=== PATIENT | female | born 1985 | race Caucasian/White ===

== ENCOUNTER 2023-04-14 20:09 | Emergency (ER) | payer SELFPAY ==
--- OUTSIDE RECORDS SUMMARY | 2023-04-14 20:16 | XMS REPORT | Continuity of Care Document ---
:1985 Author Organization [facility] t Address [address] [facility] [address] [place] [address] Care Team Providers Name Role Phone Tristan Joel MD Primary Care Physician TRISTAN JOEL Attending Clinician Unavailable TRISTAN JOEL Attending Clinician Unavailable DORCAS TREADWELL Attending Clinician Unavailable Victoriano Barrientos MD Attending Clinician [phone] Master Franko AARON Attending Clinician FRANKO SOLIS Attending Clinician Unavailable VICTORIANO BARRIENTOS Attending Clinician Unavailable RAMÓN Attending Clinician Unavailable Ashley Rogers MD Attending Clinician MAE ZAVALETA Attending Clinician Unavailable MANAN GIMENEZ Attending Clinician Unavailable Desmond Jacob Attending Clinician Unavailable TOMÁS JARRETT Attending Clinician Unavailable Provider, An Attending Clinician Unavailable CASEY FALLON Attending Clinician Unavailable LANCE GALLEGO Attending Clinician Unavailable RADHA CHANDLER Attending Clinician Unavailable Matt ETIENNE, Jordan Mcdaniel Attending Clinician SUNDAY, HODAN Attending Clinician Unavailable HOWARD ORTIZ Attending Clinician Unavailable YAHIR DURHAM Attending Clinician Unavailable Mariah Suárez Attending Clinician Unavailable ADRIANO CHA Attending Clinician Unavailable Nilam ETIENNE, Jeanette Richard Attending Clinician Gin ETIENNE, Kelly Guzman Attending Clinician TRISTAN JOEL M.D. Attending Clinician Unavailable TONIA ELMORE Attending Clinician Unavailable SUSAN COTE M.D. Attending Clinician Unavailable FIDENCIO HERNANDEZ Attending Clinician Unavailable Tristan Joel M.D. Attending Clinician Unavailable FIDENCIO DIAZ Attending Clinician Unavailable JACOB CARDOSO M.D. Attending Clinician Unavailable SHERICE ARREDONDO M.D. Attending Clinician Unavailable ROMANA_KRYSTAL Admitting Clinician Unavailable Desmond Jacob Admitting Clinician Unavailable MD JORDAN BANSAL Admitting Clinician Unavailable MARIELY CHEW Admitting Clinician Unavailable Payers Payer Name Policy Type Policy Number Effective Date Expiration Date [facility] [id number] 2020 2021 HEALTH PLANS OON 00:00:00 00:00:00 [facility] [id number] 2015 00:00:00 Problems Condition Condition Condition Status Onset Resolution Last Treating Co mments Source Name Details Category Date Date Treatment Clinician Date SENT BY SENT BY Diagnosis Active 2022-08-20 Fracisco RICHEY Active 08-20 15:53:00 l 08/20/2022 00:00: Fito doan [address] HOLDER HOLDER Active Diagnosis Active 2022-08-25 Fracisco 08/20/202208-20 15:57:00 l [facility] 00:00: [address] NSVT NSVT Disease Active [place] (nonsustai (nonsustai 4-01 He alth alejandra alejandra 00:00: ventricula ventricula 00 r r tachycardi tachycardi a) a) Brugada Brugada Disease Active [place] syndrome syndrome 4-01 Health 00:00: 00 Abnormal Abnormal Disease Active [place] electrocar electrocar 2-15 He alth diogram diogram 00:00: 00 Palpitatio Palpitatio Disease Active U T ns ns 2-13 Health 00:00: 00 Sinus Sinus Disease Active [place] tachycardi tachycardi 2-13 He alth a a 00:00: 00 CONGENITAL CONGENITA Diagnosis Active 2021-052022-08-10 Memoria HEART L HEART 06-29 16:32:00 l DISEASE DISEASE 00:00: [place] Active 00 04/28/2022 [facility] 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 04 Health disease disease 00:00: 00 Family Family Disease Active [place] history of history of 4-04 He alth Brugada Brugada 00:00: syndrome syndrome 00 SOB, SOB, Diagnosis Active 2021-01-23 Mem oria VOMITING VOMITING 01-23 20:45:00 l BLOOD BLOOD 00:00: [place] Active 00 01/23/2021 [facility] Attention Attention Problem Active Evan gregg deficit Deficit 8-14 Family hyperactiv Hyperactiv 00:00: Pr actic ity ity 00 e disorder, Disorder, 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 CONNOR RYAN Active 08/27/2018 [facility] Brugada Brugada Disease Active 2016-05 Methodi syndrome syndrome 1-15 st 00:00: Hospita 00 l CHILDBIRTH CHILDBIRT Diagnosis Active 2014-052015-05-10 Memoria H Active 05-22 15:58:00 l 03/22/2015 00:00: Fito n [address] CONTRACTIO Diagnosis Active 2015-04-09 Memoria NS CONTRACTIO 05-21 21:55:00 l NS Active 00:00: Junior 05/21/2014 00 [facility] APNEA APNEA Diagnosis Active 2021-09-26 Mem oria Active 05-21 11:40:00 l 05/21/2000 00:00: Fito doan [address] Aneurysm Aneurysm Problem Active 2022-08-28 Memoria of of 07:00:00 l ascending ascending Herm claire aorta aorta (disorder) (disorder) Active Problem 08/28/2022 [facility] Bicuspid Bicuspid Problem Active 2022-08-28 Memoria aortic aortic 07:00:00 l valve valve Junior (disorder) (disorder) Active Problem 08/28/2022 [facility], H SHEYLA Peres, SHEYLA Pacheco,[facility] CAT scan CAT scan Problem Active 2022-08-28 Memoria brain - brain - 07:00:00 l abnormal abnormal Fito daon (finding) (finding) Active Problem 08/28/2022 [facility] Obstructiv Obstructi Problem Active 2022-08-28 Memoria e sleep ve sleep 07:00:00 l apnea apnea [place] syndrome syndrome (disorder) (disorder) Active Problem 08/28/2022 [facility] Q23.1 - Q23.1 - Diagnosis Active 2021-09-08 Memoria CONGENITAL CONGENITAL 11:10:00 l INSUFFICIE INSUFFICIE He rmann NCY OF AO NCY OF AO Active [facility] R10.11 - R10.11 - Diagnosis Active 2021-07-26 Memoria RIGHT RIGHT 10:20:00 l UPPER UPPER Junior QUADRANT QUADRANT PAIN PAIN Active SHEYLA Pacheco N64.4 - N64.4 - Diagnosis Active 2021-09-09 Memoria MASTODYNIA MASTODYNIA 12:50:00 l [facility] [place] Q23.1 - Q23.1 - Diagnosis Active 2022-06-28 Memoria CONGENITAL CONGENITAL 10:36:00 l INSUFFICIE INSUFFICIE He rmann NCY OF AO NCY OF AO Q Q Active [facility] FULL-TERM FULL-TERM Diagnosis Active 2015-04-09 Memoria ERMELINDA ROM, ERMELINDA ROM, 21:55:00 l ONSET ONSET 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 [facility] HEADACHE, Diagnosis Active 2022-08-25 Memoria UNSPECIFIE HEADACHE, 15:57:00 l D UNSPECIFIE Fito n D Active [facility] History of History of Problem Active U T family family Physici problem problem ans Vaginal Vaginal Problem Active UT discharge discharge Phys ici ans Yeast Yeast Problem Active UT infection infection Phys ici ans Aortic Aortic Problem Active UT valve valve Physici regurgitat regurgitat an s ion ion Problem Active UT control control Physici counseling counseling an s High-risk High-risk Problem Active UT Phys ici ans Encounter Encounter Problem Active UT for for Physici an s visit visit Anemia Anemia Problem Active UT Physici ans Problem Active UT screening screening Phys ici for for ans malformati malformati on using on using ultrasonic ultrasonic s s Bicuspid Bicuspid Problem Active UT aortic aortic Physici valve valve ans Aortic Aortic Problem Active UT root root Physici dilation dilation ans Patient Patient Problem Resolve 2014-052022-08-28 2022-08-28 Memoria currently currently d 1-15 07:00:00 07:00:00 l 00:00: Fito doan (finding) (finding) 00 Resolved 04/04/2015 Problem 08/28/2022 [facility],M SHEYLA Peres, SHE[facility]LA Pacheco[facility] History of Past Illness Condition Condition Condition Status Onset Resolution Last Treating Co mments Source Name Details Category Date Date Treatment Clinician Date Alcohol Alcohol Problem 2021-01-25 2021-01-25 Memoria abuse, abuse, 01-23 22:05:58 22:05:58 l uncomplica uncomplica 17:00: He ronaldo amy amy 00 01/23/2021 01/25/2021 [facility] Esophagiti Esophagit Problem 2021-01-25 2021-01-25 Memoria s, is, 01-23 22:05:58 22:05:58 l unspecifie unspecifie 17:00: He ronaldo morgan without d without 00 bleeding bleeding 01/23/2021 01/25/2021 [facility] Allergies, Adverse Reactions, Alerts Allergy Allergy Status Severity Reaction(s) Onset Inactive Treating Comm ents Source Name Type Date Date Clinician No Known DA Active U 2022-05 [facility] All[facility]ie 0-01 Nieves s 00:00: [facility] 00 are [place] NO KNOWN Allergy Active [facility] No Known No Known Active Memori a Medicati Medicati l on on Junior Allergie Allergie s s Family History Family Member Diagnosis Comments Start Date Stop Date Source Natural [facility] Social [facility] Social Habit Start Date Stop Date Quantity Comments Source Sexual orientation [facility] Exposure to 2022-09-22 2022-10-02 Not sure [facility] SARS-CoV-2 (event) 00:00:00 01:59:00 History of Social 2022-09-18 2022-09-[address] function 00:00:00 00:00:00 [facility] Social History 2022-08-21 2022-08-21 [facility] 06:09:35 06:09:35 Tobacco use and 2022-06-29 2022-06-29 Smokeless [place] Health exposure 00:00:00 00:00:00 tobacco non-user Alcohol intake 2020-12-01 2020-12-01 Current Hinduism 00:00:00 00:00:00 non-drinker of Hospital alcohol (finding) Sex Ass[birth year] At [birth year] [facility] 00:00:00 00:00:00 [facility] Smoking Status Start Date Stop Date Source Tobacco smoking consumption unknown [facility] Never smoked tobacco [place] [facility] Medications Ordered Filled Start Stop Current Ordering Indication Dosage Frequency Signature Comments Components Source Medication Medication Date Date Medication? Clinician (SIG) Name Name clonazePAM 2022-05- No 1{tbl} Q.5D Take 1 UT (KlonoPIN) 05-28 1108 tablet by Deana hernandez 0.5 MG 10:44: 00:00 mouth in tablet 34 :00 the morning and 1 tablet before bedtime. polyethylen 2022-05 Yes [id number] Take 2L PO UT e glycol 08 from 6 pm Health (GaviLyte-G 00:00: to 8 pm ) 236 g 00 the night solution before procedure, then take 2L PO over two hours starting 6 hours prior to procedure time to be completed by 4 hours prior to procedure time ondansetron 2022-05- Yes [id number] 4mg Take 1 UT (Zofran) 4 05-28 12- tablet (4 Hea lth MG tablet 00:00: 05:59 mg total) 00 :00 by mouth 1 (one) time each day if needed for nausea or vomiting. propranolol 2022- No QD Take by UT [place] (Inderal 02-14 mouth 1 Heal th LA) 80 MG 00:00: 00:00 (one) time 24 hr 00 :00 each day. capsule Lo Loestrin Yes 1{tbl} QD Take 1 UT Fe 1 MG-10 02-13 tablet by [facility] th MCG / 10 00:00: mouth 1 MCG tablet 00 (one) time each day. amphetamine 2022- No TAKE 1.5 U T -dextroamph 02-06 TABLETS [facility] etamine 00:00: 00:00 TWICE A (Adderall) 00 :00 DAY BY 20 MG ORAL ROUTE tablet NEEDED. butalbital- 2022- No 1{tbl} Q6H Take 1 U T acetaminoph 12-21- tablet by He alth en-caffeine 15:05: 00:00 mouth 50-325-40 17 :00 every 6 MG tablet (six) hours if needed. Rimegepant 2022-0 Yes [id number] 75mg Q2D Take 75 mg UT Sulfate 75 8- 9105 by mouth Healt h MG tablet 00:00: every dispersible 00 other day. Rimegepant 2022-0 Yes [id number] 75mg Q2D Take 75 mg UT Sulfate 75 8-03 9105 by mouth Healt h MG tablet 00:00: every dispersible 00 other day. Rimegepant 2022-0 Yes [id number] 75mg Q2D Take 75 mg UT Sulfate 75 8-03 9105 by mouth Healt h MG tablet 00:00: every dispersible 00 other day. metoprolol 2023- No [id number] 25mg QD Take 1 U T succinate 12-18 tablet (25 Hea lth XL 00:00: 05:59 mg total) (Toprol-XL) 00 :00 by mouth 1 25 MG 24 hr (one) time tablet each day. TAKE 1 TABLET BY MOUTH 1 TIME EACH DAY DO NOT CRUSH OR CHEW metoprolol 2023- No [id number] 25mg QD Take 1 U T succinate 12-18 tablet (25 Hea lth XL 00:00: 05:59 mg total) (Toprol-XL) 00 :00 by mouth 1 25 MG 24 hr (one) time tablet each day. TAKE 1 TABLET BY MOUTH 1 TIME EACH DAY DO NOT CRUSH OR CHEW metoprolol 2023- No [id number] 25mg QD Take 1 U T succinate 12-18 tablet (25 Hea lth XL 00:00: 05:59 mg total) (Toprol-XL) 00 :00 by mouth 1 25 MG 24 hr (one) time tablet each day. TAKE 1 TABLET BY MOUTH 1 TIME EACH DAY DO NOT CRUSH OR CHEW butalbital- 0 Yes 1{tbl} Q6H Take 1 UT acetaminoph 7-03 tablet by [facility] en-caffeine 09:01: mouth 50-325-40 01 every 6 MG tablet (six) hours if needed. butalbital- 0 Yes 1{tbl} Q6H Take 1 UT acetaminoph 7-03 tablet by [facility] en-caffeine 09:01: mouth 50-325-40 01 every 6 MG tablet (six) hours if needed. amphetamine 2022-0 2022- No 1{tbl} Q.5D Take 1 U T -dextroamph 10-29 tablet by alth etamine 00:00: 00:00 mouth in (Adderall) 00 :00 the 30 MG morning tablet and 1 tablet before bedtime. amphetamine 2022-2022- No 1{tbl} Q.5D Take 1 U T -dextroamph 10-29- tablet by alth etamine 00:00: 00:00 mouth in (Adderall) 00 :00 the 30 MG morning tablet and 1 tablet before bedtime. atorvastati 2022-0 2022- No 40mg QD Take 40 mg UT n (Lipitor) 10-22 by mouth 1 H ealth 40 MG 00:00: 00:00 (one) time tablet 00 :00 each day. atorvastati 3- No 40mg QD Take 40 mg UT n (Lipitor) 6 07-03 by mouth 1 H ealth 40 MG 00:00: 00:00 (one) time tablet 00 :00 each day. rosuvastati 2022-2023- No [id number] 40mg QD Take 1 UT n (Crestor) 5-15 05-15 tablet (40 H ealth 40 MG 00:00: 04:59 mg total) tablet 00 :00 by mouth 1 (one) time each day. rosuvastati 2022-2023- No [id number] 40mg QD Take 1 UT n (Crestor) 5-15 05-15 tablet (40 H ealth 40 MG 00:00: 04:59 mg total) tablet 00 :00 by mouth 1 (one) time each day. rosuvastati 2022-2023- No [id number] 40mg QD Take 1 UT n (Crestor) 5-15 05-15 tablet (40 H ealth 40 MG 00:00: 04:59 mg total) tablet 00 :00 by mouth 1 (one) time each day. rosuvastati 2023- No [id number] 40mg QD Take 1 UT n (Crestor) 5-15 05-15 tablet (40 H ealth 40 MG 00:00: 04:59 mg total) tablet 00 :00 by mouth 1 (one) time each day. rosuvastati 2023- No [id number] 40mg QD Take 1 UT n (Crestor) 5-15 05-15 tablet (40 H ealth 40 MG 00:00: 04:59 mg total) tablet 00 :00 by mouth 1 (one) time each day. rosuvastati 2023- No [id number] 40mg QD Take 1 UT n (Crestor) 5-15 05-15 tablet (40 H ealth 40 MG 00:00: 04:59 mg total) tablet 00 :00 by mouth 1 (one) time each day. Yes 1{tbl} QD Take 1 Metho di vit,calc76- 5-[address] iron-folic 05:39: mouth Hospit a 29 mg iron- 59 daily. l 1 mg tablet per tablet Yes 1{tbl} QD Take 1 Metho di vit,calc76- 5-[address] iron-folic 05:39: mouth Hospit a 29 mg iron- 59 daily. l 1 mg tablet per tablet metoprolol 2022- No [id number] 25mg QD Take 1 U T succinate 09-25- tablet (25 Hea lth XL 00:00: 04:59 mg total) (Toprol-XL) 00 :00 by mouth 1 25 MG 24 hr (one) time tablet each day. Do not crush or chew. metoprolol 2022- No [id number] 25mg QD Take 1 U T succinate 09-25 tablet (25 Hea lth XL 00:00: 04:59 mg total) (Toprol-XL) 00 :00 by mouth 1 25 MG 24 hr (one) time tablet each day. Do not crush or chew. metoprolol 2022- No [id number] 25mg QD Take 1 U T succinate 09-25 tablet (25 Hea lth XL 00:00: 00:00 mg total) (Toprol-XL) 00 :00 by mouth 1 25 MG 24 hr (one) time tablet each day. Do not crush or chew. atorvastati Yes 40 mg = 1 M emoria n 40 mg 4-07 tab, PO, l oral tablet 18:24: Bedtime, # Junior 00 60 tab, 1 Refill(s), [id number], 172.72, cm, 08/21/22 1:59:00 CDT, Height, 78.3, kg, 08/21/22 1:59:00 CDT, Weight riboflavin Yes 400 mg = 4 M emoria 100 mg oral 4-07 tab, PO, l tablet 18:24: Daily, # [place] 00 100 tab, 1 Refill(s), Pharmacy: [facility] #[id number], 172.72, cm, 08/21/22 1:59:00 CDT, Height, 78.3, kg, 08/21/22 1:59:00 CDT, Weight ubiquinone 2023-0 Yes 100 mg = 1 M emoria 100 mg oral 4-07 cap, PO, l capsule 18:24: TID, # 30 Suyapa nn 00 cap, 1 Refill(s), Pharmacy: [facility] #[id number], 172.72, cm, 08/21/22 1:59:00 CDT, Height, 78.3, kg, 08/21/22 1:59:00 CDT, Weight atorvastati No 40 mg = 1 M emoria n 40 mg 4-07 tab, PO, l oral tablet 18:08: Bedtime, # Junior 00 60 tab, 1 Refill(s) riboflavin 0 No 400 mg = 4 M emoria 100 mg oral 4-07 tab, PO, l tablet 18:08: Daily, # [place] 00 240 tab, 0 Refill(s) ubiquinone 0 No 100 mg = 1 M emoria 100 mg oral 4-07 cap, PO, l capsule 18:08: TID, # 180 Herm claire 00 cap, 0 Refill(s) [place] 5/325 0 No Notes: Hussain char oral tablet - (Same as: l 14:12: [place] 00 325/5) Do not exceed 4gm/day of acetaminop hen. [place] 5/325 0 No Notes: Hussain char oral tablet - (Same as: l 10:00: [place] Junior 00 325/5) Do not exceed 4gm/day of acetaminop hen. [place] 5/325 0 No Notes: Hussain char oral tablet - (Same as: l 04:49: [place] Junior 00 325/5) Do not exceed 4gm/day of acetaminop hen. tramadol 50 No Notes: Not Memoria mg oral -07 to exceed l tablet 02:08: 400mg/day. Suyapa nn 00 (Same As: Ultram) atorvastati 0 Yes 40mg Take 40 mg UT n (Lipitor) -07 by mouth Heal th 40 MG 00:00: every tablet 00 night. atorvastati 2022-0 Yes 40mg Take 40 mg UT n (Lipitor) 4-07 by mouth Heal th 40 MG 00:00: every tablet 00 night. atorvastati No 40mg Take 40 mg UT n (Lipitor) 08-25 05-15 by mouth Hea lth 40 MG 00:00: 00:00 every tablet 00 :00 night. dexamethaso No Notes: Memoria ne 4-05 MEDICATION l 19:30: WASTE [place] 00 Product Size: 10 mg Product Wasted: ___ mg valproic No Notes: Memoria acid + -05 Dilute in l Sodium 19:30: at least Junior Chloride 00 50ml D5W 0.9% IV 50 or NS. mL Infusion rate = 20 mg/min (Same As: Depacon) Hazardous Drug Group 3:Reproduc tive risk Hazardous Drug -- Refer to safe handling procedure PPE Matrix dexamethaso No Notes: Hussain char ne - Concentrat l 18:53: ion: [place] 00 4mg/ml Depakote No 500 mg, Memori a -05 Route: PO, l 18:53: ONCE, [place] Dosing Weight 78.3, kg, Start date: 08/23/22 13:53:00 CDT, Stop date: 08/23/22 13:53:00 CDT Lactated 2022-0 No 500 mL, Memori a Ringers 4-05 500 ml/hr, l (Bolus) IV 18:53: Infuse Suyapa nn 00 Over: 1 hr, Route: IV, 500, Drug form: INJ, ONCE, Priority: STAT, Dosing Weight 78.3 kg, Start date: 08/23/22 13:53:00 CDT, Stop date: 08/23/22 13:53:00 CDT, 0 magnesium No Notes: Memori a sulfate -05 WASTE: F/P l 18:53: - Sink; E - Municipal Trash Bin potassium No /= 14 Memoria chloride 4-05 Albanian, l 09:45: may dissolve each 20 mEq tablet in 4 oz of water. Allow about 2 minutes for the tablets to disintegra te. Stir before giving to prepare slurry and administer . Please exclude patient's with feeding tube less than 14 Albanian (Alon Jarvis-tube, etc) and pediatric and patients. potassium No Notes: Memori a phosphate-s 4-05 (Same as: l odium 09:45: Phos-NaK) [place] phosphate 00 Each 1.5 250 mg-280 gm pkt has mg-160 mg 250mg oral powder phosphorou for s. Mix reconstitut w/2.5oz ion water and stir. potassium No Notes: Memori a phosphate 4-05 (Same as: l 09:45: K [place] 00 Phosphate) Infuse over 4 hour. Do not infuse phosphorou s concurrent ly in the same line as TPN or IVF that contains calcium. For double lumen central lines, phosphorou s may be infused in a separate lumen from TPN. sodium No Notes: Memoria phosphate 4-05 Infuse l 09:45: over 4 [place] 00 hour. Do not infuse phosphorou s concurrent ly in the same line as TPN or IVF that contains calcium. For double lumen central lines, phosphorou s may be infused in a separate lumen from TPN. magnesium No Notes: Memori a sulfate 4-05 WASTE: F/P l 09:45: - Sink; E Junior 00 - Municipal Trash Bin magnesium No Notes: Memori a oxide 4-05 (Same as: l 09:45: Mag-Ox Junior 00 400) Magnesium oxide 504mv=676a g elemental magnesium Dose=____m g magnesium oxide (___mg elemental magnesium) calcium No Notes: Memoria gluconate + 4-05 WASTE: F/P l Sodium 09:45: - Sink; E Fito n Chloride 00 - 0.9% IV 80 Municipal mL Trash Bin calcium No Notes: Memoria gluconate + 4-05 WASTE: F/P l Sodium 09:45: - Sink; E Fito n Chloride 00 - 0.9% IV 100 Municipal mL Trash Bin valproic No Notes: Memoria acid + 4-04 Dilute in l Sodium 19:00: at least [place] Chloride 00 50ml D5W 0.9% IV 50 or NS. mL Infusion rate = 20 mg/min (Same As: Depacon) Hazardous Drug Group 3:Reproduc tive risk Hazardous Drug -- Refer to safe handling procedure PPE Matrix dexamethaso No Notes: Hussain char ne 08-22 dexamethas l 18:00: one 10 Junior 00 mg/1 ml VL INJ PF MEDICATION WASTE Product Size: 10 mg Product Wasted: ___ mg Depakote No 500 mg, Memori a 08-22 Route: IV, l 17:54: ONCE, Dosing Weight 78.3, kg, Start date: 08/22/22 12:54:00 CDT, Stop date: 08/22/22 12:54:00 CDT LORazepam No Notes: Memori a 08-22 (Same as: l 16:53: Ativan) dexamethaso No Notes: Hussain char ne 08-22 Give with l 16:48: food. [place] 00 (Same As: Decadron) Depakote No Notes: Memoria 08-22 Hazardous l 16:48: Drug Group 2:Non-anti neoplastic Hazardous Drug -- Refer to safe handling procedure PPE Matrix (Same as: Depakote Delayed Release) Do not confuse with the extended-r elease tablet. Delayed absorption , enteric coated tablet. Do not crush Lactated No 500 mL, Memori a Ringers 08-22 500 ml/hr, l (Bolus) IV 16:48: Infuse Suyapa nn 00 Over: 1 hr, Route: IV, 500, Drug form: INJ, ONCE, Priority: STAT, Dosing Weight 78.3 kg, Start date: 08/22/22 11:48:00 CDT, Stop date: 08/22/22 11:48:00 CDT, 0 riboflavin No Notes: Memor ia 08-22 (Same as: l 14:00: Vitamin B2) atorvastati No Notes: Hussain char n 08-22 (Same as: l 02:00: Lipitor) acetaminoph No Notes: Do M emoria en 08-21 not exceed l 18:02: 4 gm/day. (Same as: Tylenol) Coenzyme No Notes: Memoria Q10 4-03 Same as l 18:00: Co-Enzyme Junior 00 Q10 enoxaparin No Notes: Memor ia -03 (Same as: l 17:00: Lovenox) [place] 00 Tylenol No Notes: Do Memor ia -03 not exceed l 14:21: 4 gm/day. [place] (Same as: Tylenol) Lo Loestrin No 1 tab, Hussain char Fe 08-21 Route: PO, l 14:00: Drug Form: [place] 00 TAB, Dosing Weight 77.273, kg, Daily, Start date: 08/21/22 9:00:00 CDT, Duration: 30 day, Stop date: 09/19/22 9:00:00 CDT Maalox No Notes: Memoria Advanced 08-21 (aluminum l Regular 07:09: hydroxide- Herm claire Strength 00 magnesium SUSP hyd-simeth icone 200-200-20 mg/5ml 30 ml ud KEN) Tylenol No Notes: Max Hussain char -03 acetaminop l 07:08: hen 4000 [place] 00 mg/day (4 gm/day). (Same as: Tylenol Extra Strength) senna 8.6 No Notes: Memori a mg oral 08-21 (Same as: l tablet 04:15: Senokot) ibuprofen No Notes: Memori a - (Same as: l 03:33: Motrin) "Do Not Crush" Take with food. Dextrose No 12.5 gm, Memor ia 50% Syringe 03 25 mL, l (D50W) 03:30: Route: [place] IVP, Drug Form: INJ, Dosing Weight 77.273, kg, PRN, PRN Blood Glucose Results, Start date: 08/20/22 22:30:00 CDT, Duration: 30 day, Stop date: 09/19/22 22:29:00 CDT, 0 glucagon No 1 mg, Memoria 08-21 Route: IM, l 03:30: Drug form: Junior PDR/INJ, PRN, Dosing Weight 77.273, kg, PRN Blood Glucose Results, Start date: 08/20/22 22:30:00 CDT, Duration: 30 day, Stop date: 09/19/22 22:29:00 CDT, 0 melatonin No Notes: Memori a -03 (Same as: l 03:30: Melatonin) acetaminoph No 100.4 F, M jluis en 4-03 Start l 03:30: date: 08/20/22 22:30:00 CDT, Duration: 30 day, Stop date: 09/19/22 22:29:00 CDT Lo Loestrin Yes TAKE 1 Hussain char Fe oral 08-21 TABLET BY l tablet 03:25: MOUTH EVERY DAY amphetamine Yes 0 Memori a -dextroamph 08-21 Refill(s) l etamine 20 02:31: [place] mg oral 00 tablet acetaminoph No 1 tab, PO, Memoria en/butalbit 03 Q4H, PRN l al/caffeine 02:28: Headache, H ermann 325 mg-50 00 Not to mg-40 mg exceed oral tablet more than 6 tablets in 24 hours, 0 Refill(s) Lo Loestrin No 0 Memori a Fe oral 08-21 Refill(s) l tablet 02:28: Omnipaque No 60 mL, Memori a 350 mg/mL 08-20 Route: l 20:01: IVP, Drug Form: SOLN, Dosing Weight 77.273, kg, ONCALL, STAT, Start date: 08/20/22 15:01:00 CDT, Duration: 1 doses or times, Dose = 2.2ml/kg, Max dose = 100ml -- "To be infused by Radiology Staff ONLY" Lactated No 1,000 mL, Hussain char Ringers 08-20 1000 l (Bolus) IV 18:56: ml/hr, Suyapa Infuse Over: 1 hr, Route: IV, 1,000, Drug form: INJ, ONCE, Priority: STAT, Dosing Weight 77.273 kg, Start date: 08/20/22 13:56:00 CDT, Stop date: 04/02/23 13:56:00 CDT, 0 Lo Loestrin 3-0 Yes [facility] Fe 1 MG-10 3-23 Health MCG / 10 00:00: MCG tablet 00 Lo Loestrin 3-0 Yes [facility] Fe 1 MG-10 3-23 Health MCG / 10 00:00: MCG tablet 00 Lo Loestrin 3-0 Yes [facility] Fe 1 MG-10 3-23 Health MCG / 10 00:00: MCG tablet 00 Lo Loestrin 3-0 Yes [facility] Fe 1 MG-10 3-23 Health MCG / 10 00:00: MCG tablet 00 Lo Loestrin 3-0 3- No [facility] Fe 1 MG-10 3-23 07-03 Health MCG / 10 00:00: 00:00 MCG tablet 00 :00 Lo Loestrin 3-0 3- No [facility] Fe 1 MG-10 3-23 07-03 Health MCG / 10 00:00: 00:00 MCG tablet 00 :00 amphetamine 2022-0 3- No dextroamph UT -dextroamph 18 18 etamine-am H ealt etamine 08:35: 00:00 phetamine (Adderall) 30 :00 30 mg 30 MG tablet tablet TAKE 1 TABLET TWICE A DAY BY ORAL ROUTE FOR 30 DAYS. Lo Loestrin 2021-0 Yes 1{tbl} QD Take 1 UT Fe 1 MG-10 3-29 tablet by [facility] MCG / 10 00:00: mouth 1 MCG tablet 00 (one) time each day. Lo Loestrin 2021-0 Yes 1{tbl} QD Take 1 UT Fe 1 MG-10 3-29 tablet by [facility] MCG / 10 00:00: mouth 1 MCG tablet 00 (one) time each day. Lo Loestrin 2021-0 Yes 1{tbl} QD Take 1 UT Fe 1 MG-10 3-29 tablet by [facility] MCG / 10 00:00: mouth 1 MCG tablet 00 (one) time each day. butalbital- 2021-0 Yes 1{tbl} Q6H Take 1 UT acetaminoph 3-29 tablet by [facility] en-caffeine 00:00: mouth 50-325-40 00 every 6 MG tablet (six) hours if needed. butalbital- 2021-0 Yes 1{tbl} Q6H Take 1 UT acetaminoph 3-29 tablet by [facility] en-caffeine 00:00: mouth 50-325-40 00 every 6 MG tablet (six) hours if needed. Lo Loestrin 2022- No 1{tbl} QD Take 1 U T Fe 1 MG-10 08-1618 tablet by [facility] MCG / 10 00:00: 00:00 mouth 1 MCG tablet 00 :00 (one) time each day. butalbital- 2021- No 1{tbl} Q6H Take 1 U T acetaminoph 08-16 tablet by [facility] en-caffeine 00:00: 00:00 mouth 50-325-40 00 :00 every 6 MG tablet (six) hours if needed. No known No No known [facility] medications - medication He alth 08:47: s 05 No known No No known [facility] medications 07-19 medication He alth 08:47: s 05 GI cocktail No Notes: Hussain char (aluminum -06 G.I. l hydroxide/m 02:14: Cocktail - Junior agnesium 00 Mix 22.5ml hydroxide/l of Maalox idocaine/si (with methicone) Simethicon e) and 7.5ml of 2% Viscous Lidocaine. Pepcid 40 Yes 40 mg = 1 Mem oria mg oral -06 tab, PO, l tablet 02:13: Daily, # [place] 00 30 tab, 0 Refill(s) Prilosec 40 Yes 40 mg = 1 M emoria mg oral 9-06 cap, PO, l delayed 02:13: Daily, # Fito n release 00 30 cap, 0 capsule Refill(s) Famotidine Yes 40 mg = 1 Me moria 40 MG Oral 9-06 tab, PO, l Tablet 02:13: Daily, # [place] [Pepcid] 00 30 tab, 0 Refill(s) Omeprazole Yes 40 mg = 1 Me moria 40 MG 9-06 cap, PO, l Enteric 02:13: Daily, # Fito n Coated 00 30 cap, 0 Capsule Refill(s) [Prilosec] Saline No Notes: Memoria Flush 0.9% 9-06 (Same as: l 00:44: BD [place] 00 Posiflush) Albuterol No Notes: Memori a 0.833 MG/ML 01-24 (Same as: l / 00:44: Duoneb) [place] Ipratropium 00 [place] 0.167 MG/ML Inhalant Solution Yes 1{tbl} QD Take 1 Metho di vit,calc76- 7-[address] iron-folic 19:45: mouth Hospit a 29 mg iron- 44 daily. l 1 mg tablet per tablet acetaminoph 2020- [place] [address] 1{tbl} Q6H Take 1-2 [facility] en-codeine 7-14 07-20 tablets by (TYLENOL 00:00: 04:59 mouth [facility] WITH 00 :00 every 6 l CODEINE #3) (six) 300-30 mg hours as per tablet needed for moderate pain for up to 5 days .acute pain. Montelukast Montelukast Yes 1 QD TAKE 1 UT Sodium 10 Sodium 10 9-30 TABLET Phy sici MG Oral MG Oral 00:00: DAILY ans Tablet Tablet 00 Colace 100 2014-05 Yes 100 mg = 1 M emoria mg oral 1-17 cap, PO, l capsule 15:59: BID, PRN Fito n 00 Constipati on, # 60 cap, 0 Refill(s) ibuprofen 2014-05 Yes 600 mg = 1 Me moria 600 mg oral 1-17 tab, PO, l tablet 15:59: Q6H, PRN Junior 00 Pain Score 1-5, # 40 tab, 0 Refill(s) Docusate 2014-05 Yes 100 mg = 1 Mem oria Sodium 100 1-17 cap, PO, l MG Oral 15:59: BID, PRN Fito n Capsule 00 Constipati [Colace] on, # 60 cap, 0 Refill(s) 2014-05 No 1 tab, Memoria Multivitami 16 Route: PO, l ns oral 15:00: Drug Form: Herm claire tablet 00 TAB, Dosing Weight 81.364, kg, Daily, Start date: 04/05/15 9:00:00, Duration: 30 day, Stop date: 05/04/15 9:00:00 Ibuprofen 2014-05 No Notes: Memori a -16 (Same as: l 08:17: Motrin) [place] "Do Not Crush" Take with food. M-M-R II 2014-05 No Notes: Memoria -16 (Same as: l 07:00: M-M-R II) Junior (measles-m umps-rubel la virus vaccine 0.5 ml INJ VL) GIVE PRIOR TO DISCHARGE Bisacodyl 2014-05 No Notes: Memori a - (Same As: l 06:57: Dulcolax, Junior 00 Correctol) (Do Not Crush) "Do Not Crush" Docusate 2014-05 No Notes: Memoria -16 (Same as: l 06:57: Colace) [place] (Do Not Crush) lanolin 2014-05 No Notes: Memoria topical 06-05 (Same l 06:57: as:Lanolin [place] ) Lactated 2014-05 No 1,000 mL, Hussain char Ringers IV 06-05 Rate: 100 l 1,000 mL 06:57: ml/hr, [place] 00 Infuse over: 10 hr, Route: IV, Dosing Weight 81.364 kg, Total Volume: 1,000, Start date: 04/05/15 0:57:00, Duration: 30 day, Stop date: 05/05/15 0:56:00 Methylergon 2014-05 No Notes: Hussain char ovine 06-05 (Same l 06:57: as:Metherg [place] ine) Benzocaine 2014-05 No Notes: Memor ia 200 MG/ML 06-05 (Same As: l Topical 06:57: Dermoplast Herm claire [place] ) FOR [Dermoplast EXTERNAL ] USE ONLY zolpidem 2014-05 No Notes: Memoria -16 (Same As: l 06:57: Ambien) Junior 00 Oxytocin 2014-05 No Notes: Memoria 0.06 UNT/ML 06-05 (Same as: l Injectable 06:57: OXYTOCIN-D H ermann Solution 00 5LR) Ondansetron 2014-05 No Notes: Hussain char -16 (Same as: l 06:57: Zofran) Junior MEDICATION WASTE Product Size: 4 mg Product Wasted: ___ mg Famotidine 2014-05 No Notes: Memor ia 1-16 (Same as: l 00:00: Pepcid) Junior Can be dilute in 5-10cc NS IVP: Slow IV push over at least 2 minutes. Misoprostol 2014-05 No Notes: Hussain char 1-16 (Same l 00:00: as:Cytotec [place] 00 ) Take with food Citric Acid 2014-05 No Notes: Hussain char / sodium 1-16 (Same As: l citrate 00:00: Bicitra, Fito n 00 Cytra-2) Sodium citrate-ci tric acid (500-334 mg/5 mL): 1 mL contains sodium 1 mEq/mL and bicarbonat e 1 mEq/mL Methylergon 2014-05 No Notes: Hussain chra ovine 1-16 (Same l 00:00: as:Metherg [place] 00 ine) Carboprost 2014-05 No Notes: Memor ia 1-16 (Same As: l 00:00: Hemabate) [place] Oxytocin 2014-05 No Notes: Memoria 0.06 UNT/ML -15 (Same as: l Injectable 23:05: OXYTOCIN-D H ermann Solution 00 5LR) Butorphanol 2014-05 No Notes: Hussain char 1-15 (Same As: l 23:05: Stadol) [place] 00 MEDICATION WASTE Product Size: 2 mg Product Wasted: ___ mg lidocaine 2014-05 No Notes: Memori a 1% 1-15 (Same as: l 23:05: Xylocaine) Junior 00 Ondansetron 2014-05 No Notes: Hussain char 1-15 (Same as: l 23:05: Zofran) [place] MEDICATION WASTE Product Size: 4 mg Product Wasted: ___ mg Terbutaline 2014-05 No Notes: Hussain char 1-15 DO NOT l 23:05: USE IN Junior [employer] ARE[employer] (Same As: [place]) lidocaine 2014-05 No Notes: Memori a 1% 1-15 Preservati l injectable 23:05: ve free. Her reynoso solution 00 (Same as: Xylocaine MPF) Calcium 2014-05 No 1,000 mL, Memor ia Chloride 1-15 1,000 l 0.0014 23:05: ml/hr, [place] MEQ/ML / 00 Infuse Potassium Over: 1 Chloride hr, Route: 0.004 IV, 1,000, MEQ/ML / Drug form: Sodium INJ, ONCE, Chloride Dosing 0.103 Weight MEQ/ML / 81.364 kg, Sodium Start Lactate date: 0.028 04/04/15 MEQ/ML 17:05:00, Injectable Stop date: Solution 04/04/15 17:05:00, Bolus for regional anesthesia per unit protocol Lactated 2014-05 No 1,000 mL, Hussain char Ringers IV 06-04 Rate: 125 l 1,000 mL 23:05: ml/hr, [place] 00 Infuse over: 8 hr, Route: IV, Dosing Weight 81.364 kg, Total Volume: 1,000, Start date: 04/04/15 17:05:00, Duration: 30 day, Stop date: 05/04/15 17:04:00 1 2014-05 No 1 tab, PO, M emoria Plus 1 oral 1-15 Daily, # l tablet 20:11: 30 tab, 0 Fito n 00 Refill(s) Loestrin 24 Loestrin 24 Yes 1 QD TAKE 1 UT Fe 1-20 Fe 1-20 TABLET Physici MG-MCG TABS MG-MCG TABS DAILY. ans cyclobenzap cyclobenzap No 1 Q1D cyclobenza [place] rine 10 mg rine 10 mg opal 10 Family tablet Take tablet Take mg tablet Practic 1 tablet 1 tablet Take 1 e every day every day tablet by oral by oral every day route at route at by oral bedtime for bedtime for route at 10 days. 10 days. bedtime for 10 days. [facility]-amph etamine-am Family etamine 20 etamine 20 phetamine Practic mg tablet mg tablet 20 mg e TAKE ONE TAKE ONE tablet (1) (1) TAKE ONE TABLET(S) TABLET(S) (1) BY MOUTH BY MOUTH TABLET(S) TWICE A TWICE A BY MOUTH DAY. DAY. TWICE A DAY. Lo Loestrin Lo Loestrin No Lo V illage Fe 1 mg-10 Fe 1 mg-10 Loestrin Family mcg (24)/10 mcg (24)/10 Fe 1 mg-10 Practic mcg (2) mcg (2) mcg e tablet TAKE tablet TAKE (24)/10 1 TABLET BY 1 TABLET BY mcg (2) MOUTH EVERY MOUTH EVERY tablet DAY DAY TAKE 1 TABLET BY MOUTH EVERY DAY naproxen naproxen No 1 BID naproxen Evan gregg 500 mg 500 mg 500 mg Family tablet Take tablet Take tablet Practic 1 tablet 1 tablet Take 1 e twice a day twice a day tablet by oral by oral twice a route for route for day by 10 days. 10 days. oral route for 10 days. dextroamphe dextroamphe No 1 BID dextroamph [place] tamine-amph tamine-amph etamine-am Family etamine 30 etamine 30 phetamine Practic mg tablet mg tablet 30 mg e Take 1 Take 1 tablet tablet tablet Take 1 twice a day twice a day tablet by oral by oral twice a route for route for day by 30 days. 30 days. oral route for 30 days. ibuprofen ibuprofen No ibuprofen [facility] 800 mg 800 mg 800 mg Family tablet TAKE tablet TAKE tablet Practic 1 TABLET 1 TABLET TAKE 1 e (800 MG) BY (800 MG) BY TABLET MOUTH EVERY MOUTH EVERY (800 MG) 8 HOURS 8 HOURS BY MOUTH WITH FOOD WITH FOOD EVERY 8 OR MILK OR MILK HOURS WITH NEEDED NEEDED FOOD OR MILK NEEDED Lo Loestrin Lo Loestrin No Lo V illage Fe 1 mg-10 Fe 1 mg-10 Loestrin Family mcg (24)/10 mcg (24)/10 Fe 1 mg-10 Practic mcg (2) mcg (2) mcg e tablet TAKE tablet TAKE (24)/10 1 TABLET BY 1 TABLET BY mcg (2) MOUTH EVERY MOUTH EVERY tablet DAY DAY TAKE 1 TABLET BY MOUTH EVERY DAY mupirocin 2 mupirocin 2 No mupirocin [place] % topical % topical 2 % Famil y ointment ointment topical Prac tic APPLY TO APPLY TO ointment e AFFECTED AFFECTED APPLY TO AREA TWICE AREA TWICE AFFECTED A DAY A DAY AREA TWICE A DAY Immunizations Ordered Filled Date Status Comments Source Immunization Name Immunization Name Pneumococcal 2017-04-06 Completed [facility] 00:00:00 [facility]pi j[facility]en FLUCELVAX QUAD PF 2017-04-[address] [facility] Pneumococcal 2017-04-06 Completed [facility] Conjugate PCV 13 00:00:00 Influenza, 2017-04-06 Completed [facility] injectable, MDCK, 00:00:00 preservative free, quadrivalent (flucelvax) Pneumococcal 2017-04-06 Completed [facility] Conjugate PCV 13 00:00:00 Influenza, 2017-04-06 Completed [facility] injectable, MDCK, 00:00:00 preservative free, quadrivalent (flucelvax) Pneumococcal 2017-04-06 Completed [facility] Conjugate PCV 13 00:00:00 Influenza, 2017-04-06 Completed [facility] injectable, MDCK, 00:00:00 preservative free, quadrivalent (flucelvax) Pneumococcal 2017-04-06 Completed [facility] Conjugate PCV 13 00:00:00 Influenza, 2017-04-06 Completed [facility] injectable, MDCK, 00:00:00 preservative free, quadrivalent (flucelvax) Pneumococcal 2017-04-06 Completed [facility] Conjugate PCV 13 00:00:00 Influenza, 2017-04-06 Completed [facility] injectable, MDCK, 00:00:00 preservative free, quadrivalent (flucelvax) Pneumococcal 2017-04-06 Completed [facility] Conjugate PCV 13 00:00:00 Influenza, 2017-04-06 Completed [facility] injectable, MDCK, 00:00:00 preservative free, quadrivalent (flucelvax) Pneumococcal 2017-04-06 Completed [facility] Conjugate PCV 13 00:00:00 Influenza, 2017-04-06 Completed [facility] injectable, MDCK, 00:00:00 preservative free, quadrivalent (flucelvax) Pneumococcal 2017-04-06 Completed [facility] Conjugate PCV 13 00:00:00 Influenza, 2017-04-06 Completed [facility] injectable, MDCK, 00:00:00 preservative free, quadrivalent (flucelvax) Pneumococcal 2017-04-06 Completed [facility] Conjugate PCV 13 00:00:00 Influenza, 2017-04-06 Completed [facility] injectable, MDCK, 00:00:00 preservative free, quadrivalent (flucelvax) Pneumococcal 2017-04-06 Completed [facility] Conjugate PCV 13 00:00:00 Influenza, 2017-04-06 Completed [facility] injectable, MDCK, 00:00:00 preservative free, quadrivalent (flucelvax) diphtheria/pertussi 2015-04-06 Completed [facility]fe[facility] jade Pacheco s, acel/tetanus 21:35:00 adult Tdap 2015-04-06 Completed [facility] 00:00:00 Tdap 2015-04-06 Completed [facility] 00:00:00 Tdap 2015-04-06 Completed [facility] 00:00:00 Tdap 2015-04-06 Completed [facility] 00:00:00 Tdap 2015-04-06 Completed [facility] 00:00:00 Tdap 2015-04-06 Completed [facility] 00:00:00 Tdap 2015-04-06 Completed [facility] 00:00:00 Tdap 2015-04-06 Completed [facility] 00:00:00 Tdap 2015-04-06 Completed [facility] 00:00:00 Tdap 2015-04-06 Completed [facility] 00:00:00 Tdap (Adacel) 2015-02-01 [facility]pleted [facility] Fluzone 2015-02-01 [facility] Quadrivalent 0.5 ML 00:00:00 Intramuscular Suspension Tdap 2015-02-01 Completed [facility] 00:00:00 Influenza, 2015-02-01 Completed [facility] seasonal, 00:00:00 injectable Tdap 2015-02-01 Completed [facility] 00:00:00 Influenza, 2015-02-01 Completed [facility] seasonal, 00:00:00 injectable Tdap 2015-02-01 Completed [facility] 00:00:00 Influenza, 2015-02-01 Completed [facility] seasonal, 00:00:00 injectable Tdap 2015-02-01 Completed [facility] 00:00:00 Influenza, 2015-02-01 Completed [facility] seasonal, 00:00:00 injectable Tdap 2015-02-01 Completed [facility] 00:00:00 Influenza, 2015-02-01 Completed [facility] seasonal, 00:00:00 injectable Tdap 2015-02-01 Completed [facility] 00:00:00 Influenza, 2015-02-01 Completed [facility] seasonal, 00:00:00 injectable Tdap 2015-02-01 Completed [facility] 00:00:00 Influenza, 2015-02-01 Completed [facility] seasonal, 00:00:00 injectable Tdap 2015-02-01 Completed [facility] 00:00:00 Influenza, 2015-02-01 Completed [facility] seasonal, 00:00:00 injectable Tdap 2015-02-01 Completed [facility] 00:00:00 Influenza, 2015-02-01 Completed [facility] seasonal, 00:00:00 injectable Tdap 2015-02-01 Completed [facility] 00:00:00 Influenza, 2015-02-01 Completed [facility] seasonal, 00:00:00 injectable Pneumococcal Unknown Completed [facility] Conjug[facility] Hos[facility] j[facility]en FLUCELVAX QUAD PF Unknown Completed [facility] Pneumococcal Unknown Completed [facility] Conjugate 13-[facility] Hospi jasen FLUCELVAX QUAD PF Unknown Completed [facility] Tdap Unknown Completed [facility] Pneumococcal Unknown Completed [facility] Conjugate PCV 13 Influenza, Unknown Completed [facility] injectable, MDCK, preservative free, quadrivalent (flucelvax) Tdap Unknown Completed [facility] Influenza, Unknown Completed [facility] seasonal, injectable Vital Signs Vital Name Observation Time Observation Value Comments Source Systolic blood 2021-08-22 111 mm[Hg] [facility] pressure 13:37:00 Diastolic blood 2021-08-22 77 mm[Hg] [facility] pressure 13:37:00 Heart rate 2021-08-22 102 /min [facility] 13:37:00 Respiratory rate 2021-08-22 16 /min [facility] 13:37:00 Body height 2021-08-22 172.7 cm [facility] 13:37:00 Body weight 2021-08-22 82.645 kg [facility] 13:37:00 BMI 2021-08-22 27.70 kg/m2 [facility] 13:37:00 Oxygen saturation 2021-08-22 99 /min [facility] in Arterial blood 13:37:00 by Pulse oximetry HEIGHT 2023-04-12 172.7 cm 04:22:00 WEIGHT 2023-04-12 95.255 kg 04:22:00 HEIGHT 2023-04-12 172.7 cm 04:22:00 WEIGHT 2023-04-12 95.255 kg 04:22:00 HEIGHT 2023-04-12 172.7 cm 04:22:00 WEIGHT 2023-04-12 95.255 kg 04:22:00 Systolic blood 2023-03-28 118 mm[Hg] [facility] pressure 16:14:00 Diastolic blood 2023-03-28 80 mm[Hg] [facility] pressure 16:14:00 Heart rate 2023-03-28 75 /min [facility] 16:14:00 Body temperature 2023-03-28 36.78 Salima [facility] 16:14:00 Respiratory rate 2023-03-28 24 /min [facility] 16:14:00 Body height 2023-03-28 172.7 cm [facility] 16:14:00 Body weight 2023-03-28 84.823 kg [facility] 16:14:00 BMI 2023-03-28 28.43 kg/m2 [facility] 16:14:00 Systolic blood 2023-01-08 101 mm[Hg] [facility] pressure 13:35:00 Diastolic blood 2023-01-08 71 mm[Hg] [facility] pressure 13:35:00 Heart rate 2023-01-08 76 /min [facility] 13:35:00 Respiratory rate 2023-01-08 17 /min [facility] 13:35:00 Body height 2023-01-08 172.7 cm [facility] 13:35:00 Body weight 2023-01-08 85.73 kg [facility] 13:35:00 BMI 2023-01-08 28.74 kg/m2 [facility] 13:35:00 Oxygen saturation 2023-01-08 97 /min [facility] in Arterial blood 13:35:00 by Pulse oximetry Systolic blood 2022-12-21 106 mm[Hg] [facility] pressure 20:04:00 Diastolic blood 2022-12-21 75 mm[Hg] [facility] pressure 20:04:00 Heart rate 2022-12-21 93 /min [facility] 20:04:00 Body temperature 2022-12-21 36.5 Salima [facility] 20:04:00 Respiratory rate 2022-12-21 18 /min [facility] 20:04:00 Body height 2022-12-21 172.7 cm [facility] 20:04:00 Body weight 2022-12-21 84.641 kg [facility] 20:04:00 BMI 2022-12-21 28.37 kg/m2 [facility] 20:04:00 Oxygen saturation 2022-12-21 100 /min [facility] in Arterial blood 20:04:00 by Pulse oximetry Systolic blood 2022-11-20 104 mm[Hg] [facility] pressure 14:01:00 Diastolic blood 2022-11-20 73 mm[Hg] [facility] pressure 14:01:00 Heart rate 2022-11-20 69 /min [facility] 14:01:00 Body height 2022-11-20 172.7 cm [facility] 14:01:00 Body weight 2022-11-20 82.555 kg [facility] 14:01:00 BMI 2022-11-20 27.67 kg/m2 [facility] 14:01:00 Systolic blood 2022-10-02 118 mm[Hg] [facility] pressure 14:45:00 Diastolic blood 2022-10-02 83 mm[Hg] [facility] pressure 14:45:00 Heart rate 2022-10-02 80 /min [facility] 14:45:00 Respiratory rate 2022-10-02 18 /min [facility] 14:45:00 Body height 2022-10-02 172.7 cm [facility] 14:45:00 Body weight 2022-10-02 83.553 kg [facility] 14:45:00 BMI 2022-10-02 28.01 kg/m2 [facility] 14:45:00 Oxygen saturation 2022-10-02 99 /min [facility] in Arterial blood 14:45:00 by Pulse oximetry Systolic blood 2022-09-14 105 mm[Hg] [facility] pressure 18:31:00 Diastolic blood 2022-09-14 84 mm[Hg] [facility] pressure 18:31:00 Heart rate 2022-09-14 85 /min [facility] 18:31:00 Body height 2022-09-14 172.7 cm [facility] 18:31:00 Body weight 2022-09-14 82.555 kg [facility] 18:31:00 BMI 2022-09-14 27.67 kg/m2 [facility] 18:31:00 Systolic blood 2022-09-04 110 mm[Hg] [facility] pressure 16:22:00 Diastolic blood 2022-09-04 72 mm[Hg] [facility] pressure 16:22:00 Heart rate 2022-09-04 96 /min [facility] 16:22:00 Body temperature 2022-09-04 36.61 Salima [facility] 16:22:00 Respiratory rate 2022-09-04 18 /min [facility] 16:22:00 Body height 2022-09-04 172.7 cm [facility] 16:22:00 Body weight 2022-09-04 80.74 kg [facility] 16:22:00 BMI 2022-09-04 27.06 kg/m2 [facility] 16:22:00 Oxygen saturation 2022-09-04 99 /min [facility] in Arterial blood 16:22:00 by Pulse oximetry Systolic blood 2022-08-15 117 mm[Hg] [facility] pressure 15:28:00 Diastolic blood 2022-08-15 79 mm[Hg] [facility] pressure 15:28:00 Heart rate 2022-08-15 106 /min [facility] 15:28:00 Body height 2022-08-15 172.7 cm [facility] 15:28:00 Body weight 2022-08-15 80.015 kg [facility] 15:28:00 BMI 2022-08-15 26.82 kg/m2 [facility] 15:28:00 Systolic blood 2022-07-17 112 mm[Hg] [facility] pressure 15:23:00 Diastolic blood 2022-07-17 73 mm[Hg] [facility] pressure 15:23:00 Heart rate 2022-07-17 73 /min [facility] 15:23:00 Respiratory rate 2022-07-17 16 /min [facility] 15:23:00 Body height 2022-07-17 172.7 cm [facility] 15:23:00 Body weight 2022-07-17 78.472 kg [facility] 15:23:00 BMI 2022-07-17 26.30 kg/m2 [facility] 15:23:00 Oxygen saturation 2022-07-17 97 /min [facility] in Arterial blood 15:23:00 by Pulse oximetry Systolic blood 2022-07-03 110 mm[Hg] [facility] pressure 14:10:00 Diastolic blood 2022-07-03 73 mm[Hg] [facility] pressure 14:10:00 Heart rate 2022-07-03 76 /min [facility] 14:10:00 Body height 2022-07-03 172.7 cm [facility] 14:10:00 Body weight 2022-07-03 78.019 kg [facility] 14:10:00 BMI 2022-07-03 26.15 kg/m2 [facility] 14:10:00 Systolic blood 2022-06-26 117 mm[Hg] [facility] pressure 15:45:00 Diastolic blood 2022-06-26 76 mm[Hg] [facility] pressure 15:45:00 Heart rate 2022-06-26 108 /min [facility] 15:45:00 Respiratory rate 2022-06-26 18 /min [facility] 15:45:00 Body height 2022-06-26 172.7 cm [facility] 15:45:00 Body weight 2022-06-26 77.928 kg [facility] 15:45:00 BMI 2022-06-26 26.12 kg/m2 [facility] 15:45:00 Oxygen saturation 2022-06-26 98 /min [facility] in Arterial blood 15:45:00 by Pulse oximetry Height 2022-03-06 68 [in_i] [facility] 00:00:00 Practice BMI (Body Mass 2022-03-06 26.2 kg/m2 [facility] Index) 00:00:00 Practice Body Weight 2022-03-06 172 [lb_av] [facility] 00:00:00 Practice Systolic blood 2021-10-24 124 mm[Hg] [facility] pressure 13:18:00 Diastolic blood 2021-10-24 76 mm[Hg] [facility] pressure 13:18:00 Heart rate 2021-10-24 128 /min [facility] 13:18:00 Respiratory rate 2021-10-24 16 /min [facility] 13:18:00 Body height 2021-10-24 172.7 cm [facility] 13:18:00 Body weight 2021-10-24 84.006 kg [facility] 13:18:00 BMI 2021-10-24 28.16 kg/m2 [facility] 13:18:00 Oxygen saturation 2021-10-24 96 /min [facility] in Arterial blood 13:18:00 by Pulse oximetry BP Diastolic 2021-09-16 80 mm[Hg] [facility] 00:00:00 Practice Height 2021-09-16 68 [in_i] [facility] 00:00:00 Practice BMI (Body Mass 2021-09-16 28.3 kg/m2 [facility] Index) 00:00:00 Practice BP Systolic 2021-09-16 138 mm[Hg] [facility] 00:00:00 Practice Body Weight 2021-09-16 185.8 [lb_av] [facility] 00:00:00 Practice Systolic blood 2021-08-22 111 mm[Hg] [facility] pressure 13:37:00 Diastolic blood 2021-08-22 77 mm[Hg] [facility] pressure 13:37:00 Heart rate 2021-08-22 102 /min [facility] 13:37:00 Respiratory rate 2021-08-22 16 /min [facility] 13:37:00 Body height 2021-08-22 172.7 cm [facility] 13:37:00 Body weight 2021-08-22 82.645 kg [facility] 13:37:00 BMI 2021-08-22 27.70 kg/m2 [facility] 13:37:00 Oxygen saturation 2021-08-22 99 /min [facility] in Arterial blood 13:37:00 by Pulse oximetry Systolic blood 2021-07-19 129 mm[Hg] [facility] pressure 14:47:00 Diastolic blood 2021-07-19 88 mm[Hg] [facility] pressure 14:47:00 Heart rate 2021-07-19 106 /min [facility] 14:47:00 Respiratory rate 2021-07-19 16 /min [facility] 14:47:00 Body height 2021-07-19 172.7 cm [facility] 14:47:00 Body weight 2021-07-19 85.276 kg [facility] 14:47:00 BMI 2021-07-19 28.59 kg/m2 [facility] 14:47:00 Oxygen saturation 2021-07-19 96 /min [facility] in Arterial blood 14:47:00 by Pulse oximetry Oxygen saturation 2023-04-12 98 /min [facility] Arterial blood 11:53:00 [facility] nter by Pulse oximetry Systolic blood 2023-04-12 103 mm[Hg] [facility] pressure 11:32:00 [facility] Diastolic blood 2023-04-12 69 mm[Hg] [facility] pressure 11:32:00 [facility] Heart rate 2023-04-12 102 /min [facility] 11:32:00 [facility] Respiratory rate 2023-04-12 17 /min [facility] 07:[facility]:00 [facility] Body temperature 2023-04-[address] [facility] 04:22:00 [facility] Body height 2023-04-[address] [facility] 04:22:00 [facility] Body weight 2023-04-[address] [facility] 04:22:00 [facility] BMI 2023-04-12 31.93 kg/m2 [facility] 04:22:00 [facility] Systolic blood 2022-09-19 95 mm[Hg] [facility] 09:30:00 [facility] Diastolic blood 2022-09-19 61 mm[Hg] [facility] pressure 09:30:00 [facility] Heart rate 2022-09-19 76 /min [facility] 09:30:00 [facility] Respiratory rate 2022-09-19 11 /min [facility] 09:30:00 [facility] Oxygen saturation 2022-09-19 97 /min [facility] in Arterial blood 09:30:00 [facility] by Pulse oximetry Body temperature 2022-09-19 36.44 Salima [facility] 01:12:00 [facility] Body height 2022-09-19 172.7 cm [facility] 01:12:00 [facility] Body weight 2022-09-19 73 kg [facility] 01:12:00 [facility] BMI 2022-09-19 24.47 kg/m2 [facility] 01:12:00 Hospital Systolic (mm Hg) 2022-08-25 [facility] 17:00:00 Diastolic (mm Hg) 2022-08-25 [facility] ermann 17:00:00 Respitory Rate 2022-08-25 [facility] 17:[facility]:00 Systolic (mm Hg) 2022-08-25 [facility] rmann 16:00:00 Diastolic (mm Hg) 2022-08-25 [facility] ermann 16:00:00 Respitory Rate 2022-08-25 [facility] 16:00:00 Systolic (mm Hg) 2022-08-25 [facility] rmann 15:00:00 Diastolic (mm Hg) 2022-08-25 [facility] ermann 15:00:00 Respitory Rate 2022-08-25 [facility] 15:00:00 Temperature Oral 2022-08-25 98.7 F [facility] rmann (F) 12:00:00 Temperature Oral 2022-08-25 98.3 F [facility] rmann (F) 09:40:30 Temperature Oral 2022-08-25 98 F [facility] rmann (F) 04:36:10 Height 2022-08-21 172.72 cm [facility] 06:59:00 Weight 2022-08-21 [facility] 06:59:00 BMI Calculated 2022-08-21 [facility] 06:59:00 Weight 2022-08-20 [facility] 18:00:00 Heart Rate 2022-08-20 [facility] 18:[facility]:00 Height 2022-08-20 172.72 cm [facility] 18:00:00 BMI Calculated 2022-08-20 [facility] 18:00:00 Respitory Rate 2021-01-24 [facility] 02:31:00 Systolic (mm Hg) 2021-01-24 [facility] 02:31:00 Diastolic (mm Hg) 2021-01-24 [facility] ermann 02:31:00 Temperature Oral 2021-01-24 98.0 F [facility] rmann (F) 02:31:00 Heart Rate 2021-01-24 [facility] 01:01:00 Respitory Rate 2021-01-24 [facility] 01:01:00 Systolic (mm Hg) 2021-01-24 [facility] rmann 01:01:00 Diastolic (mm Hg) 2021-01-24 [facility] ermann 01:01:00 Height 2021-01-24 172.72 cm [facility] 00:28:00 BMI Calculated 2021-01-24 [facility] 00:28:00 Weight 2021-01-24 [facility] n 00:28:00 Systolic (mm Hg) 2021-01-24 [facility] rmann 00:28:00 Diastolic (mm Hg) 2021-01-24 [facility] ermann 00:28:00 Heart Rate 2021-01-24 [facility] n 00:28:00 Respitory Rate 2021-01-24 [facility] claire 00:28:00 Temperature Oral 2021-01-24 98.4 F [facility] rmann (F) 00:28:00 Systolic blood 2020-12-15 120 mm[Hg] [facility] 15:46:00 Hospital Diastolic blood 2020-12-15 74 mm[Hg] [facility] 15:46:00 Hospital Heart rate 2020-12-15 94 /min [facility] 15:46:00 Hospital Respiratory rate 2020-12-15 18 /min [facility] 15:46:00 Hospital Oxygen saturation 2020-12-15 98 /min [facility] in Arterial blood 15:46:00 Hospital by Pulse oximetry Body temperature 2020-12-15 36.83 Salima [facility] 10:49:17 Hospital Body height 2020-12-15 172.7 cm [facility] 10:48:00 Hospital Body weight 2020-12-15 72.576 kg [facility] 10:48:00 Hospital BMI 2020-12-15 24.33 kg/m2 [facility] 10:48:00 [facility] Systolic blood 2020-02-18 125 mm[Hg] Location: RUE; [facility] pressure 12:30:00 Position: Sitting Diastolic blood 2020-02-18 82 mm[Hg] [facility] 12:30:00 Position: Sitting Body height 2020-02-18 68 [in_us] [facility] 12:30:00 Weight 2020-02-18 179 [lb_av] [facility] 12:30:00 Body mass index 2020-02-18 27.22 kg/m2 [facility] (BMI) [Ratio] 12:30:00 Body temperature 2020-02-18 98 [degF] Method: [facility] 12:30:00 Tympanic Heart Rate 2020-02-18 94 /min Location: R [facility] 12:30:00 Radial; Quality: Regular O2 SAT 2020-02-18 98 % Source: RA [facility] 12:30:00 Respiratory rate 2020-02-18 16 /min Quality: Normal [facility] 12:30:00 BP Systolic 2018-08-20 119 mm[Hg] Location: LUE; [facility] 11:45:00 Position: Sitting BP Diastolic 2018-08-20 83 mm[Hg] Location: LUE; [facility] 11:45:00 Position: Sitting Height 2018-08-20 68 [in_us] [facility] 11:45:00 Weight 2018-08-20 178.125 [lb_av] [facility] 11:45:00 Body Mass Index 2018-08-20 27.08 kg/m2 [facility] Calculated 11:45:00 Heart Rate 2018-08-20 83 /min Location: L [facility] 11:45:00 Radial; O2 SAT 2018-08-20 98 % Source: RA [facility] 11:45:00 Respitory Rate 2015-04-06 [facility] 14:00:00 Systolic (mm Hg) 2015-04-06 [facility] rmann 14:00:00 Diastolic (mm Hg) 2015-04-06 [facility] ermann 14:00:00 Temperature Oral 2015-04-06 97.9 F [facility] rmann (F) 14:00:00 Heart Rate 2015-04-06 [facility] 14:[facility]:00 Temperature Oral 2015-04-06 98.0 F [facility] (F) 06:00:00 Heart Rate 2015-04-06 [facility] 06:00:00 Respitory Rate 2015-04-06 [facility] 06:00:00 Systolic (mm Hg) 2015-04-06 [facility] 06:00:00 Diastolic (mm Hg) 2015-04-06 [facility] ermann 06:00:00 Respitory Rate 2015-04-05 [facility] 23:17:00 Heart Rate 2015-04-05 [facility] 23:17:00 Systolic (mm Hg) 2015-04-05 [facility] rmann 23:17:00 Diastolic (mm Hg) 2015-04-05 [facility] ermann 23:17:00 Temperature Oral 2015-04-05 98 F [facility] rmann (F) 23:17:00 [facility] 2015-04-04 [facility] 19[facility]:00 BMI Calculated 2015-04-04 [facility] 19:54:00 Height 2015-04-04 172.72 cm [facility] 19:[facility]00 Procedures Procedure Date / Time Performing Clinician Source Performed CBC W/PLT COUNT & AUTO 2023-04-12 10:37:00 Floyd Moravian [facility] DIFFERENTIAL [facility] COMPREHENSIVE METABOLIC 2023-04-12 10:37:00 Floyd Moravian [facility] PANEL [facility] TROPONIN I 2023-04-12 10:37:00 Franko Solis [facility] CBC W/PLT COUNT & AUTO 2023-04-12 10:37:00 Floyd [facility] DIFFERENTIAL [facility] ECG 12-LEAD 2023-04-12 09:42:05 Unknown, H[facility]7 [facility] ECG 12-LEAD 2023-04-12 09:11:24 Unknown, Hl7 [facility] CT BRAIN WITHOUT IV 2023-04-12 06:24:35 Floyd [facility] CONTRAST [facility] CT SPINE CERVICAL WITHOUT 2023-04-12 06:24:35 Victoriano Barrientos I [facility] IV CONTRAST [facility] CT MAXILLOFACIAL WITHOUT 2023-04-12 06:24:35 Floyd [facility] IV CONTRAST [facility] HCG, SERUM, QUALITATIVE 2023-04-12 05:28:00 Floyd [facility] ETHANOL 2023-04-12 05:23:00 Floyd [facility]avian [facility] ECG 12-LEAD 2022-11-20 14:15:23 [facility] 2022-11-20 14:15:23 [facility] ED PRELIMINARY 2022-09-19 08:26:48 [facility] INTERPRETATION GROUP A STREP, RAPID 2022-09-19 07:18:00 [facility], [facility] ANTIGEN COVID-19, INFLUENZA A&B, 2022-09-19 07:18:00 [facility] AND RSV QUALITATIVE RT-PCR STREP SCREEN CULTURE 2022-09-19 07:18:00 Mirab, [facility] ECG 12-LEAD 2022-09-19 07:12:23 [facility], [facility] spital TROPONIN T 2022-09-19 07:05:00 [facility] XR CHEST 1 VW PORTABLE 2022-09-19 01:55:00 [facility] 2022-09-19 01:18:22 [facility] WITH PLATELET AND 2022-09-19 01:18:00 [facility] DIFFERENTIAL Tip COMPREHENSIVE METABOLIC 2022-09-19 01:18:00 [facility] PANEL Tip TROPONIN T 2022-09-19 01:18:00 [facility] NT-PROBNP 2022-09-19 01:18:00 [facility] HCG QUALITATIVE, SERUM 2022-09-19 01:18:00 [facility] SCREEN Tip ESTIMATED GFR 2022-09-19 01:18:00 [facility] 12-LEAD 2022-08-15 15:32:03 [facility] ECG 12-LEAD 2022-07-03 14:17:00 [facility] ECG 12-LEAD 2022-07-03 14:11:00 [facility] ECG 12-LEAD 2022-06-26 15:52:00 [facility] 12-[facility]AD 2021-10-24 19:15:59 [facility] AMYLASE AND LIPASE 2021-07-19 20:05:00 Tristan Joel [facility] COMPREHENSIVE METABOLIC 2021-07-19 20:03:00 [place]istan Joel [facility] [facility]SH W/REFLEX TO FT4 2021-07-19 20:03:00 [facility] 12-[facility]AD 2021-07-19 15:59:42 [facility] FOOT 3+ VW LEFT 2020-12-15 12:58:26 Jeanette Demarco [facility] XR CHEST 1 VW PORTABLE 2020-12-15 12:34:29 Jeanette Demarco [facility] COVID-19 QUALITATIVE 2020-12-15 10:54:00 Malachi Rosales [facility] RT-PCR Hueyreynaer XR FOOT 3+ VW LEFT 2020-12-01 21:05:19 Kelly Greenfield [facility] XR ANKLE 3+ VW LEFT 2020-12-01 19:58:15 Kelly Greenfield [facility] MRA Aorta wo contrast 2018-08-21 00:00:00 [facility] C8910 [N] 2D Echo complete, 2018-08-20 00:00:00 [facility] with Doppler 95145 [N] 2D Echo complete, 2017-03-01 00:00:00 [facility] with Doppler 81191 Plan of Care Planned Activity Planned Date Details Comments Source Future Scheduled 2023-04-09 COVID-19 VACCINE (#1) [facility] Test 23:25:38 [code = COVID-19 VACCINE (#1)] Future Scheduled 2023-04-09 Hepatitis C screening [facility] Test 23:25:38 (procedure) [code = 911169950] Future Scheduled 2023-04-09 Screening for malignant [facility] Test 23:25:38 neoplasm of cervix (procedure) [code = 386107443] Future Scheduled 2023-04-09 INFLUENZA VACCINE (#1) [facility] Test 23:25:38 [code = INFLUENZA VACCINE (#1)] Future Scheduled 2023-02-05 COVID-19 VACCINE (#1) [facility] Test 16:41:46 [code = COVID-19 VACCINE (#1)] Future Scheduled 2023-02-05 [facility] 16:41:46 (procedure) [code = 074706923] Future Scheduled 2023-02-05 Screening for malignant [facility] Test 16:41:46 neoplasm of cervix (procedure) [code = 456433502] Future Scheduled 2023-02-05 INFLUENZA VACCINE (#1) [facility] Test 16:41:46 [code = INFLUENZA VACCINE (#1)] Future Scheduled 2023-01-19 Influenza Vaccine (#1) [facility] Test 00:00:00 [code = Influenza Medical Ce nter Vaccine (#1)] Future Scheduled 2022-05-[address] [facility] Test 00:00:00 (12+) [code = DEPRESSION Med [facility] SCREENING (12+)] Diagnostic Test 2018-11-19 [N] 2D Echo complete, [facility] Pending 00:00:00 with Doppler 45087 [code = [N] 2D Echo complete, with Doppler 28762] Diagnostic Test 2018-08-21 MRA Aorta wo contrast [facility] Pending 00:00:00 C8910 [code = C8910] Diagnostic Test 2018-08-20 [N] 2D Echo complete, [facility] Pending 00:00:00 with Doppler 84319 [code = [N] 2D Echo complete, with Doppler 39279] Future Scheduled 2004 Screening for malignant [facility] Test 00:00:00 neoplasm of cervix Medical C enter (procedure) [code = 641440805] Future Scheduled 2003 Lipid panel (procedure) [facility] Test 00:00:00 [code = 57886150] Medical Ce nter Future Scheduled 2002 DTAP/TDAP/TD VACCINES ([address] [facility] Test 00:00:00 - Tdap) [code = Medical Cent er DTAP/TDAP/TD VACCINES (1 - Tdap)] Future Scheduled 2001 HEPATITIS C SCREENING [facility] Test 00:00:00 [code = HEPATITIS C Medical Center SCREENING] Future Scheduled [address] [facility] Test 00:00:00 virus screening Medical Cent er (procedure) [code = 888766288] Future Scheduled [address] [facility] Test 00:00:00 Counseling and Screening Med ical Center (12+) [code = Tobacco Cessation Counseling and Screening (12+)] Future Scheduled 1984-01-11 COVID-19 VACCINE (#1) [facility] Test 00:00:00 [code = COVID-19 VACCINE [facility] (#1)] Future Scheduled COVID-19 VACCINE (1) [facility] Test [code = COVID-19 VACCINE (1)] Future Scheduled Hepatitis C screening [facility] Test (procedure) [code = 106811238] Future Scheduled Screening for malignant [facility] Test neoplasm of cervix (procedure) [code = 374469748] Future Scheduled INFLUENZA VACCINE [facility] = INFLU[facility] VACCINE] Encounters Start End Encounter Admission Attending Care Care Encounter Source Date/Time Date/Time Type Type Clinicians Facility Department ID 2022-12-07 Outpatient [facility] [id number] [place] 10:33:09 [id number] [facility] 2022-10-24 Outpatient [facility] [id number] [place] 15:51:09 [id number] [facility] 2022-10-02 Outpatient [facility] [id number] [place] 09:40:38 [id number] [facility] 2022-09-12 Outpatient [facility] [id number] [place] 15:58:24 [id number] [facility] 2022-09-06 Outpatient [facility] [id number] [place] 08:24:23 [id number] [facility] 2022-08-30 Outpatient [facility] [id number] [place] 10:12:07 [id number] [facility] 2022-08-29 Outpatient [facility] [id number] [place] 10:07:07 [id number] [facility] 2022-08-23 Outpatient [facility] [id number] [place] 08:01:45 [id number] [facility] 2022-08-19 Outpatient [facility] [id number] [place] 03:40:19 [id number] [facility] 2022-08-15 Outpatient [facility] [id number] [place] 10:23:13 [id number] Health 2022-07-25 Outpatient [facility] [id number] [place] 08:22:32 [id number] Health 2022-07-24 Outpatient [facility] [id number] [place] 12:27:51 [id number] Health 2022-07-03 Outpatient [facility] [id number] [place] 08:06:58 [id number] [facility] 2022-06-29 Outpatient [facility] [id number] [place] 11:36:39 [id number] [facility] 2022-06-19 Outpatient [facility] [id number] [place] 08:45:35 [id number] [facility] 2022-06-14 Outpatient TRISTAN JOEL [facility] CAR [id number] 15:06:51 2022-04-12 Outpatient [facility] [id number] [place] 09:00:04 [id number] [facility] 2021-07-24 Outpatient [facility] [id number] [place] 01:04:07 [facility] 2021-07-19 Outpatient [facility] [id number] [place] 11:41:29 [facility] 2021-07-19 Outpatient [facility] [id number] [place] 09:33:41 [facility] 2021-07-19 Outpatient [facility] [id number] [place] 09:32:45 [facility] 2021-01-25 Outpatient TRISTAN JOEL [facility] [id number] [place] 16:31:11 [facility] 2018-09-02 Outpatient [facility] [id number] [facility] 11:56:47 2023-05-28 2023-05-28 Outpatient [facility] [id number] [place] 10:00:00 10:00:00 [facility] 2023-04-19 2023-04-19 Outpatient EBEN, [facility] [id number] [place] 13:00:00 13:00:00 [facility] 2023-04-12 2023-04-12 Emergency BarrientosVictoriano mckeon [facility] [id number] [facility] 04:26:00 13:17:00 Franko Solis [facility] 2023-04-12 2023-04-12 Emergency ER MASTER, [facility] Emergency [id number] [facility] 04:26:00 13:17:00 FRANKO 2023-04-12 2023-04-12 Emergency EL BARRIENTOS, [facility] [id number] [facility] 05:53:14 05:53:14 VICTORIANO 2023-04-12 2023-04-12 Orders [facility] [id number] 00:00:00 00:00:00 [facility] 2023-04-122023-04-12 Travel [facility] [id number] [facility] 00:00:00 00:00:00 [facility] 2023-04-10 2023-04-10 Outpatient DEBROECK_J_ VFP VFP [id number] [place] [address] 00:00:00 00:00:00 LOGAN [id number] Family Practic e 2023-04-09 2023-04-09 Outpatient [facility] [id number] [place] 10:10:00 10:10:00 Health 2023-04-09 2023-04-09 Outpatient [facility] [id number] [place] 09:00:00 09:00:00 Health 2023-04-05 2023-04-05 Outpatient DEBROECK_J_ VFP VFP 171 [facility] 00:00:00 00:00:00 LOGAN [id number] Family Practic e 2023-03-28 2023-03-28 Office Ken, [facility] 1.2.840.114 [id number] [place] 10:30:00 12:44:11 Visit Ashley DIAZ 350.1.13.58 Health [facility] 9.2.7.2.686 [facility] [id number] 2023-03-24 2023-03-25 Emergency E PARADISE ZAVALETAIL [facility] [id number] [facility] 23:42:00 07:01:00 08 2023-03-14 2023-03-14 Outpatient ERIN [facility] [id number] [place] 08:15:00 08:15:00 [facility] 2023-02-19 2023-02-20 Inpatient EM Cecil Desmond [facility] [id number] [facility] 12:15:00 15:20:[address] [place] [address] 2023-02-06 2023-02-06 Outpatient JARRETT, [facility] [id number] [place] 09:40:00 09:40:00 [facility] 2023-01-24 2023-01-24 Outpatient DEBROECK_J_ VFP VFP [address] [place] [id number] 00:00:00 00:00:00 LOGAN [id number] Family Practic e 2023-01-08 2023-01-08 Ancillary Provider, [facility] 6410 [id number] [id number] [place] 08:30:00 08:48:34 [address] 350.1.13.58 Health 9.2.7.2.686 [id number] 2 2022-12-21 2022-12-21 Office Eben, [facility] 6410 1.2.840.114 [id number] [place] 15:00:00 15:36:48 Visit [address]عراقيN ST 350.1.13.58 Health 9.2.7.2.686 [id number] 2022-12-20 2022-12-20 Outpatient JARRETT, [facility] [id number] [place] 09:30:00 09:30:00 [facility] 2022-11-20 2022-11-20 Office Jarrett, [facility] [id number] [id number] [place] 09:00:00 09:54:51 Visit [facility] 350.1.13.58 [facility] 9.2.7.2.686 4 [id number] 1 2022-11-13 2022-11-13 Outpatient [facility] [id number] [place] 09:50:00 09:50:00 Health 2022-11-09 2022-11-09 Outpatient LUIZA, [facility] [id number] [place] 09:20:00 09:20:00 [facility] 2022-11-03 2022-11-03 Outpatient DENISSEKARAN, [facility] [id number] [place] 09:00:00 09:00:00 [facility] 2022-10-30 2022-10-30 Emergency E JULIÁN, [facility] [id number] [facility] 09:45:00 20:08:00 LANCE 2022-10-13 2022-10-13 Outpatient BHALWAL, [facility] [id number] [place] 15:30:00 15:30:00 [facility] 2022-10-02 2022-10-02 Ancillary Provider, [facility]TP 6410 [id number] [id number] [place] 09:50:00 11:02:55 Procedure Ach[address] 350.1.13.58 Health 9.2.7.2.686 [id number] 2 2022-09-25 2022-09-25 Outpatient ERIN, [facility] [id number] [place] 09:25:00 10:37:58 MANAN [facility] 2022-09-18 2022-09-19 Emergency Mirab, Ali 1.2.840.1 [id number] Methodi 20:31:00 04:42:[address] 3.430.2.7 Hospit a .3.953988 l .8 2022-09-18 2022-09-19 Emergency Mirab, Ali 1.2.840.1 [id number] Methodi 20:31:00 04:42:[address] 3.430.2.7 Hospit a .3.259304 l .8 2022-09-19 2022-09-19 Travel 1.2.840.1 1.2.340.321 [id number] Methodi 00:00:00 00:00:[address] 3.430.2.7 0.2.7.3.698 Ho spita .3.924206 084.8 l .8 2022-09-19 2022-09-19 Travel 1.2.840.1 1.2.716.553 [id number] Methodi 00:00:00 00:00:[address] 3.430.2.7 0.2.7.3.698 Ho spita .3.783817 084.8 l .8 2022-09-18 2022-09-18 Outpatient LEOTI, [facility] [id number] [place] 13:20:00 13:20:00 [facility] 2022-09-18 2022-09-18 Outpatient JOVITA, [facility] [id number] [place] 10:30:00 10:30:00 [facility] 2022-09-14 2022-09-14 Office Luiza [facility] [id number] [id number] [place] 13:40:00 13:58:45 Visit Tomás [facility] 350.1.13.58 [facility] 9.2.7.2.686 MEDICAL [id number] PLAZA 1 7 2022-09-07 2022-09-07 Outpatient JARRETT, [facility] [id number] [place] 09:00:00 09:00:00 TOMÁS [facility] 2022-09-04 2022-09-04 Office CRISTIANO Fallon 6410 1.2.840.114 [id number] [place] 11:00:00 12:13:[address] 350.1.13.58 Health 9.2.7.2.686 [id number] 2022-08-20 2022-08-25 Inpatient [facility] [id number] [facility] 17:57:24 19:23:[address] 2022-08-20 2022-08-25 Inpatient Luan ORTIZ, [facility] CAR [id number] [facility] 20:13:00 14:23:00 HOWARD 2022-08-21 2022-08-21 Outpatient [facility] [id number] [place] 10:00:00 10:00:00 Health 2022-08-15 2022-08-15 Office CRISTIANO Gimenez [id number] [id number] [place] 10:15:00 11:31:35 Visit Manan HOGUE 350.1.13.58 Health 9.2.7.2.686 [id number] 2022-07-25 2022-07-25 Outpatient [facility] [id number] [place] 08:00:00 09:13:43 Health 2022-07-17 2022-07-17 Ancillary Provider, CRISTIANO 6410 1.2.840.114 [id number] [place] 09:30:00 10:04:20 Procedure An [address]عراقيN ST 350.1.13.58 Health 9.2.7.2.686 [id number] 2 2022-07-17 2022-07-17 Outpatient [facility] [id number] [place] 10:00:00 10:00:00 Health 2022-07-03 2022-07-03 Office CRISTIANO Gimenez [facility] 1.2.840.114 [id number] [place] 08:00:00 08:39:44 Visit Manan [facility] 350.1.13.58 Health MED CREOLE 9.2.7.2.686 4 [id number] 1 2022-06-28 2022-06-29 Outpt Diag [facility]IE [facility] [id number] [facility] 16:29:00 05:59:00 Services Outpatient 03 l Imaging Junior Peres 2022-06-26 2022-06-26 Ancillary TRISTAN JOEL 6410 1.2.840.114 [id number] [place] 09:30:00 15:12:[address] 350.1.13.58 [facility] 9.2.7.2.686 [id number] 2 2022-06-26 2022-06-26 Outpatient [facility] [id number] [place] 11:00:00 15:11:55 Health 2022-05-17 2022-05-17 Outpatient TRISTAN JOEL [facility] [id number] [place] 09:00:00 09:00:00 Health 2022-03-06 2022-03-06 [facility] [id number] [facility] 00:00:00 00:00:00 [id number] Family Practic e 2022-03-06 2022-03-06 Alea [facility] [place] - [id number] [facility] 00:00:00 00:00:00 [facility] [place]: [id number] Medical - Prac tic [place] - e [place] [address] [place] [address] , Ph. 2022-03-03 2022-03-03 Outpatient DEBROECK_J VFP [facility] [id number] [facility] 00:00:00 00:00:00 [id number] Family Practic e 2021-12-08 2021-12-08 Outpatient DEBROECK_J VFP [facility] [id number] [facility] 01:56:00 01:56:00 [id number] Family Practic e 2021-10-24 2021-10-24 Ancillary Provider, CRISTIANO 6410 1.2.840.114 [id number] [place] 08:30:00 09:43:53 Procedure [facility] RAMÍREZ 350.1.13.58 Health 9.2.7.2.686 [id number] 2021-09-16 2021-09-17 Outpatient HERMINIO, [facility] PUL [id number] [facility] 18:00:00 06:00:00 YAHIR 2021-09-15 2021-09-16 Outpatient nullFlavo [facility] [id number] Memoria 23:00:00 11:00:00 r [place] 04 l [facility] 2021-09-16 2021-09-16 Amy DEBROECK_J [facility] [place] - [id number] [facility] 00:00:00 00:00:00 [facility] [id number] Famil y PASUP: Medical - Practi c [id number] _[address]a [address], [place] [address] , Ph. 2021-09-15 2021-09-15 Outpatient DEBROECK_J VFP [facility] 1714 [id number] [facility] 02:20:00 02:20:00 [id number] Family Practic e 2021-09-15 2021-09-15 Telephone WarnerGinnaestevan [facility] [id number] [place] 00:00:00 00:00:00 Mariah Hylton [facility] [id number] [facility] [id number] MEDICAL [id number] [place] 1 4 2021-09-14 2021-09-14 Outpatient DEBROECK_J VFP [facility] 1714 [id number] [facility] 05:32:00 05:32:00 [id number] Family Practic e 2021-09-09 2021-09-10 Outpatient nullFlavo [facility] [address] [id number] Memoria 17:44:00 04:59:00 r Outpatient 01 l Imaging [facility] 2021-08-29 2021-08-30 Outpt Diag nullFlavo [facility] 705[address] [id number] Memoria 17:28:00 04:59:00 Services r Outpatient 02 l Imaging [place] Ja 2021-08-22 2021-08-22 Ancillary Provider, UTP 6410 [id number] [place] 08:30:00 09:16:[address] [id number] Health [id number] 2021-07-26 2021-07-27 Outpt Diag nullFlavo [facility] [address] [id number] Memoria 16:11:00 05:59:00 Services r Outpatient 00 l Imaging [facility] 2021-07-19 2021-07-19 Office Tristan Joel CRISTIANO 6410 1.2.840.114 1 [id number] [place] 08:20:00 11:51:[address] 350.1.13.58 Health 9.2.7.2.686 [id number] 2021-06-12 2021-06-12 Emergency STARLA, [facility] [id number] [place] [address] 00:00:00 00:00:00 ADRIANO [facility] 2021-06-08 2021-06-08 Outpatient DEBROECK_J VFP [address] 05:22:00 05:22:00 [id number] Family Practic e 2021-02-08 2021-02-08 Outpatient DEBROECK_J VF[address] 05:12:00 05:12:00 [id number] Family Practic e 2021-01-25 2021-01-25 Telephone Tristan Joel [facility] 1.2.840.114 [id number] [place] 00:00:00 00:00:00 [facility] 350.1.13.58 H ealth [facility] 9.2.7.2.686 SPECIALTY [id number] CLINIC 1 2021-01-24 2021-01-24 Emergency nullFlavo [facility] [address] [facility] 00:22:24 02:37:00 r [place] 03 l [facility] 2021-01-23 2021-01-23 EXT MHH OP EXT MSRDP 1.2.840.114 1 [id number] [place] 00:00:00 00:00:00 LOCATION 350.1.13.58 H ealth 9.2.7.2.686 [id number] 2021-01-23 2021-01-23 EXT MHH OP EXT MSRDP 1.2.840.114 1 [id number] [place] 00:00:00 00:00:00 LOCATION 350.1.13.58 H ealth 9.2.7.2.686 [id number] 2020-12-16 2020-12-16 Outpatient DEBROECK_J VFP VFP [address] [place] [address] 04:54:00 04:54:00 [id number] Family Practic e 2020-12-15 2020-12-15 Outpatient DEBROECK_J VFP VFP [address] [place] [address] 12:35:00 12:35:00 [id number] Family Practic e 2020-12-15 2020-12-15 Emergency Nilam, 1.2.840.1 [id number] [id number] Methodi 06:43:00 10:48:[address] Jose Manuel 3.430.2.7 Hospit a .3.241700 l .8 2020-12-15 2020-12-15 Travel 1.2.840.1 1.2.091.009 [id number] Methodi 00:00:00 00:00:[address] 3.430.2.7 0.2.7.3.698 Ho spita .3.951418 084.8 l .8 2020-12-13 2020-12-13 Outpatient DEBROECK_J VFP P [address] 03:19:00 03:19:00 [id number] Family Practic e 2020-12-01 2020-12-01 Emergency Weibel, 1.2.840.1 [id number] [id number] Methodi 14:41:00 16:44:[address] Megan 3.430.2.7 Hospit a .3.282051 l .8 2020-12-01 2020-12-01 Travel 1.2.840.1 1.2.849.159 3510 [id number] Methodi 00:00:00 00:00:[address] 3.430.2.7 0.2.7.3.698 Ho spita .3.444258 084.8 l .8 2020-02-18 2020-02-18 Appointmen CRISTIANO JOEL [facility] [id number] [place] 11:00:00 11:00:00 t; TRISTAN JOEL M.D. [facility] Regine HUDSON [facility] ans M.Emilia [place] 2018-11-20 2018-11-20 Appointmen CRISTIANO JOEL [facility] [id number] [place] 09:00:00 09:00:00 t; TRISTAN JOEL M.D. P hysici POYEE, ans M.D. 2018-11-20 2018-11-20 AppointCRISTIANO [place] [facility] [id number] [place] 08:00:00 08:00:00 t; FIDENCIO ELMORE1 Phy sici ECHO1 [facility] 2018-11-19 2018-11-19 Appointmen CRISTIANO JOEL [facility] [id number] [place] 11:15:00 11:15:00 t; TRISTAN JOEL M.D. P hysici POYEE, ans M.D. 2018-08-20 2018-08-20 Appointmen CRISTIANO JOEL [place] [id number] [place] 11:15:00 11:15:00 t; TRISTAN JOEL M.D. [facility] Regine HUDSON [facility] francoise MThais 2017-04-11 2017-04-11 CRISTIANO Oropeza [facility] [id number] [place] 12:00:00 12:00:00 t; Dharmesh DAVIS i, M.D. ans DIANNA, M.D. 2017-03-02 2017-03-02 AppointCRISTIANO Go UTP [id number] [place] 14:00:00 14:00:00 t; FIDENCIO HERNANDEZ Phy sici ECHO ans 2017-03-01 2017-03-01 Appointmen CRISTIANO JOEL [facility] [id number] [place] 16:00:00 16:00:00 t; TRISTAN JOEL M.D. P hysici POYEE, ans M.D. 2017-03-01 2017-03-01 Appointmen CRISTIANO JOEL [facility] [id number] [place] 04:00:00 04:00:00 t; TRISTAN JOEL M.D. P hysici POYEE, ans M.D. 2015-06-17 2015-06-17 [facility] WisamCRISTIANO UTP [id number] [place] 15:00:00 15:00:00 t; Tristan Joel M.D. P hysici Poyee, ans M.D. 2015-06-16 2015-06-16 Appointvicki DIAZCRISTIANO UTP [id number] [place] 14:00:00 14:00:00 t; ECHO Physic i francoise DIAZ ECHO 2015-05-24 2015-05-24 Maxx CARDOSOCRISTIANO UTP [id number] [place] 13:00:00 13:00:00 t; Emily JAMES ans JOEY, M.D. 2015-05-17 2015-05-17 Maxx ARREDONDOCRISTIANO UTP [id number] [place] 13:00:00 13:00:00 t; SHERICE ARREDONDO M.D. P hysici CLARA, ans M.D. 2015-04-04 2015-04-07 Inpatient [facility] [id number] Memoria 23:05:00 00:00:[address] Results Test Description Test Time Test Comments Results Result Comments Source Troponin I 2023-04-12 10:58:09 Test Item Value Reference Range Interpretation Comme nts Troponin I (test code = 81975-8) 0.00-0.03 ALEX (test code = ALEX) Troponin I (TnI) levels must be interpreted in the context of the presenting symptoms and the clinical findings. Elevated TnI levels indicate myocardial damage, but are not specific for ischemic heart disease. Elevated TnI levels are seen in patients with other cardiac conditions (including myocarditis and congestive heart failure), and slight TnI elevations occur in patients with other conditions, including sepsis, renal failure, acidosis, acute neurological disease, and persistent tachyarrhythmia.Obedience Trainer ID - CONOR Lab Interpretation (test code = Normal 13509-2) [facility] HOSPITALNIBisi [id number] 10:58:09 Test Item Value Reference Range Interpretation Comments TROPONIN I (BEAKER) (test code = 397) < ng/mL 0.00-0.03 Troponin I (TnI) levels must be interpreted in the context of the presenting symptoms and the clinical findings. Elevated TnI levels indicate myocardial damage, but are not specific for ischemic heart disease. Elevated TnI levels are seen in patients with other cardiac conditions (including myocarditis and congestive heart failure), and slight TnI elevations occur in patients with other conditions, including sepsis, renal failure, acidosis, acute neurological disease, and persistent tachyarrhythmia.Obedience Trainer ID - PURAComprehensive metabolic [id number] 10:54:04 Test Item Value Reference Range Interpretation Comments Protein, Total (test 7.3 See_Comment [Autom ated message] code = 2885-2) The system [employer] generated this result transmit amy reference range : 6.0 - 8.5 gm/dL. Th e reference range was not used to interpret this result as normal/abnormal . Albumin (test code = 4.2 g/dL 3.5-5.0 08018-3) Alkaline Phosphatase 65 U/L 30-115 (test code = 6768-6) Total Bilirubin (test 0.2 mg/dL 0.1-1.2 code = 1974-2) Sodium (test code = 142 meq/L 950-167 2865-2) Potassium (test code 3.9 meq/L 3.6-5.5 = 2823-3) Chloride (test code = 107 meq/L 98-106 H 2075-0) CO2 (test code = 22 meq/L 20-29 2027-9) BUN (test code = 15 mg/dL 10-26 3094-0) Creatinine (test code 0.72 mg/dL 0.50-1.20 = 2160-0) Glucose (test code = 86 mg/dL 70-110 2345-7) Calcium (test code = 8.3 mg/dL 8.5-10.5 L 15662-0) AST (test code = 23 U/L 5-40 1920-8) ALT (test code = 14 U/L 5-50 1742-6) EGFR (test code = 109 mL/min/1[place] [address]-4) m eGFR values Sta ge Description Res ult G1 Normal or hi gh >=90 G2 Mildly decreased 60-89 G3a Mildly to moder ately 45-59 G3b Moder ately to severely 30- 44 G4 Severly decreas ed 15-29 G5 Kidney failure <15Repo rted eGFR is based o n the CKD-EPI 202 equation that d oes not use a race coefficient Estimated GFR i s not as accurate as Creatinine Emperatriz lockwood in predicting glomerular filtration rate . Estimated GFR i s not applicable for dialysis patien ts ALEX (test code = ALEX) Obedience Trainer ID - CONOR Lab Interpretation Abnormal (test code = 96417-7) [facility] [id number] 10:54:04 Test Item Value Reference Range Interpretation Comments TOTAL PROTEIN 7.3 gm/dL 6.0-8.5 (BEAKER) (test code = 770) ALBUMIN (BEAKER) 4.2 g/dL 3.5-5.0 (test code = 1145) ALKALINE 65 U/L 30-115 PHOSPHATASE (BEAKER) (test code = 346) BILIRUBIN TOTAL 0.2 mg/dL 0.1-1.2 (BEAKER) (test code = 377) SODIUM (BEAKER) 142 meq/L 135-148 (test code = 381) POTASSIUM (BEAKER) 3.9 meq/L 3.6-5.5 (test code = 379) CHLORIDE (BEAKER) 107 meq/L 98-106 H (test code = 382) CO2 (BEAKER) (test 22 meq/L 20-29 code = 355) BLOOD UREA 15 mg/dL 10-26 NITROGEN (BEAKER) (test code = 354) CREATININE 0.72 mg/dL 0.50-1.20 (BEAKER) (test code = 358) GLUCOSE RANDOM 86 mg/dL 70-110 (BEAKER) (test code = 652) CALCIUM (BEAKER) 8.3 mg/dL 8.5-10.5 L (test code = 697) AST (SGOT) 23 U/L 5-40 (BEAKER) (test code = 353) ALT (SGPT) 14 U/L 5-50 (BEAKER) (test code = 347) EGFR (BEAKER) 109 Interpretatio n of eGFR (test code = 1092) mL/min/1.[address] age Description sq m Result G1 Ellyn l or high >=90 G2 Mildly decreased 60-89 G3a Mildl y to moderately 45-5 9 G3b Moderately to s everely 30-44 G4 Severl y decreased 15-29 G5 Kidney failure <15Reported eGF R is based on the CKD-EPI 2020 equation that d oes not use a race coefficientEsti mated GFR is not as accur ate as Creatinine Emperatriz fabián in predicting glom erular filtration rate . Estimated GFR is not appl icable for dialysis patien ts Obedience Trainer ID - PURACBC with platelet count + automated [id number] 10:42:10 Test Item Value Reference Range Interpretation Comments WBC (test code = 6690-2) 12.3 See_Comment H [A utomated message] The system [employer] generated this result transmitted ref erence range: 4.0 - 10 .0 K/L. The refe rence range was not u sed to interpret this result as normal/abnor mal. RBC (test code = 789-8) 4.45 See_Comment [Au tomated message] The system [employer] generated this result transmitted ref erence range: 4.00 - 5 .00 M/L. The refe rence range was not u sed to interpret this result as normal/abnor mal. Hemoglobin (test code = 13.4 See_Comment [Au tomated message] 588-7) The system [employer] generated this result transmitted ref erence range: 12.0 - 1 5.5 GM/DL. The refe rence range was not u sed to interpret this result as normal/abnor mal. Hematocrit (test code = 40.6 % 36.0-46.0 4544-3) MCV (test code = 787-2) 91 fL 82-99 MCH (test code = 785-6) 30.1 pg 27.0-33.0 MCHC (test code = 786-4) 33.0 See_Comment [A utomated message] The system [employer] generated this result transmitted ref erence range: 32.0 - 3 6.0 GM/DL. The refe rence range was not u sed to interpret this result as normal/abnor mal. RDW (test code = 788-0) 13.3 % 12.0-15.0 Platelets (test code = 334 See_Comment [Aut omated message] 767-3) The system [employer] generated this result transmitted ref erence range: 150 - 43 0 K/CU MM. The referen ce range was not u sed to interpret this result as normal/abnor mal. MPV (test code = 8.6 fL 6.0-11.5 15055-0) nRBC (test code = 413) 0 See_Comment [Aut omated message] The system [employer] generated this result transmitted ref erence range: 0 - 0 /1 00 WBC. The refere nce range was not u sed to interpret this result as normal/abnor mal. % Neutros (test code = 76 % 429) % Lymphs (test code = 18 % 430) % Monos (test code = 5 % 431) % Eos (test code = 432) 0 % % Baso (test code = 437) 0 % # Neutros (test code = 9.33 See_Comment H [Aut omated message] 670) The system [employer] generated this result transmitted ref erence range: 1.80 - 8 .00 K/L. The refe rence range was not u sed to interpret this result as normal/abnor mal. # Lymphs (test code = 2.22 See_Comment [Auto mated message] 414) The system [employer] generated this result transmitted ref erence range: 1.48 - 4 .50 K/L. The refe rence range was not u sed to interpret this result as normal/abnor mal. # Monos (test code = 0.66 See_Comment [Autom ated message] 415) The system [employer] generated this result transmitted ref erence range: 0.00 - 1 .30 K/L. The refe rence range was not u sed to interpret this result as normal/abnor mal. # Eos (test code = 416) 0.01 See_Comment [Au tomated message] The system [employer] generated this result transmitted ref erence range: 0.00 - 0 .50 K/L. The refe rence range was not u sed to interpret this result as normal/abnor mal. # Baso (test code = 417) 0.04 See_Comment [A utomated message] The system [employer] generated this result transmitted ref erence range: 0.00 - 0 .20 K/L. The refe rence range was not u sed to interpret this result as normal/abnor mal. Immature 0.20 % 0.00-0.00 H Granulocytes-Relative (test code = 2801) Lab Interpretation (test Abnormal code = 10232-3) [facility] W/PLT COUNT & AUTO [id number] 10:42:10 Test Item Value Reference Range Interpretation Comments WHITE BLOOD CELL COUNT (BEAKER) 12.3 K/ L 4.0-10.0 H (test code = 775) RED BLOOD CELL COUNT (BEAKER) 4.45 M/ L 4.00-5.00 (test code = 761) HEMOGLOBIN (BEAKER) (test code = 13.4 GM/DL 12.0-15.5 410) HEMATOCRIT (BEAKER) (test code = 40.6 % 36.0-46.0 411) MEAN CORPUSCULAR VOLUME (BEAKER) 91 fL 82-99 (test code = 753) MEAN CORPUSCULAR HEMOGLOBIN 30.1 pg 27.0-33.0 (BEAKER) (test code = 751) MEAN CORPUSCULAR HEMOGLOBIN CONC 33.0 GM/DL 32.0-36.0 (BEAKER) (test code = 752) RED CELL DISTRIBUTION WIDTH 13.3 % 12.0-15.0 (BEAKER) (test code = 412) PLATELET COUNT (BEAKER) (test 334 K/CU MM 150-430 code = 756) MEAN PLATELET VOLUME (BEAKER) 8.6 fL 6.0-11.5 (test code = 754) NUCLEATED RED BLOOD CELLS 0 /100 WBC 0-0 (BEAKER) (test code = 413) NEUTROPHILS RELATIVE PERCENT 76 % (BEAKER) (test code = 429) LYMPHOCYTES RELATIVE PERCENT 18 % (BEAKER) (test code = 430) MONOCYTES RELATIVE PERCENT 5 % (BEAKER) (test code = 431) EOSINOPHILS RELATIVE PERCENT 0 % (BEAKER) (test code = 432) BASOPHILS RELATIVE PERCENT 0 % (BEAKER) (test code = 437) NEUTROPHILS ABSOLUTE COUNT 9.33 K/ L 1.80-8.00 H (BEAKER) (test code = 670) LYMPHOCYTES ABSOLUTE COUNT 2.22 K/ L 1.48-4.50 (BEAKER) (test code = 414) MONOCYTES ABSOLUTE COUNT (BEAKER) 0.66 K/ L 0.00-1.30 (test code = 415) EOSINOPHILS ABSOLUTE COUNT 0.01 K/ L 0.00-0.50 (BEAKER) (test code = 416) BASOPHILS ABSOLUTE COUNT (BEAKER) 0.04 K/ L 0.00-0.20 (test code = 417) IMMATURE GRANULOCYTES-RELATIVE 0.20 % 0.00-0.00 H PERCENT (BEAKER) (test code = 2801) CT brain without IV [id number] 07:03:51EXAM: CT MAXILLOFACIAL WITHOUT IV CONTRAST, CT BRAIN WITHOUT IVCONTRAST, CT SPINE CERVICAL WITHOUT IV CONTRAST INDICATION: Facial trauma, blunt TECHNIQUE: Helical CT images of the head, face, and cervical spinewithout IV contrast. Axial, sagittal, and coronal reconstructed images.This exam was performed according to our departmental dose- optimizationprogram, which includes automated exposure control,adjustment of the mAand/or kV according to patient size and/or use of iterativereconstruction technique. COMPARISON: None. FINDINGS: CT Head:Parenchyma: No evidence of infarction. No hemorrhage. No mass or masseffect. Extra-axial Collection: None Ventricular System: Normal Osseous Structures: Unremarkable Tympanomastoid Cavities: Normal Other: None CT Face:Facial Soft Tissues: Mild left premalar softtissue swelling. Osseous Structures: No acute fracture or dislocation. No aggressiveosseous lesion. Intraorbital Contents: Normal Paranasal Sinuses: Predominantly clear CT Cervical Spine:Alignment: No traumatic malalignment Vertebral Bodies: No acute fracture. Vertebral body heights arepreserved. Inter vertebral Discs: No significant height loss. Craniocervical Junction: Unremarkable Paraspinal Soft Tissues: Unremarkable. Included Lung Apices: Unremarkable Individual Levels: No spinal canal stenosis or foraminal narrowing. [facility] [id number] 07:03:51EXAM: CT MAXILLOFACIAL WITHOUT IV CONTRAST, CT BRAIN WITHOUT IVCONTRAST, CT SPINE CERVICAL WITHOUT IV CONTRAST INDICATION: Facial trauma, blunt TECHNIQUE: Helical CT images of the head, face, and cervical spinewithout IV contrast. Axial, sagittal, and coronal reconstructed images.This exam was performed according to our departmental dose-optimizationprogram, which includes automated exposure control,adjustment of the mAand/or kV according to patient size and/or use of iterativereconstruction technique. COMPARISON: None. FINDINGS: CT Head:Parenchyma: No evidence of infarction. No hemorrhage. No mass or masseffect. Extra-axial Collection: None Ventricular System: Normal Osseous Structures: Unremarkable Tympanomastoid Cavities: Normal Other: None CT Face:Facial Soft Tissues: Mild left premalar softtissue swelling. Osseous Structures: No acute fracture or dislocation. No aggressiveosseous lesion. I ntraorbital Contents: Normal Paranasal Sinuses: Predominantly clear CT Cervical Spine:Alignment: No traumatic malalignment Vertebral Bodies: No acute fracture. Vertebral body heights arepreserved. Intervertebral Discs: No significant height loss. Craniocervical Junction: Unremarkable Paraspinal Soft Tissues: Unremarkable. Included Lung Apices: Unremarkable Individual Levels: No spinal canal stenosis or foraminal narrowing.[facility] without IV [id number] 07:03:51EXAM: CT MAXILLOFACIAL WITHOUT IV CONTRAST, CT BRAIN WITHOUT IVCONTRAST, CT SPINE CERVICAL WITHOUT IV CONTRAST INDICATION: Facial trauma, blunt TECHNIQUE: Helical CT images of the head, face, and cervical spinewithout IV contrast. Axial, sagittal, and coronal reconstructed images.This exam was performed according to our departmental dose- optimizationprogram, which includes automated exposure control,adjustment of the mAand/or kV according to patient size and/or use of iterativereconstruction technique. COMPARISON: None. FINDINGS: CT Head:Parenchyma: No evidence of infarction. No hemorrhage. No mass or masseffect. Extra-axial Collection: None Ventricular System: Normal Osseous Structures: Unremarkable Tympanomastoid Cavities: Normal Other: None CT Face:Facial Soft Tissues: Mild left premalar softtissue swelling. Osseous Structures: No acute fracture or dislocation. No aggressiveosseous lesion. Intraorbital Contents: Normal Paranasal Sinuses: Predominantly clear CT Cervical Spine:Alignment: No traumatic malalignment Vertebral Bodies: No acute fracture. Vertebral body heights arepreserved. Inter vertebral Discs: No significant height loss. Craniocervical Junction: Unremarkable Paraspinal Soft Tissues: Unremarkable. Included Lung Apices: Unremarkable Individual Levels: No spinal canal stenosis or foraminal narrowing. [facility] WITHOUT IV [id number] 07:03:51[facility] : 1985 Sex: FEXAM: CT MAXILLOFACIAL WITHOUT IV CONTRAST, CT BRAIN WITHOUT IVCONTRAST, CT SPINE CERVICAL WITHOUT IV CONTRASTINDICATION: Facial trauma, bluntTECHNIQUE: Helical CT images of the head, face, and cervical spinewithout IV contrast. Axial, sagittal, and coronal reconstructed images.This exam was performed according to our departmental dose-optimizationprogram, which includes automated exposure control, adjustment of the mAand/or kV according to patient size and/or use of iterativereconstruction technique.COMPARISON: None.FINDINGS: CT Head:Parenchyma: No evidence of infarction. No hemorrhage. No mass or masseffect.Extra-axial Collection: NoneVentricular System: NormalOsseous Structures: UnremarkableTympanomastoid Cavities: NormalOther: NoneCT Face:Facial Soft Tissues: Mild left premalar soft tissue swelling.Osseous Structures: No acute fracture or dislocation. No aggressiveosseous lesion. Intraorbital Contents: NormalParanasal Sinuses: Predominantly clearCT Cervical Spine:Alignment: No traumatic malalignmentVertebral Bodies: No acute fracture. Vertebral body heights arepreserved.Intervertebral Discs: Nosignificant height loss.Craniocervical Junction: UnremarkableParaspinal Soft Tissues: Unremarkable.Included Lung Apices: UnremarkableIndividual Levels: No spinal canal stenosis or foraminal narrowing. IMPRESSION:1. No acute intracranial abnormality.2. Left facial soft tissue swelling without acute facial bone fracture.3. No acute osseous abnormality of the cervical spine.Electronically Signed By: Jeanette Metz04/12/2023 07:05 CDTWorkstation Name: [id number] BRAIN WITHOUT IV [id number] 07:03:51 [facility] : 1985 Sex: FEXAM: CT MAXILLOFACIAL WITHOUT IV CONTRAST, CT BRAIN WITHOUT IVCONTRAST, CT SPINE CERVICAL WITHOUT IV CONTRASTINDICATION: Facial trauma, bluntTECHNIQUE: Helical CT images of the head, face, and cervical spinewithout IV contrast. Axial, sagittal, and coronal reconstructed images.This exam was performed according to our departmental dose-optimizationprogram, which includes automated exposure control, adjustment of the mAand/or kV according to patient size and/or use of iterativereconstruction technique.COMPARISON: None.FINDINGS: CT Head:Parenchyma: No evidence of infarction. No hemorrhage. No mass or masseffect.Extra-axial Collection: NoneVentricular System: NormalOsseous Structures: UnremarkableTympanomastoid Cavities: NormalOther: NoneCT Face:Facial Soft Tissues: Mild left premalar soft tissue swelling.Osseous Structures: No acute fracture or dislocation. No aggressiveosseous lesion. Intraorbital Contents: NormalParanasal Sinuses: Predominantly clearCT Cervical Spine:Alignment: No traumatic malalignmentVertebral Bodies: No acute fracture. Vertebral body heights arepreserved.Intervertebral Discs: Nosignificant height loss.Craniocervical Junction: UnremarkableParaspinal Soft Tissues: Unremarkable.Included Lung Apices: UnremarkableIndividual Levels: No spinal canal stenosis or foraminal narrowing. IMPRESSION:1. No acute intracranial abnormality.2. Left facial soft tissue swelling without acute facial bone fracture.3. No acute osseous abnormality of the cervical spine.Electronically Signed By: Jeanette Metz04/12/2023 07:05 CDTWorkstation Name: [id number] MAXILLOFACIAL WITHOUT IV [id number] 07:03:51 [facility] 1985 Sex: FEXAM: CT MAXILLOFACIAL WITHOUT IV CONTRAST, CT BRAIN WITHOUT IVCONTRAST, CT SPINE CERVICAL WITHOUT IV CONTRASTINDICATION: Facial trauma, bluntTECHNIQUE: Helical CT images of the head, face, and cervical spinewithout IV contrast. Axial, sagittal, and coronal reconstructed images.This exam was performed according to our departmental dose-optimizationprogram, which includes automated exposure control, adjustment of the mAand/or kV according to patient size and/or use of iterativereconstruction technique.COMPARISON: None.FINDINGS: CT Head:Parenchyma: No evidence of infarction. No hemorrhage. No mass or masseffect.Extra-axial Collection: NoneVentricular System: NormalOsseous Structures: UnremarkableTympanomastoid Cavities: NormalOther: NoneCT Face:Facial Soft Tissues: Mild left premalar soft tissue swelling.Osseous Structures: No acute fracture or dislocation. No aggressiveosseous lesion. Intraorbital Contents: NormalParanasal Sinuses: Predominantly clearCT Cervical Spine:Alignment: No traumatic malalignmentVertebral Bodies: No acute fracture. Vertebral body heights arepreserved.Intervertebral Discs: Nosignificant height loss.Craniocervical Junction: UnremarkableParaspinal Soft Tissues: Unremarkable.Included Lung Apices: UnremarkableIndividual Levels: No spinal canal stenosis or foraminal narrowing. IMPRESSION:1. No acute intracranial abnormality.2. Left facial soft tissue swelling without acute facial bone fracture.3. No acute osseous abnormality of the cervical spine.Electronically Signed By: Jeanette Metz04/12/2023 07:05 CDTWorkstation Name: [id number] 2023-04-12 05:55:09 Test Item Value Reference Range Interpretation Comments ETHANOL (BEAKER) (test code = 400) 195 mg/dL <=10 H Obedience Trainer ID - GayG, serum, [id number] 05:48:18 Test Item Value Reference Range Interpretation Comments Preg Test, Serum (test code = Negative 0-5) [facility] HospitalHCG, SERUM, [id number] 05:48:18 Test Item Value Reference Range Interpretation Comments TEST SERUM (BEAKER) (test Negative code = 584) TROP-I HIGH [id number] 07:26:00 Test Item Value Reference Range Interpretation Comments TROP-I HIGH SENSITIVITY 4 pg/mL 0-53 N CAUT ION: Units of the (test code = TROPIHS) curren t test methodology (pg /mL) differ from the prior test methodolog y (ng/mL) by a fa ctor of 1000. POSITIV E TROPONIN HS IS IDENTIFIED T HE FOLLOWING MALE > OR = 78 ng/mL FEMALE > OR = 53 ng/mL AL L CRITICAL TROPI HS HAVE BEEN IDENTIFIED MALE OR F EMALE > OR = 120 ng/mL TROP-I HIGH [id number] 06:46:00 Test Item Value Reference Range Interpretation Comments TROP-I HIGH SENSITIVITY 4 pg/mL 0-53 N CAUT ION: Units of the (test code = TROPIHS) curren t test methodology (pg /mL) differ from the prior test methodolog y (ng/mL) by a fa ctor of 1000. POSITIV E TROPONIN HS IS IDENTIFIED T HE FOLLOWING MALE > OR = 78 ng/mL FEMALE > OR = 53 ng/mL AL L CRITICAL TROPI HS HAVE BEEN IDENTIFIED MALE OR F EMALE > OR = 120 ng/mL TROP-I HIGH [id number] 03:43:00 Test Item Value Reference Range Interpretation Comments TROP-I HIGH SENSITIVITY 4 pg/mL 0-53 N CAUT ION: Units of the (test code = TROPIHS) curren t test methodology (pg /mL) differ from the prior test methodolog y (ng/mL) by a fa ctor of 1000. POSITIV E TROPONIN HS IS IDENTIFIED T HE FOLLOWING MALE > OR = 78 ng/mL FEMALE > OR = 53 ng/mL AL L CRITICAL TROPI HS HAVE BEEN IDENTIFIED MALE OR F EMALE > OR = 120 ng/mL Coronavirus 2019 nCoV [id number] 20:54:00 Test Item Value Reference Range Interpretation Comments Coronavirus 2019 Negative Negative Negative re sults should be nCoV Bedside treated as pres umptive and, (test code = ifinconsistent with clinical [id number]) signs and symp toms or necessaryfor pa tient management, wilmer uld be tested with differenta uthorized or cleared molecul ar tests. Negative result s donot preclude SARS-C oV-2 infection and should not be used asthe sole basis for patient management deci sions. Negativeresults should be considered in t he context of a patient'srece nt exposures, history and pre sence of clinical signs andsymptoms consistent with COVID-19. This test had n ot been FDA cleared or appr ebony; This testhas been au thorized by FDA under an EU A for use byauthorized la boratories only for the de tection of nucleicacid fro m SARS-CoV-2, not for any oth er viruses orpathogens. ID NOW COVID-19 assay performed on the [facility] i s a rapid molecular in vi tro diagnostic testutilizing a n isothermal nucleic acid amplificationte chnology intended for th e qualitative detection of nu cleicacid from the SARS-CoV-2 viral RNA in direct nasal,na sopharyngeal or throat swabs from individuals who aresuspected of COVID-19 by their healthcare prov ider withinthe first seven day s of the onset of symptoms. Te sting isauthorized fo r laboratories certified under the ClinicalLaborat ory Improvement Kezia ndments of 1987 (CLIA), DRUGS OF ABUSE SCREEN [id number] 19:37:00 Test Item Value Reference Range Interpretation Comments UR COCAINE (test code = COCAU) POSITIVE NEGATIVE UR METHAMPHETAMINE (test code = NEGATIVE NEGATIVE METHAMPHU) UR CANABINOIDS (test code = CANU) POSITIVE NEGATIVE UR AMPHETAMINE (test code = AMPHU) NEGATIVE NEGATIVE UR BARBITURATE (test code = BARBQLU) NEGATIVE NEGATIVE UR BENZODIAZEPINE (test code = POSITIVE NEGATIVE BENZU) UR OPIATES QUAL (test code = POSITIVE NEGATIVE OPIAQLU) UR TRICYCLICS (test code = TRICYCU) NEGATIVE NEGATIVE UR PHENCYCLIDINE (PCP) (test code = NEGATIVE NEGATIVE PHENCU) - CT ANGIO [id number] 19:02:00 [facility] 1985 Sex: F FAX: Cedric Morrissey Jr [phone] [place]: [facility] St: PRE Name: PAOLA LEVI [place] FSED : 1985 Age/S: 37/F [address] Unit: [id number] Loc: [place] [address] Phys: Cedric Morrissey Jr, MD Acct: [id number] Dis Date: Status: PRE ER PHONE #: Exam Date: 02/18/2023 1813 FAX #: Reason: tere of aneursym EXAMS: CPT CODE: [id number] CT ANGIO CHEST 98703 EXAM: - CT ANGIO CHEST LOCATION: H65 TECHNIQUE: Serial axial CT images were obtained from the supraclavicular region to the adrenal glands with the administration of intravenous contrast. Phase(s): Arterial Reformats: Coronal and sagittal MIPS This exam was performed according to our departmental dose-optimization program, which includes automated exposure control, adjustment of the mA and/or kV according to patient size and/or use of iterative reconstruction technique. Unless otherwise specified, incidental findings do not require dedicated imagingfollow-up. COMPARISON: None available. HISTORY: tere of aneurysm FINDINGS: THYROID: Normal. LYMPHADENOPATHY: There is no supraclavicular or axillary lymphadenopathy. No enlarged mediastinal or hilar lymph nodes. AIRWAYS: Unremarkable. LUNGS/PLEURA: Minimal bibasilar atelectasis. No ground glass opacities or consolidations. No pleural effusion, pleural based masses, or calcifications. No suspicious pul monary nodules. MEDIASTINUM: The heart and pericardium are unremarkable. There is motion artifact limiting evaluation of the ascending aorta, however the mid ascending portion appears to measure up to 4.3 cm in diameter. No aortic atherosclerosis. No coronary artery calcifications. The pulmonary trunkis normal in size. The esophagus is grossly unremarkable. VISUALIZED ABDOMEN: The visualized upper abdomen is unremarkable. SOFT TISSUES: Loop recorder is seen at the left chest wall. PAGE 1 Signed Report (CONTINUED) FAX: Cedric Morrissey Jr [phone] [place]: [facility] St: PRE Name: PAOLA LEVI FSED : 1985 Age/S: 37/F [address] Unit: [id number] Loc: [place] [address] Phys: Apoorva Morrissey Jr, MD Acct: [id number] Dis Date: Status: PRE ER PHONE #: Exam Date: 02/18/2023 1810 FAX #: Reason: tere of aneursym EXAMS: CPT CODE: [id number] CT ANGIO CHEST 39395 (Continued) BONES: No acute osseous findings. IMPRESSION: Motion artifact limits evaluation of the thoracic aorta. Best estimate formeasurement of the mid descending portion is 4.3 cm in diameter. Otherwise unremarkable exam of the chest. at 1902 Reported and signed by: Janee Flores MD CC: Cedric Morrissey Jr, MD Technologist: Suni Brown Trnidrd Dt/Tm: 02/18/2023 (1901)[email or web address] Electronic Signature Date/Time: 02/18/2023 (1901)Orig Print D/T: S: 02/18/2023 (19057.41 PAGE 2 Signed Report- CT HEAD/BRAIN W/O [id number] 18:49:00 [facility] : 1985 Sex: F FAX: Cedric Morrissey Jr [phone] [place]: [facility] St: PRE Name: PAOLA LEVI [place] FSED : 1985 Age/S: 37/F [address] Unit: [id number] Loc: [place] [address] Phys: Cedric Morrissey Jr, MD Acct: [id number] Dis Date: Status: PRE ER PHONE #: Exam Date: 02/18/2023 1810 FAX #: Reason: headache EXAMS: CPT CODE: [id number] CT HEAD/BRAIN W/O CONT 42187 EXAM: - CT HEAD/BRAIN W/O CONT CLINICAL HISTORY:headache TECHNIQUE: Axial noncontrast CT images through the head were obtained. This examination wasperformed according to our departmental dose optimization program, which includes automated exposure control, adjustment of the mA and/or kV according to patient size, and/or use of iterative reconstru ction technique. COMPARISON: CT head 04/29/2014 LOCATION: H65 FINDINGS: There is no intracranial hemorrhage or extra-axial fluid collections. No mass or midline shift. No hydrocephalus. The visualizedparanasal sinuses and mastoid air cells are well aerated. The globes are intact and symmetric in volume. The skull is intact. IMPRESSION: No acute intracranial process. at 1849 Reported and signed by: Jamel Flores MD CC: Cedric Morrissey Jr, MD Technologist: Suni Brown Trnscrd Dt/Tm: 02/18/2023 (1848) [email or web address] Electronic Signature Date/Time: 02/18/2023 (1848)Orig Print D/T: S: 02/18/2023 (3194 645.72 PAGE 1 Signed ReportTROPONIN I [id number] 17:59:00 Test Item Value Reference Range Interpretation Comments TROPONIN I RAPID (test code = < 0.05 ng/mL 0.00-0.05 N TROPIRAP) COMPREHENSIVE METABOLIC [id number] 17:51:00 Test Item Value Reference Range Interpretation Comments SODIUM (test code 145 mmol/L 128-145 N = NA) POTASSIUM (test 3.8 mmol/L 3.6-5.1 N code = K) CHLORIDE (test 111 mmol/L 98-108 H code = CL) CARBON DIOXIDE 31 mmol/L 18-33 N (test code = CO2) ANION GAP (test 6.8 2.0-16.0 N code = GAP) GLUCOSE (test code 100 mg/dL 65-99 H = GLU) BLOOD UREA 11 mg/dL 7-22 N NITROGEN (test code = BUN) GLOMERULAR >=60 max 60-115 N The estimated FILTRATION RATE estimate ml/min glomerula r filtration (test code = GFR) rate is co mputed usingpatient ra ce, age (>18), sex, and serum creatinin e. If anyof the neede d data elements are mi ssing the Laboratory cannot compute an jeremiah mation of the glomerul ar filtration rate .The Glomerular Filt ration Rate is a calcu lated parameterbased on serum Creatinin e, patient age and sex. GFR valuesless than 60 mL/min/1.73 square meters are melani cative ofChronic Kidne y Disease. Values less than 15 mL/min/1.73squa re meters indicate Kidney failure. The calculation for GFR is based on the CK D-EPI (2020) calculat ion. This formulais race indifferent and is the recommended formula for GFR by the National Kidney Foundation for Adults.The GFR will not calculate i f the sex is unknown or if thepatient's ag e is <18 years. CREATININE (test 0.9 mg/dL 0.6-1.2 N code = CREAT) BUN/CREATININE 12.2 12.0-20.0 N RATIO (test code = BUN/CREA) TOTAL PROTEIN 7.0 6.4-8.1 N (test code = PROT) ALBUMIN (test code 3.7 g/dL 3.3-5.5 N = ALB) CALCIUM (test code 9.4 mg/dL 8.0-10.3 N = CA) BILIRUBIN TOTAL 0.5 mg/dL 0.2-1.6 N (test code = BILT) SGOT/AST (test 27 U/L 11-38 N code = AST) SGPT/ALT (test 13 U/L 10-47 N code = ALT) ALKALINE 72 U/L 42-141 N PHOSPHATASE (test code = ALKP) CBC W/AUTO [id number] 17:43:00 Test Item Value Reference Range Interpretation Comments WHITE BLOOD CELL (test code = 6.1 10 3/uL 4.5-10.7 N WBC) RED BLOOD CELL (test code = RBC) 3.98 10 6/uL 3.50-5.50 N HEMOGLOBIN (test code = HGB) 12.6 g/dL 12.0-16.0 N HEMATOCRIT (test code = HCT) 37.0 % 37.0-55.0 N MEAN CELL VOLUME (test code = 93 fL 81-102 N MCV) MEAN CELL HGB (test code = MCH) 31.7 pg 26.0-34.0 N MEAN CELL HGB CONCENTRATION 34.1 g/dL 31.0-37.0 N (test code = MCHC) RED CELL DISTRIBUTION WIDTH 13.4 % 11.6-14.4 N (test code = RDW) RED CELL DISTRIBUTION WIDTH SD 45.0 fL 36.4-46.3 N (test code = RDW-SD) PLATELET COUNT (test code = PLT) 297 10 3/uL 150-400 N MEAN PLATELET VOLUME (test code 8.8 fL 9.0-13.0 L = MPV) NEUTROPHIL % (test code = NT%) 59.1 % 33.0-76.0 N LYMPHOCYTE % (test code = LY%) 32.4 % 14.0-56.4 N MIXED % (test code = MX%) 8.5 % 1.0-10.0 N NEUTROPHIL # (test code = NT#) 3.60 10 3/uL 1.5-7.0 N LYMPHOCYTE # (test code = LY#) 2.00 10 3/uL 1.50-4.00 N MIXED # (test code = MX#) 0.5 0.1-0.6 N ECG 12 [id number] 21:23:00 Test Item Value Reference Range Interpretation Comments Ventricular rate (test 71 code = 253) Atrial rate (test code 71 = 255) AK interval (test code 142 = 266) QRSD interval (test 84 code = 260) QT interval (test code 426 = 264) QTC interval (test code 462 = 265) P axis 1 (test code = 39 267) QRS axis 1 (test code = 14 268) T wave axis (test code 42 = 270) EKG impression (test Normal sinus code = 273) rhythm-Normal ECG-In automated comparison with ECG of 18-SEP-2022 20:18,-QRS axis shifted left-Nonspecific T wave abnormality no longer evident in Inferior leads-T wave amplitude has increased in Lateral leads- [facility] [id number] 21:23:00 Test Item Value Reference Range Interpretation Comments Ventricular rate (test 71 code = 253) Atrial rate (test code 71 = 255) AK interval (test code 142 = 266) QRSD interval (test 84 code = 260) QT interval (test code 426 = 264) QTC interval (test code 462 = 265) P axis 1 (test code = 39 267) QRS axis 1 (test code = 14 268) T wave axis (test code 42 = 270) EKG impression (test Normal sinus code = 273) rhythm-Normal ECG-In automated comparison with ECG of 18-SEP-2022 20:18,-QRS axis shifted left-Nonspecific T wave abnormality no longer evident in Inferior leads-T wave amplitude has increased in Lateral leads- [facility] ED Preliminary Interpretation - Not an [id number] 08:26:48 Test Item Value Reference Range Interpretation Comments ALEX (test code = ALEX) Jordan Bansal MD 09[facility]19[facility]2022 3[facility] Interpretation - Not an Order Performed by: Jordan Bansal MDAuthorized by: Jordan Bansal MD ECG reviewed by ED Physician in the absence of a line construction supervisor: yes Interpretation: Interpretation: abnormal Rate: ECG rate: 97 ECG rate assessment: normal Rhythm: Rhythm: sinus rhythm Ectopy: Ectopy: none QRS: QRS axis: Right QRS intervals: NormalConduction: Conduction: normal Comments: Likely limb lead reversal on EKG Lab Interpretation Abnormal (test code = 81838-8) [facility] ED Preliminary Interpretation - Not an [id number] 08:26:48 Test Item Value Reference Range Interpretation Comments ALEX (test code = ALEX) Jordan Bansal MD 09/19/2022 3:33 [facility] Preliminary Interpretation - Not an Order Performed by: Jordan Bansal MDAuthorized by: Jordan Bansal MD ECG reviewed by ED Physician in the absence of a line construction supervisor: yes Interpretation: Interpretation: abnormal Rate: ECG rate: 97 ECG rate assessment: normal Rhythm: Rhythm: sinus rhythm Ectopy: Ectopy: none QRS: QRS axis: Right QRS intervals: NormalConduction: Conduction: normal Comments: Likely limb lead reversal on EKG Lab Interpretation Abnormal (test code = 41059-5) [facility] [id number] 04:46:48 Test Item Value Reference Range Interpretation Comments SARS-CoV-2 (COVID-19) RNA Not detected [Presence] in Respiratory specimen by OBED with probe detection (test code = 47363-6) Whether patient resides in a [facility] care setting (test code = 56069-6) Date and time of symptom onset Unknown (test code = 12813-5) Whether the patient was No hospitalized for condition of interest (test code = 86212-5) Whether the patient was admitted No to intensive care unit (ICU) for condition of interest (test code = 96907-3) Whether patient is employed in a No healthcare setting (test code = 07321-8) Whether the patient has symptoms No related to condition of interest (test code = 83307-0) status (test code = No 39100-9) [facility] Vw [id number] 02:04:04SINGLE VIEW CHEST Clinical History: Chest pain.Technique: Portable AP chest.Comparison: 06/12/2021 Impression:1.Lungs are clear and symmetrically inflated.2.No pleural effusions or pneumothorax.3.Normalheart size. Loop recorder over the left thorax.4.Normal pulmonary vasculature.5.Intact skeleton.[facility]2023-04-07 05:20:00 Test Item Value Reference Range Interpretation Comments Glucose Lvl (test code = Glucose Lvl) 94 70-99 [facility]2023-04-07 05:20:00 Test Item Value Reference Range Interpretation Comments BUN (test code = BUN) 21 7-22 [facility]2023-04-07 05:20:00 Test Item Value Reference Range Interpretation Comments Creatinine Lvl (test code = Creatinine 0.75 0.50-1.40 Lvl) [facility]2023-04-07 05:20:00 Test Item Value Reference Range Interpretation Comments Sodium Lvl (test code = Sodium Lvl) 135 135-145 [facility]2023-04-07 05:20:00 Test Item Value Reference Range Interpretation Comments Potassium Lvl (test code = Potassium 3.8 3.5-5.1 Lvl) [facility]2023-04-07 05:20:00 Test Item Value Reference Range Interpretation Comments Chloride Lvl (test code = Chloride Lvl) 107 95-109 [facility]2023-04-07 05:20:00 Test Item Value Reference Range Interpretation Comments CO2 (test code = CO2) 24 24-32 [facility]2023-04-07 05:20:00 Test Item Value Reference Range Interpretation Comments AGAP (test code = AGAP) 7.8 10.0-20.0 [place] 750913-04-07 05:20:00 Test Item Value Reference Range Interpretation Comments Calcium Lvl (test code = Calcium Lvl) 8.2 8.5-10.5 [place] 750913-04-07 05:20:00 Test Item Value Reference Range Interpretation Comments eGFR (test code = eGFR) 104 [place] 750913-04-07 05:20:00 Test Item Value Reference Range Interpretation Comments Magnesium Lvl (test code = Magnesium 2.0 1.8-2.4 Lvl) [place] 750913-04-07 05:20:00 Test Item Value Reference Range Interpretation Comments Phosphorus (test code = Phosphorus) 3.6 2.5-4.5 [place] 913633-04-07 05:20:00 Test Item Value Reference Range Interpretation Comments Glucose Lvl (test code = Glucose Lvl) 94 70-99 [place] 913633-04-07 05:20:00 Test Item Value Reference Range Interpretation Comments BUN (test code = BUN) 21 7-22 [place] 913633-04-07 05:20:00 Test Item Value Reference Range Interpretation Comments Creatinine Lvl (test code = Creatinine 0.75 0.50-1.40 Lvl) [facility]43[facility] 05:20:00 Test Item Value Reference Range Interpretation Comments Sodium Lvl (test code = Sodium Lvl) 135 135-145 [place] 913633-04-07 05:20:00 Test Item Value Reference Range Interpretation Comments Potassium Lvl (test code = Potassium 3.8 3.5-5.1 Lvl) [place] 913633-04-07 05:20:00 Test Item Value Reference Range Interpretation Comments Chloride Lvl (test code = Chloride Lvl) 107 95-109 [place] 913633-04-07 05:20:00 Test Item Value Reference Range Interpretation Comments CO2 (test code = CO2) 24 24-32 [place] 913633-04-07 05:20:00 Test Item Value Reference Range Interpretation Comments AGAP (test code = AGAP) 7.8 10.0-20.0 [place] 913633-04-07 05:20:00 Test Item Value Reference Range Interpretation Comments Calcium Lvl (test code = Calcium Lvl) 8.2 8.5-10.5 [facility]manGrqkkqtJGLRIVOCA2222-13-14 05:20:00 Test Item Value Reference Range Interpretation Comments eGFR (test code = eGFR) 104 [facility]manQwzbmszATYSUAZYW2959-47-08 05:20:00 Test Item Value Reference Range Interpretation Comments Magnesium Lvl (test code = Magnesium 2.0 1.8-2.4 Lvl) [facility]manGrummycUGVWDNWVD4719-21-02 05:20:00 Test Item Value Reference Range Interpretation Comments Phosphorus (test code = Phosphorus) 3.6 2.5-4.5 [facility]pc[facility]oASZXBVUJMP7040-51-87 05:20:00 Test Item Value Reference Range Interpretation Comments WBC (test code = WBC) 7.3 3.7-10.4 [facility] HospitalOjayyczUPOGREHFRF5583-72-57 05:20:00 Test Item Value Reference Range Interpretation Comments RBC (test code = RBC) 4.09 4.20-5.40 [facility] HospitalLhawrmnKMNNCMXQRF3506-17-72 05:20:00 Test Item Value Reference Range Interpretation Comments Hgb (test code = Hgb) 13.1 12.0-16.0 [facility] HospitalTfkpbamTPIBWXDFEP4212-47-29 05:20:00 Test Item Value Reference Range Interpretation Comments Hct (test code = Hct) 38.6 36.0-48.0 [facility] HospitalOdjczbeVKNOREJMTZ6296-04-07 05:20:00 Test Item Value Reference Range Interpretation Comments MCV (test code = MCV) 94.4 80.0-98.0 [place] 296363-04-07 05:20:00 Test Item Value Reference Range Interpretation Comments MCH (test code = MCH) 32.2 pg 27.0-31.0 [facility] HospitalQthvzdxIVNVPTTIRZ8148-80-45 05:20:00 Test Item Value Reference Range Interpretation Comments MCHC (test code = MCHC) 34.1 32.0-36.0 [facility] HospitalSqpwrjkOGRWEWVPRE4862-09-25 05:20:00 Test Item Value Reference Range Interpretation Comments RDW (test code = RDW) 13.4 11.5-14.5 [place] 296363-04-07 05:20:00 Test Item Value Reference Range Interpretation Comments Platelet (test code = Platelet) 230 133-450 [facility] CenterLwudyjsINFQVPCZHS5272-44-92 05:20:00 Test Item Value Reference Range Interpretation Comments MPV (test code = MPV) 7.5 7.4-10.4 [facility]MhodayhJHPVYCGKZI9513-79-87 05:20:00 Test Item Value Reference Range Interpretation Comments WBC (test code = WBC) 7.3 3.7-10.4 [facility] HospitalHucfulwEXQBXGGJWL7946-13-01 05:20:00 Test Item Value Reference Range Interpretation Comments RBC (test code = RBC) 4.09 4.20-5.40 [facility] CenterVwofzwaYWAUZVZSVZ2174-96-10 05:20:00 Test Item Value Reference Range Interpretation Comments Hgb (test code = Hgb) 13.1 12.0-16.0 [facility] CenterRfomxoiGQSTPGNSPE1309-84-74 05:20:00 Test Item Value Reference Range Interpretation Comments Hct (test code = Hct) 38.6 36.0-48.0 [facility] CenterZbirrrsBBWDJGYZKT4177-21-00 05:20:00 Test Item Value Reference Range Interpretation Comments MCV (test code = MCV) 94.4 80.0-98.0 [facility] HospitalHrqfwnnRHKSNXHMPO1990-08-96 05:20:00 Test Item Value Reference Range Interpretation Comments MCH (test code = MCH) 32.2 pg 27.0-31.0 [facility] HospitalAjesrdaCYRBPQRKPV0222-75-62 05:20:00 Test Item Value Reference Range Interpretation Comments MCHC (test code = MCHC) 34.1 32.0-36.0 [facility] HospitalTevtqxjLBPJVOLAOU2936-73-37 05:20:00 Test Item Value Reference Range Interpretation Comments RDW (test code = RDW) 13.4 11.5-14.5 [facility] HospitalJlpurwoGCCIDWAMYV9105-22-13 05:20:00 Test Item Value Reference Range Interpretation Comments Platelet (test code = Platelet) 230 133-450 [facility] HospitalVsuxgsxBVOVRWEJZM0398-52-20 05:20:00 Test Item Value Reference Range Interpretation Comments MPV (test code = MPV) 7.5 7.4-10.4 [facility] SSCYZMC1013-09-54 05:52:00 Test Item Value Reference Range Interpretation Comments ABO/Rh (test code = ABO/Rh) A POS [facility] LEASWWD0283-32-18 05:52:00 Test Item Value Reference Range Interpretation Comments Antibody Scrn (test Negative (08/24/22 12:52 code = Antibody Scrn) AM) [facility] [employer] [id number] 05:52:00 Test Item Value Reference Range Interpretation Comments ABO/Rh (test code = ABO/Rh) A POS [facility] [employer] [id number] 05:52:00 Test Item Value Reference Range Interpretation Comments Antibody Scrn (test Negative (08/24/22 12:52 code = Antibody Scrn) AM) [facility] [employer] [id number] 05:52:00 Test Item Value Reference Range Interpretation Comments Phosphorus (test code = Phosphorus) 2.6 2.5-4.5 [facility] [employer] [id number] 05:52:00 Test Item Value Reference Range Interpretation Comments Magnesium Lvl (test code = Magnesium 2.3 1.8-2.4 Lvl) [facility] [employer] [id number] 05:52:00 Test Item Value Reference Range Interpretation Comments Glucose Lvl (test code = Glucose Lvl) 148 70-99 [facility] [employer] [id number] 05:52:00 Test Item Value Reference Range Interpretation Comments BUN (test code = BUN) 18 7-22 [facility] [employer] [id number] 05:52:00 Test Item Value Reference Range Interpretation Comments Creatinine Lvl (test code = Creatinine 0.81 0.50-1.40 Lvl) [facility] [employer] [id number] 05:52:00 Test Item Value Reference Range Interpretation Comments Sodium Lvl (test code = Sodium Lvl) 133 135-145 [facility] [employer] [id number] 05:52:00 Test Item Value Reference Range Interpretation Comments Potassium Lvl (test code = Potassium 4.3 3.5-5.1 Lvl) [facility] [employer] [id number] 05:52:00 Test Item Value Reference Range Interpretation Comments Chloride Lvl (test code = Chloride Lvl) 106 95-109 [facility] [employer] [id number] 05:52:00 Test Item Value Reference Range Interpretation Comments CO2 (test code = CO2) 23 24-32 [facility] CenterZoomabet [id number] 05:52:00 Test Item Value Reference Range Interpretation Comments Calcium Lvl (test code = Calcium Lvl) 8.6 8.5-10.5 [facility] [id number] 05:52:00 Test Item Value Reference Range Interpretation Comments AGAP (test code = AGAP) 8.3 10.0-20.0 [facility]2023-04-06 05:52:00 Test Item Value Reference Range Interpretation Comments eGFR (test code = eGFR) 95 [facility] Hospital[facility]djhxzxJLNYDMBSVW1129-65-93 05:52:00 Test Item Value Reference Range Interpretation Comments WBC (test code = WBC) 11.0 3.7-10.4 [facility]xeyljzWSRLRPKIKA2590-95-11 05:52:00 Test Item Value Reference Range Interpretation Comments RBC (test code = RBC) 4.09 4.20-5.40 [place] 296363-04-06 05:52:00 Test Item Value Reference Range Interpretation Comments Hgb (test code = Hgb) 13.0 12.0-16.0 [place] 296363-04-06 05:52:00 Test Item Value Reference Range Interpretation Comments Hct (test code = Hct) 38.4 36.0-48.0 [place] 296363-04-06 05:52:00 Test Item Value Reference Range Interpretation Comments MCV (test code = MCV) 94.0 80.0-98.0 [place] 296363-04-06 05:52:00 Test Item Value Reference Range Interpretation Comments MCH (test code = MCH) 31.9 pg 27.0-31.0 [place] 296363-04-06 05:52:00 Test Item Value Reference Range Interpretation Comments MCHC (test code = MCHC) 33.9 32.0-36.0 [place] [address]-04-06 05:52:00 Test Item Value Reference Range Interpretation Comments RDW (test code = RDW) 13.2 11.5-14.5 [place] 296363-04-06 05:52:00 Test Item Value Reference Range Interpretation Comments Platelet (test code = Platelet) 270 133-450 [facility] HospitalUsitlksNMQIKSIJDL7873-96-02 05:52:00 Test Item Value Reference Range Interpretation Comments MPV (test code = MPV) 7.7 7.4-10.4 [facility]uoqHFTJYN5619-18-35 19:02:55 Test Item Value Reference Range Interpretation Comments RADRPT (test code EXAM: MRI BRAIN WITHOUT = RADRPT) CONTRASTDATE: 08/23/2022INDICATION: - Prior L parietal lacunar infarct eval. 37 YO F with PMH Brugada syndrome, ascending aortic aneurysm, bicuspid aortic valve, SANTOS (not consistently wearing CPAP), and ocular migraines presenting with severe headache and lightheadedness. Neurology consulted for recommendations regarding headaches and possible chronic lacunar infarct seen on CTH.COMPARISON: MRI brain 08/29/2021, CT head without contrast 08/20/2022, CTA 09/07/2022TECHNIQUE: Multiplanar, multisequence MRI of the brain without contrast. IV contrast: None.FINDINGS:Diffusion-aden ghted images fail to demonstrate any recent ischemic change.Ovoid shaped perivenular dilated space in the left periatrial white matter is again seen, as on prior CT. There is no associated venous dilation or surrounding FLAIR hyperintense signal to suggest a migraine.There is no mass lesion, signal change, or structural abnormality. The ventricles and extra-axial spaces are normal. There is no acute or chronic hemorrhagic change. The intracranial arterial and venous structures demonstrate normal flow voids.The included paranasal sinuses and skull base are unremarkable.IMPRESSION: Small prominent perivascular space in the left periatrial white matter with smaller linear 1's in the frontal regions.. No evidence of acute infarct. [facility] [id number] 05:14:00 Test Item Value Reference Range Interpretation Comments Phosphorus (test code = Phosphorus) 2.0 2.5-4.5 [facility] [id number] 05:14:00 Test Item Value Reference Range Interpretation Comments Glucose Lvl (test code = Glucose Lvl) 157 70-99 [facility] AZDWE1176-86-63 05:14:00 Test Item Value Reference Range Interpretation Comments BUN (test code = BUN) 13 7-22 [facility] UUBSY0226-13-39 05:14:00 Test Item Value Reference Range Interpretation Comments Creatinine Lvl (test code = Creatinine 0.90 0.50-1.40 Lvl) [facility] [id number] 05:14:00 Test Item Value Reference Range Interpretation Comments Sodium Lvl (test code = Sodium Lvl) 134 135-145 [place] 750913-04-05 05:14:00 Test Item Value Reference Range Interpretation Comments Potassium Lvl (test code = Potassium 4.0 3.5-5.1 Lvl) [facility]2023-04-05 05:14:00 Test Item Value Reference Range Interpretation Comments Chloride Lvl (test code = Chloride Lvl) 102 95-109 [place] 750913-04-05 05:14:00 Test Item Value Reference Range Interpretation Comments CO2 (test code = CO2) 25 24-32 [place] 750913-04-05 05:14:00 Test Item Value Reference Range Interpretation Comments AGAP (test code = AGAP) 11.0 10.0-20.0 [place] 750913-04-05 05:14:00 Test Item Value Reference Range Interpretation Comments Calcium Lvl (test code = Calcium Lvl) 8.8 8.5-10.5 [place] 750913-04-05 05:14:00 Test Item Value Reference Range Interpretation Comments eGFR (test code = eGFR) 84 [place] 750913-04-05 05:14:00 Test Item Value Reference Range Interpretation Comments Magnesium Lvl (test code = Magnesium 1.9 1.8-2.4 Lvl) [place] 296363-04-05 05:14:00 Test Item Value Reference Range Interpretation Comments WBC (test code = WBC) 6.8 3.7-10.4 [place] 296363-04-05 05:14:00 Test Item Value Reference Range Interpretation Comments RBC (test code = RBC) 4.21 4.20-5.40 [place] 296363-04-05 05:14:00 Test Item Value Reference Range Interpretation Comments Hgb (test code = Hgb) 13.3 12.0-16.0 [place] [address]-04-05 05:14:00 Test Item Value Reference Range Interpretation Comments Hct (test code = Hct) 39.2 36.0-48.0 [place] 296363-04-05 05:14:00 Test Item Value Reference Range Interpretation Comments MCV (test code = MCV) 93.1 80.0-98.0 [place] 296363-04-05 05:14:00 Test Item Value Reference Range Interpretation Comments MCH (test code = MCH) 31.6 pg 27.0-31.0 [facility]wcQYRPOQMHRR3282-84-68 05:14:00 Test Item Value Reference Range Interpretation Comments MCHC (test code = MCHC) 33.9 32.0-36.0 [facility] HospitalAjhrotuOCQFHQJAKJ7579-07-82 05:14:00 Test Item Value Reference Range Interpretation Comments RDW (test code = RDW) 13.2 11.5-14.5 [facility] HospitalCxinwwpQTASFCTGVX6362-63-09 05:14:00 Test Item Value Reference Range Interpretation Comments Platelet (test code = Platelet) 285 133-450 [facility] HospitalXnlacnuNDHTUCOSYS0580-85-13 05:14:00 Test Item Value Reference Range Interpretation Comments MPV (test code = MPV) 7.5 7.4-10.4 [facility] HospitalUszmawcKCYBASNQAQ9281-79-46 14:36:00 Test Item Value Reference Range Interpretation Comments PT (test code = PT) 13.2 s 12.0-14.7 [facility] HospitalAahqizhIXLGVMQCYH3871-54-00 14:36:00 Test Item Value Reference Range Interpretation Comments INR (test code = INR) 1.00 1 0.85-1.17 [facility] HospitalBamfhnzXBBSTLISQT5276-10-46 14:36:00 Test Item Value Reference Range Interpretation Comments PTT (test code = PTT) 25.0 s 22.9-35.8 [facility] HospitalOpvuolwNPJXWLVJUX7882-28-95 14:36:00 Test Item Value Reference Range Interpretation Comments PT (test code = PT) 13.2 s 12.0-14.7 [facility] HospitalWufsmjlDHOUGNOAOQ3064-65-02 14:36:00 Test Item Value Reference Range Interpretation Comments INR (test code = INR) 1.00 1 0.85-1.17 [facility] HospitalRshhhduJYEEHACZKI5885-59-14 14:36:00 Test Item Value Reference Range Interpretation Comments PTT (test code = PTT) 25.0 s 22.9-35.8 [facility]LydqnynIPCMAWCWC0488-97-75 06:29:00 Test Item Value Reference Range Interpretation Comments Trig (test code = Trig) 89 [facility]yeAHVRLTKFK9214-73-92 06:29:00 Test Item Value Reference Range Interpretation Comments Chol (test code = Chol) 164 [facility] HospitalGrlecchFQBILPNHV6044-05-77 06:29:00 Test Item Value Reference Range Interpretation Comments HDL (test code = HDL) 73 [facility] CenterNdrdbilROQZOPAXJ2163-04-00 06:29:00 Test Item Value Reference Range Interpretation Comments Chol/HDL Ratio (test code = Chol/HDL 2.25 1 3.90-5.80 Ratio) [facility] HospitalXgznyowTKOPQLEUY6166-79-36 06:29:00 Test Item Value Reference Range Interpretation Comments LDL (Calculated) (test code = LDL 73 (Calculated)) [facility] HospitalFahngifZJCQFCAUS0551-16-51 06:29:00 Test Item Value Reference Range Interpretation Comments VLDL (test code = VLDL) 18 1 [facility] HospitalSlrfjdtWHELITKPK8263-99-29 06:29:00 Test Item Value Reference Range Interpretation Comments Hgb A1C (test code = Hgb A1C) 5.3 [facility] CenterGaivyllUWQWPF1345-89-06 06:29:00 Test Item Value Reference Range Interpretation Comments Trig (test code = Trig) 89 [facility] HospitalTebufymKFQKXD1758-72-22 06:29:00 Test Item Value Reference Range Interpretation Comments Chol (test code = Chol) 164 [facility] HospitalXpyflkgJBVROS6096-31-50 06:29:00 Test Item Value Reference Range Interpretation Comments HDL (test code = HDL) 73 [facility] CenterAnwxuisZBRDOU7310-93-37 06:29:00 Test Item Value Reference Range Interpretation Comments Chol/HDL Ratio (test code = Chol/HDL 2.25 1 3.90-5.80 Ratio) [facility] HospitalBwnydlsPKKNZV5696-44-07 06:29:00 Test Item Value Reference Range Interpretation Comments LDL (Calculated) (test code = LDL 73 (Calculated)) [facility] HospitalYecnswvDKQZBR8818-87-06 06:29:00 Test Item Value Reference Range Interpretation Comments VLDL (test code = VLDL) [address] [facility] NUEPCEBZP6305-23-97 06:29:00 Test Item Value Reference Range Interpretation Comments Hgb A1C (test code = Hgb A1C) 5.3 [facility] HospitalCyxaqdcJXPHTKTIGP1408-65-98 04:50:00 Test Item Value Reference Range Interpretation Comments Coronavirus (COVID-19) Not Detected (08/20/22 OBED (test code = 11:50 PM) Coronavirus (COVID-19) OBED) [facility] HospitalSyxhlkoOLZQVDKVBW3489-44-10 04:50:00 Test Item Value Reference Range Interpretation Comments Coronavirus (COVID-19) Not Detected (08/20/22 OBED (test code = 11:50 PM) Coronavirus (COVID-19) OBED) [facility] CenterLlfwhnwPGEHMX4109-32-66 22:46:49 Test Item Value Reference Range Interpretation Comments RADRPT (test code = EXAM: CTA BRAINEXAM: CTA RADRPT) NECKDATE: 08/20/2022INDICATION: - s/p headache + Brugada.COMPARISON: Concurrent CT head.TECHNIQUE: Rapid acquisition spiral CT images of the brain and neck were obtained between the aortic arch and the cranial vertex during intravenous infusion of iodinated contrast for the purposes of CT angiography. 3-D CT angiographic images are created using MIP technique at the acquisition workstation. The source images are also presented for interpretation. Viz. was used in the care of this patient.IV contrast: Refer to MAR/biochemistry technologist documentationDLP: Refer to CT protocol formFINDINGS:NECK CTA:Motion degradation limits evaluation for neck vessels. Within these limitations, the findings are as discussed.Aortic arch: The great vessels originate from the aortic arch in the standard configuration. No origin stenosis is identified.Common carotid arteries: Normal.Internal carotid arteries:* Right: Normal.* Left: Normal.Vertebral arteries: Normal.Other: The soft tissues of the neck and other incidental structures are normal.BRAIN CTA:Arteries: The anterior and posterior circulations have a normal appearance and a standard branching pattern. No branch occlusion, vascular injury, arteritis, vascular malformation or aneurysm is identified.Veins: Cannot be evaluated due to the early arterial phase of contrast.Brain parenchyma: The brain parenchyma and other incidental structures are unchanged since the most recent CT.IMPRESSION: No significant stenosis of major neck arteries. No intracranial proximal large vessel occlusion.(All qualitative and quantitative assessments of carotid bifurcation and proximal internal carotid artery stenosis are made referencing the distal internal carotid artery {NASCET criteria}.)UT SECTION: Neuro [facility] CenterFuykcmuGTLGIU9562-45-45 19:55:15 Test Item Value Reference Range Interpretation Comments RADRPT (test code = EXAM: XR CHEST 1 RADRPT) VIEWDATE: 08/20/2022 14:54 INDICATION: - Hx of brugada, AAA, bicuspid aortic valveCOMPARISON: Chest x-ray on January 23, 2021.TECHNIQUE: AP chest.FINDINGS:Lines, tubes and hardware: None.Lungs and pleura: Pulmonary vascularity is normal. The lungs are clear. The costophrenic sulci are sharp without effusion. No pneumothorax is identified.Heart and mediastinum: The heart size is normal. The mediastinal contours are normal. Bones and soft tissues: No acute abnormality.IMPRESSION: 1. No acute abnormality.UT SECTION: ER [facility] CenterPounkenLZXOAJ1526-87-68 19:40:58 Test Item Value Reference Range Interpretation Comments RADRPT (test code = EXAM: CT BRAIN WITHOUT RADRPT) CONTRASTDATE: 08/20/2022INDICATION: - HOLDER, dizziness,.COMPARISON: MRA brain 08/29/2021.TECHNIQUE: Axial CT images of the brain were obtained. Sagittal and coronal reformats.IV contrast: NoneDLP: Refer to CT protocol formFINDINGS: There is no edema, hemorrhage, mass lesion or other acute intracranial abnormality. The amaya-white interfaces are preserved. The ventricles are normal in size. Chronic lacunar infarct in the left parietal white matter also seen on prior MRA.The skull base, calvarium, and included facial bones are unremarkable. The paranasal sinuses are predominantly clear.IMPRESSION:No acute intracranial abnormality.Chronic lacunar infarct in the left parietal white matter.UT SECTION: Neuro [facility] CenterannCARDIAC GUBYIDN5473-49-54 19:00:00 Test Item Value Reference Range Interpretation Comments HS Troponin I (test code = HS Troponin 4 I) [facility] CenterNiowrkaIIXWECPFY3884-86-13 19:00:00 Test Item Value Reference Range Interpretation Comments HS Troponin I (test code = HS Troponin 4 I) [facility] CenterThxpubvALHRJZCUM3922-56-67 19:00:00 Test Item Value Reference Range Interpretation Comments S Preg (test code = S Negative *NA*(08/20/22 Preg) 2:00 PM) [facility] CenterKwpzrpfHSQCTJSPJXMFF9703-51-70 19:00:00 Test Item Value Reference Range Interpretation Comments S Preg (test code = S Negative *NA*(08/20/22 Preg) 2:00 PM) [facility] CenterFrxwpxxBULYNLWDXF4192-02-35 19:00:00 Test Item Value Reference Range Interpretation Comments Segs (test code = Segs) 64.8 45.0-75.0 [facility] HospitalHhnwcpnQQHQXVTBUZ8712-08-80 19:00:00 Test Item Value Reference Range Interpretation Comments Lymphocytes (test code = Lymphocytes) 25.8 20.0-40.0 [facility] HospitalOsiycziGYWEJAYWML0358-94-04 19:00:00 Test Item Value Reference Range Interpretation Comments Monocytes (test code = Monocytes) 7.9 2.0-12.0 [facility] HospitalLkyyoltDFHUTYNGIK7956-34-54 19:00:00 Test Item Value Reference Range Interpretation Comments Eosinophils (test code = 1.0 See_Comment [A utomated message] The Eosinophils) system which ge nerated this result tra nsmitted reference range : <=4.0. The reference r gonzales was not used to int erpret this result as normal/abnormal . [facility] HospitalHpxujunVMCJHLRFSF3713-64-51 19:00:00 Test Item Value Reference Range Interpretation Comments Basophils (test code = 0.5 See_Comment [Aut omated message] The Basophils) system which ge nerated this result tra nsmitted reference range : <=1.0. The reference r gonzales was not used to int erpret this result as normal/abnormal . [facility] HospitalXeecjqpXDUCYGVMFB0911-55-22 19:00:00 Test Item Value Reference Range Interpretation Comments Neutrophils # (test code = Neutrophils 4.1 1.5-8.1 #) [facility] HospitalZxkknmkGIFFBIAZLC3029-15-17 19:00:00 Test Item Value Reference Range Interpretation Comments Lymphocytes # (test code = Lymphocytes 1.6 1.0-5.5 #) [facility] HospitalSjylklmWZQJDGTBSM0318-19-90 19:00:00 Test Item Value Reference Range Interpretation Comments Monocytes # (test code 0.5 See_Comment [Aut omated message] The = Monocytes #) system which generated this result tra nsmitted reference range : <=0.8. The reference r gonzales was not used to int erpret this result as normal/abnormal . [facility] HospitalQxwjrwoUMTAWLIOJN4679-48-45 19:00:00 Test Item Value Reference Range Interpretation Comments Eosinophils # (test code 0.1 See_Comment [A utomated message] The = Eosinophils #) system whic h generated this result tra nsmitted reference range : <=0.5. The reference r gonzales was not used to int erpret this result as normal/abnormal . [facility] HospitalAdqldpzMFFGAPYZZO2198-82-07 19:00:00 Test Item Value Reference Range Interpretation Comments Segs (test code = Segs) 64.8 45.0-75.0 [facility] HospitalGfpfxawJWFRVHESME5853-99-46 19:00:00 Test Item Value Reference Range Interpretation Comments Lymphocytes (test code = Lymphocytes) 25.8 20.0-40.0 [facility] HospitalCxcrzphDLDYYCLJYS5926-72-87 19:00:00 Test Item Value Reference Range Interpretation Comments Monocytes (test code = Monocytes) 7.9 2.0-12.0 [facility] HospitalPbrrxszCOATEXWFRO8718-16-37 19:00:00 Test Item Value Reference Range Interpretation Comments Eosinophils (test code = 1.0 See_Comment [A utomated message] The Eosinophils) system which ge nerated this result tra nsmitted reference range : <=4.0. The reference r gonzales was not used to int erpret this result as normal/abnormal . [facility] HospitalHxgzdwcYIRNPORTZC3993-44-59 19:00:00 Test Item Value Reference Range Interpretation Comments Basophils (test code = 0.5 See_Comment [Aut omated message] The Basophils) system which ge nerated this result tra nsmitted reference range : <=1.0. The reference r gonzales was not used to int erpret this result as normal/abnormal . [facility] HospitalHfewnttYXNPZNTRIO5600-35-27 19:00:00 Test Item Value Reference Range Interpretation Comments Neutrophils # (test code = Neutrophils 4.1 1.5-8.1 #) [facility] HospitalCteawozRMKVNUMYPR3252-30-72 19:00:00 Test Item Value Reference Range Interpretation Comments Lymphocytes # (test code = Lymphocytes 1.6 1.0-5.5 #) [place] 296363-04-02 19:00:00 Test Item Value Reference Range Interpretation Comments Monocytes # (test code 0.5 See_Comment [Aut omated message] The = Monocytes #) system which generated this result tra nsmitted reference range : <=0.8. The reference r gonzales was not used to int erpret this result as normal/abnormal . [facility] HospitalHnhqluoWTKYOCULII5735-72-11 19:00:00 Test Item Value Reference Range Interpretation Comments Eosinophils # (test code 0.1 See_Comment [A utomated message] The = Eosinophils #) system whic h generated this result tra nsmitted reference range : <=0.5. The reference r gonzales was not used to int erpret this result as normal/abnormal . [facility] HospitalSuzorkfCQAPVVZRSI2457-99-89 18:53:00 Test Item Value Reference Range Interpretation Comments Hep C Ab (test code = Hep C Ab) [facility]IVE [facility]ZkdwfgoEVRYMHTFJE0940-03-70 18:53:00 Test Item Value Reference Range Interpretation Comments Hep Signal to Cut-Off (test code = Hep 0.03 1 Signal to Cut-Off) [facility] HospitalKquqcpxBPJRSWCIPJ6595-55-84 18:53:00 Test Item Value Reference Range Interpretation Comments [facility] HIV 4th GEN (test Negative *NA*(08/20/22 code = CDC HIV 4th 1:53 PM) GEN) [place] 539023-04-02 18:53:00 Test Item Value Reference Range Interpretation Comments Hep C Ab (test code = Hep C Ab) NON-REACTIVE [facility] TylerKqfnblpGPZFWZGGFT2516-51-65 18:53:00 Test Item Value Reference Range Interpretation Comments Hep Signal to Cut-Off (test code = Hep 0.03 1 Signal to Cut-Off) [facility] TylerQjpivhaELEFZPTWWC1475-81-72 18:53:00 Test Item Value Reference Range Interpretation Comments [facility] HIV 4th GEN (test Negative *NA*(08/20/22 code = CDC HIV 4th 1:53 PM) GEN) [facility]JjivjrgEQMSPC3017-81-10 00:11:30 Test Item Value Reference Range Interpretation Comments RADRPT (test code EXAM: Chest CTADATE: = RADRPT) 06/28/2022 10:58.INDICATION: - Q23.1 Congenital insufficiency of aortic valve, Z82.49 Family history of ischemic heart disease and other diseases of the circulatory system, Q24.9 Congenital malformation of heart, unspecified, I35.1 Nonrheumatic aortic (valve) insufficiency.COMPARISON: Chest radiograph 01/23/2021TECHNIQUE: Volumetric CT angiography of the chest after the administration of intravenous contrast. Sagittal and coronal and MIP reconstructions are provided.AEC, mA/kV adjustment by patient size, and/or iterative reconstruction technique were used, per departmental dose-optimization program.Contrast phases: arterial.IV contrast: 100 mL Omnipaque 350.DLP: 262.8 mGy-cm.AEC, mA/kV adjustment by patient size, and/or iterative reconstruction technique were used, per departmental dose-optimization program.FINDINGS:Lines and Tubes: None.Lower Neck: The visible portions of the lower neck and thyroid are unremarkable.Heart: The heart size is normal. There is no pericardial effusion. Cardiac motion through the aortic root limits assessment of the aortic valve morphology. Residual thymic tissue in the anterior mediastinum.Vasculature: Aortic diameter is 2.9 cm at the root, 4.8 cm at the sinuses of Valsalva, 4.5 cm in the ascending aorta at the level of the main pulmonary artery, 2.4 cm to the mid arch and 2.3 cm in the descending aorta at the level of the main pulmonary arteryThe main pulmonary artery has normal caliber. There is no significant atherosclerotic plaque.Lymph Nodes: There is no hilar, mediastinal, axillary, or internal mammary lymphadenopathy.Lungs/Pleur a: The trachea and major bronchi are patent. Focal subsegmental atelectasis in the posterior left lower lobe. No other focal consolidation, pleural effusion, or pneumothorax is identified.Upper Abdomen: The visible portions are unremarkable.Bones: No acute abnormality.Soft Tissues: Unremarkable.IMPRESSION:1. Ascending aortic aneurysm as above.2. Mild atelectasis noted in the left lower lobe. Otherwise no acute cardiopulmonary abnormality. [facility] W/REFLEX TO [id number] 09:00:00 Test Item Value Reference Range Interpretation Comments TSH W/REFLEX mIU/L ? TO FT4 (test ?Reference Rang e ? code = 3016-3) ?> or = 20 Years ?0.40-4.50 ? Range s ?First trimester ? ?0.26-2.66 ?Second trimest er ? 0.55-2.73 ?[address] ? ?0.43-2.91 REPORT COMMENT:FASTING :YE S RAC (test code Performing = RAC) Organization Information: ? ?Site ID: [facility]GA ? ?Name: [employer] ? ?Address: [address] [place] [id number] ? ?Director: ALEC MURRAY MD [facility] [id number] 09:00:00 Test Item Value Reference Range Interpretation Comments GLUCOSE (test code 94 mg/dL 65-99 ? = 2345-7) Fasting referen ce interval UREA NITROGEN 13 mg/dL 7-25 (BUN) (test code = 3094-0) CREATININE (test 0.82 mg/dL 0.50-1.10 code = 2160-0) eGFR NON- See_Comment [Automated LEBANESE (test message] The code = 55557-3) system which generated this result transmitted reference range : > OR = 60 mL/min/1.73m2. The reference range was not used to interpr et this result as normal/abnormal . eGFR See_Comment [Automated LEB[place]ESE (test message] The code = 35017-7) system which generated this result transmitted reference range : > OR = 60 mL/min/1.73m2. The reference range was not used to interpr et this result as normal/abnormal . BUN/CREATININE NOT APPLICABLE See_Comment [Automated RATIO (test code = message] The 3097-3) system which generated this result transmitted reference range : 6 - 22 (calc). The reference range was not used to interpr et this result as normal/abnormal . SODIUM (test code 137 mmol/L 135-146 = 2951-2) POTASSIUM (test 4.3 mmol/L 3.5-5.3 code = 2823-3) CHLORIDE (test 99 mmol/L 98-110 code = 2075-0) CARBON DIOXIDE 27 mmol/L 20-32 (test code = 8-9) CALCIUM (test code 9.7 mg/dL 8.6-10.2 = 06765-2) PROTEIN, TOTAL 7.7 g/dL 6.1-8.1 (test code = 2885-2) ALBUMIN (test code 4.7 g/dL 3.6-5.1 = 1751-7) GLOBULIN (test See_Comment [Automated code = 46357-8) message] The system which generated this result transmitted reference range : 1.9 - 3.7 g/dL (calc). The reference range was not used to interpret this result as normal/abnormal . ALBUMIN/GLOBULIN See_Comment [Automated RATIO (test code = message] The 1759-0) system which generated this result transmitted reference range : 1.0 - 2.5 (calc ). The reference range was not used to interpr et this result as normal/abnormal . BILIRUBIN, TOTAL 0.8 mg/dL 0.2-1.2 (test code = 1975-2) ALKALINE 80 U/L 31-125 PHOSPHATASE (test code = 6768-6) AST (test code = 23 U/L 10-30 1920-8) ALT (test code = 12 U/L 6-29 1742-6) RAC (test code = Performing RAC) Organization Information: ? ?Site ID: [facility] ? ?Name: [employer] ? ?Address: [address] [place] [address] ? ?Director: ALEC MURRAY MD [place] HealthAMYLASE AND [id number] 07:00:00 Test Item Value Reference Range Interpretation Comments AMYLASE (test code = 22 U/L 21-101 1798-8) LIPASE (test code = 11 U/L 760 3040-3) RAC (test code = Performing Organization RAC) Information: ? ?Site ID: [facility] ? ?Name: [employer] ? ?Address: [address] [place] [address] ? ?Director: ALEC MURRAY MD [place] HealthCARDIAC [id number] 01:30:00 Test Item Value Reference Range Interpretation Comments Troponin-I (test code no gt See_Comment [Auto mated message] The = Troponin-I) system which g enerated this result transmit amy reference range : <=0.40. The reference r gonzales was not used to interpr et this result as ellyn l/abnormal. [facility] [employer] [id number] 01:30:00 Test Item Value Reference Range Interpretation Comments Glucose Lvl (test code = Glucose Lvl) 86 70-99 [facility] [employer] [id number] 01:30:00 Test Item Value Reference Range Interpretation Comments BUN (test code = BUN) 15 7-22 [facility] [employer] [id number] 01:30:00 Test Item Value Reference Range Interpretation Comments Creatinine Lvl (test code = Creatinine 0.80 0.50-1.40 Lvl) [facility] [employer] [id number] 01:30:00 Test Item Value Reference Range Interpretation Comments Sodium Lvl (test code = Sodium Lvl) 137 135-145 [place] 750911-09-06 01:30:00 Test Item Value Reference Range Interpretation Comments Potassium Lvl (test code = Potassium 4.9 3.5-5.1 Lvl) [place] 750911-09-06 01:30:00 Test Item Value Reference Range Interpretation Comments Chloride Lvl (test code = Chloride Lvl) 104 95-109 [place] 750911-09-06 01:30:00 Test Item Value Reference Range Interpretation Comments CO2 (test code = CO2) 25 24-32 [place] 750911-09-06 01:30:00 Test Item Value Reference Range Interpretation Comments Calcium Lvl (test code = Calcium Lvl) 8.8 8.5-10.5 [place] 750911-09-06 01:30:00 Test Item Value Reference Range Interpretation Comments Total Protein (test code = Total 7.8 6.4-8.4 Protein) [place] 750911-09-06 01:30:00 Test Item Value Reference Range Interpretation Comments Albumin Lvl (test code = Albumin Lvl) 3.9 3.5-5.0 [place] 750911-09-06 01:30:00 Test Item Value Reference Range Interpretation Comments ALANINE AMINOTRANSFERASE 17 See_Comment [A utomated message] (test code = ALANINE The sys tem which AMINOTRANSFERASE) generated this result transmitted ref erence range: <=65. Th e reference range was not used to int erpret this result as normal/abnormal . [place] 750911-09-06 01:30:00 Test Item Value Reference Range Interpretation Comments ASPARTATE TRANSAMINASE 34 See_Comment [Aut omated message] (test code = ASPARTATE The s ystem which TRANSAMINASE) generated this result transmitted ref erence range: <=37. Th e reference range was not used to interpr et this result as normal/abnormal . [place] 750911-09-06 01:30:00 Test Item Value Reference Range Interpretation Comments Alk Phos (test code = Alk Phos) 111 39-136 [place] 750911-09-06 01:30:00 Test Item Value Reference Range Interpretation Comments Bili Total (test code = Bili Total) 0.6 0.2-1.3 [place] 750911-09-06 01:30:00 Test Item Value Reference Range Interpretation Comments AGAP (test code = AGAP) 12.9 10.0-20.0 [place] 750911-09-06 01:30:00 Test Item Value Reference Range Interpretation Comments B/C Ratio (test code = B/C Ratio) 19 1 6-25 [place] 750911-09-06 01:30:00 Test Item Value Reference Range Interpretation Comments Globulin (test code = Globulin) 3.9 2.7-4.2 [place] 750911-09-06 01:30:00 Test Item Value Reference Range Interpretation Comments A/G Ratio (test code = A/G Ratio) 1.0 1 0.7-1.6 [place] 750911-09-06 01:30:00 Test Item Value Reference Range Interpretation Comments eGFR (test code = eGFR) 94 [place] 750911-09-06 01:30:00 Test Item Value Reference Range Interpretation Comments Procalcitonin Lvl (test no gt See_Comment [Au tomated message] code = Procalcitonin Lvl) e system which generated this result transmitted ref erence range: <=0.10. The reference range was not used to interpr et this result as normal/abnormal . [place] 296361-09-06 01:30:00 Test Item Value Reference Range Interpretation Comments WBC X 10x3 (test code = WBC X 10x3) 6.9 3.7-10.4 [place] 296361-09-06 01:30:00 Test Item Value Reference Range Interpretation Comments RBC X 10x6 (test code = RBC X 10x6) 4.51 4.20-5.40 [place] 296361-09-06 01:30:00 Test Item Value Reference Range Interpretation Comments Hgb (test code = Hgb) 14.5 12.0-16.0 [place] 296361-09-06 01:30:00 Test Item Value Reference Range Interpretation Comments Hct (test code = Hct) 42.6 36.0-48.0 [place] 296361-09-06 01:30:00 Test Item Value Reference Range Interpretation Comments MCV (test code = MCV) 94.4 80.0-98.0 [place] 296361-09-06 01:30:00 Test Item Value Reference Range Interpretation Comments MCH (test code = MCH) 32.1 pg 27.0-31.0 [facility]dksejaXCVRJSRTJT0278-29-18 01:30:00 Test Item Value Reference Range Interpretation Comments MCHC (test code = MCHC) 34.0 32.0-36.0 [place] 296361-09-06 01:30:00 Test Item Value Reference Range Interpretation Comments RDW (test code = RDW) 13.4 11.5-14.5 [place] 296361-09-06 01:30:00 Test Item Value Reference Range Interpretation Comments Platelet (test code = Platelet) 255 133-450 [facility] HospitalBlnfkjnCLNILIOPMN0679-38-20 01:30:00 Test Item Value Reference Range Interpretation Comments MPV (test code = MPV) 7.4 7.4-10.4 [place] 296361-09-06 01:30:00 Test Item Value Reference Range Interpretation Comments PROTIME (test code = PROTIME) 12.0 s 12.0-14.7 [place] 296361-09-06 01:30:00 Test Item Value Reference Range Interpretation Comments INR (test code = INR) 0.89 1 0.85-1.17 [facility] HospitalGisydrtKNSCFZOYCX9379-77-25 01:30:00 Test Item Value Reference Range Interpretation Comments aPTT (test code = aPTT) 23.6 s 22.9-35.8 [place] 296361-09-06 01:30:00 Test Item Value Reference Range Interpretation Comments Segs (test code = Segs) 51.1 45.0-75.0 [place] 296361-09-06 01:30:00 Test Item Value Reference Range Interpretation Comments Lymphocytes (test code = Lymphocytes) 35.4 20.0-40.0 [place] 296361-09-06 01:30:00 Test Item Value Reference Range Interpretation Comments Monocytes (test code = Monocytes) 9.0 2.0-12.0 [place] 296361-09-06 01:30:00 Test Item Value Reference Range Interpretation Comments Eosinophils (test code = 4.0 See_Comment [A utomated message] The Eosinophils) system which ge nerated this result tra nsmitted reference range : <=4.0. The reference r gonzales was not used to int erpret this result as normal/abnormal . [facility] HospitalKyvykoaGDEHGECBXD0570-53-12 01:30:00 Test Item Value Reference Range Interpretation Comments Basophils (test code = 0.5 See_Comment [Aut omated message] The Basophils) system which ge nerated this result tra nsmitted reference range : <=1.0. The reference r gonzales was not used to int erpret this result as normal/abnormal . [facility]mqxsmhTJCRGNJAOR8406-45-51 01:30:00 Test Item Value Reference Range Interpretation Comments Neutrophils # (test code = Neutrophils 3.5 1.5-8.1 #) [facility] HospitalCtpwtoiHPXBAWWVYB7345-54-50 01:30:00 Test Item Value Reference Range Interpretation Comments Lymphocytes # (test code = Lymphocytes 2.4 1.0-5.5 #) [facility] HospitalDghrlhzDGGKLLJIGY1209-00-32 01:30:00 Test Item Value Reference Range Interpretation Comments Monocytes # (test code 0.6 See_Comment [Aut omated message] The = Monocytes #) system which generated this result tra nsmitted reference range : <=0.8. The reference r gonzales was not used to int erpret this result as normal/abnormal . [facility] HospitalUrudgnsSUWXRLJMUB9402-39-58 01:30:00 Test Item Value Reference Range Interpretation Comments Eosinophils # (test code 0.3 See_Comment [A utomated message] The = Eosinophils #) system whic h generated this result tra nsmitted reference range : <=0.5. The reference r gonzales was not used to int erpret this result as normal/abnormal . [facility] HospitalSnphyjvUAHUTNVQVN4221-12-30 01:30:00 Test Item Value Reference Range Interpretation Comments Ethanol Lvl (test code = Ethanol Lvl) 98 [facility] HospitalAxmenajKNBEGMMQBN7783-66-87 01:30:00 Test Item Value Reference Range Interpretation Comments Etoh (%) (test code = Etoh (%)) 0.098 [facility] HospitalQhrwlfxDKBFYXXTCE9972-80-11 01:08:00 Test Item Value Reference Range Interpretation Comments Coronavirus (COVID-19) Not Detected (01/23/21 OBED (test code = 8:08 PM) Coronavirus (COVID-19) OBED) [facility] Foot 3+ Vw Uvlc7494-84-23 13:20:10EXAMINATION: XR FOOT 3 VW LEFT CLINICAL HISTORY: swelling pain COMPARISON: 12/01/2020 IMPRESSION: No acute fracture or dislocation. There is some soft tissue swelling present, slightly improved from prior study. [id number] Interface, Radiology Results 12/15/2020 8:23 AM CDT EXAMINATION: XR FOOT 3 VW LEFTCLINICAL HISTORY: swelling painCOMPARISON: 12/01/2020IMPRESSION:No acute fracture or dislocation. There is some soft tissue swelling present, slightly improved from prior study[facility]4KL47700N0Naflqhtsn HospitalXR Chest 1 Voswrkcj6751-40-31 12:35:28 EXAMINATION: XR CHEST 1 PORTABLE CLINICAL HISTORY: SOB rule out Covid 19 COMPARISON: 02/21/2014 IMPRESSION: Heart and mediastinum and bony structures are appropriate for technique. No significant effusion. Lungs are clear. [facility] Interface, Radiology Results 12/15/2020 7:38 AM CDTFo rmatting of this note might be different from the original.EXAMINATION: XR CHEST 1 PORTABLECLINICAL HISTORY: SOB rule out Covid 19COMPARISON: 02/21/2014IMPRESSION:Heart and mediastinum and bony structures are appropriate for technique. No significant effusion. Lungs are clear. [facility] Ank[facility] 3+ Vw Umap2829-43-87 20:28:11EXAMINATION: XR ANKLE 3 VW LEFT CLINICAL HISTORY: Fracture ankle COMPARISON: None. IMPRESSION: No acute left ankle fracture. Ankle joint is congruent. No soft tissue abnormality. [facility] [id number] Interface, Radiology Results 12/01/2020 3:31 PM CDT EXAMINATION: XR ANKLE 3 VW LEFTCLINICAL HISTORY: Fracture ankleCOMPARISON: None.IMPRESSION: No acute left ankle fracture. Ankle joint is congruent. No soft tissue abnormality.[facility]0RH57047J8[facility]cln[facility]. [facility] - [id number] 00:00:00 Test Item Value Reference Range Interpretation Comments PAP REPORT; Abnormal (test code = ABNORMAL A 26551-6) [place] [facility] - HPV High Odao9375-68-62 00:00:00 Test Item Value Reference Range Interpretation Comments HPV High Risk REPORT (test code = Negative HPV High Risk REPORT) [place] PfrhxqewzkXEZDMFLILX4849-40-41 02:30:00 Test Item Value Reference Range Interpretation Comments Rubella IgG (test code = Rubella IgG) 15.1 [facility] CenterEggvpkgUUNXVWRVHX2504-04-06 00:01:00 Test Item Value Reference Range Interpretation Comments Treponemal Scr (test Non Reactive code = Treponemal Scr) *NA*(04/04/15 6:01 PM) [facility] PIMXRHN7484-15-58 23:57:00 Test Item Value Reference Range Interpretation Comments ABO/Rh (test code = ABO/Rh) A POS [facility] IUELBOL6790-21-79 23:57:00 Test Item Value Reference Range Interpretation Comments Antibody Scrn (test Negative (04/04/15 code = Antibody Scrn) 5:57 PM) [facility] HospitalKnsladwKVHMXDXNFC7333-08-83 23:57:00 Test Item Value Reference Range Interpretation Comments Monocytes (test code = Monocytes) 5.5 2.0-12.0 [facility] HospitalMofexclOEJIEHCNUK2938-76-41 23:57:00 Test Item Value Reference Range Interpretation Comments Lymphocytes (test code = Lymphocytes) 12.0 20.0-40.0 [facility] HospitalJribbfjDSOXQKEGII7718-03-00 23:57:00 Test Item Value Reference Range Interpretation Comments Eosinophils (test code = 0.3 See_Comment [A utomated message] The Eosinophils) system which ge nerated this result tra nsmitted reference range : <=4.0. The reference r gonzales was not used to int erpret this result as normal/abnormal . [facility] HospitalEzzbhdsAMZHRIITQH9270-97-92 23:57:00 Test Item Value Reference Range Interpretation Comments Segs (test code = Segs) 81.9 45.0-75.0 [facility] HospitalWzmaawbHRNOSRLYRR3972-26-78 23:57:00 Test Item Value Reference Range Interpretation Comments Monocytes # (test code 0.7 See_Comment [Aut omated message] The = Monocytes #) system which generated this result tra nsmitted reference range : <=0.8. The reference r gonzales was not used to int erpret this result as normal/abnormal . [facility] HospitalWzctfxsFCGXALBHHF5058-66-99 23:57:00 Test Item Value Reference Range Interpretation Comments Lymphocytes # (test code = Lymphocytes 1.6 1.0-5.5 #) [facility] HospitalNgjoxaxSKZHOHUPEZ8363-97-39 23:57:00 Test Item Value Reference Range Interpretation Comments Segs-Bands # (test code = Segs-Bands #) 10.6 1.5-8.1 [facility] HospitalJwjxeilYQXUXBXCXM9378-30-76 23:57:00 Test Item Value Reference Range Interpretation Comments Basophils (test code = 0.3 See_Comment [Aut omated message] The Basophils) system which ge nerated this result tra nsmitted reference range : <=1.0. The reference r gonzales was not used to int erpret this result as normal/abnormal . [facility] HospitalLralpjlGBXCYCKNNK6357-05-33 23:57:00 Test Item Value Reference Range Interpretation Comments Platelet (test code = Platelet) 237 133-450 [facility] HospitalRrbwozlIUBIQLIOIO2515-29-27 23:57:00 Test Item Value Reference Range Interpretation Comments MCHC (test code = MCHC) 33.2 32.0-36.0 [facility] HospitalRzplxomHQWDKDOGVK3385-21-15 23:57:00 Test Item Value Reference Range Interpretation Comments MCH (test code = MCH) 30.4 pg 27.0-31.0 [facility] HospitalZyyizgoIBMVDYLRVK5849-09-91 23:57:00 Test Item Value Reference Range Interpretation Comments MPV (test code = MPV) 8.2 7.4-10.4 [facility] HospitalDlikomkSRWIVZTHXQ8885-64-87 23:57:00 Test Item Value Reference Range Interpretation Comments Hct (test code = Hct) 36.1 36.0-48.0 [facility] HospitalGlmkrjhXTWUIZZQHA5418-68-20 23:57:00 Test Item Value Reference Range Interpretation Comments RDW (test code = RDW) 12.9 11.5-14.5 [facility] HospitalIykwppqCBASQGYCIW2522-49-02 23:57:00 Test Item Value Reference Range Interpretation Comments WBC (test code = WBC) 13.0 3.7-10.4 [facility] HospitalFptjvdsYUTOUFVJLC0236-58-26 23:57:00 Test Item Value Reference Range Interpretation Comments MCV (test code = MCV) 91.6 80.0-98.0 [facility] HospitalRbvjqquGCBBYWMDKJ6911-42-90 23:57:00 Test Item Value Reference Range Interpretation Comments RBC (test code = RBC) 3.93 4.20-5.40 [facility] HospitalUejizsmDURGRWDNYQ8699-05-21 23:57:00 Test Item Value Reference Range Interpretation Comments Hgb (test code = Hgb) 12.0 12.0-16.0 [facility] HospitalPcyzctuWTNSBESNEK9930-67-23 23:57:00 Test Item Value Reference Range Interpretation Comments Hep Bs Ag (test code Negative *NA*(04/04/15 = Hep Bs Ag) 5:57 PM) [facility] Notes Date/Time Note Provider Source 2023-02-28 [id number] [facility] 14:24:00 [facility] [address] [facility] [address] PATIENT NAME: PAOLA LEVI ADMIT DATE: 02/19/23ACCOUNT NO: [id number] ROOM NO: VT.2109 AGE: 37 REPORT TYPE: 360 - QUERY RESPONSE DOCUMENT SEX: F ADMITTING PHYSICIAN:Desmond Jacob MD ATTENDING PHYSICIAN:Desmond Jacob MD Provider Query QUERY TEXT: Condition General 360MD Query related questions should be directed to: [facility] Coding Query Help-line Based on your medical judgment and the clinical indicators listed below, can you identify the underlying cause of the patient's Chest pain (HTN, ACS, Drug abuse, Brugada syndrome, Thoracic aortic aneurysm, MSK pain, unspecified, or other more appropriate diagnosis) The patient's Clinical Indicators include:#Acute on chronic chest pain rule out ACS D/C Summary 02/20/2023atient endorses worsening midsternal chest sis n prior to presentation D/C Summary 02/20/2023S/p implanted loop recorder and August 2022 D/C Summary 02/20/2023rugada syndrome-D/C Summary 02/20/2023Thoracic aortic aneurysm-D/C Summary 02/20/2023cute on chronic migraine --D/C Summary 02/20/2023Hypertension -H and P-02/18/2023Hypertension stable D/C Summary 02/20/2023ontinue home BP med when reconciled D/C Summary 02/20/2023#History of Brugada syndrome D/C Summary 02/20/2023urrently stable D/C Summary 02/20/2023ontinue outpatient follow-up management D/C Summary 02/20/2023#Hyperlipidemia D/C Summary 02/20/2023ontinue home medication when reconciled D/C Summary 02/20/2023olysubstance abuse D/C Summary 02/20/2023- UDS positive for cocaine, Benzos and cannaboidsATORVASTATIN CALCIUM 40 MG TABLETclonazePAM 0.5 MG TABLETCODEINE PHOSPHATE/APAP 30/300 TABLETENOXAPARIN SODIUM 40 MG/0.4 ML SYR Options provided:-- Respond - Create new note now-- Dismiss - Not applicable / Not valid-- Dismiss - Clinically unable to determine / Unknown-- Assign to another provider QUERY RESPONSE: Chest pain unspecified Query created by: Juanita Foster on 02/26/2023 3:23 AM at 1424 PATIENT NAME: PAOLA LEVI noteNC.[id number] for patient zdkcZCICYYNVLZAWVP2996-11-49U28:25:48 2023-02-20 [id number]:31:00 [facility] 13:31:00 [facility]Med Order Sheet REPORT #: [id number] REPORT STATUS: Signed DATE: 02/20/23 TIME: 1331 PATIENT: PAOLA LEVI UNIT #: [id number] #: [id number] ROOM #: [place].2109 BED: 1 : 83 AGE: 37 SEX: F ATTEND: Desmond Jacob MD ADM AUTHOR: Myesha Lui MD ATTENTION EDITS and/or ADDENDA must be made in Patient Keeper for this note. Edits and ammendments created in [facility] are not visible in Patient Keeper or the legal medical record ([facility]). Discharge Medication Reconciliation DISCHARGE MEDICATION LISTclonazePAM Tab (KlonoPIN Tab) Dose: 0.5 MG PO BID - TAKE 1 TABLET BY MOUTH TWICE A DAY; #60 - SIG Obtained From NavistMetoprolol Succinate XL Tab (Toprol XL Tab) Dose: 25 MG PO BEDTIME - #30 - SIG Obtained From DrFirstNURTEC Dose: 75 MG PO Q48HR for migraines - DISSOLVE 1 TABLET ON THE TONGUE EVERY OTHER DAY; #16 - SIG Obtained FromFirstRosuvastatin Tab (Crestor Tab ) Dose: 40 MG PO BEDTIME - TAKE 1 TABLET BY MOUTH 1 TIME EACH DAY.; #30 - SIG Obtained From [facility] MEDICATIONSDc'd: Acetaminophen Tab (Tylenol Tab) 650MG PO Q6H PRN pain1-3/temp>100.5Dc'd: Enoxaparin 40mg/0.4mL Inj (Lovenox 40mg/0.4mL Inj) 40MGSUBQ DAILYDc'd: HYDROcodone/APAP 7.5/325 Tab ([place] 7.5/325 Tab) 1TAB PO Q4HPRN pain scale 4-6Dc'd: morphine Inj (morphine Inj) 2MG IV Q4H PRN pain(4-6)Dc'd: Ondansetron Inj (Zofran Inj) 4MG IV Q6H PRN nausea andvomitingDc'd: Patient's Own Medication (Patient's Own Medication) NURTEC(rimegepant) ODT 75 MG PO D28BVufobfqfvvyter Signed in PatientKeeper by Myesha Lui on 02/20/23 13:31 at 1331ATTENTIO NEDIT S and/or ADDENDA must be made in Patient Keeper for this note. Edits and ammendments created in [employer] are not visible in Patient Keeper or the legal medical record ([facility]). RPT #: [id number] OF REPORTCLClinical lnwb5928-33-05J06:31:00VT.PK-[id number] for patient tvldXALJHWQMLCYXXK4065-12-84O74:32:04 2023-02-20 [id number]:31:00 [facility] 13:31:00 [facility] REPORT #: [id number] REPORT STATUS: Signed DATE: 02/20/23 TIME: 1331 PATIENT: PAOLA LEVI UNIT #: [id number] #: [id number] ROOM #: NC.2109 BED: 1 : 83 AGE: 37 SEX: F ATTEND: Desmond Jacob MD ADM AUTHOR: Myesha Lui MD ATTENTION EDITS and/or ADDENDA must be made in Patient Keeper for this note. Edits and ammendments created in [employer] are not visible in Patient Keeper or the legal medical record ([facility]PF). -- PROBLEMS/PROCEDURES -- ADMISSION DATE:02/19/23 ADMITTING DIAGNOSES: - Brugada syndrome - Chest pain - Thoracic aortic aneurysm DISCHARGE DATE:02/20/23 DISCHARGE DIAGNOSES: - Brugada syndrome - Chest pain - Thoracic aortic aneurysm -- HOSPITAL COURSE -- HOSPITAL COURSE:Patient seen and examined this AM, she is lying comfortably in bed andsaturating well on RA. She denies any complaints and had no acute eventsovernight. She is cleared for discharge by Cardiology and Echo was reviewed.She is hemodynamically stable for discharge to home at this time, will need tofollow up with her Circuit Design Engineer, Dr. Joel outpatient. Medications reviewed. #Acute on chronic chest pain rule out ACSPatient endorses worsening midsternal chest pain prior to presentationS/p implanted loop recorder and August 2022Following line construction supervisor and customer account technician [facility]Patient currently improved but persistsInitial serial troponin negative CT head/brain without contrast negative CT angio chest mid portion of aorta measures 4.3 cmCardiologist consulted. Recommend outpatient follow upEKGAspirin, nitro, morphineEcho is normalLipid panelContinue to monitor #Acute on chronic migraine headacheMildly improved but persistsContinue NurtecCT head imaging negative as noted abovePain managementContinue to monitor #Blurry visionPossible Brugada syndrome related currently resolvedContinue to monitor #Hypertension stableContinue home BP med when reconciled #HyperlipidemiaContinue home medication when reconciled #History of Brugada syndromeCurrently stableContinue outpatient follow-up management #Polysubstance abuse- UDS positive for cocaine, Benzos and cannaboids- counselled on cessation Disposition: Home -- DISCHARGE MEDICATIONS -- DISCHARGE MEDICATIONS:Please refer to Discharge Medication list for a complete list of dischargemedicationsclonazePAM Tab (KlonoPIN Tab) 0.5 MG PO BID (TAKE 1 TABLET BY MOUTH TWICE ADAY; #60 - SIG Obtained Fr...)Metoprolol Succinate XL Tab (Toprol XL Tab) 25 MG PO BEDTIME (#30 - SIGObtained From Luis Alberto)NURTEC 75 MG PO Q48HR for migraines (DISSOLVE 1 TABLET ON THE TONGUE EVERY OTHER DAY; #16 - SI...)Rosuvastatin Tab (Crestor Tab ) 40 MG PO BEDTIME (TAKE 1 TABLET BY MOUTH 1TIME EACH DAY.; #30 - SIG Obtain...) -- DISCHARGE INSTRUCTIONS -- PK DISCHARGE ORDERS:DC Order - No eCQM 2019.2 Details: Details:Order number: [id number]: PKDC - PK Discharge OrdersOrder status: Transmitted Details:Discharge order: YesDischarge to: Home/Self CareDiet: CardiacActivity: Resume Normal Activity As ToleratedPCP follow up timeframe: In 1-2 weeks Additional Discharge Routines: PCP Follow-Up Ordered by: Myesha Lui MD Feb 20, 2023 1:31pmEntered by: Myesha Lui MD Service date: Feb 20, 2023 1:31pm Discharge w/Instructions ADDTIONAL DISCHARGE INSTRUCTIONS:Emergency Instructions: The patient was instructed to present to the nearestEmergency Department or call 911 should their symptoms return or worsen.; -- OBJECTIVE -- -EXAM- GENERAL: Well developed, well nourished, in no apparent distress.HEAD: Normocephalic, atraumatic.EYES: conjunctiva and sclera clear, without nystagmus, lids normal.EARS: normal canals, grossly normal hearing.NOSE: No deformity, no discharge, no inflammation, no lesions.MOUTH: Oropharynx without deformities or lesions, normal mucosa..NECK: No masses, no thyromegaly, no abnormal cervical nodes, trachea midline.CHEST: Grossly normal appearance.LUNGS: Clear bilaterally with normal respiratory effort.HEART: Regular rate and rhythm, normal S1, S2, no murmurs, no rubs, no gallops, no clicks.ABDOMEN: Soft, non-tender, no organomegaly, no masses noted.MUSCULOSKELETAL: No deformity, no scoliosis noted of thoracic or lumbar spine, joint ROM grossly normal, normal gait and station.EXTREMITIES: No clubbing, no cyanosis, no edema.NEUROLOGICAL: No focal deficits, cranial nerves II-XII grossly intact, normal sensation, normal reflexes, normal coordination, normal muscle strength, normal tone.PULSES: Pulses normal in all extremities.SKIN: Intact without significant lesions, or rashes.PSYCHIATRIC: Alert and oriented to time, person, place. Normal mood and affect, intact judgment and insight. -- QUALITY -- -MEDICATIONS- - I attest that the foregoing medication list in the medical record is true,accurate, and complete to the best of my knowledge. -- ATTESTATION -- TIME SPENT ON PATIENT CARE: - Direct 40 minutes - > 50% of time spent on Counseling/Care Coordination CARE ACTIVITIES / CARE COORDINATION: - I have reviewed the history and repeated the sanchez elements - I have seen and examined this patient - I have reviewed the progress in the clinical course since the lastexamination - I have discussed the patient's condition with other members of the care team Signed in PatientKeeper by Myesha Lui MD on 02/20/23 at 13:34 at 1334ATTENTIO NEDIT S and/or ADDENDA must be made in Patient Keeper for this note. Edits and ammendments created in [facility] are not visible in Patient Keeper or the legal medical record (HPF). [facility] #: [id number] OF REPORTDSDischarge [id number]:31:[id number] for patient [id number]:35:24 2023-02-20 [id number]:18:00 [facility] 11:18:00 [facility])Cardiology Progress Notes REPORT #: [id number] REPORT STATUS: Signed DATE: 02/20/23 TIME: 1118 PATIENT: PAOLA LEVI UNIT #: [id number] #: [id number] ROOM #: VT.2109 BED: 1 : 83 AGE: 37 SEX: F ATTEND: Desmond Jacob MD ADM AUTHOR: Jeremy March MD ATTENTION EDITS and/or ADDENDA must be made in Patient Keeper for this note. Edits and ammendments created in [employer] are not visible in Patient Keeper or the legal medical record (HPF). -- ASSESSMENT AND PLAN -- PROBLEMS: 1: Chest painA/P: chest pain is not cardiacCTA shows 4.3cm desc TAA (pt reports last measured 1-2 years ago at 3.9cm)ekg shows NSR no ischemiaTrop neg x3echo - no acute path 2: Brugada syndromeA/P: cont metopmgmt per primary cards/EP 3: Thoracic aortic aneurysmA/P: desc TAA 4.3cm CTA 02/10has f/u w/ primary cards Dr. Jose Joel ([facility]) -- SUBJECTIVE -- PATIENT NARRATIVE:events/vitals/labs/test/pt reviewed. no new cx/sx. -- OBJECTIVE -- VITALS (02/19 11:18 - 02/20 11:18):Temperature C: 36.4 (36.4 - 36.7)Temperature source: OralPulse Rate 67 (67 - 79)Respiratory rate: 15 (15 - 18)Blood pressure: 108/73 (98/59 - 134/87) I/Os (02/19 07:00 - 02/20 07:00):Net 130Intake 130 -EXAM- OTHER: General: NAD, awake. Eyes: Anicteric sclerae. Mouth: MMM. Neck: Supple. CV: RRR. Pulm: CTAB. Abdomen: Soft, nontender. Extremities: Warm, no edema. Skin: Dry, no rashes. Neuro: No new neurological deficit. Psych: Normal mood. -- DATA -- MEDICATIONS clonazePAM 0.5 MG PO BIDONDANSETRON HCL/PF 4 MG IV Q6H PRNPATIENT'S OWN MEDICATION NURTEC (rimegepant) ODT 75 MG PO [id number] CALCIUM 80 MG PO BEDTIMEENOXAPARIN SODIUM 40 MG SUBQ DAILYHYDROcodone BITARTRATE/APAP 1 TAB PO Q4H PRNmorphine SULFATE 2 MG IV Q4H PRNMETOPROLOL SUCCINATE 25 MG PO BEDTIMEACETAMINOPHEN 650 MG PO Q6H PRN Signed in PatientKeeper by Jeremy March MD on 02/20/23 at 13:40 at 1340ATTENTIO NEDIT S and/or ADDENDA must be made in Patient Keeper for this note. Edits and ammendments created in [facility] are not visible in Patient Keeper or the legal medical record (HPF). [facility] #: [id number] OF REPORTPRProgress [id number]:18:[id number] for patient [id number]:41:15 2023-02-19 [id number] H[facility]VT 15:43:00 [place] [id number] PATIENT NAME: PAOLA LEVI ADMIT DATE: 02/19/23ACCOUNT NO: [id number] ROOM NO: [place] [address] AGE: 37 REPORT TYPE: eECHOCARDIOGRAM REPORT SEX: F ADMITTING PHYSICIAN:Desmond Jacob MD ATTENDING PHYSICIAN:Desmond Jacob MD [id number] ECHO 2D COMPLETE W/[place] [address] Report of EchocardiogramName: PAOLA LEVI Study Date: 02/19/2023 03:43 PMMRN: [id number] Patient Location: [place] [address] 1Account Number: [id number]: [id number] Gender: FemaleAge: 37 yrs Left Ventricle: The left ventricle is normal in size. There is mild concentricleft ventricular hypertrophy. Left ventricular systolic function is normal.Ejection Fraction = 65-70%. Right Ventricle: The right ventricle is normal size. The right ventricularsystolic function is normal. Atria: The left atrial size is normal. Right atrial size is normal. Theinteratrial septum is intact with no evidence for an atrial septal defect. Mitral Valve: The mitral valve is normal. Tricuspid Valve: The tricuspid valve is normal. There is trace tricuspidregurgitation. Aortic Valve: A bicuspid aortic valve cannot be excluded. Mild to moderateaortic regurgitation. Pulmonic Valve: The pulmonic valve leaflets are thin and pliable; valve motionis normal. There is no pulmonic valvular regurgitation. Pericardium/Pleural: There is no pericardial effusion. MMode/2D Measurements CalculationsIVSd: 1.4 cm LVIDd: 3.8 cm [place] [id number] [facility] [id number] PATIENT NAME: PAOLA LEVI LVIDs: 2.9 cm LVPWd: 1.4 cm FS : 24.1 % Ao root diam: 4.2 cmEDV(Teich): 60.3 mlESV(Teich): 30.9 ml Ao root area: 13.7 cm2EF(Teich): 48.7 % Doppler Measurements CalculationsMV E max jonathan: 108.7 cm/sec MV dec slope: 345.1 cm/sec2MV A max jonathan: 90.4 cm/sec MV dec time: 0.32 secMV E/A: 1.2 Ao V2 max: 137.2 cm/sec AI max jonathan: 309.8 cm/secAo max P.6 mmHg AI max P.7 mmHgAo V2 mean: 92.3 cm/sec AI dec slope: 112.0 cm/sec2Ao mean P.0 mmHg AI P1/2t: 810.3 msecAo V2 VTI: 33.6 cm LV V1 max P.6 mmHgLV V1 mean P.3 mmHgLV V1 max: 94.7 cm/secLV V1 mean: 72.2 cm/secLV V1 VTI: 24.0 cm Interpretation SummaryThere is mild concentric left ventricular hypertrophy.Left ventricular systolic function is normal.Ejection Fraction = 65-70%.A bicuspid aortic valve is present.Mild to moderate aortic regurgitation.There is no pericardial effusion.Estimated RAP by IVC is 5mmHg El ectronically read by:Jeremy March MD 02/20/2023 12:27 PMOrdering Physician: Durga Jacobeferrrebecca Physician: Referred, SelfPerformed By: Carmelita Arguelles at [address] [place] [address] PATIENT NAME: PAOLA LEVI 3T12:27:00VT.[id number] for patient [id number]:27:59 2023-02-19 [id number]:15:00 [facility] 15:15:00 [facility])Cardiology Consultation REPORT #: [id number] REPORT STATUS: Signed DATE: 02/19/23 TIME: 1515 PATIENT: PAOLA LEVI UNIT #: [id number] #: [id number] ROOM #: NC.2109 BED: 1 : 83 AGE: 37 SEX: F ATTEND: Desmond Jacob MD ADM AUTHOR: Jeremy March MD ATTENTION EDITS and/or ADDENDA must be made in Patient Keeper for this note. Edits and ammendments created in [employer] are not visible in Patient Keeper or the legal medical record ([facility]). -- ASSESSMENT AND PLAN -- GENERAL ASSESSMENT:do not suspect chest pain is cardiovascular in naturef/u w/ primary line construction supervisor Dr. Tristan Joel for routine mgmt PROBLEMS: 1: Chest painA/P: chest pain is not cardiacCTA shows 4.3cm desc TAA (pt reports last measured 1-2 years ago at 3.9cm)ekg shows NSR no ischemiaTrop neg x3 2: Brugada syndromeA/P: cont metopmgmt per primary cards/EP 3: Thoracic aortic aneurysmA/P: desc TAA 4.3cm CTA f/u w/ primary cards Dr. Jose Joel ([facility]) -- HISTORY -- REASON FOR CONSULT:chest pain CHIEF COMPLAINT:chest pain HPI:Tristan Joel MD is the line construction supervisor who she sees rountinely. Shane ETIENNE is EPHere w/ sharp chest pain modified by positionLast stress test outpatient was about 1 year agoBrugada hx. Brother from Brugada.Biscuspid valve w/ TAAMom having open heart soon for 5.3cm4.3cm TAA on CTA angio chesttakes metoprolol 25 qdtakes statin for "misdiagnosed stroke" per ptneg mammogram last loop recorder placed 08/2022 FAMILY HISTORY:brother bru -- ALLERGIES/HOME MEDS -- ALLERGIES:No Known Allergies (UNKNOWN - Allergy)[EXTERNAL] No Known Allergies (UNKNOWN - External allergies are for displayonly, consider adding to medical record for drug interaction check) HOME MEDICATIONS:clonazePAM Tab (KlonoPIN Tab) 0.5 MG PO BIDMed Rec Order Def 75 MG PO K62HAFgnmshbeus Succinate XL Tab (Toprol XL Tab) 25 MG PO BEDTIMERosuvastatin Tab (Crestor Tab ) 40 MG PO BEDTIME -- SUBJECTIVE -- -REVIEW OF SYSTEMS- COMMENT: General: Negative for fever and malaise. Eyes: Negative for blurry vision and diplopia. Ears/Nose/Throat: Negative for sore throat and rhinorrhea. Respiratory: Negative for cough, dyspnea and wheeze. Cardiovascular: +chest pain Gastrointestinal: Negative for abdominal pain, nausea, emesis, or diarrhea. Musculoskeletal: Negative for joint stiffness, pain, or arthralgias. Skin: Negative for rashes or pruritus. Neurological: Negative for headache and vertigo. Psychiatric: Negative for specific complaints. Endocrine: Negative for weight change or polydipsia. Heme: Negative for excessive bleeding or unusual masses. All/Im: Negative for heat/cold intolerance or polyuria. -- OBJECTIVE -- VITALS (02/18 15:16 - 02/19 15:16):Temperature F: 98.4Temperature C: 36.6 (36.3 - 36.7)Temperature source: OralPulse Rate 79 (76 - 101)Respiratory rate: 18 (15 - 20)Blood pressure: 117/75 (100/63 - 122/85) -EXAM- OTHER: General: NAD, awake. Eyes: Anicteric sclerae. Mouth: MMM. Neck: Supple. CV: RRR. Pulm: CTAB. Abdomen: Soft, nontender. Extremities: Warm, no edema. Skin: Dry, no rashes. Neuro: No new neurological deficit. Psych: Normal mood. -- DATA -- MEDICATIONS clonazePAM 0.5 MG PO BIDONDANSETRON HCL/PF 4 MG IV Q6H PRNPATIENT'S OWN MEDICATION NURTEC (rimegepant) ODT 75 MG PO [id number] CALCIUM 80 MG PO BEDTIMEENOXAPARIN SODIUM 40 MG SUBQ DAILYHYDROcodone BITARTRATE/APAP 1 TAB PO Q4H PRNmorphine SULFATE 2 MG IV Q4H PRNMETOPROLOL SUCCINATE 25 MG PO BEDTIMEACETAMINOPHEN 650 MG PO Q6H PRN LABS TROP-I HIGH SEN (02/19/23 06:50)TROP-I HIGH SENSITIVITY 4 TROP-I HIGH SEN (02/19/23 05:04)TROP-I HIGH SENSITIVITY 4 TROP-I HIGH SEN (02/19/23 02:35)TROP-I HIGH SENSITIVITY 4 COVID19 RNA BED (02/18/23 20:03)Coronavirus 2019 nCoV Bedside Negative DRUGS OF ABUSE SCREEN URINE (02/18/23 19:10)UR COCAINE POSITIVEUR METHAMPHETAMINE NEGATIVEUR CANABINOIDS POSITIVEUR AMPHETAMINE NEGATIVEUR BARBITURATE NEGATIVEUR BENZODIAZEPINE POSITIVEUR OPIATES QUAL POSITIVEUR TRICYCLICS NEGATIVEUR PHENCYCLIDINE (PCP) NEGATIVE TROPI RAPID (02/18/23 17:58)TROPONIN I RAPID < 0.05 CBC W/AUTO DIFF (02/18/23 17:35)WHITE BLOOD CELL 6.1RED BLOOD CELL 3.98HEMOGLOBIN 12.6HEMATOCRIT 37.0MEAN CELL VOLUME 93MEAN CELL HGB 31.7MEAN CELL HGB CONCENTRATION 34.1RED CELL DISTRIBUTION WIDTH 13.4RED CELL DISTRIBUTION WIDTH SD 45.0 PLATELET COUNT 297MEAN PLATELET VOLUME 8.8 LNEUTROPHIL % 59.1LYMPHOCYTE % 32.4MIXED % 8.5NEUTROPHIL # 3.60LYMPHOCYTE # 2.00MIXED # 0.5 COMPREHENSIVE METABOLIC PANEL (02/18/23 17:35)SODIUM 145POTASSIUM 3.8CHLORIDE 111H HCARBON DIOXIDE 31ANION GAP 6.8GLUCOSE 100H HBLOOD UREA NITROGEN 11GLOMERULAR FILTRATION RATE >=60 max estimateCREATININE 0.9BUN/CREATININE RATIO 12.2TOTAL PROTEIN 7.0ALBUMIN 3.7CALCIUM 9.4BILIRUBIN TOTAL 0.5SGOT/AST 27SGPT/ALT 13ALKALINE PHOSPHATASE 72 Signed in PatientKeeper by Jeremy March MD on 02/19/23 at 15:34 at 1534ATTENTIO NEDIT S and/or ADDENDA must be made in Patient Keeper for this note. Edits and ammendments created in [employer] are not visible in Patient Keeper or the legal medical record ([facility]). RPT #: [id number] OF R[id number]:15: [id number] for patient [id number]:35:17 2023-02-19 [id number]:08:00 [facility] 14:08:00 [facility] ([facility])Hospitalist Progress Note REPORT #: [id number] REPORT STATUS: Signed DATE: 02/19/23 TIME: 1408 PATIENT: PAOLA LEVI UNIT #: [id number] #: [id number] ROOM #: NC.2109 BED: 1 : 83 AGE: 37 SEX: F ATTEND: Desmond Jacob MD ADM AUTHOR: Myesha Lui MD ATTENTION EDITS and/or ADDENDA must be made in Patient Keeper for this note. Edits and ammendments created in [facility] are not visible in Patient Keeper or the legal medical record ([facility]). -- ASSESSMENT AND PLAN -- GENERAL ASSESSMENT: #Acute on chronic chest pain rule out ACSPatient endorses worsening midsternal chest pain prior to presentationS/p implanted loop recorder and August 2022Following line construction supervisor and customer account technician [facility]Patient currently improved but persistsInitial serial troponin negative CT head/brain without contrast negative CT angio chest mid portion of aorta measures 4.3 cmCardiologist consulted. Pending evalEKGAspirin, nitro, morphineEcho orderedLipid panelContinue to monitor #Acute on chronic migraine headacheMildly improved but persistsContinue NurtecCT head imaging negative as noted abovePain managementContinue to monitor #Blurry visionPossible Brugada syndrome related currently resolvedContinue to monitor #Hypertension stableContinue home BP med when reconciled #HyperlipidemiaContinue home medication when reconciled #History of Brugada syndromeCurrently stableContinue outpatient follow-up management #Polysubstance abuse- UDS positive for cocaine, Benzos and cannaboids - counselled on cessation Vital signs per unit protocolDaily lab and manage as appropriateFull codeFurther treatment as clinical course indicatesPatient to be discharged when clinically stable and cleared by lifestyle consultant.Encourage ambulation -- SUBJECTIVE -- PATIENT NARRATIVE:Patient seen and examined this AM, she is sitting comfortably in bed andsaturating well on RA. She has substernal chest pain at this time, no otheracute events noted. -REVIEW OF SYSTEMS- GENERAL: Negative for fever, malaise, fatigue.EYES: Positive for blurry vision but none currently. No diplopia.EARS/NOSE/THROAT: Negative for sore throat. No otalgia. No rhinorrhea.RESPIRATORY: Negative for dyspnea or wheeze. No cough.CARDIOVASCULAR: positive for chest pain or palpitations. No extremity swelling.GASTROINTESTINAL: Negative for abdominal pain or nausea. No emesis. No diarrhea.GENITOURINARY: Negative for dysuria, frequency, or urgency. No gross hematuria.MUSCULOSKELETAL: Negative for joint stiffness, pain, or arthralgias.SKIN: Negative for rashes. No pruritus.NEUROLOGICAL: Positive for headache. No vertigo. Denies paresthesias.PSYCHIATRIC: Negative for specific complaints.ENDOCRINE: Negative for cold intolerance, heat intolerance, polyphagia, polydipsia, polyuria, weight change, fatigue.HEMATALOGIC / LYMPHORETICULAR: Negative for excessive bleeding, unusual masses.ALLERGIC / IMMUNOLOGIC: Negative for heat/cold intolerance, polydipsia, or polyuria. -- OBJECTIVE -- -EXAM- GENERAL: Well developed, well nourished, in no apparent distress.HEAD: Normocephalic, atraumatic.EYES: conjunctiva and sclera clear, without nystagmus, lids normal.EARS: normal canals, grossly normal hearing.NOSE: No deformity, no discharge, no inflammation, no lesions.MOUTH: Oropharynx without deformities or lesions, normal mucosa..NECK: No masses, no thyromegaly, no abnormal cervical nodes, trachea midline.CHEST: Grossly normal appearance.LUNGS: Clear bilaterally with normal respiratory effort. HEART: Regular rate and rhythm, normal S1, S2, no murmurs, no rubs, no gallops, no clicks.ABDOMEN: Soft, non-tender, no organomegaly, no masses noted.MUSCULOSKELETAL: No deformity, no scoliosis noted of thoracic or lumbar spine, joint ROM grossly normal, normal gait and station.EXTREMITIES: No clubbing, no cyanosis, no edema.NEUROLOGICAL: No focal deficits, cranial nerves II-XII grossly intact, normal sensation, normal reflexes, normal coordination, normal muscle strength, normal tone.PULSES: Pulses normal in all extremities.SKIN: Intact without significant lesions, or rashes.PSYCHIATRIC: Alert and oriented to time, person, place. Normal mood and affect, intact judgment and insight. -- QUALITY -- -MEDICATIONS- - I attest that the foregoing medication list in the medical record is true,accurate, and complete to the best of my knowledge. -- ATTESTATION -- TIME SPENT ON PATIENT CARE: - Direct 40 minutes - > 50% of time spent on Counseling/Care Coordination CARE ACTIVITIES / CARE COORDINATION: - I have reviewed the history and repeated the sanchez elements - I have seen and examined this patient - I have reviewed the progress in the clinical course since the lastexamination - I have discussed the patient's condition with other members of the care team Signed in PatientKeeper by Myesha Lui MD on 02/19/23 at 14:13 at 1413ATTENTIO NEDIT S and/or ADDENDA must be made in Patient Keeper for this note. Edits and ammendments created in [facility] are not visible in Patient Keeper or the legal medical record ([facility]). RPT #: [id number] OF REPORTPRProgress [id number]:08:[id number] for patient [id number]:14:38 2023-02-19 [id number]:11:00 [facility] 03:11:00 [facility])Med Order Sheet REPORT #: [id number] REPORT STATUS: Signed DATE: 02/19/23 TIME: 0311 PATIENT: PAOLA LEVI UNIT #: [id number] #: [id number] ROOM #: NC.2109 BED: 1 : 83 AGE: 37 SEX: F ATTEND: Desmond Jacob MD ADM AUTHOR: Terri Mcmahon ATTENTION EDITS and/or ADDENDA must be made in Patient Keeper for this note. Edits and ammendments created in [facility] are not visible in Patient Keeper or the legal medical record ([facility]). Admission Medication Reconciliation -- CONTINUED / CHANGED HOME MEDICATIONS -- Home: clonazePAM Tab (KlonoPIN Tab) 0.5 MG PO BID (TAKE 1 TABLET BY MOUTHTWICE A DAY; #60 - SIG Obtained Fr...)Hosp: clonazePAM Tab (KlonoPIN Tab) 0.5 MG PO BID Home: Metoprolol Succinate XL Tab (Toprol XL Tab) 25 MG PO BEDTIME (#30 -SIG Obtained From Luis Alberto)Hosp: Metoprolol Succinate XL Tab (Toprol XL Tab) 25 MG PO BEDTIME - #30 - SIG Obtained From Luis Alberto Home: NURTEC 75 MG PO Q48HR for migraines (DISSOLVE 1 TABLET ON THE TONGUE EVERY OTHER DAY; #16 - SI...)Hosp: Nurtec ODT disintegrating tablet (rimegepant) 75 mg oral Q48HR - DISSOLVE 1 TABLET ON THE TONGUE EVERY OTHER DAY; Home: Rosuvastatin Tab (Crestor Tab ) 40 MG PO BEDTIME (TAKE 1 TABLET BYMOUTH 1 TIME EACH DAY.; #30 - SIG Obtain...)Hosp: Rosuvastatin Tab (NF) (Crestor Tab (NF)) 40 MG PO BEDTIME - TAKE 1 TABLET BY MOUTH 1 TIME EACH DAY.; #30 - SIG Obtained From Luis Alberto :11 at 0311ATTENTIO NEDIT S and/or ADDENDA must be made in Patient Keeper for this note. Edits and ammendments created in [facility] are not visible in Patient Keeper or the legal medical record ([facility]). RPT #: [id number] OF REPORTCLClinical [id number]:11:[id number] for patient [id number]:12:24 2023-02-18 [id number]:20:00 [facility] 23:20:00 [facility] ([facility])Hospitalist Julian Weiner REPORT #: [id number] REPORT STATUS: Signed DATE: 02/18/23 TIME: 2319 PATIENT: PAOLA LEVI UNIT #: [id number] #: [id number] ROOM #: NC.2109 BED: 1 : 83 AGE: 37 SEX: F ATTEND: Desmond Jacob MD ADM AUTHOR: Terri Mcmahon APRNNP ATTENTION EDITS and/or ADDENDA must be made in Patient Keeper for this note. Edits and ammendments created in [facility] are not visible in Patient Keeper or the legal medical record ([facility]). -- CO-SIGNATURE -- COMMENTS:Agree with the findings and plan as documented by Terri Mcmahon NP. Pt seenand examined. Moderate complexity. Signed in PatientKeeper by DESMOND JACOB MD on 02/19/23 at 11:52 -- HISTORY -- ADMISSION DATE:2023-02-18 PRIMARY CARE PROVIDER:Urban Jewell MD CHIEF COMPLAINT:Patient Presented with persistent chest pain, headache, and blurry vision. HPI:Patient is a 37 years old female with past medical history significant forBrugada syndrome, long QT syndrome, bicuspid aortic valve, aortic aneurysm andfollowing line construction supervisor by the name Dr. Joel and customer account technician at [facility], reported chronic midsternal chest pain andcurrently has implanted electronic cardiac loop recorder ongoing since , chronic migraine headache being managed with Nurtec, hypertension,hyperlipidemia, anxiety, polydrug abuse, reported history of stroke with noresidual deficits and following neurologist brought here by EMS due to [facility]was no bed [facility]. Patientpresented due to increasingly worsening midsternal chest pain nonradiating innature, associated with persistent headache and blurry vision. Blurry visioncurrently resolved when she was seen. She was seen on bed AAOx4 and in nodistress. She endorsed persistent midsternal chest pressure and rated at 8/10pain scale and headache. She denied any other abnormal symptoms includingshortness of breath, heart palpitation, fever, chills, nausea, vomiting,abdominal pain, dysuria, numbness or tingling, any other symptoms. PAST MEDICAL HISTORY:Brugada syndrome, long QT syndrome, bicuspid aortic valve, aortic aneurysm,chest pain, chronic migraine headache, hypertension, hyperlipidemia, anxiety,stroke PAST SURGICAL HISTORY: Cardiac Loop recorder implant FAMILY HISTORY:Heart disease, cancer -SOCIAL HISTORY- -TOBACCO USE- DETAILS/COMMENTS:Denied -VAPING/INHALED SOLVENTS- DETAILS/COMMENTS:Denied -ALCOHOL USE- DETAILS/COMMENTS:Occasional drinks of alcohol -DRUG USE- DETAILS/COMMENTS:Previous use of cocaine and cannabinoid, LIVING SITUATION:Lives with family -- ALLERGIES/HOME MEDS -- ALLERGIES:No Known Allergies (UNKNOWN - Allergy)[EXTERNAL] No Known Allergies (UNKNOWN - External allergies are for displayonly, consider adding to medical record for drug interaction check) HOME MEDICATIONS:clonazePAM Tab (KlonoPIN Tab) 0.5 MG PO BIDMetoprolol Succinate XL Tab (Toprol XL Tab) 25 MG PO BEDTIMENURTEC 75 MG PO N70XUKewxfwjfmjeu Tab (Crestor Tab ) 40 MG PO BEDTIME -- SUBJECTIVE -- -REVIEW OF SYSTEMS- GENERAL: Negative for fever, malaise, fatigue.EYES: Positive for blurry vision but none currently. No diplopia.EARS/NOSE/THROAT: Negative for sore throat. No otalgia. No rhinorrhea.RESPIRATORY: Negative for dyspnea or wheeze. No cough.CARDIOVASCULAR: positive for chest pain or palpitations. No extremity swelling.GASTROINTESTINAL: Negative for abdominal pain or nausea. No emesis. No diarrhea.GENITOURINARY: Negative for dysuria, frequency, or urgency. No gross hematuria.MUSCULOSKELETAL: Negative for joint stiffness, pain, or arthralgias.SKIN: Negative for rashes. No pruritus. NEUROLOGICAL: Positive for headache. No vertigo. Denies paresthesias.PSYCHIATRIC: Negative for specific complaints.ENDOCRINE: Negative for cold intolerance, heat intolerance, polyphagia, polydipsia, polyuria, weight change, fatigue.HEMATALOGIC / LYMPHORETICULAR: Negative for excessive bleeding, unusual masses.ALLERGIC / IMMUNOLOGIC: Negative for heat/cold intolerance, polydipsia, or polyuria. -- OBJECTIVE -- VITALS (02/18 03:09 - 02/19 03:09):Temperature F: 98.4Temperature C: 36.7Temperature source: OralPulse Rate 80 (80 - 99)Respiratory rate: 15 (15 - 20)Blood pressure: 106/68 (100/63 - 118/85) -EXAM- GENERAL: Well developed, well nourished, in no apparent distress.HEAD: Normocephalic, atraumatic.EYES: conjunctiva and sclera clear, without nystagmus, lids normal.EARS: TM's intact and clear, normal canals, grossly normal hearing.NOSE: No deformity, no discharge, no inflammation, no lesions.MOUTH: Oropharynx without deformities or lesions, normal mucosa..NECK: No masses, no thyromegaly, no abnormal cervical nodes, trachea midline.CHEST: Grossly normal appearance.LUNGS: Clear bilaterally with normal respiratory effort.HEART: Regular rate and rhythm, normal S1, S2, no murmurs, no rubs, no gallops, no clicks.ABDOMEN: Soft, non-tender, no organomegaly, no masses noted.MUSCULOSKELETAL: No deformity, no scoliosis noted of thoracic or lumbar spine, joint ROM grossly normal, normal gait and station.EXTREMITIES: No clubbing, no cyanosis, no edema.NEUROLOGICAL: No focal deficits, cranial nerves II-XII grossly intact, normal sensation, normal reflexes, normal coordination, normal muscle strength, normal tone.PULSES: Pulses normal in all extremities.SKIN: Intact without significant lesions, or rashes.LYMPH NODES: No significant cervical node adenopathy. No significant axillary node adenopathy. No significant inguinal node adenopathy.PSYCHIATRIC: Alert and oriented to time, person, place. Normal mood and affect, intact judgment and insight. -- DATA -- LABS COVID19 RNA BED (02/18/23 20:03)Coronavirus 2019 nCoV Bedside Negative DRUGS OF ABUSE SCREEN URINE (02/18/23 19:10)UR COCAINE POSITIVEUR METHAMPHETAMINE NEGATIVEUR CANABINOIDS POSITIVEUR AMPHETAMINE NEGATIVEUR BARBITURATE NEGATIVEUR BENZODIAZEPINE POSITIVEUR OPIATES QUAL POSITIVEUR TRICYCLICS NEGATIVEUR PHENCYCLIDINE (PCP) NEGATIVE TROPI RAPID (02/18/23 17:58)TROPONIN I RAPID < 0.05 CBC W/AUTO DIFF (02/18/23 17:35)WHITE BLOOD CELL 6.1RED BLOOD CELL 3.98HEMOGLOBIN 12.6HEMATOCRIT 37.0MEAN CELL VOLUME 93MEAN CELL HGB 31.7MEAN CELL HGB CONCENTRATION 34.1RED CELL DISTRIBUTION WIDTH 13.4RED CELL DISTRIBUTION WIDTH SD 45.0PLATELET COUNT 297MEAN PLATELET VOLUME 8.8 LNEUTROPHIL % 59.1LYMPHOCYTE % 32.4MIXED % 8.5NEUTROPHIL # 3.60LYMPHOCYTE # 2.00MIXED # 0.5 COMPREHENSIVE METABOLIC PANEL (02/18/23 17:35)SODIUM 145POTASSIUM 3.8CHLORIDE 111H HCARBON DIOXIDE 31ANION GAP 6.8GLUCOSE 100H HBLOOD UREA NITROGEN 11GLOMERULAR FILTRATION RATE >=60 max estimateCREATININE 0.9BUN/CREATININE RATIO 12.2TOTAL PROTEIN 7.0ALBUMIN 3.7CALCIUM 9.4BILIRUBIN TOTAL 0.5SGOT/AST 27SGPT/ALT 13ALKALINE PHOSPHATASE 72 -- ASSESSMENT AND PLAN -- GENERAL ASSESSMENT: #Acute on chronic chest pain rule out ACS Patient endorses worsening midsternal chest pain prior to presentationS/p implanted loop recorder and August 2022Following line construction supervisor and customer account technician [facility]Patient currently improved but persistsInitial serial troponin negative CT head/brain without contrast negative CT angio chest unremarkableCardiologist consulted. Follow recommendationsEKGAspirin, nitro, morphineLipid panelContinue to monitor #Acute on chronic migraine headacheMildly improved but persistsContinue NurtecCT head imaging negative as noted abovePain managementContinue to monitor #Blurry visionPossible Brugada syndrome related currently resolvedContinue to monitor #Hypertension stableContinue home BP med when reconciled #HyperlipidemiaContinue home medication when reconciled #History of Brugada syndromeCurrently stableContinue outpatient follow-up management Vital signs per unit protocolDaily lab and manage as appropriateFull codeFurther treatment as clinical course indicatesPatient to be discharged when clinically stable and cleared by lifestyle consultant -- ATTESTATION -- TIME SPENT ON PATIENT CARE: - Coordination of Care 60 minutes CARE ACTIVITIES / CARE COORDINATION: - I have reviewed the history and repeated the sanchez elements - I have seen and examined this patient - I have discussed the patient's condition with other members of the care team Signed in PatientKeeper by Terri Mcmahon on 02/19/23 at 03:44 Cosigned by DESMOND JACOB MD on 02/19/23 at 11:52 at 1152 at 1152ATTENTIO NEDIT S and/or ADDENDA must be made in Patient Keeper for this note. Edits and ammendments created in [employer] are not visible in Patient Keeper or the legal medical record (HPF). [facility] #: [id number] OF REPORTHPHistory and physical kqmumfvwcni3704-73-40N35:20:00NC.PK-NOTE [id number] for patient bofsOSOZZOYMNEFPES5197-70-97O58:53:31 2023-02-18 [id number]:28:00 [facility] 17:28:00 [facility] ([facility])EMERGENCY PROVIDER REPORTREPORT#:[id number] REPORT STATUS: SignedDATE:02/18/23 TIME: 1727 PATIENT: PAOLA LEVI UNIT #: [id number]#: [id number] ROOM: [place] [address]BED: 1AGE: 37 SEX: F PCP PHYS: Urban Jewell MDSERVICE AUTHOR: Cedric Morrissey Jr, MD * ALL edits or amendments must be made on the electronic/computer document * Cedric Morrissey 02/18/231727:HPI-General Illness Free Text HPI NotesFree Text HPI NotesPatient with a history of Brugada syndrome, long QT syndrome, bicuspid aortic valve, aortic aneurysm presents the ER with multiple complaints. Patient statesshe has been having a headache over the last couple days. Patient also states that she has had some substernal chest pain. Patient states she called her doctor's office who told her to go to the nearest ER to rule out a stroke because of a headache and her other symptoms. Patient at this time states she has a headache and still has some chest pain. Patient states her aneurysm the last time it was measured was around 4.9 cm. Patient states she is also concerned about her Brugada syndrome currently. Patient does admit to having a few drinks earlier today. GeneralConfirmed Patient YesInitial Greet Date/Time 02/18/23 1711 Review of Systems ROS StatementsAll systems rev neg except as marked. Past Medical History - AdultStated Complaint "CARDIAC ISSUES"AllergiesCoded Allergies:No Known Allergies (02/18/23) Home MedicationsReported MedicationsMetoprolol Succ Xl (Toprol Xl) (Unknown Dose) Rosuvastatin (Unknown Dose) Clonazepam (Klonopin) (Unknown Dose) Additional Medical HistoryBrugada syndrome, prolonged QT syndrome, aortic aneurysm, bicuspid aortic valve Physical Exam Vital SignsVital SignsFirst Documented: Result Date Time Pulse Ox 97 02/18 1709 B/P 118/82 02/18 1709 B/P Mean 94 02/18 1709 O2 Delivery Room air 02/18 1709 Temp 36.9 02/18 1709 Pulse 99 02/18 1709 Resp 16 02/18 1709 Last Documented: Result Date Time Pulse Ox 97 02/19 1944 B/P 113/85 02/19 1944 B/P Mean 94 02/19 1944 O2 Delivery Room air 02/19 1944 Pulse 89 02/19 1944 Resp 20 02/19 1944 Temp 36.9 02/18 1709 Review of Vital Signs Reviewed Free Text PE NotesFree Text PE Notes GENERAL: Mild distress, mild odor of EtOH HEAD: Normal with no signs of head trauma. EYES: EOMI, conjunctiva normal, no discharge. ENT: dry mucous membranes NECK: Normal range of motion, supple CHEST: Clear breath sounds bilaterally. No wheezes, rales, or rhonchi. CARDIAC: Regular rate and rhythm. S1 and S2, ABDOMEN: Normal and soft with no tenderness GENITOURINARY: Normal, No tenderness MUSCULOSKELETAL: Good range of motion of all major joints NEUROLOGICAL: Alert and oriented, gross movement normal Interpretation Diagnostics ECG #1 InterpretationText/Dict NoteNormal sinus rhythm at 100. No ectopy, normal intervals, no QT, normal axis Re-Evaluation MDM Free Text MDM NotesFree Text MDM NotesPatient with chest pain, headache. Will order EKG, cardiac labs. Also CT head as well as CT angio chest due to patient's history of aneurysm. Patient is otherwise hemodynamically stable at this time. ED CourseMedication(s) OrderedMedication(s) Ordered:Central Nervous System Agents Sig/Robbie Start time Last Medication Dose Route Stop Time Status Admin Acetaminophen/ 1 TAB X1ED STA 02/18 1734 DC 02/18 Codeine Phosphate PO 02/18 173 1801 Diagnostic Agents Sig/Robbie Start time Last Medication Dose Route Stop Time Status Admin Iopamidol 0 .STK-MED ONE 02/18 1747 DC IV Electrolytic, Caloric, And Fabiano Sig/Robbie Start time Last Medication Dose Route Stop Time Status Admin Sodium Chloride 100 ML .STK-MED ONE 02/18 1746 DC IV Patient Discharge Departure Vital Signs/ConditionVital SignsFirst Documented: Result Date Time Pulse Ox 97 02/18 1709 B/P 118/82 02/18 1709 B/P Mean 94 02/18 1709 O2 Delivery Room air 02/18 1709 Temp 36.9 02/18 1709 Pulse 99 02/18 1709 Resp 16 02/18 1709 Last Documented: Result Date Time Pulse Ox 97 02/19 1944 B/P 113/85 02/19 1944 B/P Mean 94 02/19 1944 O2 Delivery Room air 02/19 1944 Pulse 89 02/19 1944 Resp 20 02/19 1944 Temp 36.9 02/18 1709 All vital signs available at the time of this entry have been reviewed. Chirag Tijerina M.D 02/18/231928:HPI-General Illness Free Text HPI NotesFree Text HPI NotesI took over care at [address] Morrissey. I spoke with Mine and confirmed the above history. Psychologically, she had a pretty tough history. Her first was killed in a motor vehicle collision at age 31 and left herwindow with their child. When she was younger, her brother at age 21, presumably of Brugada syndrome. He was found after being asleep. Her mother has a thoracic aortic aneurysm that is 5.3 cm and is scheduled for surgical repair next month. She, herself, has a developing thoracic aortic aneurysm. She said they have been monitoring it. The last she is aware, it was4.9 cm. She has a long history of migraine headaches and is taking medication for that. Her typical prodrome is scotoma, but she generally does not get blurry vision. She notes her vision has been decreasing some and she needs to see an privacy specialist to get a current eye exam. In addition to having a headache,she has had some increased blurry vision. It seems to be a little different than her baseline, but cannot really put her finger on how. She has a implantedloop recorder, but has never had an AICD placed. She is followed by an customer account technician, Dr. Ramos. She has mild hypertension and takes metoprolol. She also has mild hypercholesterolemia so she is on a statin. She told me that the chest pain she has really is not much different than what she has been feeling for the last several months. She said since the loop monitor was placed she seems to have more episodes or exacerbations. As for theheadache today, its not as severe as her typical migraine headaches. She has not had any neurologic symptoms such as weakness, numbness, tingling, difficultywith speech. The only difference is the blurry vision. She denies that its diplopia. PresentationChief Complaint Chest pain, Headache, Blurry visionHx Obtained From PatientSudden in Onset? No Past Medical History - AdultReview of Nursing Notes Rapid assess notes revAdditional Medical HistoryHTNHypercholesterolemiaPolysubsta nce abuseAdditional Surgical HistoryLoop Recorder implanted.Alcohol Use Alcohol useDrug Use Benzodiazepines, Cocaine, Opiates, Marijuana, Based on positive drug screen Physical Exam Basic Physical ExamBasic PE GEN: Well appearing/NAD, HEAD: Atraumatic/NC, EYES: PERRL, conj clear, ENT: Membranes moist, NECK: Supple, EXT: No gross abnormality, NEURO: alert oriented, NEURO: gross movement NL, PSYCH: NL thought content Physical ExamMS Lower Extrem Lower Ext/Pelvis/MS superficial abrasion over L tibial plateau. She states she tripped over some cement blocks in her back yard a day or two ago. She has not complaint about the injury. Interpretation Diagnostics Lab Results InterpretationResultsLaboratory Tests 02/18/23 1735:[Embedded Image Not Available]Laboratory Tests: 02/18 02/18 02/18 1735 1758 1910 Chemistry Sodium (128 - 145 mmol/L) 145 Potassium (3.6 - 5.1 mmol/L) 3.8 Chloride (98 - 108 mmol/L) 111 H Carbon Dioxide (18 - 33 mmol/L) 31 Anion Gap (2.0 - 16.0) 6.8 BUN (7 - 22 mg/dL) 11 Creatinine (0.6 - 1.2 mg/dL) 0.9 Glomerular Filtr Rate (60 - 115 ml/min) >=60 max estimate BUN/Creatinine Ratio (12.0 - 20.0) 12.2 Glucose (65 - 99 mg/dL) 100 H Calcium (8.0 - 10.3 mg/dL) 9.4 Total Bilirubin (0.2 - 1.6 mg/dL) 0.5 AST (11 - 38 U/L) 27 ALT (10 - 47 U/L) 13 Total Alk Phosphatase (42 - 141 U/L) 72 Rapid Troponin I (0.00 - 0.05 ng/mL) < 0.05 Total Protein (6.4 - 8.1) 7.0 Albumin (3.3 - 5.5 g/dL) 3.7 Hematology WBC (4.5 - 10.7 10 3/uL) 6.1 RBC (3.50 - 5.50 10 6/uL) 3.98 Hgb (12.0 - 16.0 g/dL) 12.6 Hct (37.0 - 55.0 %) 37.0 MCV (81 - 102 fL) 93 MCH (26.0 - 34.0 pg) 31.7 MCHC (31.0 - 37.0 g/dL) 34.1 RDW (11.6 - 14.4 %) 13.4 RDW Std Deviation (36.4 - 46.3 fL) 45.0 Plt Count (150 - 400 10 3/uL) 297 MPV (9.0 - 13.0 fL) 8.8 L Neut % (Auto) (33.0 - 76.0 %) 59.1 Lymph % (Auto) (14.0 - 56.4 %) 32.4 Mixed Cells % (Auto) (1.0 - 10.0 %) 8.5 Neut # (Auto) (1.5 - 7.0 10 3/uL) 3.60 Lymph # (Auto) (1.50 - 4.00 10 3/uL) 2.00 Mixed Cells # (0.1 - 0.6) 0.5 Toxicology Urine Opiates Screen (NEGATIVE) POSITIVE Ur Barbiturates, Qual (NEGATIVE) NEGATIVE Ur Tricyclics Screen (NEGATIVE) NEGATIVE Ur Phencyclidine Scrn (NEGATIVE) NEGATIVE Ur Amphetamines Screen (NEGATIVE) NEGATIVE Urine Methamphetamines (NEGATIVE) NEGATIVE U Benzodiazepines Scrn (NEGATIVE) POSITIVE Urine Cocaine Screen (NEGATIVE) POSITIVE Urine Cannabinoids (NEGATIVE) POSITIVE 02/18 2003 Serology SARS CoV-2 RNA Rapid OBED (Negative) Negative Recent Impressions:CAT SCAN - CT ANGIO CHEST 02/18 1800 Report Impression - Status: SIGNED Entered: 02/18/2023 1906 IMPRESSION: Motion artifact limits evaluation of the thoracic aorta. Bestestimate for measurement of the mid descending portion is 4.3 cm indiameter. Otherwise unremarkable exam of the chest.Impression By: HYACINTH Pizarro SCAN - CT HEAD/BRAIN W/O CONT 02/18 1800 Report Impression - Status: SIGNED Entered: 02/18/2023 1853 IMPRESSION: No acute intracranial process. 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 I spoke to Paola about this. She said it apparently has grown because it was 3.9 cm previously. She says she must of been mistaken whenshe said 4.9 cm. There were no other abnormal findings. The CT of the brain did not show any acute process. I discussed Paola's presentation and results with the line construction supervisor from Dr. [facility] who is on-call. Call was made through their service. He had spoken with her earlier today and was the one who recommended her to come to the ED. He said she had described being bradycardic in the 40s and tachycardic in the 120s, but did not mention chest pain. His recommendation was to follow what ever standard procedure we would follow given the complaints, and was in agreement with possible observation admission at [facility]. I called thetransfer center to arrange transfer [facility] desiree observation admission and follow-up. [facility] did not have capacity so they declined the transfer. Admit to [facility]. Patient Discharge Departure Vital Signs/ConditionCondition Stable, Improved Clinical ImpressionClinical ImpressionPrimary Impression: Chest painSecondary Impressions: Headache, Polysubstance abuse, Tachycardia-bradycardiaTime of Impression 2003 Disposition DecisionHospitalize Hosp Physician Name Desmond Jacob MD Hosp Physician Hospitalist Request Time 2217 Request Date 02/18/23 )( Accepts Hospitalization Yes )( Reason for HospitalizationSee diagnosis )( Accepted Time 2244 )( Accepted Date 02/18/23 Call Information will see patient, agrees with eval, agrees with plan, [employer] with Terri Cornoado )( Request Time 2004 )( Request Date 02/18/[address] [facility] Transfer Accepted No space available Discharge/Care PlanCounseled Regarding Diagnosis, Lab results, Imaging studies, Need for admission Admit NoteI have spoken with the patient and/or caregivers. I have explained the patient'scondition, diagnoses and treatment plan based on the information available to meat this time. I have answered the patient's and/or caregiver's questions and addressed any concerns. The patient and/or caregivers have as good an understanding of the patient's diagnosis, condition and treatment plan as can beexpected at this point. The patient has been stabilized within the capability ofthe emergency department. The patient will be transported for further care and management or will be moved to an observation or inpatient service. I have communicated with the staff or medical practitioner taking over this patient's care. at 0040 at 1619RPT #:[id number] OF REPORTEDEmergency department wjstnd3312-19-70I21:28:00NC.[id number] for patient vcylGXVTBKGXZYWBBO4054-29-77O00:41:23 2023-02-18 [id number] [facility] 17:09:[address] [address] PATIENT NAME: PAOLA LEVI ADMIT DATE: 02/19/23ACCOUNT NO: [id number] ROOM NO: NC.[id number] AGE: 37 REPORT TYPE: eELECTROCARDIOGRAM SEX: F ADMITTING PHYSICIAN:Desmond Jacob MD ATTENDING PHYSICIAN:Desmond Jacob MD Order:[id number] Reason : Test Date/Time Stamp:Sofya Feb 18 2023 17:09:11Blood Pressure : / mmHGVent. Rate : 100 BPM Atrial Rate : 100 BPM P-R Int : 144 ms QRS Dur : 088 ms QT Int : 362 ms P-R-T Axes : 041 038 047 degrees QTc Int : 466 ms Normal sinus rhythmNormal ECG Confirmed by ERROL DUNHAM MD ([id number]) on 02/19/2023 7:38:16 PM Referred By: Self Referred Confirmed by:ERROL DUNHAM MD at Counts include 234 beds at the [facility] [address] PATIENT NAME: PAOLA LEVI .[id number] [id number] for patient [id number]:38:35 2022-11-20 3031-57-06G64:00:00 Addended by: Electrophysiolo [facility] 09:00:00 ANGELICA GOMES on: 12/18/2022 02:52 PM of [place] Modules accepted: Orders Electronically [facility] signed by Angelica Gomes MA at [place] at 12/18/2022 2:52 PM [id number] [place] [id number]:52:24Addendum [id number] .[id number] for patient [id number]zlycb ophysiologyUTHEPIThe [facility] at [address] #[id number] [id number]:52:241.2.840.11 [id number]|[id number] .[id number]
--- NOTE | 2023-04-14 20:53 | RAD REPORT ---
EXAM DESCRIPTION: CT - CTHCSPWOC - 04/14/2023 8:40 pm CLINICAL HISTORY: Trauma, head and neck injury. neck injury COMPARISON: <Comparisons> TECHNIQUE: Axial 5 mm thick images of the head were obtained. Axial 2 mm thick images of the cervical spine were obtained with sagittal and coronal reconstruction images generated and reviewed. All CT scans are performed using dose optimization technique as appropriate and may include automated exposure control or mA/KV adjustment according to patient size. FINDINGS: CT HEAD WITHOUT CONTRAST: No acute hemorrhage, hydrocephalus or extra-axial collection is identified.No areas of brain edema or midline shift. The paranasal sinuses and mastoids are clear.The calvarium is intact. CT CERVICAL SPINE WITHOUT CONTRAST: Mild widening of the left at C5-6 noted measuring 3-4 mm.This can be seen in ligamentous injuries. No fracture is evident.No prevertebral soft tissues swelling is identified. IMPRESSION: No acute intracranial findings. Mild widening of the left facet joint C5-6 can indicate ligamentous injury. Followup MR imaging of th e cervical spine could be performed for further evaluation. No acute fracture of the cervical spine.
[2023-04-14 21:54] LABS: Specific Gravity 1.019 (1.005-1.030)
[2023-04-14] MEDS ORDERED: methocarbamoL 750 MG TAB ONE (22:08)
[2023-04-14] MEDS ORDERED: CYCLOBENZAPRINE 10 MG TAB ONE (22:08)
[2023-04-14] MEDS ORDERED: KETOROLAC 30 MG/ML INJ ONE (22:08)
[2023-04-14] MEDS ORDERED: PROMETHAZINE 25 MG TABLET ONE (22:08)
--- NOTE | 2023-04-14 22:24 | EDPHYS ---
Physician Documentation [facility] Name: Urvashi Ramseyrow Age: 37 yrs Sex: Female : 1985 Arrival Date: 04/14/2023 Time: 20:09 Bed 11 Private MD: ED Physician Florentin Mendoza HPI: 04/14 22:03 This 37 yrs old Female presents to ER via EMS with complaints of Neck Pain, sp4 >24Hrs Old. 22:03 Patient is 37-year-old female who presents with worsening neck pain after fall on sp4 Sunday 4 days ago. Patient fell forward and sustained abrasions to the face. Patient presents with EMS today for worsening pain in the neck associated with crook in the neck. Historical: - Allergies: 20:21 No Known Allergies; cm10 - PMHx: 20:21 Brugada Syndrome; AAA; Long QT Syndrome; Ventricular Tachycardia; cm10 20:28 Loop recorder; cm10 - Immunization history:: Adult Immunizations unknown. - Social history:: Smoking status: Patient denies any tobacco usage or history of. - Family history:: not pertinent. ROS: 22:03 Constitutional: Negative for fever, chills, and weight loss, positive neck pain , sp4 positive several facial abrasions Eyes: Negative for injury, pain, redness, and discharge, ENT: Negative for injury, pain, and discharge, Neck: Negative for injury, pain, and swelling, Cardiovascular: Negative for chest pain, palpitations, and edema, Respiratory: Negative for shortness of breath, cough, wheezing, and pleuritic chest pain, Abdomen/GI: Negative for abdominal pain, nausea, vomiting, diarrhea, and constipation, Back: Negative for injury and pain, MS/Extremity: Negative for injury and deformity, Skin: Negative for injury, rash, and discoloration, 22:03 All other systems are negative, Exam: 22:03 Constitutional: This is a well developed, well nourished patient who is awake, alert, sp4 and in no acute distress. Head/Face: Normocephalic, atraumatic. Eyes: Pupils equal round and reactive to light, extra-ocular motions intact. Lids and lashes normal. Conjunctiva and sclera are not injected. Cornea within normal limits. Periorbital areas with no swelling, redness, or edema. ENT: Nares patent. No nasal discharge, no septal abnormalities noted. Tympanic membranes are normal and external auditory canals are clear. Oropharynx with no redness, swelling, or masses, exudates, or evidence of obstruction, uvula midline. Mucous membranes moist. Neck: Trachea midline, no thyromegaly or masses palpated, and no cervical lymphadenopathy. Supple, patient is guarding the neck, decreased range of motion of the neck, lidocaine patch present on posterior neck, bilateral muscular tenderness over the neck Chest/axilla: Normal chest wall appearance and motion. Nontender with no deformity. No lesions are appreciated. Cardiovascular: Regular rate and rhythm with a normal S1 and S2. No gallops, murmurs, or rubs. Normal PMI, no JVD. No pulse deficits. Respiratory: Lungs have equal breath sounds bilaterally, clear to auscultation and percussion. No rales, rhonchi or wheezes noted. No increased work of breathing, no retractions or nasal flaring. Abdomen/GI: Soft, non-tender, with normal bowel sounds. No distension or tympany. No guarding or rebound. No evidence of tenderness throughout. Back: No spinal tenderness. No costovertebral tenderness. Skin: Warm, dry with normal turgor. Normal color with no rashes, no lesions, and no evidence of cellulitis. MS/ Extremity: Pulses equal, no cyanosis. Neurovascular intact. Full, normal range of motion. Neuro: Awake and alert, GCS 15, oriented to person, place, time, and situation. Cranial nerves II-XII grossly intact. Motor strength 5/5 in all extremities. Sensory grossly intact. Psych: Awake, alert, with orientation to person, place and time. Behavior, mood, and affect are within normal limits Vital Signs: 20:23 BP 120 / 85; Pulse 94; Resp 18; Temp 97.8; Pulse Ox 97% ; Weight 83.91 kg; Height 5 ft. cm10 8 in. ; Pain 10/10; 22:30 BP 115 / 79; Pulse 89; Resp 16; Pulse Ox 98% on R/A; Pain 5/10; pf1 20:23 Body Mass Index 28.13 (83.91 kg, 172.72 cm) cm10 20:23 Pain Scale: Adult cm10 22:30 Pain Scale: Adult pf1 MDM: 20:21 Patient medically screened. sp4 22:03 Differential diagnosis: arthritis, C-Spine Fracture Cervical Disc Herniation Cervical sp4 Discogenic Pain Cervical Facet Syndrome Cervical Raiculopathy Cervical Spondylosis cervical strain. Data reviewed: vital signs, nurses notes, lab test result(s), UPT: negative. Consideration of Admission/Observation Escalation of care including admission/observation considered. 22:09 ED course: No acute fracture by CAT scan. There is some suspicion of C5-C6 ligamentous sp4 injury over the facet. 22:09 ED course: Basically left facet C5-C6 widening possible ligamentous injury reported on sp4 the CT. Will advise patient to wear soft cervical collar for 2 weeks and see her primary care physician for MRI of the C-spine if the pain is not better in 2 weeks. Neurological exam today is normal with normal gait. . 22:22 ED course: Patient has normal neurologic exam normal ambulation. . sp4 04/14 20:21 Order name: Test, Urine; Complete Time: 22:08 sp4 04/14 20:20 Order name: CT Head C Spine; Complete Time: 21:58 sp4 Administered Medications: 22:05 Drug: Ketorolac IM 60 mg IM once Route: IM; Site: right gluteus; pf1 22:49 Follow up: Response: No adverse reaction; Marked relief of symptoms; Pain is decreased pf1 22:05 Drug: Cyclobenzaprine PO 10 mg PO once Route: PO; pf1 22:49 Follow up: Response: No adverse reaction; Marked relief of symptoms; Pain is decreased pf1 22:05 Drug: Methocarbamol PO 750 mg PO once Route: PO; pf1 22:49 Follow up: Response: No adverse reaction; Marked relief of symptoms; Pain is decreased pf1 22:05 Drug: Promethazine PO 25 mg PO once Route: PO; pf1 22:48 Follow up: Response: No adverse reaction; Marked relief of symptoms; Pain is decreased pf1 22:33 Drug: [place] PO 10 mg-325 mg 1 tabs PO once Route: PO; pf1 22:48 Follow up: Response: No adverse reaction; Marked relief of symptoms; Pain is decreased; pf1 RASS: Alert and Calm (0) Disposition Summary: 04/14/23 22:24 Discharge Ordered Notes: Location: Home sp4 Problem: new sp4 Symptoms: have improved sp4 Condition: Stable sp4 Diagnosis - Sprain of ligaments of cervical spine, initial encounter sp4 Followup: sp4 - With: Private Physician - When: 7 - 10 days - Reason: Recheck today's complaints Discharge Instructions: - Discharge Summary Sheet sp4 - Cervical Sprain, [id number] sp4 Forms: - Patient Portal Instructions sp4 Prescriptions: - CERVICAL COLLAR - apply 1 unit TOPICAL route as directed Apply to neck , wear at all times for 2 sp4 weeks , see your Primary MD; 1 unit; Refills: 0, Product Selection Permitted - Ibuprofen 800 mg Oral Tablet - take 1 tablet ORAL route every 8 hours As needed take with food; 30 tablet; sp4 Refills: 0, Product Selection Permitted - Cyclobenzaprine 10 mg Oral Tablet - take 1 tablet ORAL route every 8 hours As needed; 30 tablet; Refills: 0, sp4 Product Selection Permitted - Tramadol 50 mg Oral tablet - take 1 tablet ORAL route every 8 hours as needed; 20 tablet; Refills: 0, sp4 Product Selection Permitted Signatures: Dispatcher [employer] Ruth Nash, RN RN pf1 Florentin Mendoza MD MD sp4 Aidee Hadley, RN RN cm10
--- NOTE | 2023-04-14 22:24 | ER ---
Nurse's Notes [facility] Name: Urvashi Herrera Age: 37 yrs Sex: Female : 1985 Arrival Date: 04/14/2023 Time: 20:09 Bed 11 Private MD: Diagnosis: Sprain of ligaments of cervical spine, initial encounter Presentation: 04/14 20:23 Chief complaint: EMS states: Were called to patient's home for neck pain. Pt injured cm10 her neck on Sunday when she tripped and fell and was drug by her dog. Pt was seen on Sunday at [facility]. Pt states that the neck pain got worse today after she was sitting in her recliner. Pt also reports that her bilateral arms are now going numb. Coronavirus screen: Vaccine status: Patient reports being unvaccinated. Client denies travel out of the [place] in the last 14 days. Ebola Screen: Patient denies travel to an Ebola-affected area in the 21 days before illness onset. No symptoms or risks identified at this time. Initial Sepsis Screen: Does the patient meet any 2 criteria? No. Patient's initial sepsis screen is negative. Does the patient have a suspected source of infection? No. Patient's initial sepsis screen is negative. Risk Assessment: Do you want to hurt yourself or someone else? Patient reports no desire to harm self or others. Onset of symptoms was April 14, 2023. 20:23 Method Of Arrival: EMS: [facility] 20:23 Acuity: KEANU 3 cm10 Triage Assessment: 22:13 General: Appears in no apparent distress. comfortable, Behavior is calm, cooperative. cm10 Pain: Complains of pain in back of neck Pain does not radiate. Pain currently is 10 out of 10 on a pain scale. Neuro: No deficits noted. Level of Consciousness is awake, alert, obeys commands, Oriented to person, place, time, situation. Respiratory: No deficits noted. Airway is patent Respiratory effort is even, unlabored, Respiratory pattern is regular, symmetrical. Derm: No deficits noted. Skin is intact, Skin is pink, warm \T\ dry. Musculoskeletal: Reports pain in back of neck. Historical: - Allergies: 20:21 No Known Allergies; cm10 - PMHx: 20:21 Brugada Syndrome; AAA; Long QT Syndrome; Ventricular Tachycardia; cm10 20:28 Loop recorder; cm10 - Immunization history:: Adult Immunizations unknown. - Social history:: Smoking status: Patient denies any tobacco usage or history of. - Family history:: not pertinent. Screenin:14 [facility] ED Fall Risk Assessment (Adult) History of falling in the last 3 months, cm10 including since admission Yes- single mechanical fall (1 pt) Confusion or Disorientation No (0 pts) Intoxicated or Sedated No (0 pts) Impaired Gait Yes (1 pt) Mobility Assist Device Used Yes (1 pt) Altered Elimination No (0 pt) Score/Fall Risk Level 3 or more points = High Risk Oriented to surroundings, Maintained a safe environment, Hourly rounding (assess needs \T\ fall precautionary measures) done. Abuse screen: Denies threats or abuse. Denies injuries from another. Nutritional screening: No deficits noted. Tuberculosis screening: No symptoms or risk factors identified. Assessment: 22:30 Reassessment: Patient appears in no apparent distress at this time. Patient and/or pf1 family updated on plan of care and expected duration. Pain level reassessed. Patient is alert, oriented x 3, equal unlabored respirations, skin warm/dry/pink. Patient states symptoms have improved. Vital Signs: 20:23 BP 120 / 85; Pulse 94; Resp 18; Temp 97.8; Pulse Ox 97% ; Weight 83.91 kg; Height 5 ft. cm10 8 in. ; Pain 10/10; 22:30 BP 115 / 79; Pulse 89; Resp 16; Pulse Ox 98% on R/A; Pain 5/10; pf1 20:23 Body Mass Index 28.13 (83.91 kg, 172.72 cm) cm10 20:23 Pain Scale: Adult cm10 22:30 Pain Scale: Adult pf1 ED Course: 20:19 Patient arrived in ED. cm10 20:20 Florentin Mendoza MD is Attending Physician. sp4 20:27 Triage completed. cm10 20:27 Arm band placed on Patient placed in waiting room. cm10 20:41 CT Head C Spine In Process Unspecified. EDMS 21:45 Test, Urine Sent. pf1 21:52 Test, Urine Sent. pf1 22:14 Patient has correct armband on for positive identification. Bed in low position. Call cm10 light in reach. Side rails up X2. Provided Education on: ER process and procedures. . 22:14 No provider procedures requiring assistance completed. Patient did not have IV access cm10 during this emergency room visit. Administered Medications: 22:05 Drug: Ketorolac IM 60 mg IM once Route: IM; Site: right gluteus; pf1 22:49 Follow up: Response: No adverse reaction; Marked relief of symptoms; Pain is decreased pf1 22:05 Drug: Cyclobenzaprine PO 10 mg PO once Route: PO; pf1 22:49 Follow up: Response: No adverse reaction; Marked relief of symptoms; Pain is decreased pf1 22:05 Drug: Methocarbamol PO 750 mg PO once Route: PO; pf1 22:49 Follow up: Response: No adverse reaction; Marked relief of symptoms; Pain is decreased pf1 22:05 Drug: Promethazine PO 25 mg PO once Route: PO; pf1 22:48 Follow up: Response: No adverse reaction; Marked relief of symptoms; Pain is decreased pf1 22:33 Drug: [place] PO 10 mg-325 mg 1 tabs PO once Route: PO; pf1 22:48 Follow up: Response: No adverse reaction; Marked relief of symptoms; Pain is decreased; pf1 RASS: Alert and Calm (0) Medication: 22:14 VIS not applicable for this client. cm10 Outcome: 22:24 Discharge ordered by . simi 22:50 Discharged to home ambulatory, pf1 22:50 Condition: improved 22:50 Discharge instructions given to patient, Instructed on discharge instructions, follow up and referral plans. Demonstrated understanding of instructions, follow-up care, medications, Prescriptions given X 3, 22:50 Patient left the ED. pf1 Signatures: Dispatcher [employer] Ruth Nash RN RN pf1 Florentin Mendoza MD MD sp4 Aidee Hadley RN RN cm10
[2023-04-14] MEDS ORDERED: HYDROCODONE/APAP 10/325 TAB ONE (22:42)
[2023-04-14 23:04] VITALS: BP 115/79; O2SAT 98
[2023-04-14 23:05] VITALS: TEMP 97.8
== END 2023-04-14 22:50 | disposition home or self-care (01) ==
LOC: ER 20:09
DX: S13.9XXA Sprain of joints and ligaments of unspecified parts of neck, initial encounter (principal)
CPT/HCPCS: 70450; 72125; 81025; 96372; 99284; Q0169

== ENCOUNTER 2023-04-15 15:11 | Emergency (ER) | payer SELFPAY ==
--- OUTSIDE RECORDS SUMMARY | 2023-04-15 15:19 | XMS REPORT | Continuity of Care Document ---
:1985 Author Organization [facility] t Address [address] [facility] [address] [place] [address] Care Team Providers Name Role Phone Tristan Joel MD Primary Care Physician TRISTAN JOEL Attending Clinician Unavailable TRISTAN JOEL Attending Clinician Unavailable DORCAS TREADWELL Attending Clinician Unavailable Victoriano Barrientos MD Attending Clinician [phone] Master Franko AARON Attending Clinician FRANKO SOLIS Attending Clinician Unavailable VICTORIANO BARRIENTOS Attending Clinician Unavailable RAMÓN Attending Clinician Unavailable Ashley Rogers MD Attending Clinician MAE ZAVALETA Attending Clinician Unavailable MANAN GIMENEZ Attending Clinician Unavailable Desmond Jacob Attending Clinician Unavailable TOMÁS GARCÍA Attending Clinician Unavailable Provider[facility] Attending Clinician Unavailable CASEY FALLON Attending Clinician Unavailable LANCE GALLEGO Attending Clinician Unavailable RADHA CHANDLER Attending Clinician Unavailable Jordan Bansal MD Attending Clinician SUNDAY, HODAN Attending Clinician Unavailable HOWARD ORTIZ Attending Clinician Unavailable YAHIR DURHAM Attending Clinician Unavailable Mariah Suárez Attending Clinician Unavailable ADRIANO CAH Attending Clinician Unavailable Jeanette Demarco MD Attending Clinician Gin ETIENNE, Kelly Guzman Attending Clinician TRISTAN JOEL M.D. Attending Clinician Unavailable TONIA ELMORE Attending Clinician Unavailable SUSAN COTE M.D. Attending Clinician Unavailable FIDENCIO HERNANDEZ Attending Clinician Unavailable Tristan Joel M.D. Attending Clinician Unavailable FIDENCIO DIAZ Attending Clinician Unavailable JACOB CARDOSO M.D. Attending Clinician Unavailable SHERICE ARREDONDO M.D. Attending Clinician Unavailable ROMANA_Alon_NIRAJ_ Admitting Clinician Unavailable Desmond Jacob Admitting Clinician Unavailable MD JORDAN BANSAL Admitting Clinician Unavailable MARIELY CHEW Admitting Clinician Unavailable Payers Payer Name Policy Type Policy Number Effective Date Expiration Date [facility] [id number] 2020 2021 HEALTH PLANS OON 00:00:00 00:00:00 [employer] [id number] 2015 00:00:00 Problems Condition Condition Condition Status Onset Resolution Last Treating Co mments Source Name Details Category Date Date Treatment Clinician Date SENT BY SENT BY Diagnosis Active 2022-08-20 Fracisco RICHEY Active 08-20 15:53:00 l 08/20/2022 00:00: Fito doan [address] HOLDER HOLDER Active Diagnosis Active 2022-08-25 Fracisco 08-20 15:57:[address] [place] [address] 00:00: Fito [address] NSVT NSVT Disease Active UT (nonsustai (nonsustai 4-01 He alth alejandra alejandra 00:00: ventricula ventricula 00 r r tachycardi tachycardi a) a) Abnormal Abnormal Disease Active UT electrocar electrocar 2-15 He alth diogram diogram 00:00: 00 Palpitatio Palpitatio Disease Active U T ns ns 2-13 Health 00:00: 00 Sinus Sinus Disease Active UT tachycardi tachycardi 2-13 He alth a a 00:00: 00 CONGENITAL CONGENITA Diagnosis Active 2021-052022-08-10 Memoria HEART L HEART - 16:32:00 l DISEASE DISEASE 00:00: Junior Active 00 04/28/2022 [facility] 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 4-04 Health disease disease 00:00: 00 Family Family Disease Active UT history of history of 08-22 He alth Brugada Brugada 00:00: syndrome syndrome 00 SOB, SOB, Diagnosis Active 2021-01-23 Mem oria VOMITING VOMITING 9 20:45:00 l BLOOD BLOOD 00:00: [place] Active 00 01/23/2021 [facility] Attention Attention Problem Active Evan gregg deficit Deficit 8-14 Family hyperactiv Hyperactiv 00:00: Pr actic ity ity 00 e disorder, Disorder, 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 1-15 st 00:00: Hospita 00 l CHILDBIRTH CHILDBIRT Diagnosis Active 2014-052015-05-10 Memoria H Active 05-22 15:58:00 l 03/22/2015 00:00: Fito doan [address] CONTRACTIO CONTRACTI Diagnosis Active 2015-04-09 Memoria NS ONS Active 05-21 21:55:00 l 05/21/2014 00:00: Fito doan [address] APNEA APNEA Diagnosis Active 2021-09-26 Mem oria Active 05-21 11:40:00 l 05/21/2000 00:00: Fito doan [address] History of History of Problem Active U [...] UT root root Physici dilation dilation ans Aneurysm Aneurysm Problem Active 2022-08-28 Memoria of of 07:00:00 l ascending ascending Herm claire aorta aorta (disorder) (disorder) Active Problem 08/28/2022 [facility] Bicuspid Bicuspid Problem Active 2022-08-28 Memoria aortic aortic 07:00:00 l valve valve [place] (disorder) (disorder) Active Problem 08/28/2022 [facility] SHEYLA Peres, SHEYLA Pacheco,[facility] CAT scan CAT scan Problem Active 2022-08-28 Memoria brain - brain - 07:00:00 l abnormal abnormal Fito n (finding) (finding) Active Problem 08/28/2022 [facility] Obstructiv Obstructi Problem Active 2022-08-28 Memoria e sleep ve sleep 07:00:00 l apnea apnea [place] syndrome syndrome (disorder) (disorder) Active Problem 08/28/2022 [facility] Q23.1 - Q23.1 - Diagnosis Active 2021-09-08 Memoria CONGENITAL CONGENITAL 11:10:00 l INSUFFICIE INSUFFICIE He rmann NCY OF AO NCY OF AO Active SHEYLA Peres R10.11 - R10.11 - Diagnosis Active 2021-07-26 Memoria RIGHT RIGHT 10:20:00 l UPPER UPPER [place] QUADRANT QUADRANT PAIN PAIN Active SHEYLA Pacheco N64.4 - N64.4 - Diagnosis Active 2021-09-09 Memoria MASTODYNIA MASTODYNIA 12:50:00 l Active Junior CARR[facility] [place] Q23.1 - Q23.1 - Diagnosis Active 2022-06-28 Memoria CONGENITAL CONGENITAL 10:36:00 l INSUFFICIE INSUFFICIE He ronaldo NCY OF AO NCY OF AO Q Q Active SHEYLA [facility] FULL-TERM FULL-TERM Diagnosis Active 2015-04-09 Memoria ERMELINDA ROM, ERMELINDA ROM, 21:55:00 l ONSET ONSET [place] 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 [facility] HEADACHE, HEADACHE, Diagnosis Active 2022-08-25 Memoria UNSPECIFIE UNSPECIFIE 15:57:00 l D D Active Junior [facility] Patient Patient Problem Resolve 2014-052022-08-28 2022-08-28 Memoria currently currently d -15 07:00:00 07:00:00 l 00:00: Fito doan (finding) (finding) 00 Resolved 04/04/2015 Problem 08/28/2022 [facility] SHE[facility]LA Peres,[facility], [facility] History of Past Illness Condition Condition Condition Status Onset Resolution Last Treating Co mments Source Name Details Category Date Date Treatment Clinician Date Alcohol Alcohol Problem 2021-01-25 2021-01-25 Memoria abuse, abuse, 01-23 22:05:58 22:05:58 l uncomplica uncomplica 17:00: He ronaldo amy amy 00 01/23/2021 01/25/2021 [facility] Esophagiti Esophagit Problem 2021-01-25 2021-01-25 Memoria s, is, 01-23 22:05:58 22:05:58 l unspecifie unspecifie 17:00: He rmclaire d without d without 00 bleeding bleeding 01/23/2021 [facility] Allergies, Adverse Reactions, Alerts Allergy Allergy Status Severity Reaction(s) Onset Inactive Treating Comm ents Source Name Type Date Date Clinician No Known DA Active U 2022-05 [facility] Allergie 0-01 Nieves s 00:00: Health 00 are [place] NO KNOWN Allergy Active [facility] No Known No Known Active Memori a Medicati Medicati l on on Junior Allergedson Allergie s s Family History Family Member Diagnosis Comments Start Date Stop Date Source Natural mother Hypertension [facility] Social History Social Habit Start Date Stop Date Quantity Comments Source Sexual orientation [facility] Exposure to 2022-09-22 2022-10-02 Not sure [facility] SARS-CoV-2 (event) 00:00:00 01:59:00 History of Social 2022-09-18 2022-09-[address] function 00:00:00 00:00:00 Hospital Social History 2022-08-21 2022-08-21 [facility] 06:09:35 06:09:35 Tobacco use and 2022-06-29 2022-06-29 Smokeless [facility] exposure 00:00:00 00:00:00 tobacco non-user Alcohol intake 2020-12-01 2020-12-01 Current Religious 00:00:00 00:00:00 non-drinker of Hospital alcohol (finding) Sex Ass[birth year] [facility] 00:00:00 00:00:00 [facility] Smoking Status Start Date Stop Date Source Tobacco smoking consumption unknown [facility] Never smoked tobacco [facility] Medications Ordered Filled Start Stop Current Ordering Indication Dosage Frequency Signature Comments Components Source Medication Medication Date Date Medication? Clinician (SIG) Name Name clonazePAM 2022-05- No 1{tbl} Q.5D Take 1 UT (KlonoPIN) 05-28 tablet by [facility] 0.5 MG 10:44: 00:00 mouth in tablet 34 :00 the morning and 1 tablet before bedtime. polyethylen 2022-05 Yes [id number] Take 2L PO UT e glycol 05-28 from 6 pm Health (GaviLyte-G 00:00: to 8 pm ) 236 g 00 the night solution before procedure, then take 2L PO over two hours starting 6 hours prior to procedure time to be completed by 4 hours prior to procedure time ondansetron 2022-05- Yes [id number] 4mg Take 1 UT (Zofran) 4 05-28 tablet (4 Hea lth MG tablet 00:00: 05:59 mg total) 00 :00 by mouth 1 (one) time each day if needed for nausea or vomiting. propranolol 2022- No QD Take by [place] (Inderal 02-14 mouth 1 [facility] [place]) 80 MG 00:00: 00:00 (one) time 24 hr 00 :00 each day. capsule Lo Loestrin Yes 1{tbl} QD Take 1 UT Fe 1 MG-10 02-13 tablet by [facility] MCG / 10 00:00: mouth 1 MCG tablet 00 (one) time each day. amphetamine 2022- No TAKE 1.5 U T -dextroamph 02-06 TABLETS [facility] etamine 00:00: 00:00 TWICE A (Adderall) 00 :00 DAY BY 20 MG ORAL ROUTE tablet NEEDED. butalbital- 2022- No 1{tbl} Q6H Take 1 U T acetaminoph 12-21 tablet by [facility] en-caffeine 15:05: 00:00 mouth 50-325-40 17 :00 every 6 MG tablet (six) hours if needed. Rimegepant 2022-0 Yes [id number] 75mg Q2D Take 75 mg UT Sulfate 75 8-03 9105 by mouth Healt h MG tablet 00:00: every dispersible 00 other day. Rimegepant 2022-0 Yes [id number] 75mg Q2D Take 75 mg UT Sulfate 75 8-03 9105 by mouth Healt h MG tablet 00:00: every dispersible 00 other day. Rimegepant 2022-0 Yes [id number] 75mg Q2D Take 75 mg UT Sulfate 75 8-03 9105 by mouth Healt h MG tablet 00:00: every dispersible 00 other day. metoprolol 2022-2023- No [id number] 25mg QD Take 1 U T succinate 12-18 tablet (25 Hea lth XL 00:00: 05:59 mg total) (Toprol-XL) 00 :00 by mouth 1 25 MG 24 hr (one) time tablet each day. TAKE 1 TABLET BY MOUTH 1 TIME EACH DAY DO NOT CRUSH OR CHEW metoprolol 2022 No [id number] 25mg QD Take 1 U T succinate 12-18 tablet (25 Hea lth XL 00:00: 05:59 mg total) (Toprol-XL) 00 :00 by mouth 1 25 MG 24 hr (one) time tablet each day. TAKE 1 TABLET BY MOUTH 1 TIME EACH DAY DO NOT CRUSH OR CHEW metoprolol 2023- No [id number] 25mg QD Take 1 U T succinate 12-18 tablet (25 Hea lth XL 00:00: 05:59 mg total) (Toprol-XL) 00 :00 by mouth 1 25 MG 24 hr (one) time tablet each day. TAKE 1 TABLET BY MOUTH 1 TIME EACH DAY DO NOT CRUSH OR CHEW butalbital- Yes 1{tbl} Q6H Take 1 UT acetaminoph 7-03 tablet by [facility] en-caffeine 09:01: mouth 50-325-40 01 every 6 MG tablet (six) hours if needed. butalbital- Yes 1{tbl} Q6H Take 1 UT acetaminoph 7-03 tablet by [facility] en-caffeine 09:01: mouth 50-325-40 01 every 6 MG tablet (six) hours if needed. amphetamine 2022- No 1{tbl} Q.5D Take 1 U T -dextroamph 10-29 tablet by alth etamine 00:00: 00:00 mouth in (Adderall) 00 :00 the 30 MG morning tablet and 1 tablet before bedtime. amphetamine 2022- No 1{tbl} Q.5D Take 1 U T -dextroamph 10-29 tablet by [facility] etamine 00:00: 00:00 mouth in (Adderall) 00 :00 the 30 MG morning tablet and 1 tablet before bedtime. atorvastati 2022- No 40mg QD Take 40 mg UT n (Lipitor) 10-22-03 by mouth 1 H ealth 40 MG 00:00: 00:00 (one) time tablet 00 :00 each day. atorvastati 2022- No 40mg QD Take 40 mg UT n (Lipitor) 10-22-03 by mouth 1 H ealth 40 MG 00:00: 00:00 (one) time tablet 00 :00 each day. rosuvastati 2023- No [id number] 40mg QD Take 1 UT n (Crestor) 5-15 05-15 tablet (40 H ealth 40 MG 00:00: 04:59 mg total) tablet 00 :00 by mouth 1 (one) time each day. rosuvastati 2023- No [id number] 40mg QD Take 1 UT n (Crestor) 5-15 05-15 tablet (40 H ealth 40 MG 00:00: 04:59 mg total) tablet 00 :00 by mouth 1 (one) time each day. rosuvastati 2023- No [id number] 40mg QD Take 1 UT n (Crestor) 5-15 05-15 tablet (40 H ealth 40 MG 00:00: 04:59 mg total) tablet 00 :00 by mouth 1 (one) time each day. rosuvastati 2023- No [id number] 40mg QD Take 1 UT n (Crestor) 5-15 05-15 tablet (40 H ealth 40 MG 00:00: 04:59 mg total) tablet 00 :00 by mouth 1 (one) time each day. rosuvastati 2023- No [id number] 40mg QD Take 1 UT n (Crestor) 5-15 05-15 tablet (40 H ealth 40 MG 00:00: 04:59 mg total) tablet 00 :00 by mouth 1 (one) time each day. rosuvastati 2023- No [id number] 40mg QD Take 1 UT n (Crestor) [...] mg tablet per tablet metoprolol 2022- No [id number] 25mg QD Take 1 U T succinate 09-25- tablet (25 Hea lth XL 00:00: 04:59 mg total) (Toprol-XL) 00 :00 by mouth 1 25 MG 24 hr (one) time tablet each day. Do not crush or chew. metoprolol 2022- No [id number] 25mg QD Take 1 U T succinate 09-25- tablet (25 Hea lth XL 00:00: 04:59 mg total) (Toprol-XL) 00 :00 by mouth 1 25 MG 24 hr (one) time tablet each day. Do not crush or chew. metoprolol 2022- No [id number] 25mg QD Take 1 U T succinate 09-25- tablet (25 Hea lth XL 00:00: 00:00 mg total) (Toprol-XL) 00 :00 by mouth 1 25 MG 24 hr (one) time tablet each day. Do not crush or chew. atorvastati Yes 40 mg = 1 M emoria n 40 mg 4-07 tab, PO, l oral tablet 18:24: Bedtime, # Junior 00 60 tab, 1 Refill(s), Pharmacy: [id number], 172.72, cm, 08/21/22 1:59:00 CDT, Height, 78.3, kg, 08/21/22 1:59:00 CDT, Weight riboflavin Yes 400 mg = 4 M emoria 100 mg oral 4-07 tab, PO, l tablet 18:24: Daily, # Junior 00 100 tab, 1 Refill(s), [id number], 172.72, cm, 08/21/22 1:59:00 CDT, Height, 78.3, kg, 08/21/22 1:59:00 CDT, Weight ubiquinone 0 Yes 100 mg = 1 M emoria 100 mg oral 4-07 cap, PO, l capsule 18:24: TID, # 30 Suyapa nn 00 cap, 1 Refill(s), Pharmacy: [facility] #[id number], 172.72, cm, 08/21/22 1:59:00 CDT, Height, 78.3, kg, 08/21/22 1:59:00 CDT, Weight atorvastati No 40 mg = 1 M emoria n 40 mg 4-07 tab, PO, l oral tablet 18:08: Bedtime, # [place] 00 60 tab, 1 Refill(s) riboflavin 0 No 400 mg = 4 M emoria 100 mg oral 4-07 tab, PO, l tablet 18:08: Daily, # [place] 00 240 tab, 0 Refill(s) ubiquinone No 100 mg = 1 M emoria 100 mg oral 4-07 cap, PO, l capsule 18:08: TID, # 180 Herm claire 00 cap, 0 Refill(s) [place] 5/325 No Notes: Hussain char oral tablet - (Same as: l 14:12: [place] Junior 00 325/5) Do not exceed 4gm/day of acetaminop hen. [place] 5/325 0 No Notes: Hussain char oral tablet - (Same as: l 10:00: [place] Neg[place] 00 325/5) Do not exceed 4gm/day of acetaminop hen. [place] 5/325 No Notes: Hussain char oral tablet - (Same as: l 04:49: [place] Neg[place] 00 325/5) Do not exceed 4gm/day of acetaminop hen. tramadol 50 No Notes: Not Memoria mg oral - to exceed l tablet 02:08: 400mg/day. Suyapa nn 00 (Same As: Ultram) atorvastati 0 Yes 40mg Take 40 mg UT n (Lipitor) 07 by mouth Heal th 40 MG 00:00: every tablet 00 night. atorvastati 0 Yes 40mg Take 40 mg UT n (Lipitor) 08-25 by mouth Heal th 40 MG 00:00: every tablet 00 night. atorvastati 2022-0 2022- No 40mg Take 40 mg UT n (Lipitor) 08-25 05-15 by mouth Hea lth 40 MG 00:00: 00:00 every tablet 00 :00 night. dexamethaso 2022-0 No Notes: Memoria ne 4-05 MEDICATION l 19:30: WASTE Junior Product Size: 10 mg Product Wasted: ___ mg valproic No Notes: Memoria acid + 4-05 Dilute in l Sodium 19:30: at least [place] Chloride 00 50ml D5W 0.9% IV 50 or NS. mL Infusion rate = 20 mg/min (Same As: Depacon) Hazardous Drug Group 3:Reproduc tive risk Hazardous Drug -- Refer to safe handling procedure PPE Matrix dexamethaso 0 No Notes: Hussain char ne -05 Concentrat l 18:53: ion: Junior 00 4mg/ml Depakote No 500 mg, Memori a 4-05 Route: PO, l 18:53: ONCE, Junior Dosing Weight 78.3, kg, Start date: 08/23/22 13:53:00 CDT, Stop date: 08/23/22 13:53:00 CDT Lactated 2022-0 No 500 mL, Memori a Ringers 4-05 500 ml/hr, l (Bolus) IV 18:53: Infuse Suyapa nn 00 Over: 1 hr, Route: IV, 500, Drug form: INJ, ONCE, Priority: STAT, Dosing Weight 78.3 kg, Start date: 08/23/22 13:53:00 CDT, Stop date: 08/23/22 13:53:00 CDT, 0 magnesium 2022-0 No Notes: Memori a sulfate 4-05 WASTE: F/P l 18:53: - Sink; E [place] - Municipal Trash Bin potassium No /= 14 Memoria chloride 4-05 Ukrainian, l 09:45: may Junior 00 dissolve each 20 mEq tablet in 4 oz of water. Allow about 2 minutes for the tablets to disintegra te. Stir before giving to prepare slurry and administer . Please exclude patient's with feeding tube less than 14 Ukrainian (Dobhoff, J-tube, etc) and pediatric and patients. potassium No Notes: Memori a phosphate-s 4-05 (Same as: l odium 09:45: Phos-NaK) Junior phosphate 00 Each 1.5 250 mg-280 gm pkt has mg-160 mg 250mg oral powder phosphorou for s. Mix reconstitut w/2.5oz ion water and stir. potassium No Notes: Memori a phosphate 4-05 (Same as: l 09:45: K Junior 00 Phosphate) Infuse over 4 hour. Do not infuse phosphorou s concurrent ly in the same line as TPN or IVF that contains calcium. For double lumen central lines, phosphorou s may be infused in a separate lumen from TPN. sodium No Notes: Memoria phosphate 4-05 Infuse l 09:45: over 4 Junior 00 hour. Do not infuse phosphorou s concurrent ly in the same line as TPN or IVF that contains calcium. For double lumen central lines, phosphorou s may be infused in a separate lumen from TPN. magnesium No Notes: Memori a sulfate 4-05 WASTE: F/P l 09:45: - Sink; E [place] 00 - Municipal Trash Bin magnesium No Notes: Memori a oxide 4-05 (Same as: l 09:45: Mag-Ox [place] 00 400) Magnesium oxide 958cr=661p g elemental magnesium Dose=____m g magnesium oxide [...] Dilute in l Sodium 19:00: at least [place] Chloride 00 50ml D5W 0.9% IV 50 or NS. mL Infusion rate = 20 mg/min (Same As: Depacon) Hazardous Drug Group 3:Reproduc tive risk Hazardous Drug -- Refer to safe handling procedure PPE Matrix dexamethaso No Notes: Hussain char ne 08-22 dexamethas l 18:00: one 10 [place] mg/1 ml VL INJ PF MEDICATION WASTE [...] ne 08-22 Give with l 16:48: food. Junior 00 (Same As: Decadron) Depakote No Notes: [...] ml/hr, l (Bolus) IV 16:48: Infuse Suyapa Over: 1 hr, Route: IV, 500, Drug [...] as: Tylenol) Coenzyme No Notes: Memoria Q10 - Same as l 18:00: Co-Enzyme Q10 enoxaparin No Notes: Memor ia - (Same as: l 17:00: Lovenox) Tylenol No Notes: Do Memor ia - not exceed l 14:21: 4 gm/day. Junior (Same as: Tylenol) Lo Loestrin No 1 tab, Hussain char Fe 08-21 Route: PO, l 14:00: Drug Form: [place] TAB, Dosing Weight 77.273, kg, Daily, Start date: 08/21/22 9:00:00 CDT, Duration: 30 day, Stop date: 09/19/22 9:00:00 CDT Maalox No Notes: Memoria Advanced 08-21 (aluminum l Regular 07:09: hydroxide- Herm claire Strength 00 magnesium SUSP hyd-simeth icone 200-200-20 mg/5ml 30 ml ud KEN) Tylenol No Notes: Max Hussain char -03 acetaminop l 07:08: hen 4000 mg/day (4 gm/day). (Same as: Tylenol Extra Strength) senna 8.6 No Notes: Memori a mg oral 08-21 (Same as: l tablet 04:15: Senokot) ibuprofen No Notes: Memori a - (Same as: l 03:33: Motrin) "Do Not Crush" Take with food. Dextrose No 12.5 gm, Memor ia 50% Syringe 08-21 25 mL, l (D50W) 03:30: Route: IVP, Drug Form: INJ, Dosing Weight 77.273, kg, PRN, PRN Blood Glucose Results, Start date: 08/20/22 22:30:00 CDT, Duration: 30 day, Stop date: 09/19/22 22:29:00 CDT, 0 glucagon No 1 mg, Memoria 08-21 Route: IM, l 03:30: Drug form: PDR/INJ, PRN, Dosing Weight 77.273, kg, PRN Blood Glucose Results, Start date: 08/20/22 22:30:00 CDT, Duration: 30 day, Stop date: 09/19/22 22:29:00 CDT, 0 melatonin No Notes: Memori a 4-03 (Same as: l 03:30: Melatonin) acetaminoph No 100.4 F, M emoria en -03 Start l 03:30: date: 08/20/22 22:30:00 CDT, Duration: 30 day, Stop date: 09/19/22 22:29:00 CDT Lo Loestrin Yes TAKE 1 Hussain char Fe oral 08-21 TABLET BY l tablet 03:25: MOUTH EVERY DAY amphetamine Yes 0 Memori a -dextroamph 08-21 Refill(s) l etamine 20 02:31: Junior mg oral 00 tablet acetaminoph No 1 tab, PO, Memoria en/butalbit -03 Q4H, PRN l al/caffeine 02:28: Headache, H ermann 325 mg-50 00 Not to mg-40 mg exceed oral tablet more than 6 tablets in 24 hours, 0 Refill(s) Lo Loestrin No 0 Memori a Fe oral - Refill(s) l tablet 02:28: Omnipaque No 60 [...] Start date: 08/20/22 13:56:00 CDT, Stop date: 08/20/22 13:56:00 CDT, 0 Lo Loestrin 2022-0 Yes UT Fe 1 MG-10 3-23 Health MCG / 10 00:00: MCG tablet 00 Lo Loestrin 2022-0 Yes UT Fe 1 MG-10 3-23 Health MCG / 10 00:00: MCG tablet 00 Lo Loestrin 3-0 Yes UT Fe 1 MG-10 3-23 Health MCG / 10 00:00: MCG tablet 00 Lo Loestrin 2022-0 Yes UT Fe 1 MG-10 3-23 Health [...] dextroamph UT -dextroamph 18 18 etamine-am H ealth etamine 08:35: 00:00 phetamine (Adderall) 30 :00 30 mg 30 MG tablet tablet TAKE 1 TABLET TWICE A DAY BY ORAL ROUTE FOR 30 DAYS. Lo Loestrin 2021-0 Yes 1{tbl} QD Take 1 UT Fe 1 MG-10 3-29 tablet by [facility] MCG / 10 00:00: mouth 1 MCG tablet 00 (one) time each day. Lo Loestrin 2021-0 Yes 1{tbl} QD Take 1 UT Fe 1 MG-10 3-29 tablet by [facility] MCG / 10 00:00: mouth 1 MCG tablet 00 (one) time each day. Lo Loestrin 2021-0 Yes 1{tbl} QD Take 1 UT Fe 1 MG-10 3-29 tablet by [facility] MCG / 10 00:00: mouth 1 MCG tablet 00 (one) time each day. butalbital- 2021-0 Yes 1{tbl} Q6H Take 1 UT acetaminoph 3-29 tablet by [facility] en-caffeine 00:00: mouth 50-325-40 00 every 6 MG tablet (six) hours if needed. butalbital- 2021-0 Yes 1{tbl} Q6H Take 1 UT acetaminoph 3-29 tablet by [facility] en-caffeine 00:00: mouth 50-325-40 00 every 6 MG tablet (six) hours if needed. Lo Loestrin 2022- No 1{tbl} QD Take 1 U T Fe 1 MG-10 3--18 tablet by [facility] MCG / 10 00:00: 00:00 mouth 1 MCG tablet 00 :00 (one) time each day. butalbital- 2021- No 1{tbl} Q6H Take 1 U T acetaminoph 3-16 11-06 tablet by [facility] en-caffeine 00:00: 00:00 mouth 50-325-40 00 :00 every 6 MG tablet (six) hours if needed. No known No No known UT medications - medication He alth 08:47: s 05 No known No No known UT medications - medication He alth 08:47: s 05 GI cocktail No Notes: Hussain char (aluminum 9-06 G.I. l hydroxide/m 02:14: Cocktail - [place] agnesium 00 Mix 22.5ml hydroxide/l of Maalox idocaine/si (with methicone) Simethicon e) and 7.5ml of 2% Viscous Lidocaine. Pepcid 40 Yes 40 mg = 1 Mem oria mg oral 9-06 tab, PO, l tablet 02:13: Daily, # [place] 00 30 tab, 0 Refill(s) Prilosec 40 Yes 40 mg = 1 M emoria mg oral 9-06 cap, PO, l delayed 02:13: Daily, # Fito n release 00 30 cap, 0 capsule Refill(s) Famotidine Yes 40 mg = 1 Me moria 40 MG Oral 9-06 tab, PO, l Tablet 02:13: Daily, # Junior [Pepcid] 00 30 tab, 0 Refill(s) Omeprazole Yes 40 mg = 1 Me moria 40 MG 9-06 cap, PO, l Enteric 02:13: Daily, # Fito n Coated 00 30 cap, 0 Capsule Refill(s) [Prilosec] Saline No Notes: Memoria Flush 0.9% 01-24 (Same as: l 00:44: BD Junior 00 Posiflush) Albuterol No Notes: Memori a 0.833 MG/ML 01-24 (Same as: l / 00:44: Duoneb) Junior Ipratropium 00 [place] 0.167 MG/ML Inhalant Solution Yes 1{tbl} QD Take 1 Metho di vit,calc76- 7-14 tablet by iron-folic 19:45: mouth Hospit a 29 mg iron- 44 daily. l 1 [place] [id number] 1{tbl} Q6H Take 1-2 Methodi en-codeine 7-14 [...] Refill(s) 2014-05 No 1 tab, Memoria Multivitami 06-05 Route: PO, l ns oral 15:00: Drug Form: Herm claire tablet 00 TAB, Dosing Weight 81.364, kg, Daily, Start date: 04/05/15 9:00:00, Duration: 30 day, Stop date: 05/04/15 9:00:00 Ibuprofen 2014-05 No Notes: Memori a -16 (Same as: l 08:17: Motrin) Negley "Do Not Crush" Take with food. M-M-R II 2014-05 No Notes: Memoria -16 (Same as: l 07:00: M-M-R II) [place] (measles-m umps-rubel la virus vaccine 0.5 ml INJ VL) GIVE PRIOR TO DISCHARGE Bisacodyl 2014-05 No Notes: Memori a -16 (Same As: l 06:57: Dulcolax, [place] 00 Correctol) (Do Not Crush) "Do Not Crush" Docusate 2014-05 No Notes: Memoria -16 (Same as: l 06:57: Colace) [place] (Do Not Crush) lanolin 2014-05 No Notes: Memoria topical 06-05 (Same l 06:57: as:Lanolin [place] ) Lactated 2014-05 No 1,000 mL, Hussain char Ringers IV 06-05 Rate: 100 l 1,000 mL 06:57: ml/hr, Neg[place] 00 Infuse over: 10 hr, Route: IV, Dosing Weight 81.364 kg, Total Volume: 1,000, Start date: 04/05/15 0:57:00, Duration: 30 day, Stop date: 05/05/15 0:56:00 Methylergon 2014-05 No Notes: Hussain char ovine - (Same l 06:57: as:Metherg [place]ley ine) Benzocaine 2014-05 No Notes: Memor ia 200 MG/ML 06-05 (Same As: l Topical 06:57: Dermoplast Herm claire [place] ) FOR [Dermoplast EXTERNAL ] USE ONLY zolpidem 2014-05 No Notes: Memoria -16 (Same As: l 06:57: Ambien) Junior Oxytocin 2014-05 No Notes: Memoria 0.06 UNT/ML 06-05 (Same as: l Injectable 06:57: OXYTOCIN-D H ermann Solution 00 5LR) Ondansetron 2014-05 No Notes: Hussain char -16 (Same as: l 06:57: Zofran) Junior MEDICATION WASTE Product Size: 4 mg Product Wasted: ___ mg Famotidine 2014-05 No Notes: Memor ia 1-16 (Same as: l 00:00: Pepcid) [place] 00 Can be dilute in 5-10cc NS IVP: Slow IV push over at least 2 minutes. Misoprostol 2014-05 No Notes: Hussain char 1-16 (Same l 00:00: as:Cytotec Junior 00 ) Take with food Citric Acid 2014-05 No Notes: Hussain char / sodium 1-16 (Same As: l citrate 00:00: Bicitra, Fito n 00 Cytra-2) Sodium citrate-ci tric acid (500-334 mg/5 mL): 1 mL contains sodium 1 mEq/mL and bicarbonat e 1 mEq/mL Methylergon 2014-05 No Notes: Hussain char ovine 1-16 (Same l 00:00: as:Metherg [place] 00 ine) Carboprost 2014-05 No Notes: Memor ia 1-16 (Same As: l 00:00: Hemabate) Junior Oxytocin 2014-05 No Notes: Memoria 0.06 UNT/ML -15 (Same as: l Injectable 23:05: OXYTOCIN-D H ermann Solution 00 5LR) Butorphanol 2014-05 No Notes: Hussain char 1-15 (Same As: l 23:05: Stadol) [place] 00 MEDICATION WASTE Product Size: 2 mg Product Wasted: ___ mg lidocaine 2014-05 No Notes: Memori a 1% 1-15 (Same as: l 23:05: Xylocaine) Junior Ondansetron 2014-05 No Notes: Hussain char 1-15 (Same as: l 23:05: Zofran) Junior 00 MEDICATION WASTE Product Size: 4 mg Product Wasted: ___ mg Terbutaline 2014-05 No Notes: Hussain char 1-15 DO NOT l 23:05: USE IN Junior 00 [employer] (Same As: Brethine) lidocaine 2014-05 No Notes: Memori a 1% 1-15 Preservati l injectable 23:05: ve free. Her reynoso solution 00 (Same as: Xylocaine MPF) Calcium 2014-05 No 1,000 mL, Memor ia Chloride 1-15 1,000 l 0.0014 23:05: ml/hr, Junior MEQ/ML / 00 Infuse Potassium Over: 1 Chloride hr, Route: 0.004 IV, 1,000, MEQ/ML / Drug form: Sodium INJ, ONCE, Chloride Dosing 0.103 Weight MEQ/ML / 81.364 kg, Sodium Start Lactate date: 0.028 04/04/15 MEQ/ML 17:05:00, Injectable Stop date: Solution 04/04/15 17:05:00, Bolus for regional anesthesia per unit protocol Lactated 2014-05 No 1,000 mL, Hussain char Ringers IV - Rate: 125 l 1,000 mL 23:05: ml/hr, [place] 00 Infuse over: 8 hr, Route: IV, [...] ans cyclobenzap cyclobenzap No 1 Q1D cyclobenza [facility] rine 10 mg rine 10 mg opal 10 Family tablet Take tablet Take mg tablet Practic 1 tablet 1 tablet Take 1 e every day every day tablet by oral by oral every day route at route at by oral bedtime for bedtime for route at 10 days. 10 days. bedtime for 10 days. dextroamphe dextroamphe No firsthealthroamph [facility] tamine-amph tamine-amph etamine-am Family etamine 20 etamine [...] days. dextroamphe dextroamphe No 1 BID dextroamph [facility] tamine-amph tamine-amph etamine-am Family etamine 30 etamine 30 phetamine Practic mg tablet mg tablet 30 mg e Take 1 Take 1 tablet tablet tablet Take 1 twice a day twice a day tablet by oral by oral twice a route for route for day by 30 days. 30 days. oral route for 30 days. ibuprofen ibuprofen No ibuprofen [facility] 800 mg 800 mg 800 mg [...] Immunization Name Immunization Name Pneumococcal 2017-04-06 Completed [facility] Conjugate PCV 13 00:00:00 Influenza, 2017-04-06 Completed [facility] injectable, MDCK, 00:00:00 preservative free, quadrivalent (flucelvax) Pneumococcal 2017-04-06 Completed [facility] Conjugate PCV 13 00:00:00 Influenza, 2017-04-06 [...] preservative free, quadrivalent (flucelvax) Pneumococcal 2017-04-06 Completed [facility] 00:00:00 Hospi jasen FLUCELVAX QUAD PF 2017-04-[address] [facility] diphtheria/pertussi 2015-04-06 Completed [facility], acel/tetanus 21:35:00 adult Tdap 2015-04-06 Completed [facility] 00:00:00 Tdap 2015-04-06 Completed [facility] 00:00: Tdap 2015-04-06 Completed [facility] 00:00: Tdap 2015-04-06 Completed [facility] 00:00:00 Tdap 2015-04-06 Completed [facility] 00:00: Tdap 2015-04-06 Completed [facility] 00:00:00 Tdap 2015-04-06 Completed [facility] 00:00: Tdap 2015-04-06 Completed [facility] 00:00:00 Tdap 2015-04-06 Completed [facility] 00:00:00 Tdap 2015-04-06 Completed [facility] 00:00:00 Tdap 2015-02-01 Completed [facility] 00:00:00 Influenza, [...] Completed [facility] seasonal, 00:00:00 injectable Tdap (Adacel) 2015-02-01 [facility] Fluzone 2015-02-01 Completed [facility] Quadrivalent 0.5 ML 00:00:00 Intramuscular Suspension Tdap Unknown Completed [facility] Pneumococcal Unknown Completed [facility] Conjugate PCV 13 Influenza, Unknown Completed [facility] injectable, MDCK, preservative free, quadrivalent (flucelvax) Tdap Unknown Completed [facility] Influenza, Unknown Completed [facility] seasonal, injectable Pneumococcal Unknown Completed [facility] FLUCELVAX QUAD PF Unknown Completed [facility] Pneumococcal Unknown Completed [facility] FLUCELVAX QUAD PF Unknown Completed [facility] Pneumococcal Unknown Completed [facility] FLUCELVAX QUAD PF Unknown Completed [facility] Vital Signs Vital Name Observation Time Observation Value Comments Source Systolic blood 2021-08-22 111 mm[Hg] [facility] pressure 13:37:00 Diastolic blood 2021-08-22 77 mm[Hg] [facility] pressure 13:37:00 Heart rate 2021-08-22 102 /min [facility] 13:37:00 Respiratory rate 2021-08-22 16 /min [facility] 13:37:00 Body height 2021-08-22 172.7 cm [facility] 13:37:00 Body weight 2021-08-22 82.645 kg [facility] 13:37:00 BMI 2021-08-22 27.70 kg/m2 [facility] 13:37:00 Oxygen saturation 2021-08-22 99 /min [facility] in Arterial blood 13:37:00 by Pulse oximetry WEIGHT 2023-04-12 95.255 kg 04:22:00 HEIGHT 2023-04-12 172.7 cm 04:22:00 WEIGHT 2023-04-12 95.255 kg 04:22:00 HEIGHT 2023-04-12 172.7 cm 04:22:00 WEIGHT 2023-04-12 95.255 kg 04:22:00 HEIGHT 2023-04-12 172.7 cm 04:22:00 Systolic blood 2023-03-28 118 mm[Hg] [facility] pressure 16:14:00 Diastolic blood 2023-03-28 80 mm[Hg] [facility] pressure 16:14:00 Heart rate 2023-03-28 75 /min [facility] 16:14:00 Body temperature 2023-03-28 36.78 Salima [facility] 16:14:00 Respiratory rate 2023-03-28 24 /min [facility] 16:14:00 Body height 2023-03-28 172.7 cm [facility] 16:14:00 Body weight 2023-03-28 84.823 kg [...] [facility] 13:35:00 BMI 2023-01-08 28.74 kg/m2 [facility] 13:35:00 Oxygen saturation 2023-01-08 97 /min [facility] in Arterial blood 13:35:00 by Pulse oximetry Systolic blood 2022-12-21 106 mm[Hg] [facility] pressure 20:04:00 Diastolic blood 2022-12-21 75 mm[Hg] [facility] pressure 20:04:00 Heart rate 2022-12-21 93 /min [facility] 20:04:00 Body temperature 2022-12-21 36.5 Salima [facility] 20:04:00 Respiratory rate 2022-12-21 18 /min [facility] 20:04:00 Body height 2022-12-21 172.7 cm [facility] 20:04:00 Body weight 2022-12-21 84.641 kg [facility] 20:04:00 BMI 2022-12-21 28.37 kg/m2 [facility] 20:04:00 Oxygen saturation 2022-12-21 100 /min [facility] in Arterial blood 20:04:00 by Pulse oximetry Systolic blood 2022-11-20 104 mm[Hg] [facility] pressure 14:01:00 Diastolic blood 2022-11-20 73 mm[Hg] [facility] pressure 14:01:00 Heart rate 2022-11-20 69 /min [facility] 14:01:00 Body height 2022-11-20 172.7 cm [facility] 14:01:00 Body weight 2022-11-20 82.555 kg [facility] 14:01:00 BMI 2022-11-20 27.67 kg/m2 [facility] 14:01:00 Systolic blood 2022-10-02 118 mm[Hg] [facility] pressure 14:45:00 Diastolic blood 2022-10-02 83 mm[Hg] [facility] pressure 14:45:00 Heart rate 2022-10-02 80 /min [facility] 14:45:00 Respiratory rate 2022-10-02 18 /min [facility] 14:45:00 Body height 2022-10-02 172.7 cm [facility] 14:45:00 Body weight 2022-10-02 83.553 kg [facility] 14:45:00 BMI 2022-10-02 28.01 kg/m2 [facility] 14:45:00 Oxygen saturation 2022-10-02 99 /min [facility] in Arterial blood 14:45:00 by Pulse oximetry Systolic blood 2022-09-14 105 mm[Hg] [facility] pressure 18:31:00 Diastolic blood 2022-09-14 84 mm[Hg] [facility] pressure 18:31:00 Heart rate 2022-09-14 85 /min [facility] 18:31:00 Body height 2022-09-14 172.7 cm [facility] 18:31:00 Body weight 2022-09-14 82.555 kg [facility] 18:31:00 BMI 2022-09-14 27.67 kg/m2 [facility] 18:31:00 Systolic blood 2022-09-04 110 mm[Hg] [facility] pressure 16:22:00 Diastolic blood 2022-09-04 72 mm[Hg] [facility] pressure 16:22:00 Heart rate 2022-09-04 96 /min [facility] 16:22:00 Body temperature 2022-09-04 36.61 Salima [facility] 16:22:00 Respiratory rate 2022-09-04 18 /min [facility] 16:22:00 Body height 2022-09-04 172.7 cm [facility] 16:22:00 Body weight 2022-09-04 80.74 kg [facility] 16:22:00 BMI 2022-09-04 27.06 kg/m2 [facility] 16:22:00 Oxygen saturation 2022-09-04 99 /min [facility] in Arterial blood 16:22:00 by Pulse [...] Health 15:23:00 Oxygen saturation 2022-07-17 97 /min [facility] in Arterial blood 15:23:00 by Pulse [...] Pulse oximetry BP Diastolic 2021-09-16 80 mm[Hg] [facility] Family 00:00:00 Practice Height 2021-09-16 68 [in_i] [facility] BMI (Body Mass 2021-09-16 28.3 kg/m2 [facility] 00:00:00 Practice BP Systolic 2021-09-16 138 mm[Hg] [facility] Family 00:00:00 Practice Body Weight 2021-09-16 185.8 [lb_av] [facility] 00:00:00 Practice Systolic blood 2021-08-22 111 mm[Hg] [facility] pressure 13:37:00 Diastolic blood 2021-08-22 77 mm[Hg] [facility] pressure 13:37:00 Heart rate 2021-08-22 102 /min [facility] 13:37:00 Respiratory rate 2021-08-22 16 /min [facility] 13:37:00 Body height 2021-08-22 172.7 cm [facility] 13:37:00 Body weight 2021-08-22 82.645 kg [facility] 13:37:00 BMI 2021-08-22 27.70 kg/m2 [facility] 13:37:00 Oxygen saturation 2021-08-22 99 /min [facility] in Arterial blood 13:37:00 by Pulse oximetry Systolic blood 2021-07-19 129 mm[Hg] [facility] pressure 14:47:00 Diastolic blood 2021-07-19 88 mm[Hg] [facility] pressure 14:47:00 Heart rate 2021-07-19 106 /min [facility] 14:47:00 Respiratory rate 2021-07-19 16 /min [facility] 14:47:00 Body height 2021-07-19 172.7 cm [facility] 14:47:00 Body weight 2021-07-19 85.276 kg [facility] 14:47:00 BMI 2021-07-19 28.59 kg/m2 [facility] 14:47:00 Oxygen saturation 2021-07-19 96 /min [facility] in Arterial blood 14:47:00 by Pulse oximetry Oxygen saturation 2023-04-12 98 /min [facility] in Arterial blood 11:53:00 [facility] nter by Pulse oximetry Systolic blood 2023-04-12 103 mm[Hg] [facility] pressure 11:32:00 [facility] Center Diastolic blood 2023-04-12 69 mm[Hg] [facility] pressure 11:32:00 [facility] Heart rate 2023-04-12 102 /min [facility] 11:32:00 [facility] Respiratory rate 2023-04-12 17 /[facility] 07:55:00 [facility] Body temperature 2023-04-[address] [facility] 04:22:00 [facility] Body height 2023-04-[address] [facility] 04:22:00 [facility] Body weight 2023-04-[address] [facility] 04:22:00 [facility] BMI 2023-04-12 31.93 kg/m2 [facility] 04:22:00 [facility] Systolic blood 2022-09-19 95 mm[Hg] [facility] pressure 09:30:00 [facility] Diastolic blood 2022-09-19 61 mm[Hg] [facility] pressure 09:30:00 [facility] Heart rate 2022-09-19 76 /min [facility] 09:30:00 Hospital Respiratory rate 2022-09-19 11 /min [facility] 09:30:00 Hospital Oxygen saturation 2022-09-19 97 /min [facility] in Arterial blood 09:30:00 Hospital by Pulse oximetry Body temperature 2022-09-19 36.44 Salima [facility] 01:12:00 Hospital Body height 2022-09-19 172.7 cm [facility] 01:12:00 Hospital Body weight 2022-09-19 73 kg [facility] 01:12:00 Hospital BMI 2022-09-19 24.47 kg/m2 [facility] 01:12:00 Hospital Systolic (mm Hg) 2022-08-25 [facility] He rmann 17:00:00 Diastolic (mm Hg) 2022-08-25 [facility] ermann 17:00:00 Respitory Rate 2022-08-25 [facility] 17:00:00 Systolic (mm Hg) 2022-08-25 [facility] rmann 16:00:00 Diastolic (mm Hg) 2022-08-25 [facility] ermann 16:00:00 Respitory Rate 2022-08-25 [facility] 16:00:00 Systolic (mm Hg) 2022-08-25 [facility] rmann 15:00:00 Diastolic (mm Hg) 2022-08-25 [facility] ermann 15:00:00 Respitory Rate 2022-08-25 [facility] 15:00:00 Temperature Oral 2022-08-25 98.7 F [facility] rmann (F) 12:00:00 Temperature Oral 2022-08-25 98.3 F [facility] rmann (F) 09:40:30 Temperature Oral 2022-08-25 98 F [facility] rmann (F) 04:36:10 Height 2022-08-21 172.72 cm [facility] 06:59:00 Weight 2022-08-21 [facility] 06:59:00 BMI Calculated 2022-08-21 [facility] 06:59:00 Weight 2022-08-20 [facility] 18:00:00 Heart Rate 2022-08-20 [facility] 18:00:00 Height 2022-08-20 172.72 cm [facility] 18:00:00 BMI Calculated 2022-08-20 [facility] 18:00:00 Respitory Rate 2021-01-24 [facility] 02:31:00 Systolic (mm Hg) 2021-01-24 [facility] Thomas rmann 02:31:00 Diastolic (mm Hg) 2021-01-24 [facility] ermann 02:31:00 Temperature Oral 2021-01-24 98.0 F [facility] rmann (F) 02:31:00 Heart Rate 2021-01-24 [facility] 01:01:00 Respitory Rate 2021-01-24 [facility] 01:01:00 Systolic (mm Hg) 2021-01-24 [facility] rmann 01:01:00 Diastolic (mm Hg) 2021-01-24 [facility] ermann 01:01:00 Height 2021-01-24 172.72 cm [facility] Fito n 00:28:00 BMI Calculated 2021-01-24 [facility] 00:28:00 Weight 2021-01-24 [facility] Fito n 00:28:00 Systolic (mm Hg) 2021-01-24 [facility] rmann 00:28:00 Diastolic (mm Hg) 2021-01-24 [facility] ermann 00:28:00 Heart Rate 2021-01-24 [facility] Fito n 00:28:00 Respitory Rate 2021-01-24 [facility] Herm claire 00:28:00 Temperature Oral 2021-01-24 98.4 F [facility] rmann (F) 00:28:00 Systolic blood 2020-12-15 120 mm[Hg] [facility] pressure 15:46:00 Hospital Diastolic blood 2020-12-15 74 mm[Hg] [facility] pressure 15:46:00 Hospital Heart rate 2020-12-15 94 /min [facility] 15:46:00 Hospital Respiratory rate 2020-12-15 18 /min [facility] 15:46:00 Hospital Oxygen saturation 2020-12-15 98 /min [facility] in Arterial blood 15:46:00 Hospital by Pulse oximetry Body temperature 2020-12-15 36.83 Salima [facility] 10:49:17 Hospital Body height 2020-12-15 172.7 cm [facility] 10:48:00 Hospital Body weight 2020-12-15 72.576 kg [facility] 10:48:00 Hospital BMI 2020-12-15 24.33 kg/m2 [facility] 10:48:00 Hospital Systolic blood 2020-02-18 125 mm[Hg] [facility]: E; [facility] pressure 12:30:00 Position: Sitting Diastolic blood 2020-02-18 82 mm[Hg] [facility] RUE; [facility] 12:30:00 Position: Sitting Body height 2020-02-18 68 [in_us] [facility] 12:30:00 Weight 2020-02-18 179 [lb_av] [facility] 12:30:00 Body mass index 2020-02-18 27.22 kg/m2 [facility] (BMI) [Ratio] 12:30:00 Body temperature 2020-02-18 98 [degF] Method: [facility] 12:30:00 Tympanic Heart Rate 2020-02-18 94 /min Location: R [facility] 12:30:00 Radial; Quality: Regular O2 SAT 2020-02-18 98 % Source: RA [facility] 12:30:00 Respiratory rate 2020-02-18 16 /min Quality: Normal [facility] 12:30:00 BP Systolic 2018-08-20 119 mm[Hg] Location: LUE; [facility] 11:45:00 Position: Sitting BP Diastolic 2018-08-20 83 mm[Hg] Location: LUE; [facility] 11:45:00 Position: Sitting Height 2018-08-20 68 [in_us] [facility] 11:45:00 Weight 2018-08-20 178.125 [lb_av] [facility] 11:45:00 Body Mass Index 2018-08-20 27.08 kg/m2 [facility] Calculated 11:45:00 Heart Rate 2018-08-20 83 /min Location: L [facility] 11:45:00 Radial; O2 SAT 2018-08-20 98 % Source: RA [facility] 11:45:00 Respitory Rate 2015-04-06 [facility] 14:00:00 Systolic (mm Hg) 2015-04-06 [facility] Thomas rmann 14:00:00 Diastolic (mm Hg) 2015-04-06 [facility] H ermann 14:00:00 Temperature Oral 2015-04-06 97.9 F [facility] rmann (F) 14:00:00 Heart Rate 2015-04-06 [facility] 14:00:00 Temperature Oral 2015-04-06 98.0 F [facility] rmann (F) 06:00:00 Heart Rate 2015-04-06 [facility] 06:00:00 Respitory Rate 2015-04-06 [facility] Patricio claire 06:00:00 Systolic (mm Hg) 2015-04-06 [facility] rmann 06:00:00 Diastolic (mm Hg) 2015-04-06 [facility] Julian ermann 06:00:00 Respitory Rate 2015-04-05 [facility] Patricio claire 23:17:00 Heart Rate 2015-04-05 Max Curryan n 23:17:00 Systolic (mm Hg) 2015-04-05 [facility] rmann 23:17:00 Diastolic (mm Hg) 2015-04-05 [facility] Julian ermann 23:17:00 Temperature Oral 2015-04-05 98 F [facility] rmann (F) 23:17:00 Weight 2015-04-04 Max Payton n 19:54:00 BMI Calculated 2015-04-04 [facility] Patricio claire 19:54:00 Height 2015-04-04 172.72 cm [facility] Fito n 19:54:00 Procedures Procedure Date / Time Performing Clinician Source Performed CBC W/PLT COUNT & AUTO 2023-04-12 10:37:00 Victoriano Barrientos [facility] DIFFERENTIAL [facility] COMPREHENSIVE METABOLIC 2023-04-12 10:37:00 Floyd [facility] PANEL [facility] TROPONIN I 2023-04-12 10:37:00 Franko Solis [facility] CBC W/PLT COUNT & AUTO 2023-04-12 10:37:00 Victoriano Barrientos [facility] DIFFERENTIAL [facility] ECG 12-LEAD 2023-04-12 09:42:05 Franko Solis [facility] ECG 12-LEAD 2023-04-12 09:42:05 Unknown, 7 [facility] ECG 12-LEAD 2023-04-12 09:42:05 Unknown, Hl7 [facility] ECG 12-LEAD 2023-04-12 09:11:24 Unknown, Hl7 [facility] ECG 12-LEAD 2023-04-12 09:11:24 Unknown, Hl7 [facility] CT BRAIN WITHOUT IV 2023-04-12 06:24:35 Victoriano Barrientos [facility] CONTRAST [facility] CT SPINE CERVICAL WITHOUT 2023-04-12 06:24:35 Victoriano Barrientos I [facility] IV CONTRAST [facility] CT MAXILLOFACIAL WITHOUT 2023-04-12 06:24:35 Victoriano Barrientos [facility] IV CONTRAST [facility] HCG, SERUM, QUALITATIVE 2023-04-12 05:28:00 [facility] ETHANOL 2023-04-12 05:23:00 Floyd [facility] ECG 12-LEAD 2022-11-20 14:15:23 [facility] ECG 12-LEAD 2022-11-20 14:15:23 [facility] ECG ED PRELIMINARY 2022-09-19 08:26:48 [facility] INTERPRETATION GROUP A STREP, RAPID 2022-09-19 07:18:00 [facility] ANTIGEN COVID-19, INFLUENZA A&B, 2022-09-19 07:18[facility]00 [facility] AND RSV QUALITATIVE RT-PCR STREP SCREEN CULTURE 2022-09-19 07:18:00 Mirab, [facility] ECG 12-LEAD 2022-09-19 07:12:23 [facility], [facility] spital TROPONIN T 2022-09-19 07:05:00 Infeli[facility] center [facility] XR CHEST 1 VW PORTABLE 2022-09-19 01:55:00 Lu[facility] ECG 12-LEAD 2022-09-19 01:18:22 Jignacaro center [facility] CBC WITH PLATELET AND 2022-09-19 01:18:00 Marc Andrade [facility] DIFFERENTIAL Tip COMPREHENSIVE METABOLIC 2022-09-19 01:18:00 Marc Andrade [facility] PANEL Tip TROPONIN T 2022-09-19 01:18[facility]00 [facility] 2022-09-19 01:18:00 Jignacaro center [facility] HCG QUALITATIVE, SERUM 2022-09-19 01:18:00 Infelipecaro center [facility] SCREEN Tip ESTIMATED GFR 2022-09-19 01:18:00 [facility] 12-[facility]AD 2022-08-15 15:32:03 [facility] 12-LEAD 2022-07-03 14:17[facility] 2022-07-03 14:11:00 [facility] ECG 12-LEAD 2022-06-26 15:52:00 [facility] ECG 12-LEAD 2021-10-24 19:15[facility] AMYL[facility] LIPASE 2021-07-19 20:05:00 Tung [facility] COMPREHENSIVE METABOLIC 2021-07-19 20:03:00 Wisam [facility] H ealth PANEL TSH W/REFLEX TO FT4 2021-07-19 20:03:00 [facility] 12-[facility]AD 2021-07-19 15:59:42 [facility] XR FOOT 3+ VW LEFT 2020-12-15 12:58:26 [facility] XR CHEST 1 VW PORTABLE 2020-12-15 12:34:29 [facility] COVID-19 QUALITATIVE 2020-12-15 10:54:00 ConnieMalachi [facility] RT-PCR [place] XR FOOT 3+ VW LEFT 2020-12-01 21:05:19 Kelly Greenfield [facility] XR ANKLE 3+ VW LEFT 2020-12-01 19:58:15 Kelly Greenfield [facility] MRA Aorta wo contrast 2018-08-21 00:00:00 [facility] [id number] [N] 2D Echo complete, 2018-08-20 00:00:00 [facility] with Doppler [id number] [N] 2D Echo complete, 2017-03-01 00:00:00 [facility] with Doppler [id number] Plan of Care Planned Activity Planned Date Details Comments Source Future Scheduled 2023-04-09 COVID-19 VACCINE (#1) [facility] Test 23:25:38 [code = COVID-19 VACCINE (#1)] Future Scheduled 2023-04-09 [facility] 23:25:38 (procedure) [code = [id number]] Future Scheduled 2023-04-09 [facility] 23:25:38 neoplasm of cervix (procedure) [code = 714194488] Future Scheduled 2023-04-09 [facility] 23:25:38 [code = INFLUENZA VACCINE (#1)] Future Scheduled 2023-04-09 COVID-19 VACCINE (#1) [facility] Hospital Test 23:25:38 [code = COVID-19 VACCINE (#1)] Future Scheduled 2023-04-09 Hepatitis C screening [facility] Test 23:25:38 (procedure) [code = [id number]] Future Scheduled 2023-04-09 [facility] Test 23:25:38 neoplasm of cervix (procedure) [code = [id number]] Future Scheduled 2023-04-09 INFLUENZA VACCINE (#1) [facility] Test 23:25:38 [code = INFLUENZA VACCINE (#1)] Future Scheduled 2023-02-05 COVID-19 VACCINE (#1) [facility] Test 16:41:46 [code = COVID-19 VACCINE (#1)] Future Scheduled 2023-02-05 Hepatitis C screening [facility] Test 16:41:46 (procedure) [code = 722165390] Future Scheduled 2023-02-05 [facility] 16:41:46 neoplasm of cervix (procedure) [code = 441506408] Future Scheduled 2023-02-05 INFLUENZA VACCINE (#1) [facility] Test 16:41:46 [code = INFLUENZA VACCINE (#1)] Future Scheduled 2023-01-19 Influenza Vaccine (#1) [facility] Test 00:00:00 [code = Influenza Medical Ce nter Vaccine (#1)] Future Scheduled 2023-01-19 Influenza Vaccine (#1) [facility] Test 00:00:00 [code = Influenza Medical Ce nter Vaccine (#1)] Future Scheduled 2022-05-[address] [facility] Test 00:00:00 (12+) [code = DEPRESSION [facility] SCREENING (12+)] Future Scheduled 2022-05-[address] [facility] Test 00:00:00 (12+) [code = DEPRESSION [facility] SCREENING (12+)] Diagnostic Test 2018-11-19 [N] 2D Echo complete, [facility] Pending 00:00:00 with Doppler 24376 [code = [N] 2D Echo complete, with Doppler 62145] Diagnostic Test 2018-08-21 MRA Aorta wo contrast [facility] Pending 00:00:00 C8910 [code = C8910] Diagnostic Test 2018-08-20 [N] 2D Echo complete[facility]ending 00:00:00 with Doppler 83965 [code = [N] 2D Echo complete, with Doppler 07296] Future Scheduled 2004 Screening for malignant [facility] Test 00:00:00 neoplasm of cervix Medical C enter (procedure) [code = 785775704] Future Scheduled 2004 Screening for malignant [facility] Test 00:00:00 neoplasm of cervix Medical C enter (procedure) [code = 026168035] Future Scheduled 2003 Lipid panel (procedure) [facility] Test 00:00:00 [code = 08792607] Medical Ce nter Future Scheduled 2003 Lipid panel (procedure) [facility] Test 00:00:00 [code = 91753323] Medical Ce nter Future Scheduled 2002 DTAP/TDAP/TD VACCINES ([address] [facility] Test 00:00:00 - Tdap) [code = Medical Cent er DTAP/TDAP/TD VACCINES (1 - Tdap)] Future Scheduled 2002 DTAP/TDAP/TD VACCINES ([address] [facility] Test 00:00:00 - Tdap) [code = Medical Cent er DTAP/TDAP/TD VACCINES (1 - Tdap)] Future Scheduled 2001 HEPATITIS C [facility]CRE[facility]ING [facility] Test 00:00:00 [code = HEPATITIS C Medical Center SCREENING] Future Scheduled 2001 HEPATITIS C [facility] Test 00:00:00 [code = HEPATITIS C Medical Center SCREENING] Future Scheduled [address] [facility] Test 00:00:00 virus screening Medical Cent er (procedure) [code = 502370781] Future Scheduled [address] [facility] Test 00:00:00 virus screening Medical Cent er (procedure) [code = 696004764] Future Scheduled [address] [facility] Test 00:00:00 Counseling and Screening Med ical Center (12+) [code = Tobacco Cessation Counseling and Screening (12+)] Future Scheduled [address] [facility] Test 00:00:00 Counseling and Screening Med ical Center (12+) [code = Tobacco Cessation Counseling and Screening (12+)] Future Scheduled 1984-01-11 COVID-19 VACCINE (#1) [facility] 00:00:00 [code = COVID-19 VACCINE Med ical Center (#1)] Future Scheduled 1984-01-11 COVID-19 VACCINE (#1) [facility] Test 00:00:00 [code = COVID-19 VACCINE Med ical Center (#1)] Future Scheduled COVID-19 VACCINE (1) [facility] Test [code = COVID-19 VACCINE (1)] Future Scheduled Hepatitis C screening [facility] Test (procedure) [code = 930997191] Future Scheduled Screening for malignant [facility] Test neoplasm of cervix (procedure) [code = 356851456] Future Scheduled INFLUENZA VACCINE [code [facility] = INFLUENZA VACCINE] Encounters Start End Encounter Admission Attending Care Care Encounter Source Date/Time Date/Time Type Type Clinicians Facility Department ID 2022-12-07 Outpatient [facility] [id number] [place] 10:33:09 [id number] [facility] 2022-10-24 Outpatient [facility] [id number] [place] 15:51:09 [id number] [facility] 2022-10-02 Outpatient [facility] [id number] [place] 09:40:38 [id number] [facility] 2022-09-12 Outpatient [facility] [id number] [place] 15:58:24 [id number] [facility] 2022-09-06 Outpatient [facility] [id number] [place] 08:24:23 [id number] [facility] 2022-08-30 Outpatient [facility] [id number] [place] 10:12:07 [id number] [facility] 2022-08-29 Outpatient [facility] [id number] [place] 10:07:07 [id number] [facility] 2022-08-23 Outpatient [facility] [id number] [place] 08:01:45 [id number] [facility] 2022-08-19 Outpatient [place] UT [id number] UT 03:40:19 [id number] [facility] 2022-08-15 Outpatient [place] [id number] UT 10:23:13 [id number] [facility] 2022-07-25 Outpatient [place] UT [id number] UT 08:22:32 [id number] [facility] 2022-07-24 Outpatient [place] UT [id number] UT 12:27:51 [id number] [facility] 2022-07-03 Outpatient [place] UT [id number] UT 08:06:58 [id number] [facility] 2022-06-29 Outpatient [place] UT [id number] UT 11:36:39 [id number] [facility] 2022-06-19 Outpatient [place] UT [id number] UT 08:45:35 [id number] [facility] 2022-06-14 Outpatient TRISTAN JOEL [facility] CAR [id number] [facility] 15:06:51 2022-04-12 Outpatient [facility] [place] [id number] [place] 09:00:04 [id number] [facility] 2021-07-24 Outpatient [facility] UT [id number] UT 01:04:07 [facility] 2021-07-19 Outpatient [facility] UT [id number] UT 11:41:29 [facility] 2021-07-19 [place]patient [place] [id number] UT 09:33:41 [facility] 2021-07-19 Outpatient [facility] UT [id number] UT 09:32:45 [facility] 2021-01-25 Outpatient TRISTAN JOEL [facility] UT [id number] UT 16:31:11 [facility] 2018-09-02 Outpatient [facility] CAR [id number] [facility] 11:56:47 2023-05-28 2023-05-28 Outpatient [facility] [id number] [place] 10:00:00 10:00:00 [facility] 2023-04-19 2023-04-19 Outpatient [place], [place] [id number] [place] 13:00:00 [facility]:00[facility]12 2023-04-12 Emergency BarrientosVictoriano mckeon [facility] 1 [id number] CHI 04:26:00 13:17:00 Franko Solis [facility] 2023-04-12 2023-04-12 Emergency ER Victoriano Barrientos [facility] [id number] 04:26:00 13:17:00 Franko Solis [facility] 2023-04-12 2023-04-12 Emergency ER MASTER, [facility] Emergency [id number] [facility] 04:26:00 13:17:00 FRANKO 2023-04-12 2023-04-12 Emergency [facility] [id number] [facility] 05:53:14 05:53:14 [facility] 2023-04-12 2023-04-12 Orders [facility] [id number] 00:00:00 00:00:00 Only [facility] 2023-04-12 2023-04-12 Travel [facility] [id number] [facility] 00:[facility]:00 00:00:00 [facility] 2023-04-12 2023-04-12 Orders [facility] [id number] 00:00:00 00:00:00 [facility] 2023-04-12 2023-04-12 Travel [facility] [id number] [facility] 00:00:00 00:00:00 [facility] 2023-04-10 2023-04-10 Outpatient DEBROECK_J_ VFP VFP [id number] 00:00:00 00:00:00 LOGAN [id number] Family Practic e 2023-04-09 2023-04-09 Outpatient [facility] [id number] [place] 10:10:00 10:10:00 Health 2023-04-09 2023-04-09 Outpatient [facility] [id number] [place] 09:00:00 09:00:00 Health 2023-04-05 2023-04-05 Outpatient DEBROECK_J_ VFP VFP 171 [id number] [facility] 00:00:00 00:00:00 LOGAN [id number] Family Practic e 2023-03-28 2023-03-28 Office Ken, CRISTIANO 1.2.840.114 [id number] [place] 10:30:00 12:44:11 Visit Ashley DIAZ 350.1.13.58 Health [place] 9.2.7.2.686 [place] [id number] 2023-03-24 2023-03-25 Emergency E MAE ZAVALETA [facility] [id number] [facility] 23:42:00 07:01:00 08 2023-03-14 2023-03-14 Outpatient ERIN [facility] [id number] [place] 08:15:00 08:15:00 MANAN [facility] 2023-02-19 2023-02-20 Inpatient EM [facility] K003 [id number] [facility] 12:15:00 15:20:00 61 [facility] 2023-02-06 2023-02-06 Outpatient LUIZA, [facility] [id number] [place] 09:40:00 09:40:00 [facility] 2023-01-24 2023-01-24 Outpatient DEBROECK_J_ VFP VFP [id number] [facility] 00:00:00 00:00:00 LOGAN [id number] Family Practic e 2023-01-08 2023-01-08 Ancillary Provider, [facility] 6410 1.2.840.114 1 [id number] [place] 08:30:00 08:48:[address] 350.1.13.58 Health 9.2.7.2.686 [id number] 2 2022-12-21 2022-12-21 Office Eben, [facility] 6410 1.2.840.114 [id number] [place] 15:00:00 15:36:[address] 350.1.13.58 Health 9.2.7.2.686 [id number] 8 2022-12-20 2022-12-20 Outpatient LUIZA, [facility] [id number] [place] 09:30:00 09:30:00 [facility] 2022-11-20 2022-11-20 Office Luiza [facility] [id number] [id number] [place] 09:00:00 09:54:51 Visit [facility] 350.1.13.58 H ealt MED [place] 9.2.7.2.686 4 [id number] 1 2022-11-13 2022-11-13 Outpatient [facility] [id number] [place] 09:50:00 09:50:00 [facility] 2022-11-09 2022-11-09 Outpatient LUIZA, [facility] [id number] [place] 09:20:00 09:20:00 TOMÁSCount includes the [facility] 2022-11-03 2022-11-03 Outpatient VASYL, [facility] [id number] [place] 09:00:00 09:00:00 [facility] 2022-10-30 2022-10-30 Emergency E JULIÁN, [facility] [id number] [facility] 09:45:00 20:08:00 LANCE 2022-10-13 2022-10-13 Outpatient GERALDINE, [facility] [id number] [place] 15:30:00 15:30:00 [facility] 2022-10-02 2022-10-02 Ancillary Provider, UTP 6410 1.2.840.114 1 [id number] [place] 09:50:00 11:02:[address] 350.1.13.58 Health 9.2.7.2.686 [id number] 2 2022-09-25 2022-09-25 Outpatient ERIN, [facility] [id number] [place] 09:25:00 10:37:58 [facility] 2022-09-18 2022-09-19 Emergency Mirab, Ali 1.2.840.1 [id number] Methodi 20:31:00 04:42:[address] 3.430.2.7 Hospit a .3.125769 l .8 2022-09-18 2022-09-19 Emergency Mirab, Ali 1.2.840.1 [id number] 2 [id number] Methodi 20:31:00 04:42:[address] 3.430.2.7 Hospit a .3.540934 l .8 2022-09-19 2022-09-19 Travel 1.2.840.1 1.2.210.133 [id number] [id number] Methodi 00:00:00 00:00:[address] 3.430.2.7 0.2.7.3.698 Ho spita .3.615736 084.8 l .8 2022-09-19 2022-09-19 Travel 1.2.840.1 1.2.022.204 4997 [id number] Methodi 00:00:00 00:00:[address] 3.430.2.7 0.2.7.3.698 Ho spita .3.611586 084.8 l .8 2022-09-18 2022-09-18 Outpatient GARCÍA, [facility] [id number] [place] 13:20:00 13:20:00 [facility] 2022-09-18 2022-09-18 Outpatient SUNDAY, [facility] [id number] [place] 10:30:00 10:30:00 HODAN Adkins 2022-09-14 2022-09-14 Office Luiza [facility] 1.2.961.731 [id number] [place] 13:40:00 13:58:45 Visit Tomás [facility] 350.1.13.58 [facility] 9.2.7.2.686 MEDICAL [id number] PLAZA 1 7 2022-09-07 2022-09-07 [facility] [id number] [place] 09:00:00 09:00:00 [facility] 2022-09-04 2022-09-04 Office Vasyl CRISTIANO 6410 1.2.840.114 1 [id number] [place] 11:00:00 12:13:[address] 350.1.13.58 Health 9.2.7.2.686 [id number] 2022-08-20 2022-08-25 Inpatient EDSON [facility] [id number] Memoria 17:57:24 19:23:[address] 2022-08-20 2022-08-25 Inpatient Luan ORTIZ, [facility] CAR [id number] [facility] 20:13:00 14:23:00 HOWARD 2022-08-21 2022-08-21 Outpatient [facility] [id number] [place] 10:00:00 10:00:00 Health 2022-08-15 2022-08-15 Office CRISTIANO Gimenez PEDI 1.2.595.685 [id number] [place] 10:15:00 11:31:35 Visit Manan HOGUE 350.1.13.58 Health 9.2.7.2.686 [id number] 3 2022-07-25 2022-07-25 Outpatient [facility] [id number] [place] 08:00:00 09:13:43 Health 2022-07-17 2022-07-17 Ancillary ProviderCRISTIANO 6410 1.2.840.114 1 [id number] [place] 09:30:00 10:04:20 Procedure [address] 350.1.13.58 Health 9.2.7.2.686 [id number] 2 2022-07-17 2022-07-17 Outpatient [facility] [id number] [place] 10:00:00 10:00:00 Health 2022-07-03 2022-07-03 Office CRISTIANO Gimenez [facility] 1.2.840.114 [id number] [place] 08:00:00 08:39:44 Visit Manan [place] 350.1.13.58 Health [place] 9.2.7.2.686 4 [id number] 1 2022-06-28 2022-06-29 Outpt Diag IE [facility] [id number] Memoria 16:29:00 05:59:00 Services Outpatient 03 l Imaging Junior Peres 2022-06-26 2022-06-26 Ancillary TRISTAN JOEL 6410 1.2.840.114 [id number] [place] 09:30:00 15:12:[address] 350.1.13.58 Health 9.2.7.2.686 [id number] 2 2022-06-26 2022-06-26 Outpatient [facility] [id number] [place] 11:00:00 15:11:55 Health 2022-05-17 2022-05-17 Outpatient TRISTAN JOEL [facility] [id number] [place] 09:00:00 09:00:00 Health 2022-03-06 2022-03-06 Outpatient DEBROECK_J VFP VFP [id number] 00:00:00 00:00:00 [id number] Family Practic e 2022-03-06 2022-03-06 Alea VFP [place] - [id number] [facility] 00:00:00 00:00:00 Antelmo [facility] Fami ly [place]: [address] Medical - Prac tic Katt [place] - e [place] MYNOR_Andrea [place]red, [place] [address] , Ph. 2022-03-03 2022-03-03 Outpatient DEBROECK_J VFP VFP [id number] 00:00:00 00:00:00 [id number] Family Practic e 2021-12-08 2021-12-08 Outpatient DEBROECK_J VFP VFP [id number] 01:56:00 01:56:00 [id number] Family Practic e 2021-10-24 2021-10-24 Ancillary Provider, [facility] 6410 1.2.840.114 1 [id number] [place] 08:30:00 09:43:53 [facility] [address] 350.1.13.58 Health 9.2.7.2.686 [id number] 2 2021-09-16 2021-09-17 Outpatient MAJID, [facility] PUL [id number] [facility] 18:00:00 06:00:00 YAHIR 2021-09-15 2021-09-16 Outpatient [facility] [id number] [facility] 23:00:00 11:00:[address] 2021-09-16 2021-09-16 Amy DEBROECK_J VFP [place] - [id number] [facility] 00:00:00 00:00:00 Casandra [facility] [id number] Famil y PASUP: Medical - Practi c [address] BLAYNE_LORRAINEU_Riamagali Bolivar [address], [place] [address] , Ph. 2021-09-15 2021-09-15 Outpatient DEBROECK_J VFP VFP [id number] [facility] 02:20:00 02:20:00 [id number] Family Practic e 2021-09-15 2021-09-15 Telephone Mariah Hylton UTP [facility] 1.2.840.11 4 [id number] [place] 00:00:00 00:00:00 Mariah Hylton GREATER 350.1.13.58 Health [facility] 9.2.7.2.686 MEDICAL [id number] PLAZA 1 4 2021-09-14 2021-09-14 Outpatient DEBROECK_J VFP VF [id number] [id number] [facility] 05:32:00 05:32:00 [id number] Family Practic e 2021-09-09 2021-09-10 Outpatient nullFlavo [facility] [id number] Memoria 17:44:00 04:59:00 r Outpatient [address] [facility] 2021-08-29 2021-08-30 Outpt Diag nullFlavo [facility] [id number] Memoria 17:28:00 04:59:00 Services r Outpatient 02 l Imaging Junior Peres 2021-08-22 2021-08-22 Ancillary Provider, [facility] 6410 1.2.840.114 1 [id number] [place] 08:30:00 09:16:50 [address] 350.1.13.58 Health 9.2.7.2.686 [id number] 2 2021-07-26 2021-07-27 Outpt Diag nullFlavo [facility] [id number] Memoria 16:11:00 05:59:00 Services r Outpatient 00 l Imaging Junior Pacheco 2021-07-19 2021-07-19 Office Tristan Joel [facility] 6410 1.2.840.114 1 [id number] [place] 08:20:00 11:51:[address] 350.1.13.58 Health 9.2.7.2.686 [id number] 2 2021-06-12 2021-06-12 Emergency STARLA, [facility] [id number] [place] [address] 00:00:00 00:00:00 ADRIANO Carmona Method i st 2021-06-08 2021-06-08 Outpatient DEBROECK_J VFP VF [id number] [id number] [facility] 05:22:00 05:22:00 [id number] Family Practic e 2021-02-08 2021-02-08 Outpatient DEBROECK_J VFP [facility] [address] 05:12:00 05:12:00 355002 Family Practic e 2021-01-25 2021-01-25 Telephone Tristan Joel 1.2.840.114 [id number] [place] 00:00:00 00:00:00 [facility] 350.1.13.58 H ealth MULTI 9.2.7.2.686 SPECIALTY [id number] CLINIC 1 2021-01-24 2021-01-24 Emergency [facility] [id number] [facility] 00:22:24 02:37:00 [facility] 03 l [facility] 2021-01-23 2021-01-23 EXT MH OP EXT MSRDP 1.2.840.114 1 [id number] [place] 00:00:00 00:00:00 LOCATION 350.1.13.58 H ealth 9.2.7.2.686 [id number] 0 2021-01-23 2021-01-23 EXT MH OP EXT MSRDP 1.2.840.114 1 [id number] [place] 00:00:00 00:00:00 LOCATION 350.1.13.58 H ealth 9.2.7.2.686 [id number] 0 2020-12-16 2020-12-16 Outpatient DEBROECK_J VFP [address] 04:54:00 04:54:00 [id number] Family Practic e 2020-12-15 2020-12-15 Outpatient DEBROECK_J VFP [address] 12:35:00 12:35:00 [id number] Family Practic e 2020-12-15 2020-12-15 Emergency Nilam, 1.2.840.1 [id number] [place] 06:43:00 10:48:00 Jeanette 08562.1.1 554 [facility] 3.430.2.7 Hospit a .3.002083 l .8 2020-12-15 2020-12-15 Travel 1.2.840.1 1.2.464.821 [id number] Methodi 00:00:00 00:00:[address] 3.430.2.7 0.2.7.3.698 Ho spita .3.300685 084.8 l .8 2020-12-13 2020-12-13 Outpatient DEBROECK_J VFP VFP 1714 619-20 [facility] 03:19:00 03:19:00 [id number] Family Practic e 2020-12-01 2020-12-01 Emergency Weibel, 1.2.840.1 [id number] 2099 [id number] Methodi 14:41:00 16:44:[address] Megan 3.430.2.7 Hospit a .3.850492 l .8 2020-12-01 2020-12-01 Travel 1.2.840.1 1.2.799.999 9951 [id number] Methodi 00:00:00 00:00:[address] 3.430.2.7 0.2.7.3.698 Ho spita .3.455278 084.8 l .8 2020-02-18 2020-02-18 AppointCRISTIANO Paniagua [facility] [id number] [place] 11:00:00 11:00:00 t; TRISTAN JOEL M.D. [facility] Saleem Anderson M.D. [place] 2018-11-20 2018-11-20 AppointCRISTIANO Paniagua [facility] [id number] [place] 09:00:00 09:00:00 t; TRISTAN JOEL M.D. P hysici POYEE, ans M.D. 2018-11-20 2018-11-20 Appointmen CRISTIANO ELMORE UTP [id number] [place] 08:00:00 08:00:00 t; TONIA ELMORE Phy sici ECHO1 ans 2018-11-19 2018-11-19 AppointCRISTIANO Paniagua [facility] [id number] [place] 11:15:00 11:15:00 t; TRISTAN JOEL M.D. P hysici POYEE, ans M.D. 2018-08-20 2018-08-[facility] CRISTIANO JOEL [id number] [place] 11:15:00 11:15:00 t; TRISTAN JOEL M.D. Multi P hysici POYEE, Specialty ans M.D. 2017-04-11 2017-04-11 AppointCRISTIANO Flores UTP [id number] [place] 12:00:00 12:00:00 t; Dharmesh DAVIS i, M.D. ans DIANNA, M.D. 2017-03-02 2017-03-[facility] DAVID, CRISTIANO UTP [id number] [place] 14:00:00 14:00:00 t; FIDENCIO HERNANDEZ ECHO ans 2017-03-01 2017-03-01 [facility] CRISTIANO JOEL UTP [id number] [place] 16:00:00 16:00:00 t; TRISTAN JOEL M.D. P hysici POYEE, ans M.D. 2017-03-01 2017-03-01 [facility] CRISTIANO JOEL UTP [id number] [place] 04:00:00 04:00:00 t; TRISTAN JOEL M.D. P hysici POYEE, ans M.D. 2015-06-17 2015-06-[facility] CRISTINAO Joel UTP [id number] [place] 15:00:00 15:00:00 t; Tristan Joel M.D. P hysici [place], ans M.D. 2015-06-16 2015-06-16 CRISTIANO Valiente UTP [id number] [place] 14:00:00 14:00:00 t; ECHO francoise Blanco i ECHO 2015-05-24 2015-05-24 CRISTIANO Milton UTP [id number] [place] 13:00:00 13:00:00 t; Emily JAMES ans JOEY, M.D. 2015-05-17 2015-05-17 [facility] MARIA ELENA, CRISTIANO UTP [id number] [place] 13:00:00 13:00:00 t; SHERICE ARREDONDO M.D. P hysici CLARA, ans M.D. 2015-04-04 2015-04-07 [place] [id number] Memoria 23:05:00 00:00:00 [facility] 01 l [facility] Results Test Description Test Time Test Comments Results Result Comments Source Troponin I 2023-04-12 10:58:09 Test Item Value Reference Range Interpretation Comme nts Troponin I (test code = 93377-4) 0.00-0.03 ALEX (test code = ALEX) Troponin [...] failure, acidosis, acute neurological disease, and persistent tachyarrhythmia.Hematologist Oncologist ID - CONOR Lab Interpretation (test code = Normal 72456-4) [facility] [id number] 10:58:09 Test Item Value Reference Range Interpretation Comments Troponin I (test code = 0.00-0.03 68807-3) ALEX (test code = ALEX) Troponin I [...] failure, acidosis, acute neurological disease, and persistent tachyarrhythmia.Opera tor ID - CONOR Lab Interpretation (test Normal code = 55728-7) [facility] [id number] 10:58:09 Test Item Value Reference Range Interpretation [...] failure, acidosis, acute neurological disease, and persistent tachyarrhythmia.Hematologist Oncologist ID - PURAComprehensive metabolic [id number] 10:54:04 Test Item Value Reference Range Interpretation Comments Protein, Total (test 7.3 See_Comment [Autom ated message] code = 2885-2) The system [employer] generated this result transmit amy reference range : 6.0 - 8.5 gm/dL. Th e reference range was not used to interpret this result as normal/abnormal . Albumin (test code = 4.2 g/dL 3.5-5.0 60699-3) Alkaline Phosphatase 65 U/L 30-115 (test code = 6768-6) Total Bilirubin (test 0.2 mg/dL 0.1-1.2 code = 1974-2) Sodium (test code = 142 meq/L 134-519 3228-2) Potassium (test code 3.9 meq/L 3.6-5.5 = 2823-3) Chloride (test code = 107 meq/L 98-106 H 2075-0) CO2 (test code = 22 meq/L -29 2027-9) BUN (test code = 15 mg/dL 10-26 3094-0) Creatinine (test code 0.72 mg/dL 0.50-1.20 = 2160-0) Glucose (test code = 86 mg/dL 70-110 2345-7) Calcium (test code = 8.3 mg/dL 8.5-10.5 L 50371-3) AST (test code = 23 U/L 5-40 1920-8) ALT (test code = 14 U/L 5-50 1742-6) EGFR (test code = 109 mL/min/1[place] [address]-7) m eGFR values Sta ge Description Res ult G1 Normal or hi gh >=90 G2 Mildly decreased 60-89 G3a Mildly to moder ately 45-59 G3b Moder ately to severely 30- 44 G4 Severly decreas ed 15-29 G5 Kidney failure <15Repo rted eGFR is based o n the CKD-EPI 2020 equation that d oes not use a race coefficient Estimated GFR i s not as accurate as Creatinine Emperatriz lockwood in predicting glomerular filtration rate . Estimated GFR i s not applicable for dialysis patien ts ALEX (test code = ALEX) Hematologist Oncologist ID - CONOR Lab Interpretation Abnormal (test code = 25717-3) [facility] [id number] 10:54:04 Test Item Value Reference Range Interpretation Comments Protein, Total (test 7.3 See_Comment [Autom ated message] code = 2885-2) The system [employer] generated this result transmit amy reference range : 6.0 - 8.5 gm/dL. Th e reference range was not used to interpret this result as normal/abnormal . Albumin (test code = 4.2 g/dL 3.5-5.0 06703-4) Alkaline Phosphatase 65 U/L 30-115 (test code = 6768-6) Total Bilirubin (test 0.2 mg/dL 0.1-1.2 code = 1974-2) Sodium (test code = 142 meq/L 164-762 4899-2) Potassium (test code 3.9 meq/L 3.6-5.5 = 2823-3) Chloride (test code = 107 meq/L 98-106 H 2074-0) CO2 (test code = 22 meq/L -29 2027-9) BUN (test code = 15 mg/dL 10-26 3094-0) Creatinine (test code 0.72 mg/dL 0.50-1.20 = 2160-0) Glucose (test code = 86 mg/dL 70-110 2345-7) Calcium (test code = 8.3 mg/dL 8.5-10.5 L 98632-9) AST (test code = 23 U/L 5-40 1920-8) ALT (test code = 14 U/L 5-50 1742-6) EGFR (test code = 109 mL/min/1[place]73 [place] [address]-5) m eGFR values Sta ge Description Res ult G1 Normal or hi gh >=90 G2 Mildly decreased 60-89 G3a Mildly to moder ately 45-59 G3b Moder ately to severely 30- 44 G4 Severly decreas ed 15-29 G5 Kidney failure <15Repo rted eGFR is based o n the CKD-EPI 2020 equation that d oes not use a race coefficient Estimated GFR i s not as accurate as Creatinine Emperatriz lockwood in predicting glomerular filtration rate . Estimated GFR i s not applicable for dialysis patien ts ALEX (test code = ALEX) Hematologist Oncologist ID - CONOR Lab Interpretation Abnormal (test code = 09896-3) [facility] [id number] 10:54:04 Test Item Value Reference Range Interpretation [...] not as accur ate as Creatinine Emperatriz lockwood in predicting glom erular filtration rate . Estimated GFR is not appl icable for dialysis patien ts Hematologist Oncologist ID - PURACBC with platelet count + automated [id number] 10:42:10 Test Item Value Reference Range Interpretation Comments WBC (test code = 6690-2) 12.3 See_Comment H [A utomated message] The system [employer] generated this result transmitted ref erence range: 4.0 - 10 .0 K/L. The refe rence range was not u sed to interpret this result as normal/abnor mal. RBC (test code = 789-8) 4.45 See_Comment [Au tomated message] The system [employer] generated this result transmitted ref erence range: 4.00 - 5 .00 M/L. The refe rence range was not u sed to interpret this result as normal/abnor mal. Hemoglobin (test code = 13.4 See_Comment [Au tomated message] 718-7) The system [employer] generated this result transmitted ref erence range: 12.0 - 1 5.5 GM/DL. The refe rence range was not u sed to interpret this result as normal/abnor mal. Hematocrit (test code = 40.6 % 36.0-46.0 4544-3) MCV (test code = 787-2) 91 fL 82-99 MCH (test code = 785-6) 30.1 pg 27.0-33.0 MCHC (test code = 786-4) 33.0 See_Comment [A utomated message] The system [employer] generated this result transmitted ref erence range: 32.0 - 3 6.0 GM/DL. The refe rence range was not u sed to interpret this result as normal/abnor mal. RDW (test code = 788-0) 13.3 % 12.0-15.0 Platelets (test code = 334 See_Comment [Aut omated message] 777-3) The system [employer] generated this result transmitted ref erence range: 150 - 43 0 K/CU MM. The referen ce range was not u sed to interpret this result as normal/abnor mal. MPV (test code = 8.6 fL 6.0-11.5 20523-2) nRBC (test code = 413) 0 See_Comment [Aut omated message] The system [employer] generated this result transmitted ref erence range: [...] H [Aut omated message] 670) The system [employer] generated this result transmitted ref erence range: 1.80 - 8 .00 K/L. The refe rence range was not u sed to interpret this result as normal/abnor mal. # Lymphs (test code = 2.22 See_Comment [Auto mated message] 414) The system [employer] generated this result transmitted ref erence range: 1.48 - 4 .50 K/L. The refe rence range was not u sed to interpret this result as normal/abnor mal. # Monos (test code = 0.66 See_Comment [Autom ated message] 415) The system [employer] generated this result transmitted ref erence range: 0.00 - 1 .30 K/L. The refe rence range was not u sed to interpret this result as normal/abnor mal. # Eos (test code = 416) 0.01 See_Comment [Au tomated message] The system [employer] generated this result transmitted ref erence range: 0.00 - 0 .50 K/L. The refe rence range was not u sed to interpret this result as normal/abnor mal. # Baso (test code = 417) 0.04 See_Comment [A utomated message] The system [employer] generated this result transmitted ref erence range: 0.00 - 0 .20 K/L. The refe rence range was not u sed to interpret this result as normal/abnor mal. Immature 0.20 % 0.00-0.00 H Granulocytes-Relative (test code = 2801) Lab Interpretation (test Abnormal code = 26842-3) [facility] with platelet count + automated [id number] 10:42:10 Test Item Value Reference Range Interpretation Comments WBC (test code = 6690-2) 12.3 See_Comment H [A utomated message] The system [employer] generated this result transmitted ref erence range: 4.0 - 10 .0 K/L. The refe rence range was not u sed to interpret this result as normal/abnor mal. RBC (test code = 789-8) 4.45 See_Comment [Au tomated message] The system [employer] generated this result transmitted ref erence range: 4.00 - 5 .00 M/L. The refe rence range was not u sed to interpret this result as normal/abnor mal. Hemoglobin (test code = 13.4 See_Comment [Au tomated message] 718-7) The system [employer] generated this result transmitted ref erence range: 12.0 - 1 5.5 GM/DL. The refe rence range was not u sed to interpret this result as normal/abnor mal. Hematocrit (test code = 40.6 % 36.0-46.0 4544-3) MCV (test code = 787-2) 91 fL 82-99 MCH (test code = 785-6) 30.1 pg 27.0-33.0 MCHC (test code = 786-4) 33.0 See_Comment [A utomated message] The system [employer] generated this result transmitted ref erence range: 32.0 - 3 6.0 GM/DL. The refe rence range was not u sed to interpret this result as normal/abnor mal. RDW (test code = 788-0) 13.3 % 12.0-15.0 Platelets (test code = 334 See_Comment [Aut omated message] 777-3) The system [employer] generated this result transmitted ref erence range: 150 - 43 0 K/CU MM. The referen ce range was not u sed to interpret this result as normal/abnor mal. MPV (test code = 8.6 fL 6.0-11.5 92977-1) nRBC (test code = 413) 0 See_Comment [Aut omated message] The system [employer] generated this result transmitted ref erence range: [...] H [Aut omated message] 670) The system [employer] generated this result transmitted ref erence range: 1.80 - 8 .00 K/L. The refe rence range was not u sed to interpret this result as normal/abnor mal. # Lymphs (test code = 2.22 See_Comment [Auto mated message] 414) The system [employer] generated this result transmitted ref erence range: 1.48 - 4 .50 K/L. The refe rence range was not u sed to interpret this result as normal/abnor mal. # Monos (test code = 0.66 See_Comment [Autom ated message] 415) The system [employer] generated this result transmitted ref erence range: 0.00 - 1 .30 K/L. The refe rence range was not u sed to interpret this result as normal/abnor mal. # Eos (test code = 416) 0.01 See_Comment [Au tomated message] The system [employer] generated this result transmitted ref erence range: 0.00 - 0 .50 K/L. The refe rence range was not u sed to interpret this result as normal/abnor mal. # Baso (test code = 417) 0.04 See_Comment [A utomated message] The system [employer] generated this result transmitted ref erence range: 0.00 - 0 .20 K/L. The refe rence range was not u sed to interpret this result as normal/abnor mal. Immature 0.20 % 0.00-0.00 H Granulocytes-Relative (test code = 2801) Lab Interpretation (test Abnormal code = 93514-6) [facility] W/PLT COUNT & AUTO [id number] 10:42:10 Test Item Value Reference Range Interpretation [...] code = 2801) CT brain without IV [id number] 07:03:51EXAM: CT MAXILLOFACIAL WITHOUT IV CONTRAST, CT [...] No spinal canal stenosis or foraminal narrowing. [facility] [id number] 07:03:51EXAM: CT MAXILLOFACIAL WITHOUT IV CONTRAST, CT [...] Levels: No spinal canal stenosis or foraminal narrowing.[facility] IV [id number] 07:03:51EXAM: CT MAXILLOFACIAL WITHOUT IV CONTRAST, CT [...] No spinal canal stenosis or foraminal narrowing. [facility] pxzibloz0069-12-31 07:03:51EXAM: CT MAXILLOFACIAL WITHOUT IV CONTRAST, CT [...] Levels: No spinal canal stenosis or foraminal narrowing.[facility] IV [id number] 07:03:51EXAM: CT MAXILLOFACIAL WITHOUT IV CONTRAST, CT [...] No spinal canal stenosis or foraminal narrowing. [facility] IV [id number] 07:03:51EXAM: CT MAXILLOFACIAL WITHOUT IV CONTRAST, CT [...] Levels: No spinal canal stenosis or foraminal narrowing.[facility] CERVICAL WITHOUT IV [id number] 07:03:51 [facility] 1985 Sex: [...] Signed By: Jeanette Metz04/12/2023 07:05 CDTWorkstation Name: [id number] BRAIN WITHOUT IV [id number] 07:03:51 [facility] : 1985 Sex: [...] Signed By: Jeanette Metz04/12/2023 07:05 CDTWorkstation Name: [id number] MAXILLOFACIAL WITHOUT IV [id number] 07:03:51 [facility] : 1985 Sex: [...] acute fracture. Vertebral body heights arepreserved.Intervertebral Discs: No significant height loss.Craniocervical Junction: UnremarkableParaspinal Soft Tissues: Unremarkable. Included Lung Apices: UnremarkableIndividual Levels: No spinal canal stenosis or foraminal narrowing. IMPRESSION:1. No acute intracranial abnormality.2. Left facial soft tissue swelling without acute facial bone fracture.3. No acute osseous abnormality of the cervical spine.Electronically Signed By: Jeanette Metz04/12/2023 07:05 CDTWorkstation Name: [id number] 05:55:09 Test Item Value Reference Range Interpretation Comments ETHANOL (BEAKER) (test code = 400) 195 mg/dL <=10 H Hematologist Oncologist ID - PURAhCG, serum, [id number] 05:48:18 Test Item Value Reference Range Interpretation Comments Preg Test, Serum (test code = Negative 2109-09) [facility], serum, [id number] 05:48:18 Test Item Value Reference Range Interpretation Comments Preg Test, Serum (test code = Negative 2109-09) [facility], [id number] 05:48:18 Test Item Value Reference Range Interpretation Comments TEST SERUM (BEAKER) (test Negative code = 584) TROP-I HIGH [id number] 07:26:00 Test Item Value Reference Range Interpretation [...] > OR = 120 ng/mL TROP-I HIGH [id number] 06:46:00 Test Item Value Reference Range Interpretation [...] > OR = 120 ng/mL TROP-I HIGH [id number] 03:43:00 Test Item Value Reference Range Interpretation [...] EMALE > OR = 120 ng/mL Coronavirus 2018 nCoV [id number] 20:54:00 Test Item Value Reference Range Interpretation Comments Coronavirus 2019 Negative Negative Negative re sults should be nCoV Bedside treated as pres umptive and, (test code = ifinconsistent with clinical [id number]) signs and symp toms or necessaryfor pa [...] NOW COVID-19 assay performed on the ID NOWInstrument i s a rapid molecular in vi tro diagnostic testutilizing a n isothermal nucleic acid amplificationte chnology intended for e qualitative detection of nu cleicacid from the SARS-CoV-2 viral RNA in direct nasal,na sopharyngeal or throat swabs from individuals who aresuspected of COVID-19 by their healthcare prov ider withinthe first seven day s of the onset of symptoms. Te sting isauthorized fo r laboratories certified under the ClinicalLaborat ory Improvement Kezia ndments of 1987 (CLIA), DRUGS OF ABUSE SCREEN [id number] 19:37:00 Test Item Value Reference Range Interpretation [...] = NEGATIVE NEGATIVE PHENCU) - CT ANGIO [id number] 19:02:00 [facility] 1985 Sex: F FAX: Cedric Morrissey Jr [phone] [place]: [facility] St: PRE Name: PAOLA LEVI FSED : 1985 Age/S: 37/F [address] Unit: [id number] Loc: [place] [address] Phys: Cedric Morrissey Jr, MD Acct: [id number] Dis Date: Status: PRE ER PHONE #: Exam Date: 02/18/2023 6102 FAX #: Reason: tere of aneursym EXAMS: CPT CODE: [id number] CT ANGIO CHEST 97978 EXAM: - CT ANGIO CHEST LOCATION: H65 [...] specified, incidental findings do not require dedicated imaging follow-up. COMPARISON: None available. HISTORY: tere of aneurysm FINDINGS: THYROID: Normal. LYMPHADENOPATHY: There is no supraclavicular or axillary lymphadenopathy. No enlarged mediastinal or hilar ly mph nodes. AIRWAYS: Unremarkable. LUNGS/PLEURA: Minimal bibasilar atelectasis. No ground glass opacities or consolidations. No pleural effusion, pleural based masses, or calcifications. No suspicious pulmonary nodules. MEDIASTINUM: The heart and pericardium are unremarkable. There is motion artifact limiting evaluation of the ascending aorta, however the mid ascending portion appears to measure up to4.3 cm in diameter. No aortic atherosclerosis. No coronary artery calcifications. The pulmonary trunk is normal in size. The esophagus is grossly unremarkable. VISUALIZED ABDOMEN: The visualized upper abdomen is unremarkable. SOFT TISSUES: Loop recorder is seen at the left chest wall. PAGE 1 Signed Report (CONTINUED) FAX: Cedric Morrissey Jr [phone] [place]: [facility] St: PRE Name: PAOLA LEVI FSED : 1985 Age/S: 37/F [address] Unit: [id number] Loc: [place] [address] Phys: Apoorva Morrissey Jr, MD Acct: [id number] Dis Date: Status: PRE ER PHONE #: Exam Date: 02/18/2023 1810 FAX #: Reason: tere of aneursym EXAMS: CPT CODE: [id number] CT ANGIO CHEST 12370 (Continued) BONES: No acute osseous findings. IMPRESSION: Motion artifact limits evaluation of the thoracic aorta. Best estimate for measurement of the mid descending portion is 4.3 cm in diameter. Otherwise unremarkable exam of the chest. at 1902 Reported and signed by: Janee Flores MD CC: Cedric Morrissey Jr, MD Technologist: Suni Brown Trnscrd Dt/Tm: 02/18/2023 (1901) [email or web address] Electronic Signature Date/Time: 02/18/2023 (1901)Orig Print D/T: S: 02/18/2023 (19057.41 PAGE 2 Signed Report- CT HEAD/BRAIN W/O [id number] 18:49:00 [facility] : 1985 Sex: F FAX: Cedric Morrissey Jr [phone] [place]: [facility] St: PRE Name: PAOLA LEVI FSED : 1985 Age/S: 37/F [address] Unit: [id number] Loc: [place] [address] Phys: Cedric Morrissey Jr, MD Acct: [id number] Dis Date: Status: PRE ER PHONE #: Exam Date: 02/18/2023 9198 FAX #: Reason: headache EXAMS: CPT CODE: [id number] CT HEAD/BRAIN W/O CONT 82373 EXAM: - CT HEAD/BRAIN W/O CONT CLINICAL HISTORY:headache TECHNIQUE: Axial noncontrast CT images through the head were obtained. This examination wasperformed according to our departmental dose optimization program, which includes automated exposurecontrol, adjustment of the mA and/or kV according to patient size, and/or use of iterative reconstru ction technique. COMPARISON: CT head 04/29/2014 LOCATION: H65 FINDINGS: There is no intracranial hemorrhage or extra-axial fluid collections. No mass or midline shift. No hydrocephalus. The visualized paranasal sinuses and mastoid air cells are well aerated. The globes are intact and symmetric in volume. The skull is intact. IMPRESSION: No acute intracranial process. at 1849 Reported and signed by: Jamel Flores MD CC: Cedric Morrissey Jr, MD Technologist: Suni Brown Trnscrd Dt/Tm: 02/18/2023 (1848) [email or web address] Electronic Signature Date/Time: 02/18/2023 (479)Orig Print D/T: S: 02/18/2023 (3412 087.72 PAGE 1 Signed ReportTRMARKUS Ramachandran [id number] 17:59:00 Test Item Value Reference Range Interpretation Comments TROPONIN I RAPID (test code = < 0.05 ng/mL 0.00-0.05 N TROPIRAP) COMPREHENSIVE METABOLIC [id number] 17:51:00 Test Item Value Reference Range Interpretation [...] PHOSPHATASE (test code = ALKP) CBC W/AUTO [id number] 17:43:00 Test Item Value Reference Range Interpretation [...] = MX#) 0.5 0.1-0.6 N ECG 12 [id number] 21:23:00 Test Item Value Reference Range Interpretation [...] wave amplitude has increased in Lateral leads- [address]2023-05-02 21:23:00 Test Item Value Reference Range Interpretation [...] wave amplitude has increased in Lateral leads- [address]2023-05-02 21:23:00 Test Item Value Reference Range Interpretation [...] wave amplitude has increased in Lateral leads- [facility] ED Preliminary Interpretation - Not an [id number] 08:26:48 Test Item Value Reference Range Interpretation Comments ALEX (test code = ALEX) Jordan Bansal MD 09/19/2022 3:33 [facility] ED Preliminary Interpretation - Not an Order Performed by: Jordan Bansal MDAuthorized by: Jordan Bansal MD ECG reviewed by ED Physician in the absence of a form layer: yes Interpretation: Interpretation: abnormal Rate: ECG rate: 97 ECG rate assessment: normal Rhythm: Rhythm: sinus rhythm Ectopy: Ectopy: none QRS: QRS axis: Right QRS intervals: NormalConduction: Conduction: normal Comments: Likely limb lead reversal on EKG Lab Interpretation Abnormal (test code = 46519-8) [facility] ED Preliminary Interpretation - Not an [id number] 08:26:48 Test Item Value Reference Range Interpretation Comments ALEX (test code = ALEX) Jordan Bansal MD 09/19/2022 3:33 [facility] ED Preliminary Interpretation - Not an Order Performed by: Jordan Bansal MDAuthorized by: Jordan Bansal MD ECG reviewed by ED Physician in the absence of a form layer: yes Interpretation: Interpretation: abnormal Rate: ECG rate: 97 ECG rate assessment: normal Rhythm: Rhythm: sinus rhythm Ectopy: Ectopy: none QRS: QRS axis: Right QRS intervals: NormalConduction: Conduction: normal Comments: Likely limb lead reversal on EKG Lab Interpretation Abnormal (test code = 95602-0) [facility] ED Preliminary Interpretation - Not an [id number] 08:26:48 Test Item Value Reference Range Interpretation Comments ALEX (test code = ALEX) Jordan Bansal MD 09/19/2022 3:[facility] Preliminary Interpretation - Not an Order Performed by: Jordan Bansal MDAuthorized by: Jordan Bansal MD ECG reviewed by ED Physician in the absence of a form layer: yes Interpretation: Interpretation: abnormal Rate: ECG rate: 97 ECG rate assessment: normal Rhythm: Rhythm: sinus rhythm Ectopy: Ectopy: none QRS: QRS axis: Right QRS intervals: NormalConduction: Conduction: normal Comments: Likely limb lead reversal on EKG Lab Interpretation Abnormal (test code = 49033-4) [facility] [id number] 04:46:48 Test Item Value Reference Range Interpretation Comments SARS-CoV-2 (COVID-19) RNA Not detected [Presence] in Respiratory specimen by OBED with probe detection (test code = 86445-4) Whether patient resides in a No congregate care setting (test code = 38258-9) Date and time of symptom onset Unknown (test code = 88380-3) Whether the patient was No hospitalized for condition of interest (test code = 85230-7) Whether the patient was admitted No to intensive care unit (ICU) for condition of interest (test code = 49439-4) Whether patient is employed in a No healthcare setting (test code = 76391-2) Whether the patient has symptoms No related to condition of interest (test code = 42401-3) status (test code = No 91130-6) [facility] Chest 1 [id number] 02:04:04SINGLE VIEW CHEST Clinical History: Chest pain.Technique: Portable AP chest.Comparison: 06/12/2021 Impression:1.Lungs are clear and symmetrically inflated.2.No pleural effusions or pneumothorax.3.Normalheart size. Loop recorder over the left thorax.4.Normal pulmonary vasculature.5.Intact skeleton.[facility] Chest 1 [id number] 02:04:04SINGLE VIEW CHEST Clinical History: Chest pain.Technique: Portable AP chest.Comparison: 06/12/2021 Impression:1.Lungs are clear and symmetrically inflated.2.No pleural effusions or pneumothorax.3.Normal heart size. Loop recorder over the left thorax.4.Normal pulmonary vasculature.5.Intact skeleton.[facility] [id number] 05:20:00 Test Item Value Reference Range Interpretation Comments Glucose Lvl (test code = Glucose Lvl) 94 70-99 [facility] [id number] 05:20:00 Test Item Value Reference Range Interpretation Comments BUN (test code = BUN) 08 12- [place] 040263-04-07 05:20:00 Test Item Value Reference Range Interpretation Comments Creatinine Lvl (test code = Creatinine 0.75 0.50-1.40 Lvl) [place] 040263-04-07 05:20:00 Test Item Value Reference Range Interpretation Comments Sodium Lvl (test code = Sodium Lvl) 135 135-145 [place] 040263-04-07 05:20:00 Test Item Value Reference Range Interpretation Comments Potassium Lvl (test code = Potassium 3.8 3.5-5.1 Lvl) [place] 040263-04-07 05:20:00 Test Item Value Reference Range Interpretation Comments Chloride Lvl (test code = Chloride Lvl) 107 95-109 [place] 040263-04-07 05:20:00 Test Item Value Reference Range Interpretation Comments CO2 (test code = CO2) 24 24-32 [place] 040263-04-07 05:20:00 Test Item Value Reference Range Interpretation Comments AGAP (test code = AGAP) 7.8 10.0-20.0 [place] 040263-04-07 05:20:00 Test Item Value Reference Range Interpretation Comments Calcium Lvl (test code = Calcium Lvl) 8.2 8.5-10.5 [facility]2023-04-07 05:20:00 Test Item Value Reference Range Interpretation Comments eGFR (test code = eGFR) 104 [place] 040263-04-07 05:20:00 Test Item Value Reference Range Interpretation Comments Magnesium Lvl (test code = Magnesium 2.0 1.8-2.4 Lvl) [place] 040263-04-07 05:20:00 Test Item Value Reference Range Interpretation Comments Phosphorus (test code = Phosphorus) 3.6 2.5-4.5 [place] 472913-04-07 05:20:00 Test Item Value Reference Range Interpretation Comments Glucose Lvl (test code = Glucose Lvl) 94 70-99 [place] 472913-04-07 05:20:00 Test Item Value Reference Range Interpretation Comments BUN (test code = BUN) 21 7- [place] 472913-04-07 05:20:00 Test Item Value Reference Range Interpretation Comments Creatinine Lvl (test code = Creatinine 0.75 0.50-1.40 Lvl) [facility] Ho[id number] 05:20:00 Test Item Value Reference Range Interpretation Comments Sodium Lvl (test code = Sodium Lvl) 135 135-[address] [facility] HospitalGhehcsyPBDPWPQQC8900-47-98 05:20:00 Test Item Value Reference Range Interpretation Comments Potassium Lvl (test code = Potassium 3.8 3.5-5.1 Lvl) [facility] HospitalDiigllyYFPYMPGEI3485-99-62 05:20:00 Test Item Value Reference Range Interpretation Comments Chloride Lvl (test code = Chloride Lvl) 107 95-[address] [facility] HospitalCluydciXEEFHFYZZ0246-15-77 05:20:00 Test Item Value Reference Range Interpretation Comments CO2 (test code = CO2) 24 24-[address] [facility] HospitalSryxmveNCCMZXEMJ4602-68-17 05:20:00 Test Item Value Reference Range Interpretation Comments AGAP (test code = AGAP) 7.8 10.0-20.[address] [facility] HospitalUuwhvgaKMGUZZEMB5133-76-53 05:20:00 Test Item Value Reference Range Interpretation Comments Calcium Lvl (test code = Calcium Lvl) 8.2 8.5-10.[address] [facility] HospitalSzuyznbHWTDARUBV0014-99-04 05:20:00 Test Item Value Reference Range Interpretation Comments eGFR (test code = eGFR) [address] [facility] HospitalZwvdiouMSUITQTOM8691-64-77 05:20:00 Test Item Value Reference Range Interpretation Comments Magnesium Lvl (test code = Magnesium 2.0 1.8-2.4 Lvl) [facility] HospitalRxdafpqSDUYWRUXE6032-32-40 05:20:00 Test Item Value Reference Range Interpretation Comments Phosphorus (test code = Phosphorus) 3.6 2.5-4.5 [facility]XtqhavuKAHFRAWCQL7196-44-65 05:20:00 Test Item Value Reference Range Interpretation Comments WBC (test code = WBC) 7.3 3.7-10.4 [facility]landOcmfskpLXKORIOQPY7018-49-09 05:20:00 Test Item Value Reference Range Interpretation Comments RBC (test code = RBC) 4.09 4.20-5.40 [facility]landLszvfevUEFXOYSAYB8413-69-69 05:20:00 Test Item Value Reference Range Interpretation Comments Hgb (test code = Hgb) 13.1 12.0-16.0 [facility]landSinbrhjGBJLHRZZSF5014-19-25 05:20:00 Test Item Value Reference Range Interpretation Comments Hct (test code = Hct) 38.6 36.0-48.0 [facility]landXtrjqxoRGCWTCSXYL3315-86-60 05:20:00 Test Item Value Reference Range Interpretation Comments MCV (test code = MCV) 94.4 80.0-98.0 [facility]landKmsfuepQLQYSDFBXZ6486-35-74 05:20:00 Test Item Value Reference Range Interpretation Comments MCH (test code = MCH) 32.2 pg 27.0-31.0 [facility]landXyrwjnbTGTKGAKYTJ3930-96-46 05:20:00 Test Item Value Reference Range Interpretation Comments MCHC (test code = MCHC) 34.1 32.0-36.0 [facility]landGmiilfvQUYQHZENKU8722-63-95 05:20:00 Test Item Value Reference Range Interpretation Comments RDW (test code = RDW) 13.4 11.5-14.5 [facility]landVijfrwzPGWOFAEEHO7480-12-31 05:20:00 Test Item Value Reference Range Interpretation Comments Platelet (test code = Platelet) 230 133-450 [facility]landPaffmgiZTRXQVOMOX5655-45-25 05:20:00 Test Item Value Reference Range Interpretation Comments MPV (test code = MPV) 7.5 7.4-10.4 [facility]landFqmbhwgZOXXSCGECA8445-85-12 05:20:00 Test Item Value Reference Range Interpretation Comments WBC (test code = WBC) 7.3 3.7-10.4 [facility]landGgoafbwHKQGTPVJGD3236-86-11 05:20:00 Test Item Value Reference Range Interpretation Comments RBC (test code = RBC) 4.09 4.20-5.40 [facility]landFcxdbinKLISKBQSLA3651-36-43 05:20:00 Test Item Value Reference Range Interpretation Comments Hgb (test code = Hgb) 13.1 12.0-16.0 [facility]landYzchsahOJXCKHMMXS2302-15-46 05:20:00 Test Item Value Reference Range Interpretation Comments Hct (test code = Hct) 38.6 36.0-48.0 [facility]landJdueizoPOGQDFKRWY7113-11-25 05:20:00 Test Item Value Reference Range Interpretation Comments MCV (test code = MCV) 94.4 80.0-98.0 [place] 971843-04-07 05:20:00 Test Item Value Reference Range Interpretation Comments MCH (test code = MCH) 32.2 pg 27.0-31.0 [facility] LgmkwfkSFTRHUFWQA1774-70-49 05:20:00 Test Item Value Reference Range Interpretation Comments MCHC (test code = MCHC) 34.1 32.0-36.0 [facility] VtemvtsITUYPSBPRD3793-36-26 05:20:00 Test Item Value Reference Range Interpretation Comments RDW (test code = RDW) 13.4 11.5-14.5 [facility] MezmansVVVCMPGMWY1353-72-18 05:20:00 Test Item Value Reference Range Interpretation Comments Platelet (test code = Platelet) 230 133-450 [facility] BtqajxnIGNEDMBCXX8802-83-48 05:20:00 Test Item Value Reference Range Interpretation Comments MPV (test code = MPV) 7.5 7.4-10.4 [employer] KGHQIGN0449-14-82 05:52:00 Test Item Value Reference Range Interpretation Comments ABO/Rh (test code = ABO/Rh) A POS [employer] RLGIXAZ0635-55-90 05:52:00 Test Item Value Reference Range Interpretation Comments Antibody Scrn (test Negative (08/24/22 12:52 code = Antibody Scrn) AM) [employer] UPJCURA6059-24-42 05:52:00 Test Item Value Reference Range Interpretation Comments ABO/Rh (test code = ABO/Rh) A POS [employer] LNRJFPV5384-00-35 05:52:00 Test Item Value Reference Range Interpretation Comments Antibody Scrn (test Negative (08/24/22 12:52 code = Antibody Scrn) AM) [employer] UYHYL2672-95-57 05:52:00 Test Item Value Reference Range Interpretation Comments Phosphorus (test code = Phosphorus) 2.6 2.5-4.5 [employer]2023-04-06 05:52:00 Test Item Value Reference Range Interpretation Comments Magnesium Lvl (test code = Magnesium 2.3 1.8-2.4 Lvl) [employer]2023-04-06 05:52:00 Test Item Value Reference Range Interpretation Comments Glucose Lvl (test code = Glucose Lvl) 148 70-99 [employer]2023-04-06 05:52:00 Test Item Value Reference Range Interpretation Comments BUN (test code = BUN) 18 7-22 [place] 040263-04-06 05:52:00 Test Item Value Reference Range Interpretation Comments Creatinine Lvl (test code = Creatinine 0.81 0.50-1.40 Lvl) [place] 040263-04-06 05:52:00 Test Item Value Reference Range Interpretation Comments Sodium Lvl (test code = Sodium Lvl) 133 135-145 [place] 040263-04-06 05:52:00 Test Item Value Reference Range Interpretation Comments Potassium Lvl (test code = Potassium 4.3 3.5-5.1 Lvl) [place] 040263-04-06 05:52:00 Test Item Value Reference Range Interpretation Comments Chloride Lvl (test code = Chloride Lvl) 106 95-109 [place] 040263-04-06 05:52:00 Test Item Value Reference Range Interpretation Comments CO2 (test code = CO2) 23 24-32 [place] 040263-04-06 05:52:00 Test Item Value Reference Range Interpretation Comments Calcium Lvl (test code = Calcium Lvl) 8.6 8.5-10.5 [place] 040263-04-06 05:52:00 Test Item Value Reference Range Interpretation Comments AGAP (test code = AGAP) 8.3 10.0-20.0 [facility]2023-04-06 05:52:00 Test Item Value Reference Range Interpretation Comments eGFR (test code = eGFR) 95 [facility]landBtpojngZZBBJOVCWK6769-07-30 05:52:00 Test Item Value Reference Range Interpretation Comments WBC (test code = WBC) 11.0 3.7-10.4 [place] 971843-04-06 05:52:00 Test Item Value Reference Range Interpretation Comments RBC (test code = RBC) 4.09 4.20-5.40 [place] 971843-04-06 05:52:00 Test Item Value Reference Range Interpretation Comments Hgb (test code = Hgb) 13.0 12.0-16.0 [place] 971843-04-06 05:52:00 Test Item Value Reference Range Interpretation Comments Hct (test code = Hct) 38.4 36.0-48.0 [place] 971843-04-06 05:52:00 Test Item Value Reference Range Interpretation Comments MCV (test code = MCV) 94.0 80.0-98.0 [facility]landMhkoqbmQYAETFSWYE7961-61-59 05:52:00 Test Item Value Reference Range Interpretation Comments MCH (test code = MCH) 31.9 pg 27.0-31.0 [facility]landTnppntqFSDSIZZEPG5410-83-55 05:52:00 Test Item Value Reference Range Interpretation Comments MCHC (test code = MCHC) 33.9 32.0-36.0 [facility]landFnrjgymAKSUOETXJM2294-45-10 05:52:00 Test Item Value Reference Range Interpretation Comments RDW (test code = RDW) 13.2 11.5-14.5 [facility]landHknpyeiUBMWAQJJEQ9754-78-41 05:52:00 Test Item Value Reference Range Interpretation Comments Platelet (test code = Platelet) 270 133-450 [facility]landAvsnzutLLHRZJLABG8950-48-63 05:52:00 Test Item Value Reference Range Interpretation Comments MPV (test code = MPV) 7.7 7.4-10.4 [facility]pSJJJWK2267-69-11 19:02:55 Test Item Value Reference Range Interpretation [...] frontal regions.. No evidence of acute infarct. [place] 040263-04-05 05:14:00 Test Item Value Reference Range Interpretation Comments Phosphorus (test code = Phosphorus) 2.0 2.5-4.5 [place] 040263-04-05 05:14:00 Test Item Value Reference Range Interpretation Comments Glucose Lvl (test code = Glucose Lvl) 157 70-99 [place] 040263-04-05 05:14:00 Test Item Value Reference Range Interpretation Comments BUN (test code = BUN) 13 7-22 [place] 040263-04-05 05:14:00 Test Item Value Reference Range Interpretation Comments Creatinine Lvl (test code = Creatinine 0.90 0.50-1.40 Lvl) [place] 040263-04-05 05:14:00 Test Item Value Reference Range Interpretation Comments Sodium Lvl (test code = Sodium Lvl) 134 135-145 [place] 040263-04-05 05:14:00 Test Item Value Reference Range Interpretation Comments Potassium Lvl (test code = Potassium 4.0 3.5-5.1 Lvl) [place] 040263-04-05 05:14:00 Test Item Value Reference Range Interpretation Comments Chloride Lvl (test code = Chloride Lvl) 102 95-109 [place] 040263-04-05 05:14:00 Test Item Value Reference Range Interpretation Comments CO2 (test code = CO2) 25 24-32 [place] 040263-04-05 05:14:00 Test Item Value Reference Range Interpretation Comments AGAP (test code = AGAP) 11.0 10.0-20.0 [place] 040263-04-05 05:14:00 Test Item Value Reference Range Interpretation Comments Calcium Lvl (test code = Calcium Lvl) 8.8 8.5-10.5 [place] 040263-04-05 05:14:00 Test Item Value Reference Range Interpretation Comments eGFR (test code = eGFR) 84 [place] 040263-04-05 05:14:00 Test Item Value Reference Range Interpretation Comments Magnesium Lvl (test code = Magnesium 1.9 1.8-2.4 Lvl) [facility]landWceazmwMTZRQSCAAD4228-07-38 05:14:00 Test Item Value Reference Range Interpretation Comments WBC (test code = WBC) 6.8 3.7-10.4 [facility]landPyxxngsDGWVJGNAIV1207-37-54 05:14:00 Test Item Value Reference Range Interpretation Comments RBC (test code = RBC) 4.21 4.20-5.40 [facility]landPeasmdlMBWXEHDDJV1788-82-44 05:14:00 Test Item Value Reference Range Interpretation Comments Hgb (test code = Hgb) 13.3 12.0-16.0 [facility]landOnmlebjWRELOIXIDN1981-72-96 05:14:00 Test Item Value Reference Range Interpretation Comments Hct (test code = Hct) 39.2 36.0-48.0 [facility]landRwwhqfeUCMGNKXWJV2001-83-85 05:14:00 Test Item Value Reference Range Interpretation Comments MCV (test code = MCV) 93.1 80.0-98.0 [facility]landFnqhmpxWVJXEUIHGR4791-76-53 05:14:00 Test Item Value Reference Range Interpretation Comments MCH (test code = MCH) 31.6 pg 27.0-31.0 [facility]landJabatkvBXVXKXXHMB3320-23-11 05:14:00 Test Item Value Reference Range Interpretation Comments MCHC (test code = MCHC) 33.9 32.0-36.0 [facility]landUekwkfpVIAEJHXFVJ4230-19-12 05:14:00 Test Item Value Reference Range Interpretation Comments RDW (test code = RDW) 13.2 11.5-14.5 [facility]landUpqujvfKKNVAVNHEE8322-52-07 05:14:00 Test Item Value Reference Range Interpretation Comments Platelet (test code = Platelet) 285 133-450 [facility]landXvyeavsSYWSWBUEVF8151-08-35 05:14:00 Test Item Value Reference Range Interpretation Comments MPV (test code = MPV) 7.5 7.4-10.4 [facility]landYjnuohkJAWWSQYDGO9303-23-35 14:36:00 Test Item Value Reference Range Interpretation Comments PT (test code = PT) 13.2 s 12.0-14.7 [facility]landHalnmrqZJNLJCFXNN0661-13-45 14:36:00 Test Item Value Reference Range Interpretation Comments INR (test code = INR) 1.00 1 0.85-1.17 [facility]landVphprniCGZAYQGXOF7148-89-80 14:36:00 Test Item Value Reference Range Interpretation Comments PTT (test code = PTT) 25.0 s 22.9-35.8 [facility]landEriygswRGJADLPDNC4565-86-58 14:36:00 Test Item Value Reference Range Interpretation Comments PT (test code = PT) 13.2 s 12.0-14.7 [facility]landFtwrjqoKJJLELBAAL1113-67-25 14:36:00 Test Item Value Reference Range Interpretation Comments INR (test code = INR) 1.00 1 0.85-1.17 [facility]landYjuwttlJMXPZHSRDK3722-71-23 14:36:00 Test Item Value Reference Range Interpretation Comments PTT (test code = PTT) 25.0 s 22.9-35.[address] [facility] HospitalXefuqywKNYISZEYK5261-27-08 06:29:00 Test Item Value Reference Range Interpretation Comments Trig (test code = Trig) [address] HospitalYhddirePKTZQKVEI4999-29-62 06:29:00 Test Item Value Reference Range Interpretation Comments Chol (test code = Chol) [address] [facility] HospitalDzpjxbgDNJYKPBAY3007-64-97 06:29:00 Test Item Value Reference Range Interpretation Comments HDL (test code = HDL) [address] HospitalGzzqhfdMBGVVHKVD4679-39-93 06:29:00 Test Item Value Reference Range Interpretation Comments Chol/HDL Ratio (test code = Chol/HDL 2.25 1 3.90-5.80 Ratio) [facility] HospitalQkbiowkVDRSKXMGN9015-67-09 06:29:00 Test Item Value Reference Range Interpretation Comments LDL (Calculated) (test code = LDL 73 (Calculated)) [facility] HospitalKhkwsrtYFESDUTDB6745-30-87 06:29:00 Test Item Value Reference Range Interpretation Comments VLDL (test code = VLDL) [address] [facility] HospitalSmjabytLXGSFJMKS1152-02-10 06:29:00 Test Item Value Reference Range Interpretation Comments Hgb A1C (test code = Hgb A1C) 5.3 [facility]YzhhmlePAAXZN8679-72-82 06:29:00 Test Item Value Reference Range Interpretation Comments Trig (test code = Trig) 89 [facility]KdfmgiaMZYPLN9381-75-91 06:29:00 Test Item Value Reference Range Interpretation Comments Chol (test code = Chol) 164 [facility] AntonioBjxbzlxHFUTXZ7337-70-27 06:29:00 Test Item Value Reference Range Interpretation Comments HDL (test code = HDL) 73 [facility] CenterHnwzttbSMHTHB1982-59-76 06:29:00 Test Item Value Reference Range Interpretation Comments Chol/HDL Ratio (test code = Chol/HDL 2.25 1 3.90-5.80 Ratio) [facility] CenterBorgaulXWMPDL9153-17-81 06:29:00 Test Item Value Reference Range Interpretation Comments LDL (Calculated) (test code = LDL 73 (Calculated)) [facility] CenterYcijczgPCSRVZ8291-34-40 06:29:00 Test Item Value Reference Range Interpretation Comments VLDL (test code = VLDL) 18 1 [facility] IQUQTZUSE3326-64-91 06:29:00 Test Item Value Reference Range Interpretation Comments Hgb A1C (test code = Hgb A1C) 5.3 [facility] CenterHguazvoGRITOXIOQO5810-61-30 04:50:00 Test Item Value Reference Range Interpretation Comments Coronavirus (COVID-19) Not Detected (08/20/22 OBED (test code = 11:50 PM) Coronavirus (COVID-19) OBED) [facility] LakeEjudhxoEGGKQEGJXQ5012-36-31 04:50:00 Test Item Value Reference Range Interpretation Comments Coronavirus (COVID-19) Not Detected (08/20/22 OBED (test code = 11:50 PM) Coronavirus (COVID-19) OBED) [place] 83421023-04-02 22:46:49 Test Item Value Reference Range Interpretation [...] source images are also presented for interpretation. [employer] was used in the care of this patient.IV contrast: Refer to MAR/lab technologist documentationDLP: Refer to CT protocol formFINDINGS:NECK [...] distal internal carotid artery {NASCET criteria}.)[facility]15 Test Item Value Reference Range Interpretation [...] acute abnormality.IMPRESSION: 1. No acute abnormality.[facility] 19:40:58 Test Item Value Reference Range Interpretation [...] the left parietal white matter.UT SECTION: [facility] ChildrenannCARDIAC LANQCOC9666-77-56 19:00:00 Test Item Value Reference Range Interpretation Comments HS Troponin I (test code = HS Troponin 4 I) [facility] ChildrenIsqcgcgJGCVLXFBJ2588-70-83 19:00:00 Test Item Value Reference Range Interpretation Comments HS Troponin I (test code = HS Troponin 4 I) [facility] CenterTawcttaBWABYRFOD4178-98-66 19:00:00 Test Item Value Reference Range Interpretation Comments S Preg (test code = S Negative *NA*(08/20/22 Preg) 2:00 PM) [facility] CenterZzzhphfRIZGLBODZNULR9710-71-29 19:00:00 Test Item Value Reference Range Interpretation Comments S Preg (test code = S Negative *NA*(08/20/22 Preg) 2:00 PM) [facility] CenterYajzltuGWCQUKTBKC3979-21-60 19:00:00 Test Item Value Reference Range Interpretation Comments Segs (test code = Segs) 64.8 45.0-75.0 [facility] CenterUjkeqwhBMTQXABMOF6520-75-00 19:00:00 Test Item Value Reference Range Interpretation Comments Lymphocytes (test code = Lymphocytes) 25.8 20.0-40.[address] [facility]LmygariLDIYCFBFDF9018-32-21 19:00:00 Test Item Value Reference Range Interpretation Comments Monocytes (test code = Monocytes) 7.9 2.0-12.[address] [facility] HospitalOpdlhimYKNNQQWEVB3950-83-56 19:00:00 Test Item Value Reference Range Interpretation Comments Eosinophils (test code = 1.0 See_Comment [A utomated message] The Eosinophils) system which ge nerated this result tra nsmitted reference range : <=4.0. The reference r gonzales was not used to int erpret this result as normal/abnormal . [facility] HospitalFsxiwaiHNMCIHABJX7157-77-09 19:00:00 Test Item Value Reference Range Interpretation Comments Basophils (test code = 0.5 See_Comment [Aut omated message] The Basophils) system which ge nerated this result tra nsmitted reference range : <=1.0. The reference r gonzales was not used to int erpret this result as normal/abnormal . [facility] HospitalFrkuwikSVLATNAXUT6991-74-30 19:00:00 Test Item Value Reference Range Interpretation Comments Neutrophils # (test code = Neutrophils 4.1 1.5-8.1 #) [facility]landZjhciitNYERCRJUAQ8798-06-26 19:00:00 Test Item Value Reference Range Interpretation Comments Lymphocytes # (test code = Lymphocytes 1.6 1.0-5.5 #) [place] [address]-04-02 19:00:00 Test Item Value Reference Range Interpretation Comments Monocytes # (test code 0.5 See_Comment [Aut omated message] The = Monocytes #) system which generated this result tra nsmitted reference range : <=0.8. The reference r gonzales was not used to int erpret this result as normal/abnormal . [place] [address]-04-02 19:00:00 Test Item Value Reference Range Interpretation Comments Eosinophils # (test code 0.1 See_Comment [A utomated message] The = Eosinophils #) system whic h generated this result tra nsmitted reference range : <=0.5. The reference r gonzales was not used to int erpret this result as normal/abnormal . [place] 971843-04-02 19:00:00 Test Item Value Reference Range Interpretation Comments Segs (test code = Segs) 64.8 45.0-75.0 [place] [address]-04-02 19:00:00 Test Item Value Reference Range Interpretation Comments Lymphocytes (test code = Lymphocytes) 25.8 20.0-40.0 [place] [address]-04-02 19:00:00 Test Item Value Reference Range Interpretation Comments Monocytes (test code = Monocytes) 7.9 2.0-12.0 [place] [address]-04-02 19:00:00 Test Item Value Reference Range Interpretation Comments Eosinophils (test code = 1.0 See_Comment [A utomated message] The Eosinophils) system which ge nerated this result tra nsmitted reference range : <=4.0. The reference r gonzales was not used to int erpret this result as normal/abnormal . [facility]landQmqmdzwITSUCHLUQQ3536-75-51 19:00:00 Test Item Value Reference Range Interpretation Comments Basophils (test code = 0.5 See_Comment [Aut omated message] The Basophils) system which ge nerated this result tra nsmitted reference range : <=1.0. The reference r gonzales was not used to int erpret this result as normal/abnormal . [facility]landMxyuougSDLJYZRHLJ5241-05-67 19:00:00 Test Item Value Reference Range Interpretation Comments Neutrophils # (test code = Neutrophils 4.1 1.5-8.1 #) [facility]landBvuispsQVVNHFJGWG5990-05-01 19:00:00 Test Item Value Reference Range Interpretation Comments Lymphocytes # (test code = Lymphocytes 1.6 1.0-5.5 #) [place] [address]-04-02 19:00:00 Test Item Value Reference Range Interpretation Comments Monocytes # (test code 0.5 See_Comment [Aut omated message] The = Monocytes #) system which generated this result tra nsmitted reference range : <=0.8. The reference r gonzales was not used to int erpret this result as normal/abnormal . [place] [address]-04-02 19:00:00 Test Item Value Reference Range Interpretation Comments Eosinophils # (test code 0.1 See_Comment [A utomated message] The = Eosinophils #) system whic h generated this result tra nsmitted reference range : <=0.5. The reference r gonzales was not used to int erpret this result as normal/abnormal . [place] [address]-04-02 18:53:00 Test Item Value Reference Range Interpretation Comments Hep C Ab (test code = Hep C Ab) NON-REACTIVE [place] [address]-04-02 18:53:00 Test Item Value Reference Range Interpretation Comments Hep Signal to Cut-Off (test code = Hep 0.03 1 Signal to Cut-Off) [place] [address]-04-02 18:53:00 Test Item Value Reference Range Interpretation Comments [facility] HIV 4th GEN (test Negative *NA*(08/20/22 code = CDC HIV 4th 1:53 PM) GEN) [place] [address]-04-02 18:53:00 Test Item Value Reference Range Interpretation Comments Hep C Ab (test code = Hep C Ab) NON-REACTIVE [place] [address]-04-02 18:53:00 Test Item Value Reference Range Interpretation Comments Hep Signal to Cut-Off (test code = Hep 0.03 1 Signal to Cut-Off) [place] [address]-04-02 18:53:00 Test Item Value Reference Range Interpretation Comments CDC HIV 4th GEN (test Negative *NA*(08/20/22 code = CDC HIV 4th 1:53 PM) GEN) Max PachecoBqjhvdbPEHBBZ4435-69-75 00:11:30 Test Item Value Reference Range Interpretation [...] acute cardiopulmonary abnormality. [facility] W/REFLEX TO [id number] 09:00:00 Test Item Value Reference Range Interpretation Comments TSH W/REFLEX mIU/L ? TO FT4 (test ?Reference Rang e ? code = 3016-3) ?> or = 20 Years ?0.40-4.50 ? Range s ?First trimester ? ?0.26-2.66 ?Second trimest er ? 0.55-2.73 ?[address] ? ?0.43-2.91 REPORT COMMENT:FASTING :YE Dawson RG (test code Performing = RAC) Organization Information: ? ?Site ID: RGA ? ?Name: [employer] ? ?Address: [address] [place] [phone] ? ?Director: ALEC MURRAY MD [facility] [id number] 09:00:00 Test Item Value Reference Range Interpretation Comments GLUCOSE (test code 94 mg/dL 65-99 ? = 2345-7) Fasting referen ce interval UREA NITROGEN 13 mg/dL 7-25 (BUN) (test code = 3094-0) CREATININE (test 0.82 mg/dL 0.50-1.10 code = 2160-0) eGFR NON- See_Comment [Automated NAMIBIAN (test message] The code = 28899-1) system which generated this result transmitted reference range : > OR = 60 mL/min/1.73m2. The reference range was not used to interpr et this result as normal/abnormal . eGFR See_Comment [Automated NAMIBIAN (test message] The code = 10915-0) system which generated this result transmitted reference [...] DIOXIDE 27 mmol/L 20-32 (test code = 2027-9) CALCIUM (test code 9.7 mg/dL 8.6-10.2 = 67660-5) PROTEIN, TOTAL 7.7 g/dL 6.1-8.1 (test code = 2885-2) ALBUMIN (test code 4.7 g/dL 3.6-5.1 = 1751-7) GLOBULIN (test See_Comment [Automated code = 51532-3) message] The system which generated this result [...] Performing RAC) Organization Information: ? ?Site ID: RGA ? ?Name: [employer] ? ?Address: [address] [place] [phone] ? ?Director: LAEC MURRAY MD [place] HealthAMYL[facility] AND [id number] 07:00:00 Test Item Value Reference Range Interpretation Comments AMYLASE (test code = 22 U/L 21-101 1798-8) LIPASE (test code = 11 U/L 7-60 3040-3) RAC (test code = Performing Organization RAC) Information: ? ?Site ID: RGA ? ?Name: [employer] ? ?Address: [address] [place] [phone] ? ?Director: ALEC MURRAY MD [place] [facility] [id number] 01:30:00 Test Item Value Reference Range Interpretation Comments Troponin-I (test code no gt See_Comment [Auto mated message] The = Troponin-I) system which g enerated this result transmit amy reference range : <=0.40. The reference r gonzales was not used to interpr et this result as ellyn l/abnormal. [facility]2021-09-06 01:30:00 Test Item Value Reference Range Interpretation Comments Glucose Lvl (test code = Glucose Lvl) 86 70-99 [facility]2021-09-06 01:30:00 Test Item Value Reference Range Interpretation Comments BUN (test code = BUN) 15 7-22 [place] 040261-09-06 01:30:00 Test Item Value Reference Range Interpretation Comments Creatinine Lvl (test code = Creatinine 0.80 0.50-1.40 Lvl) [facility]2021-09-06 01:30:00 Test Item Value Reference Range Interpretation Comments Sodium Lvl (test code = Sodium Lvl) 137 135-145 [facility]2021-09-06 01:30:00 Test Item Value Reference Range Interpretation Comments Potassium Lvl (test code = Potassium 4.9 3.5-5.1 Lvl) [facility]2021-09-06 01:30:00 Test Item Value Reference Range Interpretation Comments Chloride Lvl (test code = Chloride Lvl) 104 95-109 [facility]2021-09-06 01:30:00 Test Item Value Reference Range Interpretation Comments CO2 (test code = CO2) 25 24-32 [place] 040261-09-06 01:30:00 Test Item Value Reference Range Interpretation Comments Calcium Lvl (test code = Calcium Lvl) 8.8 8.5-10.5 [place] 040261-09-06 01:30:00 Test Item Value Reference Range Interpretation Comments Total Protein (test code = Total 7.8 6.4-8.4 Protein) [facility]2021-09-06 01:30:00 Test Item Value Reference Range Interpretation Comments Albumin Lvl (test code = Albumin Lvl) 3.9 3.5-5.0 [place] 040261-09-06 01:30:00 Test Item Value Reference Range Interpretation Comments ALANINE AMINOTRANSFERASE 17 See_Comment [A utomated message] (test code = ALANINE The sys tem which AMINOTRANSFERASE) generated this result transmitted ref erence range: <=65. Th e reference range was not used to int erpret this result as normal/abnormal . [facility] [id number] 01:30:00 Test Item Value Reference Range Interpretation Comments ASPARTATE TRANSAMINASE 34 See_Comment [Aut omated message] (test code = ASPARTATE The s ystem which TRANSAMINASE) generated this result transmitted ref erence range: <=37. Th e reference range was not used to interpr et this result as normal/abnormal . [facility] [id number] 01:30:00 Test Item Value Reference Range Interpretation Comments Alk Phos (test code = Alk Phos) 111 39-136 [facility] [id number] 01:30:00 Test Item Value Reference Range Interpretation Comments Bili Total (test code = Bili Total) 0.6 0.2-1.3 [place] 040261-09-06 01:30:00 Test Item Value Reference Range Interpretation Comments AGAP (test code = AGAP) 12.9 10.0-20.0 [facility] [id number] 01:30:00 Test Item Value Reference Range Interpretation Comments B/C Ratio (test code = B/C Ratio) 19 1 6-25 [place] 040261-09-06 01:30:00 Test Item Value Reference Range Interpretation Comments Globulin (test code = Globulin) 3.9 2.7-4.2 [facility] [id number] 01:30:00 Test Item Value Reference Range Interpretation Comments A/G Ratio (test code = A/G Ratio) 1.0 1 0.7-1.6 [facility] ChildrenAut[facility]ook NowJEFFREY [place] [address]89IHYXP3688-25-60 01:30:00 Test Item Value Reference Range Interpretation Comments eGFR (test code = eGFR) 94 [place] 040261-09-06 01:30:00 Test Item Value Reference Range Interpretation Comments Procalcitonin Lvl (test no gt See_Comment [Au tomated message] code = Procalcitonin Lvl) Th e system which generated this result transmitted ref erence range: <=0.10. The reference range was not used to interpr et this result as normal/abnormal . [place] 971841-09-06 01:30:00 Test Item Value Reference Range Interpretation Comments WBC X 10x3 (test code = WBC X 10x3) 6.9 3.7-10.4 [place] 971841-09-06 01:30:00 Test Item Value Reference Range Interpretation Comments RBC X 10x6 (test code = RBC X 10x6) 4.51 4.20-5.40 [place] 971841-09-06 01:30:00 Test Item Value Reference Range Interpretation Comments Hgb (test code = Hgb) 14.5 12.0-16.0 [place] 971841-09-06 01:30:00 Test Item Value Reference Range Interpretation Comments Hct (test code = Hct) 42.6 36.0-48.0 [place] 971841-09-06 01:30:00 Test Item Value Reference Range Interpretation Comments MCV (test code = MCV) 94.4 80.0-98.0 [place] 971841-09-06 01:30:00 Test Item Value Reference Range Interpretation Comments MCH (test code = MCH) 32.1 pg 27.0-31.0 [place] 971841-09-06 01:30:00 Test Item Value Reference Range Interpretation Comments MCHC (test code = MCHC) 34.0 32.0-36.0 [place] 971841-09-06 01:30:00 Test Item Value Reference Range Interpretation Comments RDW (test code = RDW) 13.4 11.5-14.5 [place] 971841-09-06 01:30:00 Test Item Value Reference Range Interpretation Comments Platelet (test code = Platelet) 255 133-450 [place] 971841-09-06 01:30:00 Test Item Value Reference Range Interpretation Comments MPV (test code = MPV) 7.4 7.4-10.4 [place] 971841-09-06 01:30:00 Test Item Value Reference Range Interpretation Comments PROTIME (test code = PROTIME) 12.0 s 12.0-14.7 [place] 971841-09-06 01:30:00 Test Item Value Reference Range Interpretation Comments INR (test code = INR) 0.89 1 0.85-1.17 [place] 971841-09-06 01:30:00 Test Item Value Reference Range Interpretation Comments aPTT (test code = aPTT) 23.6 s 22.9-35.8 [place] 971841-09-06 01:30:00 Test Item Value Reference Range Interpretation Comments Segs (test code = Segs) 51.1 45.0-75.0 [place] 971841-09-06:30:00 Test Item Value Reference Range Interpretation Comments Lymphocytes (test code = Lymphocytes) 35.4 20.0-40.0 [place] 971841-09-06 01:30:00 Test Item Value Reference Range Interpretation Comments Monocytes (test code = Monocytes) 9.0 2.0-12.0 [place] 971841-09-06 01:30:00 Test Item Value Reference Range Interpretation Comments Eosinophils (test code = 4.0 See_Comment [A utomated message] The Eosinophils) system which ge nerated this result tra nsmitted reference range : <=4.0. The reference r gonzales was not used to int erpret this result as normal/abnormal . [facility]LgyznhtZLAMROCBQU8162-49-35 01:30:00 Test Item Value Reference Range Interpretation Comments Basophils (test code = 0.5 See_Comment [Aut omated message] The Basophils) system which ge nerated this result tra nsmitted reference range : <=1.0. The reference r gonzales was not used to int erpret this result as normal/abnormal . [place] 971841-09-06 01:30:00 Test Item Value Reference Range Interpretation Comments Neutrophils # (test code = Neutrophils 3.5 1.5-8.1 #) [place] 971841-09-06 01:30:00 Test Item Value Reference Range Interpretation Comments Lymphocytes # (test code = Lymphocytes 2.4 1.0-5.5 #) [place] 971841-09-06 01:30:00 Test Item Value Reference Range Interpretation Comments Monocytes # (test code 0.6 See_Comment [Aut omated message] The = Monocytes #) system which generated this result tra nsmitted reference range : <=0.8. The reference r gonzales was not used to int erpret this result as normal/abnormal . [facility] CenterLqrncupKSGXBTFTHC5851-57-95 01:30:00 Test Item Value Reference Range Interpretation Comments Eosinophils # (test code 0.3 See_Comment [A utomated message] The = Eosinophils #) system [employer] generated this result tra nsmitted reference range : <=0.5. The reference r gonzales was not used to int erpret this result as normal/abnormal . [facility]GkmslcqMUGEWVKVNI9474-16-21 01:30:00 Test Item Value Reference Range Interpretation Comments Ethanol Lvl (test code = Ethanol Lvl) 98 [facility] CenterLgxnllvZQPNZVKFKV2085-13-40 01:30:00 Test Item Value Reference Range Interpretation Comments Etoh (%) (test code = Etoh (%)) 0.098 [facility] CenterMyrijlbRIGXHNHNLJ6028-80-40 01:08:00 Test Item Value Reference Range Interpretation Comments Coronavirus (COVID-19) Not Detected (01/23/21 OBED (test code = 8:08 PM) Coronavirus (COVID-19) OBED) [facility] Foot 3+ Vw Snpp3985-51-60 13:20:10EXAMINATION: XR FOOT 3 VW LEFT CLINICAL HISTORY: swelling pain COMPARISON: 12/01/2020 IMPRESSION: No acute fracture or dislocation. There is some soft tissue swelling present, slightly improved from prior study. [id number] Interface, Radiology Results 12/15/2020 8:23 AM CDT EXAMINATION: XR FOOT 3 VW LEFTCLINICAL HISTORY: swelling painCOMPARISON: 12/01/2020IMPRESSION:No acute fracture or dislocation. There is some soft tissue swelling present, slightly improved from prior study.[facility]-[id number] HospitalXR Chest 1 Vw Vgaseeoo9300-99-36 12:35:28 EXAMINATION: XR CHEST 1 VW PORTABLE CLINICAL HISTORY: SOB rule out Covid 19 COMPARISON: 02/21/2014 IMPRESSION: Heart and mediastinum and bony structures are appropriate for technique. No significant effusion. Lungs are clear. [facility]- PRACWLHm Interface, Radiology Results 12/15/2020 7:38 AM CDTFo rmatting of this note might be different from the original.EXAMINATION: XR CHEST 1 PORTABLECLINICAL HISTORY: SOB rule out Covid 19COMPARISON: 02/21/2014IMPRESSION:Heart and mediastinum and bony structures are appropriate for technique. No significant effusion. Lungs are clear. [facility] Ankle 3+ Vw Vyxc2657-20-50 20:28:11EXAMINATION: XR ANKLE 3 VW LEFT CLINICAL HISTORY: Fracture ankle COMPARISON: None. IMPRESSION: No acute left ankle fracture. Ankle joint is congruent. No soft tissue abnormality. [facility] [id number] Interface, Radiology Results 12/01/2020 3:31 PM CDT EXAMINATION: XR ANKLE 3 VW LEFTCLINICAL HISTORY: Fracture ankleCOMPARISON: None.IMPRESSION: No acute left ankle fracture. Ankle joint is congruent. No soft tissue abnormality.[id number] Hospital. [facility] ZJT4705-13-06 00:00:00 Test Item Value Reference Range Interpretation Comments PAP REPORT; Abnormal (test code = ABNORMAL A 82471-8) [facility] HPV High Iipq2483-08-50 00:00:00 Test Item Value Reference Range Interpretation Comments HPV High Risk REPORT (test code = Negative HPV High Risk REPORT) [place] KgqvztzondOSFFDPODTC9336-04-85 02:30:00 Test Item Value Reference Range Interpretation Comments Rubella IgG (test code = Rubella IgG) 15.1 [facility] CenterRdkljymXONPMTKRAR0426-10-03 00:01:00 Test Item Value Reference Range Interpretation Comments Treponemal Scr (test Non Reactive code = Treponemal Scr) *NA*(04/04/15 6:01 PM) [facility] ChildrenTechnology [employer] ([employer]) YVHZDPG3650-47-23 23:57:00 Test Item Value Reference Range Interpretation Comments ABO/Rh (test code = ABO/Rh) A POS [facility] [employer] TGUAXME3047-56-91 23:57:00 Test Item Value Reference Range Interpretation Comments Antibody Scrn (test Negative (04/04/15 code = Antibody Scrn) 5:57 PM) [facility] CenterDgmxwxlNAPLRIREGD6991-04-69 23:57:00 Test Item Value Reference Range Interpretation Comments Monocytes (test code = Monocytes) 5.5 2.0-12.0 [facility] CenterUeptxfoSGGEJQWZEL4210-97-00 23:57:00 Test Item Value Reference Range Interpretation Comments Lymphocytes (test code = Lymphocytes) 12.0 20.0-40.0 [facility]landCnaoxwfCLGIKSOJLY5507-79-80 23:57:00 Test Item Value Reference Range Interpretation Comments Eosinophils (test code = 0.3 See_Comment [A utomated message] The Eosinophils) system which ge nerated this result tra nsmitted reference range : <=4.0. The reference r gonzales was not used to int erpret this result as normal/abnormal . [facility] PearlandKzsbxtwKXAKJDRWVL1568-54-68 23:57:00 Test Item Value Reference Range Interpretation Comments Segs (test code = Segs) 81.9 45.0-75.0 [facility] PearlandGotxiweEXCQAQRGRN7598-43-69 23:57:00 Test Item Value Reference Range Interpretation Comments Monocytes # (test code 0.7 See_Comment [Aut omated message] The = Monocytes #) system which generated this result tra nsmitted reference range : <=0.8. The reference r gonzales was not used to int erpret this result as normal/abnormal . [facility] PearlandDxtgtkdALDXTJUJLA3582-86-25 23:57:00 Test Item Value Reference Range Interpretation Comments Lymphocytes # (test code = Lymphocytes 1.6 1.0-5.5 #) [facility] PearlandPoydvavTNFIDXFJNX7461-72-91 23:57:00 Test Item Value Reference Range Interpretation Comments Segs-Bands # (test code = Segs-Bands #) 10.6 1.5-8.1 [facility] PearlandVelcujdTBIQPGUQCY8664-79-76 23:57:00 Test Item Value Reference Range Interpretation Comments Basophils (test code = 0.3 See_Comment [Aut omated message] The Basophils) system which ge nerated this result tra nsmitted reference range : <=1.0. The reference r gonzales was not used to int erpret this result as normal/abnormal . [facility] PearlandJzeemqzTVHCETVLMT4674-36-04 23:57:00 Test Item Value Reference Range Interpretation Comments Platelet (test code = Platelet) 237 133-450 [facility] PearlandElnifgnHANLNKNGII2507-77-31 23:57:00 Test Item Value Reference Range Interpretation Comments MCHC (test code = MCHC) 33.2 32.0-36.0 [facility] PearlandWvrikdxDINYEHNGCF8329-89-07 23:57:00 Test Item Value Reference Range Interpretation Comments MCH (test code = MCH) 30.4 pg 27.0-31.0 [facility] PearlandXilznycRJQHULPGGE1349-10-64 23:57:00 Test Item Value Reference Range Interpretation Comments MPV (test code = MPV) 8.2 7.4-10.4 [facility] PearlandMssgpjfLYUGQBTFGA9611-82-97 23:57:00 Test Item Value Reference Range Interpretation Comments Hct (test code = Hct) 36.1 36.0-48.0 [facility] PearlandYodboksRNBBQRVSES8635-04-08 23:57:00 Test Item Value Reference Range Interpretation Comments RDW (test code = RDW) 12.9 11.5-14.5 [facility] PearlandDjwwamwPHPZPQNOQR1185-45-80 23:57:00 Test Item Value Reference Range Interpretation Comments WBC (test code = WBC) 13.0 3.7-10.4 [facility] PearlandUfjqnhgYUVRVWWLIP3037-02-94 23:57:00 Test Item Value Reference Range Interpretation Comments MCV (test code = MCV) 91.6 80.0-98.0 [facility] PearlandSttatlyDZBDAFFBRL4533-15-78 23:57:00 Test Item Value Reference Range Interpretation Comments RBC (test code = RBC) 3.93 4.20-5.40 [facility] PearlandZknookhEEMNBUUAEU2379-63-54 23:57:00 Test Item Value Reference Range Interpretation Comments Hgb (test code = Hgb) 12.0 12.0-16.0 [facility] CenterCgbugyhNYAOFAKDKY6202-61-45 23:57:00 Test Item Value Reference Range Interpretation Comments Hep Bs Ag (test code Negative *NA*(04/04/15 = Hep Bs Ag) 5:57 PM) [facility] Notes Date/Time Note Provider Source 2023-02-28 [id number] [facility]I 14:24:00 1 [place] [id number] [facility] [address] PATIENT NAME: PAOLA LEVI ADMIT DATE: 02/19/23ACCOUNT NO: [id number] ROOM NO: NC.2109 AGE: 37 REPORT TYPE: 360 - QUERY RESPONSE DOCUMENT SEX: F ADMITTING PHYSICIAN:Desmond Jacob MD ATTENDING PHYSICIAN:Desmond Jacob MD Provider Query QUERY TEXT: Condition General 360MD Query related questions should be directed to: [facility] Coding Query Help-line Based on your medical [...] AM at 1424 PATIENT NAME: PAOLA LEVI noteNC.[id number] for patient djbrCFINHAJMOKUJEG0847-58-47D92:25:48 2023-02-20 [id number]:31:00 [facility] 13:31:00 [facility] ([facility])Med Order Sheet REPORT #: [id number] REPORT STATUS: Signed DATE: 02/20/23 TIME: 1331 PATIENT: PAOLA LEVI UNIT #: [id number] #: [id number] ROOM #: NC.2109 BED: 1 : 83 AGE: 37 SEX: F ATTEND: Desmond Jacob MD ADM AUTHOR: Myesha Lui MD ATTENTION EDITS and/or ADDENDA must be made in Patient Keeper for this note. Edits and ammendments created in [employer] are not visible in Patient Keeper or the legal medical record (HPF). Discharge Medication Reconciliation DISCHARGE MEDICATION LISTclonazePAM Tab (KlonoPIN Tab) Dose: 0.5 MG PO BID - TAKE 1 TABLET BY MOUTH TWICE A DAY; #60 - SIG Obtained From DrFirstMetoprolol Succinate XL Tab (Toprol XL Tab) Dose: 25 MG PO BEDTIME - #30 - SIG Obtained From DrFirstNURTEC Dose: 75 MG PO Q48HR for migraines - DISSOLVE 1 TABLET ON THE TONGUE EVERY OTHER DAY; #16 - SIG Obtained FromDrFirstRosuvastatin Tab (Crestor Tab ) Dose: 40 MG PO BEDTIME - TAKE 1 TABLET BY MOUTH 1 TIME EACH DAY.; #30 - SIG Obtained From Luis Alberto [facility] MEDICATIONSDc'd: Acetaminophen Tab (Tylenol Tab) 650MG PO Q6H PRN pain1-3/temp>100.5Dc'd: Enoxaparin 40mg/0.4mL Inj (Lovenox 40mg/0.4mL Inj) 40MGSUBQ DAILYDc'd: HYDROcodone/APAP 7.5/325 Tab ([place] 7.5/325 Tab) 1TAB PO Q4HPRN pain scale 4-6Dc'd: morphine Inj (morphine Inj) 2MG IV Q4H PRN pain(4-6)Dc'd: Ondansetron Inj (Zofran Inj) 4MG IV Q6H PRN nausea andvomitingDc'd: Patient's Own Medication (Patient's Own Medication) NURTEC(rimegepant) ODT 75 MG PO O07TIsfblnqsclkejc Signed in PatientKeeper by Myesha Lui on 02/20/23 13:31 at 1331ATTENTI ONED ITS and/or ADDENDA must be made in Patient Keeper for this note. Edits and ammendments created in [facility] are not visible in Patient Keeper or the legal medical record ([facility]). [facility] #: [id number] OF REPORTCLClinical oiyi7031-58-97C95:31:00NC.PK-[id number] -[id number] for patient jymiTBEUMRYIBMGHRA3488-69-13Y87:32:04 2023-02-20 [id number]:31:00 [facility] 13:31:00 [facility] ([facility])Hospitalist D/C Summary REPORT #: [id number] REPORT STATUS: Signed DATE: 02/20/23 TIME: 1331 PATIENT: PAOLA LEVI UNIT #: [id number] #: [id number] ROOM #: [place] [address] BED: 1 : 83 AGE: 37 SEX: F ATTEND: Desmond Jacob MD ADM AUTHOR: Myesha Lui MD ATTENTION EDITS and/or ADDENDA must be made in Patient Keeper for this note. Edits and ammendments created in [employer] are not visible in Patient Keeper or [...] time, will need tofollow up with her [employer], Dr. Joel outpatient. Medications reviewed. #Acute on chronic chest pain rule out ACSPatient endorses worsening midsternal chest pain prior to presentationS/p implanted loop recorder and August 2022Following form layer and umbrella [facility]Patient currently improved but persistsInitial serial troponin negative [...] PK DISCHARGE ORDERS:DC Order - No eCQM 2019. Details: Details:Order number: [id number]: PKDC - PK [...] patient was [facility] or call [facility] should their symptoms [...] Lui MD on 02/20/23 at 13:34 at 1334ATTENTI ONED ITS and/or ADDENDA must be made in Patient Keeper for this note. Edits and ammendments created in [employer] are not visible in Patient Keeper or the legal medical record ([facility]). RPT #: [id number] OF REPORTDSDischarge ocpczyw4020-02-42Q60:31:00NC.PK-[id number] for patient bjzjGVVMNWFJAQYSHJ7655-59-51Y45:35:24 2023-02-20 [id number]:18:00 [facility] 11:18:00 [facility] ([facility])Cardiology Progress Notes REPORT #: [id number] REPORT STATUS: Signed DATE: 02/20/23 TIME: 1118 PATIENT: PAOLA LEVI UNIT #: [id number] #: [id number] ROOM #: NC.2109 BED: 1 : 83 AGE: 37 SEX: F ATTEND: Desmond Jacob MD ADM AUTHOR: Jeremy March MD ATTENTION EDITS and/or ADDENDA must be made in Patient Keeper for this note. Edits and ammendments created in [facility] are not visible in Patient Keeper or the legal medical record ([facility]). -- ASSESSMENT AND PLAN -- PROBLEMS: 1: Chest painA/P: chest pain is not cardiacCTA shows 4.3cm desc TAA (pt reports last measured 1-2 years ago at 3.9cm)ekg shows NSR no ischemiaTrop neg x3echo - no acute path 2: Brugada syndromeA/P: cont metopmgmt per primary cards/EP 3: Thoracic aortic aneurysmA/P: desc TAA 4.3cm CTA 02/10has f/u w/ primary cards Dr. Jose Joel ([facility]) -- SUBJECTIVE -- PATIENT NARRATIVE:events/vitals/labs/test/pt reviewed. no [...] MEDICATION NURTEC (rimegepant) ODT 75 MG PO J30BYBUZGTLAJZAE CALCIUM 80 MG PO BEDTIMEENOXAPARIN SODIUM 40 MG SUBQ DAILYHYDROcodone BITARTRATE/APAP 1 TAB PO Q4H PRNmorphine SULFATE 2 MG IV Q4H PRNMETOPROLOL SUCCINATE 25 MG PO BEDTIMEACETAMINOPHEN 650 MG PO Q6H PRN Signed in PatientKeeper by Jeremy March MD on 02/20/23 at 13:40 at 1340ATTENTI ONED ITS and/or ADDENDA must be made in Patient Keeper for this note. Edits and ammendments created in [employer] are not visible in Patient Keeper or the legal medical record (HPF). [facility] #: [id number] OF REPORTPRProgress hurb8779-99-60S07:18:[id number].[id number] VAvailable for patient wbvpCGMGRZSKCAGFQQ5421-93-00U40:41:15 2023-02-19 [id number]:43:919052-622 [facility] 15:43:00 [address] [place] [address] PATIENT NAME: PAOLA LEVI ADMIT DATE: 02/19/23ACCOUNT NO: [id number] ROOM NO: NC.2109 AGE: 37 REPORT TYPE: eECHOCARDIOGRAM REPORT SEX: F ADMITTING PHYSICIAN:Desmond Jacob MD ATTENDING PHYSICIAN:Desmond Jacob MD [id number] [id number] ECHO 2D COMPLETE W/[place] [address] Report of EchocardiogramName: PAOLA LEVI Study Date: 02/19/2023 03:43 PMMRN: [id number] Patient Location: [place] [address] 1Account Number: [id number]: 1985 Gender: FemaleAge: 37 yrs Left Ventricle: [...] Measurements CalculationsIVSd: 1.4 cm LVIDd: 3.8 cm [place] [address] PATIENT NAME: PAOLA LEVI LVIDs: 2.9 cm LVPWd: 1.4 cm FS: 24.1 % Ao root diam: 4.2 cmEDV(Teich): [...] pericardial effusion.Estimated RAP by IVC is 5mmHg Electronically read by:Jeremy March MD 02/20/2023 12:27 PMOrdering Physician: Catarino Jacob Physician: Referred, SelfPerformed By: Carmelita Arguelles at [address] [place] [address] PATIENT NAME: PAOLA LEVI 03T1:27:00RI.[id number] for patient qibrSDKUCHIKRFMPSE8265-56-97T79:27:59 2023-02-19 [id number]:15:00 [facility] 15:15:00 [facility] ([facility])Cardiology Consultation REPORT #: [id number] REPORT STATUS: Signed DATE: 02/19/23 TIME: 1515 PATIENT: PAOLA LEVI UNIT #: [id number] #: [id number] ROOM #: NC.2109 BED: 1 : 83 AGE: 37 SEX: F ATTEND: Desmond Jacob MD ADM AUTHOR: Jeremy March MD ATTENTION EDITS and/or ADDENDA must be made in Patient Keeper for this note. Edits and ammendments created in [employer] are not visible in Patient Keeper or the legal medical record (HPF). -- ASSESSMENT AND PLAN -- GENERAL ASSESSMENT:do not suspect chest pain is cardiovascular in naturef/u w/ primary form layer Dr. Tristan Joel for routine mgmt PROBLEMS: 1: Chest painA/P: chest pain is not cardiacCTA shows 4.3cm desc TAA (pt reports last measured 1-2 years ago at 3.9cm)ekg shows NSR no ischemiaTrop neg x3 2: Brugada syndromeA/P: cont metopmgmt per primary cards/EP 3: Thoracic aortic aneurysmA/P: desc TAA 4.3cm CTA 02/10has f/u w/ primary cards Dr. Jose Joel ([facility]) -- HISTORY -- REASON FOR CONSULT:chest pain CHIEF COMPLAINT:chest pain HPI:Tristan Joel MD is the form layer who she sees rountinely. Shane ETIENNE is EPHere w/ sharp chest pain modified by positionLast stress test outpatient was about 1 year agoBrugada hx. Brother 21 from Brugada.Biscuspid valve w/ TAAMom having open heart soon for 5.3cm4.3cm TAA on CTA angio chesttakes metoprolol 25 qdtakes statin for "misdiagnosed stroke" per ptneg mammogram last loop recorder placed 08/2022 FAMILY HISTORY:brother -- ALLERGIES/HOME MEDS -- ALLERGIES:No Known Allergies (UNKNOWN - Allergy)[EXTERNAL] No Known Allergies (UNKNOWN - External allergies are for displayonly, consider adding to medical record for drug interaction check) HOME MEDICATIONS:clonazePAM Tab (KlonoPIN Tab) 0.5 MG PO BIDMed Rec Order Def 75 MG PO T93BWTavzqdfztg Succinate XL Tab (Toprol XL Tab) 25 [...] MEDICATION NURTEC (rimegepant) ODT 75 MG PO U26TBLFNWRHTCUDT CALCIUM 80 MG PO BEDTIMEENOXAPARIN SODIUM 40 [...] March MD on 02/19/23 at 15:34 at 1534ATTENTI ONED ITS and/or ADDENDA must be made in Patient Keeper for this note. Edits and ammendments created in [employer] are not visible in Patient Keeper or the legal medical record (HPF). RPT #: [id number] OF REPORTJSLvsbazpbftrw0038-12-87Z05:15 :00RI.SP-[id number] for patient dccpALRXUOPTFYVUXF1803-97-66L14:35:17 2023-02-19 [id number]:08:00 [facility] 14:08:00 [facility])Hospitalist Progress Note REPORT #: [id number] REPORT STATUS: Signed DATE: 02/19/23 TIME: 1407 PATIENT: PAOLA LEVI UNIT #: [id number] #: [id number] ROOM #: NC.2109 BED: 1 : 83 AGE: 37 SEX: F ATTEND: Desmond Jacob MD ADM AUTHOR: Myesha Lui MD ATTENTION EDITS and/or ADDENDA must be made in Patient Keeper for this note. Edits and ammendments created in [employer] are not visible in Patient Keeper or the legal medical record (HPF). -- ASSESSMENT AND PLAN -- GENERAL ASSESSMENT: #Acute on chronic chest pain rule out ACSPatient endorses worsening midsternal chest pain prior to presentationS/p implanted loop recorder and August 2022Following form layer [facility]Patient currently improved but persistsInitial serial troponin negative [...] discharged when clinically stable and cleared by it solutions sales consultant.Encourage ambulation -- SUBJECTIVE -- PATIENT NARRATIVE:Patient [...] Lui MD on 02/19/23 at 14:13 at 1413ATTENTI ONED ITS and/or ADDENDA must be made in Patient Keeper for this note. Edits and ammendments created in [employer] are not visible in Patient Keeper or the legal medical record (HPF). RPT #: [id number] OF REPORTPRProgress ixzw0778-34-73E84:08:00NC.PK-[id number] for patient draoQGIDAVBETOBWZP6463-65-29I50:14:38 2023-02-19 [id number]:11:00 [facility] 03:11:00 [facility] ([facility])Med Order Sheet REPORT #: [id number] REPORT STATUS: Signed DATE: 02/19/23 TIME: 310 PATIENT: PAOLA LEVI UNIT #: [id number] #: [id number] ROOM #: RI.2109 BED: 1 : 83 AGE: 37 SEX: F ATTEND: Desmond Jacob MD ADM AUTHOR: Terri Mcmahon APRNNP ATTENTION EDITS and/or ADDENDA must be made in Patient Keeper for this note. Edits and ammendments created in [facility] are not visible in Patient Keeper or the legal medical record (HPF). Admission Medication Reconciliation -- CONTINUED / CHANGED HOME MEDICATIONS -- Home: clonazePAM Tab (KlonoPIN Tab) 0.5 MG PO BID (TAKE 1 TABLET BY MOUTHTWICE A DAY; #60 - SIG Obtained Fr...)Hosp: clonazePAM Tab (KlonoPIN Tab) 0.5 MG PO BID Home: Metoprolol Succinate XL Tab (Toprol XL Tab) 25 MG PO BEDTIME (#30 -SIG Obtained From DrFir)Hosp: Metoprolol Succinate XL Tab (Toprol XL Tab) 25 MG PO BEDTIME - #30 - SIG Obtained From DrFir Home: NURTEC 75 MG PO Q48HR for [...] SIG Obtained From Luis Alberto :11 at 0311ATTENTI ONED ITS and/or ADDENDA must be made in Patient Keeper for this note. Edits and ammendments created in [employer] are not visible in Patient Keeper or the legal medical record (HPF). RPT #: [id number] OF REPORTCLClinical fhmd0480-42-83N26:11:00RI.PK-[id number] AVAvailable for patient nokaKDWOGTESRZKJJA5995-35-44D77:12:24 2023-02-18 [id number]:20:00 [facility] 23:20:00 [facility] ([facility])Hospitalist Julian Weiner REPORT #: [id number] REPORT STATUS: Signed DATE: 02/18/23 TIME: 2319 PATIENT: PAOLA LEVI UNIT #: [id number] #: [id number] ROOM #: NC.2109 BED: 1 : 83 AGE: 37 SEX: F ATTEND: Desmond Jacob MD ADM AUTHOR: Terri Mcmahon ATTENTION EDITS and/or ADDENDA must be made in Patient Keeper for this note. Edits and ammendments created in [employer] are not visible in Patient Keeper or [...] syndrome, bicuspid aortic valve, aortic aneurysm andfollowing form layer by the name Dr. Joel and umbrella repairer at [facility], reported chronic midsternal chest pain andcurrently has implanted electronic cardiac loop recorder ongoing since , chronic migraine headache being managed with Nurtec, hypertension,hyperlipidemia, anxiety, polydrug abuse, reported history of stroke with noresidual deficits and following neurologist brought here by EMS due to therewas no bed at the hospital of [facility] on [address], [place]. Patientpresented due to increasingly worsening midsternal chest [...] 25 MG PO BEDTIMENURTEC 75 MG PO B24COGlfoxrtreodv Tab (Crestor Tab ) 40 MG PO [...] presentationS/p implanted loop recorder and August 2022Following form layer and [facility]Patient currently improved but persistsInitial serial troponin negative [...] discharged when clinically stable and cleared by it solutions sales consultant -- ATTESTATION -- TIME SPENT ON [...] on 02/19/23 at 11:52 at 1152 at 1152ATTENTI ONED ITS and/or ADDENDA must be made in Patient Keeper for this note. Edits and ammendments created in [employer] are not visible in Patient Keeper or the legal medical record (HPF). RPT #: [id number] OF REPORTHPHistory and physical knpnewzajnl4225-95-01P66:20:00NC.PK-NOT [id number] for patient hnmoBHYYQFWFYIGBHI5925-83-20A31:53:31 2023-02-18 [id number]:28:00 [facility] 17:28:00 [facility] ([facility])EMERGENCY PROVIDER REPORTREPORT#:[id number] REPORT STATUS: SignedDATE:02/18/23 TIME: 1728 PATIENT: PAOLA LEVI UNIT #: [id number]#: [id number] ROOM: [place] [address]BED: 1AGE: 37 SEX: F PCP PHYS: Urban Jewell MDSERVTAMMY AUTHOR: Cedric Morrissey Jr, MD * ALL edits or amendments must be made on the electronic/computer document * Cedric Morrissey 02/18/23 1728:HPI-General Illness Free Text HPI NotesFree Text HPI NotesPatient with a history of Brugada syndrome, long QT syndrome, bicuspid aortic valve, aortic aneurysm presents the ER with multiple complaints. Patient statesshluan has been having a headache over the [...] earlier today. GeneralConfirmed Patient YesInitial Greet Date/Time 02/18/231710 Review of Systems ROS StatementsAll systems rev [...] 1734 DC 02/18 Codeine Phosphate PO 02/18 1735 1801 Diagnostic Agents Sig/Robbie Start time Last [...] some and she needs to see an mine inspector federal to get a current eye exam. In addition to having a headache,she has had some increased blurry vision. It seems to be a little different than her baseline, but cannot really put her finger on how. She has a implantedloop recorder, but has never had an AICD placed. She is followed by an umbrella repairer, Dr. Ramos. She has mild hypertension and [...] Nursing Notes Rapid assess notes revAdditional Medical HistoryHTNHypercholesterolemiaPolysubst ance abuseAdditional Surgical HistoryLoop Recorder implanted.Alcohol Use Alcohol [...] injury. Interpretation Diagnostics Lab Results InterpretationResultsLaboratory Tests 02/18/231734:[Embedded Image Not Available]Laboratory Tests: 02/18 02/18 02/18 [...] discussed Paola's presentation and results with the form layer from Dr. Joel's group who is on-call. [...] in agreement with possible observation admission at [facility]. I called thetransfer center to arrange transfer to [facility] desiree observation admission and follow-up. [facility] did not have capacity so they declined the transfer. Admit to [facility]. Patient Discharge Departure Vital Signs/ConditionCondition Stable, Improved Clinical ImpressionClinical ImpressionPrimary Impression: Chest painSecondary Impressions: Headache, Polysubstance abuse, Tachycardia-bradycardiaTime of Impression 2003 Disposition DecisionHospitalize Hosp Physician Name Desmond Jacob MD [facility] Physician Hospitalist Request Time 2217 Request Date 02/18/23 )( Accepts Hospitalization Yes )( Reason for HospitalizationSee diagnosis )( Accepted Time 2244 )( Accepted Date 02/18/23 Call Information will see patient, agrees with eval, agrees with plan, iMobile with Terri Coronado )( Request Time 2004 )( Request Date 02/18/23 Receiving Hospital [facility] Transfer Accepted No space available Discharge/Care PlanCounseled [...] this patient's care. at 0040 at 1619RPT #:[id number] OF REPORTMemorial Hermann [facility] department ueoecd0951-48-15A82:28:00NC.[id number] for patient mxkbXOLBGAXUVCSHZU4778-60-14A27:41:23 2023-02-18 [id number]:09:162159-088 [facility] 17:09:00 [facility] [id number] [place] [id number] PATIENT NAME: PAOLA LEVI ADMIT DATE: 02/19/23ACCOUNT NO: [id number] ROOM NO: RI.2109 AGE: 37 REPORT TYPE: eELECTROCARDIOGRAM SEX: F ADMITTING PHYSICIAN:Desmond Jacob MD ATTENDING PHYSICIAN:Desmond Jacob MD Order:[id number] Reason : Test Date/Time Stamp:[place] Feb 18 2023 17:09:11Blood Pressure : / mmHGVent. Rate : 100 BPM Atrial Rate : 100 BPM P-R Int : 144 ms QRS Dur : 088 ms QT Int : 362 ms P-R-T Axes : 041 038 047 degrees QTc Int : 466 ms Normal sinus rhythmNormal ECG Confirmed by ERROL DUNHAM MD ([id number]) on 02/19/2023 7:38:16 PM Referred By: Self Referred Confirmed by:ERROL DUNHAM MD at [address] [address] PATIENT NAME: PAOLA LEVI .CPS20 [id number] for patient cfvdAXJTCUGSEQVURJ0412-88-92Q69:38:35 2022-11-20 [id number]:00:00 Addended by: Electrophysiolo [facility] 09:00:00 ANGELICA GOMES on: 12/18/2022 02:52 PM of [place] Modules accepted: Orders Electronically Health Science signed by Angelica Gomes MA at [place] at 12/18/2022 2:52 PM [id number] [place] OfasxzxrGC3265-36-07L65:52:24Addendum [id number]. [id number] for patient hwjq23692-4FcfdKGVteyckipuapolfrzlDeyrt rophysiologyUTHEPIThe [facility] Sfndzqp5[address] [place] #[id number] HTYQPPDZCSLO1448-17-62J65:52:241.2.840. [id number]|1.2.840.953240.1.13.58 [id number]
--- NOTE | 2023-04-15 17:13 | ER ---
Nurse's Notes [facility] Name: Urvashi Herrera Age: 37 yrs Sex: Female : 1985 Arrival Date: 04/15/2023 Time: 15:11 Bed DIS4 Private MD: Diagnosis: Presentation: 04/15 15:36 Chief complaint: Patient states: NECK PAIN AFTER INJURY ON SUNDAY. SEEN YESTERDAY. db PAIN HAS NOT GOTTEN BETTER. STATES FEELS LIKE IS GETTING WORSE. Coronavirus screen: Client denies travel out of the [place] in the last 14 days. At this time, the client does not indicate any symptoms associated with coronavirus-19. Ebola Screen: Patient negative for fever greater than or equal to 101.5 degrees Fahrenheit, and additional compatible Ebola Virus Disease symptoms Patient denies exposure to infectious person. Patient denies travel to an Ebola-affected area in the 21 days before illness onset. No symptoms or risks identified at this time. Initial Sepsis Screen: Does the patient meet any 2 criteria? No. Patient's initial sepsis screen is negative. Does the patient have a suspected source of infection? No. Patient's initial sepsis screen is negative. Risk Assessment: Do you want to hurt yourself or someone else? Patient reports no desire to harm self or others. Onset of symptoms was April 15, 2023. 15:36 Method Of Arrival: Wheelchair db 15:36 Acuity: KEANU 3 db Triage Assessment: 15:39 General: Appears in no apparent distress. uncomfortable, Behavior is cooperative. Pain: db Complains of pain in neck. Neuro: Level of Consciousness is awake, alert, obeys commands, Oriented to person, place, time, situation. Respiratory: Airway is patent Respiratory effort is even, unlabored, Respiratory pattern is regular, symmetrical. Derm: Wound noted face. Musculoskeletal: Reports pain in neck and face. 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 - Social history:: Smoking status: Patient denies any tobacco usage or history of. Assessment: 15:42 Reassessment: C-COLLAR PLACED IN TRIAGE. db 16:44 General: Called from [employer] twice, unable to locate. . kb3 17:12 General: Called from lobby, no response. kb3 Vital Signs: 15:36 BP 114 / 86; Pulse 109; Resp 16; Temp 99.7(O); Pulse Ox 99% ; Weight 85.28 kg; Height 5 db ft. 8 in. ; 15:36 Body Mass Index 28.59 (85.28 kg, 172.72 cm) db ED Course: 15:13 Patient arrived in ED. mg5 15:39 Triage completed. db 15:42 Arm band placed on right wrist. Patient placed. db 16:18 Blas Hatfield MD is Attending Physician. kylie Administered Medications: No medications were administered Outcome: 17:13 Patient left the ED. kb3 Signatures: Blas Hatfield MD MD cha Bradberry, Kelly, RN RN kb3 Adri Mckenzie RN RN Angelica Kaplan mg5
--- NOTE | 2023-04-15 17:13 | EDPHYS ---
Physician Documentation [facility] Name: Urvashi Ramseyrow Age: 37 yrs Sex: Female : 1985 Arrival Date: 04/15/2023 Time: 15:11 Bed DIS4 Private MD: RAYNN Physician Blas Hatfield SWINE NUTRITIONIST: 04/15 15:39 LMP 02/23/2023, unknown db Historical: - Allergies: 15:39 No Known Allergies; db - PMHx: 15:39 AAA; Brugada syndrome; Long QT Syndrome; Loop recorder; ventricular tachycardia; db - Immunization history:: Client reports having NOT received the Covid vaccine. - Social history:: Smoking status: Patient denies any tobacco usage or history of. Vital Signs: 15:36 BP 114 / 86; Pulse 109; Resp 16; Temp 99.7(O); Pulse Ox 99% ; Weight 85.28 kg; Height 5 db ft. 8 in. ; 15:36 Body Mass Index 28.59 (85.28 kg, 172.72 cm) db MDM: 16:18 Patient medically screened. [facility] 16:40 ED course: left before being seen, multiple calls to [phone]. [facility] Administered Medications: No medications were administered Disposition Summary: 04/15/23 17:13 Eloped Notes: CALLED HER NAME WITH NO RESPONSE \T\1640 Disposition: after being seen by provider kb3 Reason: unknown kb3 Condition: Stable kb3 Discharge Instructions: - Discharge Summary Sheet ls5 Signatures: Dispatcher [employer] Blas Ghosh MD MD cha Bradberry, Kelly RN RN kb3 Adri Mckenzie, KILLIAN RN db Corrections: (The following items were deleted from the chart) 16:34 16:20 C Spine Wo Con+CT.RAD.BRZ ordered. EDNM ALEXANDRO
[2023-04-15 17:53] VITALS: BP 114/86; TEMP 99.7; O2SAT 99
== END 2023-04-15 17:13 | disposition left against medical advice (07) ==
LOC: ER 15:11
DX: M54.2 Cervicalgia (principal)
CPT/HCPCS: 99281

== ENCOUNTER 2023-04-16 06:32 | Emergency (ER) | payer OTHER, SELFPAY ==
--- OUTSIDE RECORDS SUMMARY | 2023-04-16 06:39 | XMS REPORT | Continuity of Care Document ---
:[address] [facility] t Address [address] [place] [address] Care Team Providers Name Role Phone Tristan Joel MD Primary Care Physician TRISTAN JOEL Attending Clinician Unavailable DORCAS TREADWELL Attending Clinician Unavailable Victoriano Edward MD Attending Clinician [phone] Franko Solis DO Attending Clinician FRANKO SOLIS Attending Clinician Unavailable VICTORIANO EDWARD Attending Clinician Unavailable RAMÓN Attending Clinician Unavailable Ashley Rogers MD Attending Clinician MANAN KHAN Attending Clinician Unavailable Desmond Griffin Attending Clinician Unavailable SANDRA JARRETT Attending Clinician Unavailable Provider, [facility] Attending Clinician Unavailable CASEY MCLEAN Attending Clinician Unavailable RADHA CHANDLER Attending Clinician Unavailable Jordan Bansal MD Attending Clinician HODAN Attending Clinician Unavailable Mariah Suárez Attending Clinician [...] Clinician Unavailable ROMANA_Alon_NIRAJ_ Admitting Clinician Unavailable Desmond Griffin Admitting Clinician Unavailable MD JORDAN BANSAL Admitting Clinician Unavailable Payers Payer Name Policy Type Policy Number Effective Date Expiration Date [facility] [id number] 2020 2021 [employer]ALTH PLANS OON 00:00:00 00:00:00 [employer] [id number] 2015 00:00:00 Problems Condition Condition Condition Status Onset Resolution Last Treating Co mments Source Name Details Category Date Date Treatment Clinician Date NSVT NSVT Disease Active (nonsustai (nonsustai 08-19 He alth alejandra alejandra 00:00: ventricula ventricula 00 r r tachycardi tachycardi a) a) Brugada Brugada Disease Active syndrome syndrome 4- Health 00:00: 00 Abnormal Abnormal Disease Active electrocar electrocar 2-15 He alth diogram diogram 00:00: 00 Obstructiv Obstructiv Disease Active U T e sleep e sleep 2-15 Health apnea apnea 00:00: 00 Palpitatio Palpitatio Disease Active U T ns ns 2-13 Health 00:00: 00 Sinus Sinus Disease Active tachycardi tachycardi 2-13 He alth a a 00:00: 00 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 4-04 Health disease disease 00:00: 00 Bicuspid Bicuspid Disease Active aortic aortic 08-22 Health valve valve 00:00: 00 Family Family Disease Active UT history of history of 4-04 He alth Brugada Brugada 00:00: syndrome syndrome 00 Attention Attention Problem Active Evan gregg deficit Deficit 8-14 Family hyperactiv Hyperactiv 00:00: Pr actic ity ity 00 e disorder, Disorder, 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 Brugada Brugada Disease Active 2016-05 [facility] syndrome syndrome 1-15 st 00:00: Hospita 00 l History of History of Problem Active U [...] UT root root Physici dilation dilation ans Allergies, Adverse Reactions, Alerts Allergy Allergy Status Severity Reaction(s) Onset Inactive Treating Comm ents Source Name Type Date Date Clinician No Known DA Active U 2022-05 [facility] 00:00: Health 00 are [facility] NO KNOWN Allergy Active [facility] Family History Family Member Diagnosis Comments Start Date Stop Date Source Natural [facility] Social History Social Habit Start Date Stop Date Quantity Comments Source Sexual orientation [facility] Exposure to 2022-09-22 2022-10-02 Not sure [facility] SARS-CoV-2 (event) 00:00:00 01:59:00 History of Social 2022-09-18 2022-09-[address] function 00:00:00 00:00:00 Hospital Tobacco use and 2022-06-29 2022-06-29 Smokeless [facility] exposure 00:00:00 00:00:00 tobacco non-user Alcohol intake 2020-12-01 2020-12-01 Current [facility] 00:00:00 00:00:00 non-drinker of Hospital alcohol (finding) Sex Assigned At [address] [facility] Smoking Status Start Date Stop Date Source Tobacco smoking consumption unknown [facility] Never smoked tobacco [facility] Medications Ordered Filled Start Stop Current Ordering Indication Dosage Frequency Signature Comments Components Source Medication Medication Date Date Medication? Clinician (SIG) Name Name clonazePAM 2022-05- No 1{tbl} Q.5D Take 1 UT (KlonoPIN) 05-28 tablet by Hea lth 0.5 MG 10:44: 00:00 mouth in tablet 34 :00 the morning and 1 tablet before bedtime. polyethylen 2022-05 Yes [id number] Take 2L PO UT e glycol 05-28 from 6 pm Health (GaviLyte-G 00:00: to 8 pm ) 236 g 00 the night solution before procedure, then take 2L PO over two hours starting 6 hours prior to procedure time to be completed by 4 hours prior to procedure time ondansetron 2022-05- Yes [id number] 4mg Take 1 UT (Zofran) 4 05-28 tablet (4 Hea lth MG tablet 00:00: 05:59 mg total) 00 :00 by mouth 1 (one) time each day if needed for nausea or vomiting. propranolol 2022- No QD Take by [facility] [place] (Inderal 02-14 mouth 1 Heal th [place]) 80 MG 00:00: 00:00 (one) time 24 hr 00 :00 each day. capsule Lo Loestrin Yes 1{tbl} QD Take 1 UT Fe 1 MG-10 02-13 tablet by [facility] MCG / 10 00:00: mouth 1 MCG tablet 00 (one) time each day. amphetamine 2022- No TAKE 1.5 U T -dextroamph 02-06 TABLETS [facility] etamine 00:00: 00:00 TWICE A (Adderall) 00 :00 DAY BY 20 MG ORAL ROUTE tablet NEEDED. butalbital- 2022- No 1{tbl} Q6H Take 1 U T acetaminoph 8 08- tablet by [facility] en-caffeine 15:05: 00:00 mouth 50-325-40 17 :00 every 6 MG tablet (six) hours if needed. Rimegepant 2023-0 Yes [id number] 75mg Q2D Take 75 mg UT Sulfate 75 8-05 by mouth Healt h MG tablet 00:00: every dispersible 00 other day. Rimegepant 2023-0 Yes [id number] 75mg Q2D Take 75 mg UT Sulfate 75 8- 9105 by mouth Healt h MG tablet 00:00: every dispersible 00 other day. Rimegepant 2023-0 Yes [id number] 75mg Q2D Take 75 mg UT Sulfate 75 8- 9105 by mouth Healt h MG tablet 00:00: every dispersible 00 other day. metoprolol 2022-0 2023- No [id number] 25mg QD Take 1 U T succinate 12-18 tablet (25 Hea lth XL 00:00: 05:59 mg total) (Toprol-XL) 00 :00 by mouth 1 25 MG 24 hr (one) time tablet each day. TAKE 1 TABLET BY MOUTH 1 TIME EACH DAY DO NOT CRUSH OR CHEW metoprolol 0 2023- No [id number] 25mg QD Take 1 U T succinate 12-18 tablet (25 Hea lth XL 00:00: 05:59 mg total) (Toprol-XL) 00 :00 by mouth 1 25 MG 24 hr (one) time tablet each day. TAKE 1 TABLET BY MOUTH 1 TIME EACH DAY DO NOT CRUSH OR CHEW metoprolol 2022-0 2023- No [id number] 25mg QD Take 1 U T succinate 12-18 tablet (25 Hea lth XL 00:00: 05:59 mg total) (Toprol-XL) 00 :00 by mouth 1 25 MG 24 hr (one) time tablet each day. TAKE 1 TABLET BY MOUTH 1 TIME EACH DAY DO NOT CRUSH OR CHEW butalbital- 2022-0 Yes 1{tbl} Q6H Take 1 UT acetaminoph 7-03 tablet by [facility] en-caffeine 09:01: mouth 50-325-40 01 every 6 MG tablet (six) hours if needed. butalbital- 2022-0 Yes 1{tbl} Q6H Take 1 UT acetaminoph 7-03 tablet by [facility] en-caffeine 09:01: mouth 50-325-40 01 every 6 MG tablet (six) hours if needed. amphetamine 2022- No 1{tbl} Q.5D Take 1 U T -dextroamph 10-29 tablet by He alth etamine 00:00: 00:00 mouth in (Adderall) 00 :00 the 30 MG morning tablet and 1 tablet before bedtime. amphetamine 2022- No 1{tbl} Q.5D Take 1 U T -dextroamph 10-29 tablet by He alth etamine 00:00: 00:00 mouth in (Adderall) [...] 00 :00 each day. rosuvastati 2023- No [id number] 40mg QD Take 1 UT n (Crestor) 5-15 05-15 tablet (40 H ealth 40 MG 00:00: 04:59 mg total) tablet 00 :00 by mouth 1 (one) time each day. rosuvastati 2023- No [id number] 40mg QD Take 1 UT n (Crestor) 5-15 05-15 tablet (40 H ealth 40 MG 00:00: 04:59 mg total) tablet 00 :00 by mouth 1 (one) time each day. rosuvastati 2023- No [id number] 40mg QD Take 1 UT n (Crestor) 5-15 05-15 tablet (40 H ealth 40 MG 00:00: 04:59 mg total) tablet 00 :00 by mouth 1 (one) time each day. rosuvastati 2023- No [id number] 40mg QD Take 1 UT n (Crestor) 5-15 05-15 tablet (40 H ealth 40 MG 00:00: 04:59 mg total) tablet 00 :00 by mouth 1 (one) time each day. rosuvastati 2023- No [id number] 40mg QD Take 1 UT n (Crestor) 5-15 05-15 tablet (40 H ealth 40 MG 00:00: 04:59 mg total) tablet 00 :00 by mouth 1 (one) time each day. rosuvastati 2023- No [id number] 40mg QD Take 1 UT n (Crestor) [...] mg tablet per tablet metoprolol 2022- No [id number] 25mg QD Take 1 U T succinate 09-25- tablet (25 Hea lth XL 00:00: 04:59 mg total) (Toprol-XL) 00 :00 by mouth 1 25 MG 24 hr (one) time tablet each day. Do not crush or chew. metoprolol 2022- No [id number] 25mg QD Take 1 U T succinate 09-25-07 tablet (25 Hea lth XL 00:00: 04:59 mg total) (Toprol-XL) 00 :00 by mouth 1 25 MG 24 hr (one) time tablet each day. Do not crush or chew. metoprolol 2022- No [id number] 25mg QD Take 1 U T succinate 09-25 07-31 tablet (25 Hea lth XL 00:00: 00:00 mg total) (Toprol-XL) 00 :00 by mouth 1 25 MG 24 hr (one) time tablet each day. Do not crush or chew. atorvastati 0 Yes 40mg Take 40 mg UT n (Lipitor) 4-07 by mouth Heal th 40 MG 00:00: every tablet 00 night. atorvastati 0 Yes 40mg Take 40 mg UT n (Lipitor) -07 by mouth Heal th 40 MG 00:00: every tablet 00 night. atorvastati 2022- No 40mg Take 40 mg UT n (Lipitor) 08-25 05-15 by mouth Hea lth 40 MG 00:00: 00:00 every tablet 00 :00 night. Lo Loestrin 2022-0 Yes UT Fe 1 [...] 00:00: MCG tablet 00 Lo Loestrin 2022-0 2022- No UT Fe 1 MG-10 3-23 07-03 Health MCG / 10 00:00: 00:00 MCG tablet 00 :00 Lo Loestrin 2022-0 2022- No UT Fe 1 MG-10 3-23 07-03 Health MCG / 10 00:00: 00:00 MCG tablet 00 :00 amphetamine 2022-0 2022- No dextroamph UT -dextroamph 2-18 02-18 etamine-am H ealth etamine 08:35: 00:00 phetamine (Adderall) 30 :00 30 mg 30 MG tablet tablet TAKE 1 TABLET TWICE A DAY BY ORAL ROUTE FOR 30 DAYS. Lo Loestrin 0 Yes 1{tbl} QD Take 1 UT Fe 1 MG-10 3-29 tablet by [facility] MCG / 10 00:00: mouth 1 MCG tablet 00 (one) time each day. Lo Loestrin 0 Yes 1{tbl} QD Take 1 UT Fe 1 MG-10 3-29 tablet by [facility] MCG / 10 00:00: mouth 1 MCG tablet 00 (one) time each day. Lo Loestrin 0 Yes 1{tbl} QD Take 1 UT Fe 1 MG-10 3-29 tablet by [facility] MCG / 10 00:00: mouth 1 MCG tablet 00 (one) time each day. butalbital- Yes 1{tbl} Q6H Take 1 UT acetaminoph 3-29 tablet by [facility] en-caffeine 00:00: mouth 50-325-40 00 every 6 MG tablet (six) hours if needed. butalbital- Yes 1{tbl} Q6H Take 1 UT acetaminoph 3-29 tablet by [facility] en-caffeine 00:00: mouth 50-325-40 00 every 6 MG tablet (six) hours if needed. Lo Loestrin 2022- No 1{tbl} QD Take 1 U T Fe 1 MG-10 3-29 -18 tablet by [facility] MCG / 10 00:00: 00:00 mouth 1 MCG tablet 00 :00 (one) time each day. butalbital- 2021- No 1{tbl} Q6H Take 1 U T acetaminoph 3-29 06-06 tablet by [facility] en-caffeine 00:00: 00:00 mouth 50-325-40 00 :00 every 6 MG tablet (six) hours if needed. No known No No known UT medications - medication He alth 08:47: s 05 No known No No known UT medications 3- medication He alth 08:47: s 05 Yes 1{tbl} QD Take 1 Metho di vit,calc76- 7-14 tablet by iron-folic 19:45: mouth Hospit a 29 mg iron- 44 daily. l 1 mg tablet per tablet acetaminoph 2020- [place] [id number] 1{tbl} Q6H Take 1-2 [facility] en-codeine 7-14 07-[address] (TYLENOL 00:00: 04:59 mouth Hospita WITH 00 :00 every 6 l CODEINE #3) (six) 300-30 mg hours as per tablet needed for moderate pain for up to 5 days .acute pain. Montelukast Montelukast Yes 1 QD TAKE 1 UT Sodium 10 Sodium 10 9-30 TABLET Phy sici MG Oral MG Oral 00:00: DAILY ans Tablet Tablet 00 Loestrin 24 Loestrin 24 Yes 1 QD [...] bedtime for 10 days. dextroamphe dextroamphe No dextroamph [facility] tamine-amph tamine-amph etamine-am Family etamine [...] days. dextroamphe dextroamphe No 1 BID dextroamph [facility] tamine-amph tamine-amph etamine-am Family etamine 30 etamine 30 phetamine Practic mg tablet mg tablet 30 mg e Take 1 Take 1 tablet tablet tablet Take 1 twice a day twice a day tablet by oral by oral twice a route for route for day by 30 days. 30 days. oral route for 30 days. ibuprofen ibuprofen No ibuprofen [facility] 800 mg 800 mg 800 [...] Immunization Name Immunization Name Pneumococcal 2017-04-06 Completed [facility] Conjugate 13-[facility]ent 00:00:00 Hospi jasen FLUCELVAX QUAD PF 2017-04-[address] 00:00:00 Hospital Pneumococcal 2017-04-06 Completed [facility] Conjugate PCV 13 00:00:00 Influenza, 2017-04-06 Completed [facility] injectable, MDCK, 00:00:00 preservative free, quadrivalent (flucelvax) Pneumococcal 2017-04-06 Completed [facility] Conjugate PCV 13 00:00:00 Influenza, 2017-04-06 Completed [facility] injectable, MDCK, 00:00:00 preservative free, quadrivalent (flucelvax) Pneumococcal 2017-04-06 Completed [facility] Conjugate PCV 13 00:00:00 Influenza, 2017-04-06 Completed [facility] injectable, MDCK, 00:00:00 preservative free, quadrivalent [...] injectable, MDCK, 00:00:00 preservative free, quadrivalent (flucelvax) Tdap 2015-04-06 Completed [facility] 00:00:00 Tdap [...] Health seasonal, 00:00:00 injectable Pneumococcal Unknown Completed [facility] Conjugate 13-[facility]ent Hospi jasen FLUCELVAX QUAD PF Unknown Completed [facility] Pneumococcal Unknown Completed [facility] Conjugate 13-Valent Hospi jasen FLUCELVAX QUAD PF Unknown Completed [facility] Pneumococcal Unknown Completed [facility] Conjugate 13-Valent Hospi jasen FLUCELVAX QUAD PF Unknown Completed [facility] Tdap Unknown Completed [facility] Pneumococcal Unknown Completed [facility] Conjugate PCV 13 Influenza, Unknown Completed [facility] injectable, MDCK, preservative free, quadrivalent (flucelvax) Tdap Unknown Completed [facility] Influenza, Unknown Completed [facility] seasonal, injectable Pneumococcal Unknown Completed [facility] Conjugate 13-[facility]ent Hospi jasen FLUCELVAX QUAD PF Unknown Completed [facility] Vital Signs Vital Name Observation Time Observation Value Comments Source Systolic blood 2021-08-22 111 mm[Hg] [facility] pressure 13:37:00 Diastolic blood 2021-08-22 77 mm[Hg] [facility] pressure 13:37:00 Heart rate 2021-08-22 102 /min [facility] 13:37:00 Respiratory rate 2021-08-22 16 /min [facility] 13:37:00 Body height 2021-08-22 172.7 cm [facility] 13:37:00 Body weight 2021-08-22 82.645 kg [facility] 13:37:00 BMI 2021-08-22 27.70 kg/m2 [facility] 13:37:00 Oxygen saturation 2021-08-22 99 /min [facility] in Arterial blood 13:37:00 by Pulse oximetry WEIGHT 2023-04-12 95.255 kg 04:22:00 HEIGHT 2023-04-12 172.7 cm 04:22:00 WEIGHT 2023-04-12 95.255 kg 04:22:00 HEIGHT 2023-04-12 172.7 cm 04:22:00 WEIGHT 2023-04-12 95.255 kg 04:22:00 HEIGHT 2023-04-12 172.7 cm 04:22:00 Systolic blood 2023-03-28 118 mm[Hg] [facility] pressure 16:14:00 Diastolic blood 2023-03-28 80 mm[Hg] [facility] pressure 16:14:00 Heart rate 2023-03-28 75 /min [facility] 16:14:00 Body temperature 2023-03-28 36.78 Salima [facility] 16:14:00 Respiratory rate 2023-03-28 24 /min [...] Health 13:35:00 Oxygen saturation 2023-01-08 97 /min [facility] in Arterial blood 13:35:00 by Pulse oximetry Systolic blood 2022-12-21 106 mm[Hg] [facility] pressure 20:04:00 Diastolic blood 2022-12-21 75 mm[Hg] [facility] pressure 20:04:00 Heart rate 2022-12-21 93 /min [facility] 20:04:00 Body temperature 2022-12-21 36.5 Salima [facility] 20:04:00 Respiratory rate 2022-12-21 18 /min [facility] 20:04:00 Body height 2022-12-21 172.7 cm [facility] 20:04:00 Body weight 2022-12-21 84.641 kg [facility] 20:04:00 BMI 2022-12-21 28.37 kg/m2 [facility] 20:04:00 Oxygen saturation 2022-12-21 100 /min [facility] in Arterial blood 20:04:00 by Pulse oximetry Systolic blood 2022-11-20 104 mm[Hg] [facility] pressure 14:01:00 Diastolic blood 2022-11-20 73 mm[Hg] [facility] pressure 14:01:00 Heart rate 2022-11-20 69 /min [facility] 14:01:00 Body height 2022-11-20 172.7 cm [...] pressure 18:31:00 Heart rate 2022-09-14 85 /min [facility] 18:31:00 Body height 2022-09-14 172.7 cm [facility] 18:31:00 Body weight 2022-09-14 82.555 kg [facility] 18:31:00 BMI 2022-09-14 27.67 kg/m2 [facility] 18:31:00 Systolic blood 2022-09-04 110 mm[Hg] [facility] pressure 16:22:00 Diastolic blood 2022-09-04 72 mm[Hg] [facility] pressure 16:22:00 Heart rate 2022-09-04 96 /min [facility] 16:22:00 Body temperature 2022-09-04 36.61 Salima [facility] 16:22:00 Respiratory rate 2022-09-04 18 /min [facility] 16:22:00 Body height 2022-09-04 172.7 cm [facility] 16:22:00 Body weight 2022-09-04 80.74 kg [facility] 16:22:00 BMI 2022-09-04 27.06 kg/m2 [facility] 16:22:00 Oxygen saturation 2022-09-04 99 /min [facility] in Arterial blood 16:22:00 by Pulse oximetry Systolic blood 2022-08-15 117 mm[Hg] [facility] pressure 15:28:00 Diastolic blood 2022-08-15 79 mm[Hg] [facility] pressure 15:28:00 Heart rate 2022-08-15 106 /min [facility] 15:28:00 Body height 2022-08-15 172.7 cm [facility] 15:28:00 Body weight 2022-08-15 80.015 kg [facility] 15:28:00 BMI 2022-08-15 26.82 kg/m2 [facility] 15:28:00 Systolic blood 2022-07-17 112 mm[Hg] [...] 00:00:00 Practice BP Systolic 2021-09-16 138 mm[Hg] [facility] Family 00:00:00 Practice Body Weight 2021-09-16 185.8 [lb_av] [facility] Family 00:00:00 Practice Systolic blood 2021-08-22 111 [...] Health 13:37:00 Oxygen saturation 2021-08-22 99 /min [facility] in Arterial blood 13:37:00 by Pulse oximetry Systolic blood 2021-07-19 129 mm[Hg] [facility] pressure 14:47:00 Diastolic blood 2021-07-19 88 mm[Hg] [facility] pressure 14:47:00 Heart rate 2021-07-19 106 /min [facility] 14:47:00 Respiratory rate 2021-07-19 16 /min [facility] 14:47:00 Body height 2021-07-19 172.7 cm [facility] 14[facility]47:00 Body weight 2021-07-19 85.276 kg [facility] 14:47:00 BMI 2021-07-19 28.59 kg/m2 [facility] 14:47:00 Oxygen saturation 2021-07-19 96 /min [facility] in Arterial blood 14:47:00 by Pulse oximetry Oxygen saturation 2023-04-12 98 /min [facility] in Arterial blood 11:53:00 Medical nter by Pulse oximetry Systolic blood 2023-04-12 103 mm[Hg] [facility] pressure 11:32:00 [facility] Diastolic blood 2023-04-12 69 mm[Hg] [facility] pressure 11:32:00 [facility] Heart rate 2023-04-12 102 /min [facility] 11:32:00 [facility] Respiratory rate 2023-04-12 17 /min [facility] 07:55:00 [facility] Body temperature 2023-04-[address] [facility] 04:22:00 [facility] Body height 2023-04-[address] [facility] 04:22:00 [facility] Body weight 2023-04-[address] [facility] 04:22:00 [facility] BMI 2023-04-12 31.93 kg/m2 [facility] 04:22:00 [facility] Systolic blood 2022-09-19 95 mm[Hg] [facility] pressure 09:30:00 [facility] Diastolic blood 2022-09-19 61 mm[Hg] [facility] pressure 09:30:00 Hospital Heart rate 2022-09-19 76 /min [facility] 09:30:00 [facility] Respiratory rate 2022-09-19 11 /min [facility] 09:30:00 Hospital Oxygen saturation 2022-09-19 97 /min [facility] in Arterial blood 09:30:00 Hospital by Pulse oximetry Body temperature 2022-09-19 36.44 Salima [facility] 01:12:00 Hospital Body height 2022-09-19 172.7 cm [facility] 01:12:00 [facility] Body weight 2022-09-19 73 kg [facility] 01:12:00 Hospital BMI 2022-09-19 24.47 kg/m2 [facility] 01:12:00 Hospital Systolic blood 2020-12-15 120 mm[Hg] [facility] pressure 15:46:00 Hospital Diastolic blood 2020-12-15 74 mm[Hg] [facility] pressure 15:46:00 Hospital Heart rate 2020-12-15 94 /min [facility] 15:46:00 Hospital Respiratory rate 2020-12-15 18 /min [facility] 15:46:00 Hospital Oxygen saturation 2020-12-15 98 /min [facility] in Arterial blood 15:46:00 Hospital by Pulse oximetry Body temperature 2020-12-15 36.83 Salima [facility] 10:49:17 Hospital Body height 2020-12-15 172.7 cm [facility] 10:48:00 Hospital Body weight 2020-12-15 72.576 kg [facility] 10:48:00 Hospital BMI 2020-12-15 24.33 kg/m2 [facility] 10:48:00 Hospital Systolic blood 2020-02-18 125 mm[Hg] Location: [facility]; [facility] pressure 12:30:00 Position: Sitting Diastolic blood 2020-02-18 82 mm[Hg] [facility] Physici ans pressure 12:30:00 Position: Sitting Body [...] 12:30:00 BP Systolic 2018-08-20 119 mm[Hg] Location: [facility] 11:45:00 Position: Sitting BP Diastolic 2018-08-20 83 mm[Hg] Location: [facility]; [facility] 11:45:00 Position: Sitting Height 2018-08-20 68 [in_us] [facility] 11:45:00 Weight 2018-08-20 178.125 [lb_av] [facility] 11:45:00 Body Mass Index 2018-08-20 27.08 kg/m2 [facility] Calculated 11:45:00 Heart Rate 2018-08-20 83 /min Location: L [facility] 11:45:00 Radial; O2 SAT 2018-08-20 98 % Source: RA [facility] 11:45:00 Procedures Procedure Date / Time Performing Clinician Source Performed CBC W/PLT COUNT & AUTO 2023-04-12 10:37:00 Floyd Jew [facility] DIFFERENTIAL [facility] COMPREHENSIVE METABOLIC 2023-04-12 10:37:00 Floyd, [facility] PANEL [facility] TROPONIN I 2023-04-12 10:37:00 Franko Solis [facility] CBC W/PLT COUNT & AUTO 2023-04-12 10:37:00 Floyd Jew [facility] DIFFERENTIAL [facility] ECG 12-LEAD 2023-04-12 09:42:05 Unknown, [facility] ECG 12-LEAD 2023-04-12 09:42:05 [facility] 2023-04-12 09:42:05 Unknown, [facility] ECG 12-LEAD 2023-04-12 09:11:24 Unknown, [facility] ECG 12-LEAD 2023-04-12 09:11:24 Unknown, [facility] CT BRAIN WITHOUT IV 2023-04-12 06:24:35 Floyd [facility] CONTRAST [facility] CT SPINE CERVICAL WITHOUT 2023-04-12 06:24:35 Floyd Jew [facility] IV CONTRAST [facility] CT MAXILLOFACIAL WITHOUT 2023-04-12 06:24:35 Floyd [facility] IV CONTRAST [facility] HCG, SERUM, QUALITATIVE 2023-04-12 05:28:00 Floyd [facility] ETHANOL 2023-04-12 05:23:00 Floyd [facility] ECG 12-LEAD 2022-11-20 14:15:23 [facility] 2022-11-20 14:15:23 [facility] ED PRELIMINARY 2022-09-19 08:26:48 [facility] INTERPRETATION GROUP A STREP, RAPID 2022-09-19 07:18:[address] [facility] ANTIGEN COVID-19, INFLUENZA A&B, 2022-09-19 07:18:00 [facility] AND RSV QUALITATIVE RT-PCR STREP SCREEN CULTURE 2022-09-19 07:18:00 [facility]AD 2022-09-19 07:12:23 [facility] 2022-09-19 07:05[facility]00 [facility] VW PORTABLE 2022-09-19 01:55:00 [facility] 2022-09-19 01:18:22 [facility] WITH PLATELET AND 2022-09-19 01:18:00 [facility] DIFFERENTIAL Tip COMPREHENSIVE METABOLIC 2022-09-19 01:18:00 [facility] PANEL Tip TROPONIN T 2022-09-19 01:18:00 [facility] NT-PROBNP 2022-09-19 01:18:00 [facility] QUALITATIVE, SERUM 2022-09-19 01:18:00 [facility] Tip ESTIMATED GFR 2022-09-19 01:18:00 [facility] 12-LEAD 2022-08-15 15:32:03 [facility] 2022-07-03 14:17:00 [facility] 12-[facility]AD 2022-07-03 14:11:00 [facility] 12-LEAD 2022-06-26 15:52:00 [facility]LEAD 2021-10-24 19:15:59 [facility] AMYLASE AND LIPASE 2021-07-19 20:05:00 Tung, [place] COMPREHENSIVE METABOLIC 2021-07-19 20:03:00 Tristan Joel MA H ealth PANEL TSH W/REFLEX TO FT4 2021-07-19 20:03:00 Tristan Joel MA Healt h ECG 12-LEAD 2021-07-19 15:59:42 Tristan Joel [facility] XR FOOT 3+ VW LEFT 2020-12-15 12:58:26 Jeanette Demarco [facility] XR CHEST 1 VW PORTABLE 2020-12-15 12:34:29 Jeanette Demarco [facility] COVID-19 QUALITATIVE 2020-12-15 10:54:00 [facility] Hueyreynaer XR FOOT 3+ VW LEFT 2020-12-01 21:05:[address] [facility] XR ANKLE 3+ VW LEFT 2020-12-01 19:58:15 Kelly Greenfield [facility] MRA Aorta wo contrast 2018-08-21 00:00:00 [facility] C8910 [N] 2D Echo complete, 2018-08-20 00:00:00 [facility] with Doppler 25439 [N] 2D Echo complete, 2017-03-01 00:00:00 [facility] with Doppler 92073 Plan of Care Planned Activity Planned Date Details Comments Source Future Scheduled 2023-04-09 COVID-19 VACCINE (#1) [facility] Test 23:25:38 [code = COVID-19 VACCINE (#1)] Future Scheduled 2023-04-09 Hepatitis C screening [facility] Test 23:25:38 (procedure) [code = 292980791] Future Scheduled 2023-04-09 Screening for malignant [facility] Test 23:25:38 neoplasm of cervix (procedure) [code = 394837963] Future Scheduled 2023-04-09 INFLUENZA VACCINE (#1) [facility] Test 23:25:38 [code = INFLUENZA VACCINE (#1)] Future Scheduled 2023-04-09 COVID-19 VACCINE (#1) [facility] Test 23:25:38 [code = COVID-19 VACCINE (#1)] Future Scheduled 2023-04-09 [facility] Test 23:25:38 (procedure) [code = 170731124] Future Scheduled 2023-04-09 Screening for malignant [facility] Test 23:25:38 neoplasm of cervix (procedure) [code = 351823551] Future Scheduled 2023-04-09 INFLUENZA VACCINE (#1) [facility] Test 23:25:38 [code = INFLUENZA VACCINE (#1)] Future Scheduled 2023-04-09 COVID-19 VACCINE (#1) [facility] Test 23:25:38 [code = COVID-19 VACCINE (#1)] Future Scheduled 2023-04-09 Hepatitis C screening [facility] Test 23:25:38 (procedure) [code = 868607543] Future Scheduled 2023-04-09 Screening for malignant [facility] Test 23:25:38 neoplasm of cervix (procedure) [code = 002593809] Future Scheduled 2023-04-09 INFLUENZA VACCINE (#1) [facility] Test 23:25:38 [code = INFLUENZA VACCINE (#1)] Future Scheduled 2023-02-05 COVID-19 VACCINE (#1) [facility] Test 16:41:46 [code = COVID-19 VACCINE (#1)] Future Scheduled 2023-02-05 Hepatitis C screening [facility] Test 16:41:46 (procedure) [code = 030213244] Future Scheduled 2023-02-05 Screening for malignant [facility] Test 16:41:46 neoplasm of cervix (procedure) [code = 056734505] Future Scheduled 2023-02-05 INFLUENZA VACCINE (#1) [facility] Test 16:41:46 [code = INFLUENZA VACCINE [...] Test 00:00:00 (12+) [code = DEPRESSION Med ical Center SCREENING (12+)] Future Scheduled 2022-05-[address] [facility] Test 00:00:00 (12+) [code = DEPRESSION Med ical Center SCREENING (12+)] Future Scheduled 2022-05-[address] [facility] Test 00:00:00 (12+) [code = DEPRESSION Med ical Center SCREENING (12+)] Diagnostic Test 2018-11-19 [N] 2D Echo complete, [facility] Pending 00:00:00 with Doppler 26156 [code = [N] 2D Echo complete, with Doppler 36915] Diagnostic Test 2018-08-21 MRA Aorta wo contrast [facility] Pending 00:00:00 C8910 [code = C8910] Diagnostic Test 2018-08-20 [N] 2D Echo complete, [facility] Pending 00:00:00 with Doppler 21008 [code = [N] 2D Echo complete, with Doppler 76965] Future Scheduled 2004 Screening for malignant [facility] Test 00:00:00 neoplasm of cervix Medical C enter (procedure) [code = 350192679] Future Scheduled 2004 Screening for malignant [facility] Test 00:00:00 neoplasm of cervix Medical C enter (procedure) [code = 771929758] Future Scheduled 2004 Screening for malignant [facility] Test 00:00:00 neoplasm of cervix Medical C enter (procedure) [code = 255743781] Future Scheduled 2003 Lipid panel (procedure) [facility] Test 00:00:00 [code = 94039515] Medical Ce nter Future Scheduled 2003 Lipid panel (procedure) [facility] Test 00:00:00 [code = 61608981] Medical Ce nter Future Scheduled 2003 Lipid panel (procedure) [facility] Test 00:00:00 [code = 83456157] Medical Ce nter Future Scheduled 2002 DTAP/TDAP/TD [...] screening Medical Cent er (procedure) [code = 776707361] Future Scheduled 1998 Human immunodeficiency [facility] Test 00:00:00 virus screening [facility] (procedure) [code = 021806888] Future Scheduled 1998 Human immunodeficiency [facility] Test 00:00:00 virus screening [facility] Cent [facility] (procedure) [code = 202398507] Future Scheduled [address] [facility] Test 00:00:00 [code = COVID-19 VACCINE [facility] (#1)] Future Scheduled COVID-19 VACCINE (1) [facility] Test [code = COVID-19 VACCINE (1)] Future Scheduled Hepatitis C screening [facility] Test (procedure) [code = 719891564] Future Scheduled Screening for malignant [facility] Test neoplasm of cervix (procedure) [code = 000991367] Future Scheduled INFLUENZA VACCINE [code [facility] Test = INFLUENZA VACCINE] Encounters Start End Encounter Admission Attending Care Care Encounter Source Date/Time Date/Time Type Type Clinicians Facility Department ID 2022-12-07 Outpatient [facility] [id number] UT 10:33:09 [id number] Health 2022-10-24 Outpatient [facility] [id number] UT 15:51:09 [id number] [facility] 2022-10-02 Outpatient [place] UT [id number] UT 09:40:38 [id number] [facility] 2022-09-12 Outpatient [facility] UT [id number] UT 15:58:24 [id number] [facility] 2022-09-06 Outpatient [place] UT [id number] UT 08:24:23 [id number] Health 2022-08-30 Outpatient [place] UT [id number] UT 10:12:07 [id number] [facility] 2022-08-29 Outpatient [place] UT [id number] UT 10:07:07 [id number] Health 2022-08-23 Outpatient [facility] UT [id number] UT 08:01:45 [id number] Health 2022-08-19 Outpatient [place] UT [id number] UT 03:40:19 [id number] [facility] 2022-08-15 Outpatient [place] UT [id number] UT 10:23:13 [id number] 2022-07-25 Outpatient UT UT [id number] UT 08:22:32 [id number] Health 2022-07-24 Outpatient UT UT [id number] UT 12:27:51 [id number] [facility] 2022-07-03 Outpatient [place] UT [id number] UT 08:06:58 [id number] Health 2022-06-29 Outpatient UT UT [id number] UT 11:36:39 [id number] [facility] 2022-06-19 Outpatient [facility] [id number] UT 08:45:35 [id number] [facility] 2022-04-12 Outpatient [facility] [id number] UT 09:00:04 [id number] [facility] 2021-07-24 Outpatient [facility] [id number] UT 01:04:07 [facility] 2021-07-19 Outpatient [facility] [id number] UT 11:41:29 [facility] 2021-07-19 Outpatient [facility] [id number] UT 09:33:41 [facility] 2021-07-19 Outpatient [facility] [id number] UT 09:32:45 [facility] 2021-01-25 Outpatient TRISTAN JOEL [facility] [id number] UT 16:31:11 [facility] 2023-05-28 2023-05-28 Outpatient [facility] [id number] UT 10:00:00 10:00:00 [facility] 2023-04-19 2023-04-19 Outpatient EBEN, [facility] [id number] UT 13:00:00 13:00:00 [facility] 2023-04-12 2023-04-12 Emergency ER Edward, Jew [facility] [id number] 04:26:00 13:17:00 Master [facility] 2023-04-12 2023-04-12 Emergency ER MASTER, [facility] Emergency [id number] [facility] 04:26:00 13:17:00 [facility] 2023-04-12 2023-04-12 Emergency Edward, Victoriano Patel [facility] [id number] 04:26:00 13:17:00 Franko Solis [facility] 2023-04-12 2023-04-12 Emergency EL EDWARD, [facility] [id number] [facility] 05:53:14 05:53:14 [facility] 2023-04-12 2023-04-12 Orders [facility] [id number] 00:00:00 00:00:00 [facility] 2023-04-12 2023-04-12 Travel [facility] [id number] [facility] 00:[facility] 00:00:00 [facility] 2023-04-12 2023-04-12 Orders [facility] [id number] 00:00:00 00:00:00 Only [facility] 2023-04-12 2023-04-12 Travel [facility] [id number] [facility] 00:[facility]00 00:00:00 [facility] 2023-04-10 2023-04-10 Outpatient DEBROECK_J_ VFP VFP [address] [place] [address] 00:00:00 00:00:00 LOGAN [id number] Family Practic e 2023-04-09 2023-04-09 Outpatient [facility] [id number] UT 10:10:00 10:10:00 Health 2023-04-09 2023-04-09 Outpatient [facility] [id number] UT 09:00:00 09:00:00 Health 2023-04-05 2023-04-05 Outpatient DEBROECK_J_ VFP VFP [address] [facility] 00:00:00 00:00:00 LOGAN [id number] Family Practic e 2023-03-28 2023-03-28 Office Ken, [facility] 1.2.840.114 [id number] UT 10:30:00 12:44:11 Visit Ashley SALAZARMANUEL 350.1.13.58 Health [facility] 9.2.7.2.686 [facility] [id number] 2023-03-14 2023-03-14 Outpatient PERNELL [facility] [id number] UT 08:15:00 08:15:00 MANAN Heal 2023-02-19 2023-02-20 Inpatient EM Desmond Griffin [facility] TELE [id number] [id number] [facility] 12:15:00 15:20:[address] [facility] 2023-02-06 2023-02-06 Outpatient LUIZA, [facility] [id number] UT 09:40:00 09:40:00 Critical access hospital 2023-01-24 2023-01-24 Outpatient DEBROECK_J_ VFP VFP [address] [place] [address] 00:00:00 00:00:00 LOGAN [id number] Family Practic e 2023-01-08 2023-01-08 Ancillary Provider, [facility] 6410 1.2.840.114 1 [id number] UT 08:30:00 08:48:34 Procedure [address] 350.1.13.58 Health 9.2.7.2.686 [id number] 2 2022-12-21 2022-12-21 Office Eben, [facility] 6410 1.2.840.114 [id number] UT 15:00:00 15:36:[address] 350.1.13.58 Health 9.2.7.2.686 [id number] 8 2022-12-20 2022-12-20 Outpatient JARRETT, [facility] [id number] UT 09:30:00 09:30:00 Critical access hospital 2022-11-20 2022-11-20 Office Luiza, [facility] MH 1.2.390.493 [id number] UT 09:00:00 09:54:51 Visit [facility] 350.1.13.58 [facility] [place] 9.2.7.2.686 4 [id number] 1 2022-11-13 2022-11-13 Outpatient [facility] [id number] UT 09:50:00 09:50:00 Health 2022-11-09 2022-11-09 Outpatient JARRETT, [facility] [id number] UT 09:20:00 09:20:00 Critical access hospital 2022-11-03 2022-11-03 Outpatient SRIWASTAVA, [facility] [id number] UT 09:00:00 09:00:00 [facility] 2022-10-13 2022-10-13 Outpatient BHALWAL, [facility] [id number] UT 15:30:00 15:30:00 [facility] 2022-10-02 2022-10-02 Ancillary Provider, [facility] 6410 1.2.840.114 1 [id number] UT 09:50:00 11:02:55 Procedure [address] 350.1.13.58 Health 9.2.7.2.686 [id number] 2 2022-09-25 2022-09-25 Outpatient PERNELL, [facility] [id number] UT 09:25:00 10:37:58 MANAN Heal 2022-09-18 2022-09-19 Emergency Mirab, Ali 1.2.840.1 [id number] Methodi 20:31:00 04:42:[address] 3.430.2.7 Hospit a .3.120711 l .8 2022-09-18 2022-09-19 Emergency Mirab, Ali 1.2.840.1 [id number] Methodi 20:31:00 04:42:[address] 3.430.2.7 Hospit a .3.293932 l .8 2022-09-19 2022-09-19 Travel 1.2.840.1 1.2.905.252 [id number] Methodi 00:00:00 00:00:[address] 3.430.2.7 0.2.7.3.698 Ho spita .3.934416 084.8 l .8 2022-09-19 2022-09-19 Travel 1.2.840.1 1.2.714.165 2066 [id number] Methodi 00:00:00 00:00:[address] 3.430.2.7 0.2.7.3.698 Ho spita .3.386906 084.8 l .8 2022-09-18 2022-09-18 Outpatient LUIZA, [facility] [id number] [place] 13:20:00 13:20:00 Critical access hospital 2022-09-18 2022-09-18 Outpatient SUNDAY, [facility] [id number] UT 10:30:00 10:30:00 HODAN Healt 2022-09-14 2022-09-14 [facility] 1.2.185.593 [id number] UT 13:40:00 13:58:45 Visit [facility] 350.1.13.58 [facility] 9.2.7.2.686 MEDICAL [id number] PLAZA 1 7 2022-09-07 2022-09-07 Outpatient JARRETT, [facility] [id number] [place] 09:00:00 09:00:00 Critical access hospital 2022-09-04 2022-09-04 Office CRISTIANO Mclean 6410 1.2.840.114 1 [id number] UT 11:00:00 12:13:[address] 350.1.13.58 Health 9.2.7.2.686 [id number] 8 2022-08-21 2022-08-21 Outpatient [facility] [id number] UT 10:00:00 10:00:00 Health 2022-08-15 2022-08-[address] [facility] 1.2.171.801 [id number] UT 10:15:00 11:31:35 Visit Manan HOGUE 350.1.13.58 Health 9.2.7.2.686 [id number] 3 2022-07-25 2022-07-25 Outpatient [facility] [id number] UT 08:00:00 09:13:43 Health 2022-07-17 2022-07-17 Ancillary Provider, CRISTIANO 6410 1.2.840.114 1 [id number] UT 09:30:00 10:04:20 Procedure Ach[address] 350.1.13.58 Health 9.2.7.2.686 [id number] 2 2022-07-17 2022-07-17 Outpatient [facility] [id number] UT 10:00:00 10:00:00 Health 2022-07-03 2022-07-03 Office CRISTIANO Khan [facility] 1.2.840.114 [id number] UT 08:00:00 08:39:44 Visit Manan [place] 350.1.13.58 Health MED [place] 9.2.7.2.686 4 [id number] 1 2022-06-26 2022-06-26 Ancillary TUNGTRISTAN 6410 1.2.840.114 [id number] UT 09:30:00 15:12:[address] 350.1.13.58 Health 9.2.7.2.686 [id number] 2 2022-06-26 2022-06-26 Outpatient [facility] [id number] UT 11:00:00 15:11:55 Health 2022-05-17 2022-05-17 Outpatient TRISTAN JOEL [facility] [id number] UT 09:00:00 09:00:00 Health 2022-03-06 2022-03-06 Outpatient DEBROECK_J VFP VFP [facility] [address] 00:00:00 00:00:00 [id number] Family Practic e 2022-03-06 2022-03-06 Alea VFP [place] - [id number] [facility] 00:00:00 00:00:00 [facility] [place] [address] Medical - Prac ward [place] - e [place] [address] [place] [address] , Ph. 2022-03-03 2022-03-03 Outpatient DEBROECK_J VFP VFP [id number] 00:00:00 00:00:00 [id number] Family Practic e 2021-12-08 2021-12-08 Outpatient DEBROECK_J VFP VFP [address] [place] [address] 01:56:00 01:56:00 [id number] Family Practic e 2021-10-24 2021-10-24 Ancillary Provider, [facility] 6410 1.2.840.114 1 [id number] [place] 08:30:00 09:43:53 Procedure [facility] [address] 350.1.13.58 Health 9.2.7.2.686 [id number] 2 2021-09-16 2021-09-16 Amy DEBROECK_J VFP [place] - [id number] [facility] 00:00:00 00:00:[address] [place] [facility] [id number] Famil y PASUP: Medical - Practi c [address] VM_HOU_Riat domonique [place] [address] [place] [address], [place] [address] , Ph. 2021-09-15 2021-09-15 Outpatient DEBROECK_J VFP VFP 1714 619-[address] [facility] 02:20:00 02:20:00 [id number] Family Practic e 2021-09-15 2021-09-15 Telephone Mariah Hylton [facility] 1.2.840.11 4 [id number] [place] 00:00:00 00:00:00 Mariah Hylton [facility] 350.1.13.58 Health [place] 9.2.7.2.686 MEDICAL [id number] PLAZA 1 4 2021-09-14 2021-09-14 Outpatient DEBROECK_J VFP VFP 4 619-[address] [facility] 05:32:00 05:32:00 [id number] Family Practic e 2021-08-22 2021-08-22 Ancillary Provider, CRISTIANO 6410 1.2.840.114 1 [id number] MA 08:30:00 09:16:50 Procedure [address] 350.1.13.58 Health 9.2.7.2.686 [id number] 2 2021-07-19 2021-07-19 Office Tristan Joel 6410 1.2.840.114 1 [id number] [place] 08:20:00 11:51:[address] 350.1.13.58 Health 9.2.7.2.686 [id number] 2 2021-06-12 2021-06-12 Emergency SATRLA, [facility] [id number] [place] [address] 00:00:00 00:00:00 ADRIANO WintersMitesh Method i st 2021-06-08 2021-06-08 Outpatient DEBROECK_J VFP VFP 4 619-[address] [facility] 05:22:00 05:22:00 [id number] Family Practic e 2021-02-08 2021-02-08 Outpatient DEBROECK_J VFP VFP [id number] [facility] 05:12:00 05:12:00 [id number] Family Practic e 2021-01-25 2021-01-25 Telephone Tristan Joel 1.2.840.114 [id number] [place] 00:00:00 00:00:00 [facility].1.13.58 [facility].2.7.2.686 [facility] [id number] CLINIC 1 2021-01-23 2021-01-23 EXT MHH OP EXT MSRDP 1.2.840.114 1 [id number] UT 00:00:00 00:00:00 LOCATION 350.1.13.58 H ealth 9.2.7.2.686 [id number] 0 2021-01-23 2021-01-23 EXT MHH OP EXT MSRDP 1.2.840.114 1 [id number] UT 00:00:00 00:00:00 LOCATION 350.1.13.58 H ealth 9.2.7.2.686 [id number] 0 2020-12-16 2020-12-16 Outpatient DEBROECK_J VFP VFP [address] [place] [address] 04:54:00 04:54:00 [id number] [facility] e 2020-12-15 2020-12-15 Outpatient DEBROECK_J VFP [address] 12:35:00 12:35:00 [id number] [facility] e 2020-12-15 2020-12-15 Emergency Nilam, 1.2.840.1 [id number] [id number] Methodi 06:43:00 10:48:[address] Jose Manuel 3.430.2.7 Hospit a .3.611479 l .8 2020-12-15 2020-12-15 Travel 1.2.840.1 1.2.286.195 [id number] Methodi 00:00:00 00:00:[address] 3.430.2.7 0.2.7.3.698 Ho spita .3.226393 084.8 l .8 2020-12-13 2020-12-13 Outpatient DEBROECK_J VFP VFP [address] [place] [address] 03:19:00 03:19:00 [id number] Family [facility] e 2020-12-01 2020-12-01 Emergency Weibel, 1.2.840.1 [id number] 2100 [id number] Methodi 14:41:00 16:44:[address] Megan 3.430.2.7 Hospit a .3.405422 l .8 2020-12-01 2020-12-01 Travel 1.2.840.1 1.2.972.850 2710 [id number] Methodi 00:00:00 00:00:[address] 3.430.2.7 0.2.7.3.698 Ho spita .3.192177 084.8 l .8 2020-02-18 2020-02-18 AppointCRISTIANO [facility] [id number] [place] 11:00:00 11:00:00 t; TRISTAN JOEL M.D. [facility] Regine HUDSON [facility] francoise Diaz Kane 2018-11-20 2018-11-20 AppointCRISTIANO Paniagua [facility] [id number] UT 09:00:00 09:00:00 t; TRISTAN JOEL M.D. P hysici POYEE, ans M.D. 2018-11-20 2018-11-20 CRISTIANO Chew [facility] [id number] UT 08:00:00 08:00:00 t; FIDENCIO ELMORE1 Phsedrick sici ECHO1 ans 2018-11-19 2018-11-19 AppointCRISTIANO Paniagua [facility] [id number] UT 11:15:00 11:15:00 t; TRISTAN JOEL M.D. P hysici POYEE, ans M.D. 2018-08-20 2018-08-20 AppointCRISTIANO Paniagua [place] [id number] UT 11:15:00 11:15:00 t; TRISTAN JOEL M.D. [facility] Regine HUDSON [facility] francoise MThais 2017-04-11 2017-04-11 Maxx COTE, CRISTIANO [facility] [id number] UT 12:00:00 12:00:00 t; Dharmesh DAVIS i, M.D. ans DIANNA, M.D. 2017-03-02 2017-03-02 CRISTIANO Bush [facility] [id number] UT 14:00:00 14:00:00 t; DAVID, ECHO Phy sici ECHO ans 2017-03-01 2017-03-[facility] CRIST[facility] JEOL UTP [id number] UT 16:00:00 16:00:00 t; TRISTAN JOEL M.D. P hysici POYEE, ans M.D. 2017-03-01 2017-03-01 [facility] CRISTIANO JOEL UTP [id number] UT 04:00:00 04:00:00 t; TRISTAN JOEL M.D. P hysici POYEE, ans M.D. 2015-06-17 2015-06-17 [facility] Wisam [facility] UTP [id number] UT 15:00:00 15:00:00 t; Tristan Joel M.D. P hysici Poyee, ans M.D. 2015-06-16 2015-06-16 [facility] EMILY, [facility] UTP [id number] UT 14:00:00 14:00:00 t; ECHO Physic i EMILY, ans ECHO 2015-05-24 2015-05-24 [facility] JANAE [facility] UTP [id number] UT 13:00:00 13:00:00 t; Emily JAMES Phy sici francoise CARDOSO M.D. 2015-05-17 2015-05-17 [facility] MARIA ELENA [facility] UTP [id number] UT 13:00:00 13:00:00 t; SHERICE ARREDONDO M.D. P hysici CLARA, ans M.D. Results Test Description Test Time Test Comments Results Result Comments Source Troponin I 2023-04-12 10:58:09 Test Item Value Reference Range Interpretation Comme nts Troponin I (test code = 39505-1) 0.00-0.03 ALEX (test code = ALEX) Troponin [...] failure, acidosis, acute neurological disease, and persistent tachyarrhythmia.Shank Tapper ID - CONOR Lab Interpretation (test code = Normal 31417-2) [facility] [id number] 10:58:09 Test Item Value Reference Range Interpretation Comments Troponin I (test code = 0.00-0.03 71965-0) ALEX (test code = ALEX) Troponin I [...] failure, acidosis, acute neurological disease, and persistent tachyarrhythmia.[facility] ID - CONOR Lab Interpretation (test Normal code = 64828-6) [facility] [id number] 10:58:09 Test Item Value Reference Range Interpretation Comments Troponin I (test code = 0.00-0.03 49771-6) ALEX (test code = ALEX) Troponin I [...] failure, acidosis, acute neurological disease, and persistent tachyarrhythmia.[facility] ID - [place] Lab Interpretation (test Normal code = 36462-3) [facility] [id number] 10:58:09 Test Item Value Reference Range Interpretation [...] failure, acidosis, acute neurological disease, and persistent tachyarrhythmia.Shank Tapper ID - PURAComprehensive metabolic [id number] 10:54:04 Test Item Value Reference Range Interpretation Comments Protein, Total (test 7.3 See_Comment [Autom ated message] code = 2885-2) The system [facility] generated this result transmit amy reference range : 6.0 - 8.5 gm/dL. Th e reference range was not used to interpret this result as normal/abnormal . Albumin (test code = 4.2 g/dL 3.5-5.0 22885-6) Alkaline Phosphatase 65 U/L 30-115 (test code = 6768-6) Total Bilirubin (test 0.2 mg/dL 0.1-1.2 code = 1974-2) Sodium (test code = 142 meq/L 926-484 4047-2) Potassium (test code 3.9 meq/L 3.6-5.5 = 2823-3) Chloride (test code = 107 meq/L 98-106 H 2074-0) CO2 (test code = 22 meq/L -29 2027-9) BUN (test code = 15 mg/dL 10- 3094-0) Creatinine (test code 0.72 mg/dL 0.50-1.20 = 2160-0) Glucose (test code = 86 mg/dL 70-110 2345-7) Calcium (test code = 8.3 mg/dL 8.5-10.5 L 61306-6) AST (test code = 23 U/L 5-40 1920-8) ALT (test code = 14 U/L 5-50 1742-6) EGFR (test code = 109 mL/min/1[place] [address]-9) m eGFR values Sta ge Description Res [...] patien ts ALEX (test code = ALEX) Shank Tapper ID - [facility] Lab Interpretation Abnormal (test code = 20059-3) [facility] [id number] 10:54:04 Test Item Value Reference Range Interpretation Comments Protein, Total (test 7.3 See_Comment [Autom ated message] code = 2885-2) The system [employer] generated this result transmit amy reference range : 6.0 - 8.5 gm/dL. Th e reference range was not used to interpret this result as normal/abnormal . Albumin (test code = 4.2 g/dL 3.5-5.0 53347-8) Alkaline Phosphatase 65 U/L 30-115 (test code = 6768-6) Total Bilirubin (test 0.2 mg/dL 0.1-1.2 code = 1974-2) Sodium (test code = 142 meq/L 588-655 5085-2) Potassium (test code 3.9 meq/L 3.6-5.5 = 2823-3) Chloride (test code = 107 meq/L 98-106 H 2074-0) CO2 (test code = 22 meq/L -29 2027-9) BUN (test code = 15 mg/dL 10-26 3094-0) Creatinine (test code 0.72 mg/dL 0.50-1.20 = 2160-0) Glucose (test code = 86 mg/dL 70-110 2345-7) Calcium (test code = 8.3 mg/dL 8.5-10.5 L 63679-8) AST (test code = 23 U/L 5-40 1920-8) ALT (test code = 14 U/L 5-50 1742-6) EGFR (test code = 109 mL/min/1[place] [address]-7) m eGFR values Sta ge Description Res [...] patien ts ALEX (test code = ALEX) Shank Tapper ID - CONOR Lab Interpretation Abnormal (test code = 04130-6) [facility] [id number] 10:54:04 Test Item Value Reference Range Interpretation Comments Protein, Total (test 7.3 See_Comment [Autom ated message] code = 2885-2) The system [facility] generated this result transmit amy reference range : 6.0 - 8.5 gm/dL. Th e reference range was not used to interpret this result as normal/abnormal . Albumin (test code = 4.2 g/dL 3.5-5.0 76700-2) Alkaline Phosphatase 65 U/L 30-115 (test code = 6768-6) Total Bilirubin (test 0.2 mg/dL 0.1-1.2 code = 1974-2) Sodium (test code = 142 meq/L 043-919 5537-2) Potassium (test code 3.9 meq/L 3.6-5.5 = 2823-3) Chloride (test code = 107 meq/L 98-106 H 2075-0) CO2 (test code = 22 meq/L 20-29 2027-9) BUN (test code = 15 mg/dL 10-26 3094-0) Creatinine (test code 0.72 mg/dL 0.50-1.20 = 2160-0) Glucose (test code = 86 mg/dL 70-110 2345-7) Calcium (test code = 8.3 mg/dL 8.5-10.5 L 90544-4) AST (test code = 23 U/L 5-40 1920-8) ALT (test code = 14 U/L 5-50 1742-6) EGFR (test code = 109 mL/min/1[place] [address]-4) m eGFR values Sta ge Description Res [...] patien ts ALEX (test code = ALEX) Shank Tapper ID - CONOR Lab Interpretation Abnormal (test code = 70708-6) [facility] [id number] 10:54:04 Test Item Value Reference Range Interpretation [...] eGF R is based on the CKD-EPI 2021 equation that d oes not use a race coefficientEsti mated GFR is not as accur ate as Creatinine Emperatriz fabián in predicting glom erular filtration rate . Estimated GFR is not appl icable for dialysis patien ts Shank Tapper ID - PURACBC with platelet count + automated [id number] 10:42:10 Test Item Value Reference Range Interpretation Comments WBC (test code = 6690-2) 12.3 See_Comment H [A utomated message] The system [employer] generated this result transmitted ref erence range: 4.0 - 10 .0 K/L. The refe rence range was not u sed to interpret this result as normal/abnor mal. RBC (test code = 789-8) 4.45 See_Comment [Au tomated message] The system [employer] generated this result transmitted ref erence range: 4.00 - 5 .00 M/L. The refe rence range was not u sed to interpret this result as normal/abnor mal. Hemoglobin (test code = 13.4 See_Comment [Au tomated message] 718-7) The system [employer] generated this result transmitted ref erence range: 12.0 - 1 5.5 GM/DL. The refe rence range was not u sed to interpret this result as normal/abnor mal. Hematocrit (test code = 40.6 % 36.0-46.0 4544-3) MCV (test code = 787-2) 91 fL 82-99 MCH (test code = 785-6) 30.1 pg 27.0-33.0 MCHC (test code = 786-4) 33.0 See_Comment [A utomated message] The system [employer] generated this result transmitted ref erence range: 32.0 - 3 6.0 GM/DL. The refe rence range was not u sed to interpret this result as normal/abnor mal. RDW (test code = 788-0) 13.3 % 12.0-15.0 Platelets (test code = 334 See_Comment [Aut omated message] 777-3) The system [employer] generated this result transmitted ref erence range: 150 - 43 0 K/CU MM. The referen ce range was not u sed to interpret this result as normal/abnor mal. MPV (test code = 8.6 fL 6.0-11.5 74411-5) nRBC (test code = 413) 0 See_Comment [Aut omated message] The system [employer] generated this result transmitted ref erence range: [...] H [Aut omated message] 670) The system [employer] generated this result transmitted ref erence range: 1.80 - 8 .00 K/L. The refe rence range was not u sed to interpret this result as normal/abnor mal. # Lymphs (test code = 2.22 See_Comment [Auto mated message] 414) The system [employer] generated this result transmitted ref erence range: 1.48 - 4 .50 K/L. The refe rence range was not u sed to interpret this result as normal/abnor mal. # Monos (test code = 0.66 See_Comment [Autom ated message] 415) The system [employer] generated this result transmitted ref erence range: 0.00 - 1 .30 K/L. The refe rence range was not u sed to interpret this result as normal/abnor mal. # Eos (test code = 416) 0.01 See_Comment [Au tomated message] The system [employer] generated this result transmitted ref erence range: 0.00 - 0 .50 K/L. The refe rence range was not u sed to interpret this result as normal/abnor mal. # Baso (test code = 417) 0.04 See_Comment [A utomated message] The system [employer] generated this result transmitted ref erence range: 0.00 - 0 .20 K/L. The refe rence range was not u sed to interpret this result as normal/abnor mal. Immature 0.20 % 0.00-0.00 H Granulocytes-Relative (test code = 2801) Lab Interpretation (test Abnormal code = 38793-9) [facility] with platelet count + automated [id number] 10:42:10 Test Item Value Reference Range Interpretation Comments WBC (test code = 6690-2) 12.3 See_Comment H [A utomated message] The system [employer] generated this result transmitted ref erence range: 4.0 - 10 .0 K/L. The refe rence range was not u sed to interpret this result as normal/abnor mal. RBC (test code = 789-8) 4.45 See_Comment [Au tomated message] The system [employer] generated this result transmitted ref erence range: 4.00 - 5 .00 M/L. The refe rence range was not u sed to interpret this result as normal/abnor mal. Hemoglobin (test code = 13.4 See_Comment [Au tomated message] 718-7) The system [employer] generated this result transmitted ref erence range: 12.0 - 1 5.5 GM/DL. The refe rence range was not u sed to interpret this result as normal/abnor mal. Hematocrit (test code = 40.6 % 36.0-46.0 4544-3) MCV (test code = 787-2) 91 fL 82-99 MCH (test code = 785-6) 30.1 pg 27.0-33.0 MCHC (test code = 786-4) 33.0 See_Comment [A utomated message] The system [employer] generated this result transmitted ref erence range: 32.0 - 3 6.0 GM/DL. The refe rence range was not u sed to interpret this result as normal/abnor mal. RDW (test code = 788-0) 13.3 % 12.0-15.0 Platelets (test code = 334 See_Comment [Aut omated message] 777-3) The system [employer] generated this result transmitted ref erence range: 150 - 43 0 K/CU MM. The referen ce range was not u sed to interpret this result as normal/abnor mal. MPV (test code = 8.6 fL 6.0-11.5 71569-0) nRBC (test code = 413) 0 See_Comment [Aut omated message] The system [employer] generated this result transmitted ref erence range: [...] H [Aut omated message] 670) The system [employer] generated this result transmitted ref erence range: 1.80 - 8 .00 K/L. The refe rence range was not u sed to interpret this result as normal/abnor mal. # Lymphs (test code = 2.22 See_Comment [Auto mated message] 414) The system [employer] generated this result transmitted ref erence range: 1.48 - 4 .50 K/L. The refe rence range was not u sed to interpret this result as normal/abnor mal. # Monos (test code = 0.66 See_Comment [Autom ated message] 415) The system [employer] generated this result transmitted ref erence range: 0.00 - 1 .30 K/L. The refe rence range was not u sed to interpret this result as normal/abnor mal. # Eos (test code = 416) 0.01 See_Comment [Au tomated message] The system [employer] generated this result transmitted ref erence range: 0.00 - 0 .50 K/L. The refe rence range was not u sed to interpret this result as normal/abnor mal. # Baso (test code = 417) 0.04 See_Comment [A utomated message] The system [employer] generated this result transmitted ref erence range: 0.00 - 0 .20 K/L. The refe rence range was not u sed to interpret this result as normal/abnor mal. Immature 0.20 % 0.00-0.00 H Granulocytes-Relative (test code = 2801) Lab Interpretation (test Abnormal code = 02288-3) [facility] with platelet count + automated [id number] 10:42:10 Test Item Value Reference Range Interpretation Comments WBC (test code = 6690-2) 12.3 See_Comment H [A utomated message] The system [employer] generated this result transmitted ref erence range: 4.0 - 10 .0 K/L. The refe rence range was not u sed to interpret this result as normal/abnor mal. RBC (test code = 789-8) 4.45 See_Comment [Au tomated message] The system [employer] generated this result transmitted ref erence range: 4.00 - 5 .00 M/L. The refe rence range was not u sed to interpret this result as normal/abnor mal. Hemoglobin (test code = 13.4 See_Comment [Au tomated message] 718-7) The system [employer] generated this result transmitted ref erence range: 12.0 - 1 5.5 GM/DL. The refe rence range was not u sed to interpret this result as normal/abnor mal. Hematocrit (test code = 40.6 % 36.0-46.0 4544-3) MCV (test code = 787-2) 91 fL 82-99 MCH (test code = 785-6) 30.1 pg 27.0-33.0 MCHC (test code = 786-4) 33.0 See_Comment [A utomated message] The system [employer] generated this result transmitted ref erence range: 32.0 - 3 6.0 GM/DL. The refe rence range was not u sed to interpret this result as normal/abnor mal. RDW (test code = 788-0) 13.3 % 12.0-15.0 Platelets (test code = 334 See_Comment [Aut omated message] 777-3) The system [employer] generated this result transmitted ref erence range: 150 - 43 0 K/CU MM. The referen ce range was not u sed to interpret this result as normal/abnor mal. MPV (test code = 8.6 fL 6.0-11.5 96826-1) nRBC (test code = 413) 0 See_Comment [Aut omated message] The system [employer] generated this result transmitted ref erence range: [...] H [Aut omated message] 670) The system [employer] generated this result transmitted ref erence range: 1.80 - 8 .00 K/L. The refe rence range was not u sed to interpret this result as normal/abnor mal. # Lymphs (test code = 2.22 See_Comment [Auto mated message] 414) The system [employer] generated this result transmitted ref erence range: 1.48 - 4 .50 K/L. The refe rence range was not u sed to interpret this result as normal/abnor mal. # Monos (test code = 0.66 See_Comment [Autom ated message] 415) The system [employer] generated this result transmitted ref erence range: 0.00 - 1 .30 K/L. The refe rence range was not u sed to interpret this result as normal/abnor mal. # Eos (test code = 416) 0.01 See_Comment [Au tomated message] The system [employer] generated this result transmitted ref erence range: 0.00 - 0 .50 K/L. The refe rence range was not u sed to interpret this result as normal/abnor mal. # Baso (test code = 417) 0.04 See_Comment [A utomated message] The system [employer] generated this result transmitted ref erence range: 0.00 - 0 .20 K/L. The refe rence range was not u sed to interpret this result as normal/abnor mal. Immature 0.20 % 0.00-0.00 H Granulocytes-Relative (test code = 2801) Lab Interpretation (test Abnormal code = 57180-6) [facility] W/PLT COUNT & AUTO [id number] 10:42:10 Test Item Value Reference Range Interpretation [...] code = 2801) CT brain without IV [id number] 07:03:51EXAM: CT MAXILLOFACIAL WITHOUT IV CONTRAST, CT [...] No spinal canal stenosis or foraminal narrowing. [facility] [id number] 07:03:51EXAM: CT MAXILLOFACIAL WITHOUT IV CONTRAST, CT [...] Levels: No spinal canal stenosis or foraminal narrowing.[facility] [id number] 07:03:51EXAM: CT MAXILLOFACIAL WITHOUT IV CONTRAST, CT [...] No spinal canal stenosis or foraminal narrowing. [facility] [id number] 07:03:51EXAM: CT MAXILLOFACIAL WITHOUT IV CONTRAST, CT [...] Levels: No spinal canal stenosis or foraminal narrowing.[facility] IV [id number] 07:03:51EXAM: CT MAXILLOFACIAL WITHOUT IV CONTRAST, CT [...] No spinal canal stenosis or foraminal narrowing. [facility] IV [id number] 07:03:51EXAM: CT MAXILLOFACIAL WITHOUT IV CONTRAST, CT [...] Levels: No spinal canal stenosis or foraminal narrowing.[facility]ERVICAL [facility] IV [id number] 07:03:51 [facility] 1985 Sex: FEXAM: [...] Signed By: Jeanette Metz04/12/2023 07:05 CDTWorkstation Name: [id number] BRAIN WITHOUT IV [id number] 07:03:51 [facility] : 1985 Sex: FEXAM: [...] Signed By: Jeanette Metz04/12/2023 07:05 CDTWorkstation Name: [id number] MAXILLOFACIAL WITHOUT IV [id number] 07:03:51 [facility] : 1985 Sex: FEXAM: [...] Signed By: Jeanette Metz04/12/2023 07:05 CDTWorkstation Name: [id number] 2023-04-12 05:55:09 Test Item Value Reference Range Interpretation Comments ETHANOL (BEAKER) (test code = 400) 195 mg/dL <=10 H Shank Tapper ID - PURAhCG, serum, [id number] 05:48:18 Test Item Value Reference Range Interpretation Comments Preg Test, Serum (test code = Negative 2109-09) [facility], serum, [id number] 05:48:18 Test Item Value Reference Range Interpretation Comments Preg Test, Serum (test code = Negative 2109-09) [facility], serum, [id number] 05:48:18 Test Item Value Reference Range Interpretation Comments Preg Test, Serum (test code = Negative 2109-09) [facility], SERUM, [id number] 05:48:18 Test Item Value Reference Range Interpretation Comments TEST SERUM (BEAKER) (test Negative code = 584) TROP-I HIGH [id number] 07:26:00 Test Item Value Reference Range Interpretation Comments TROP-I HIGH SENSITIVITY 4 pg/mL 0-53 N CAUT ION: Units of the (test code = TROPIHS) curren t test methodology (pg /mL) differ from the prior test methodolog y (ng/mL) by a fa ctor of 1000. POSITIV E TROPONIN HS IS IDENTIFIED T HE FOLLOWING MALE > OR = 78 ng/mL FEMAL E > OR = 53 ng/mL AL L CRITICAL TROPI HS HAVE BEEN IDENTIFIED MALE OR F EMALE > OR = 120 ng/mL TROP-I HIGH [id number] 06:46:00 Test Item Value Reference Range Interpretation [...] > OR = 120 ng/mL TROP-I HIGH [id number] 03:43:00 Test Item Value Reference Range Interpretation [...] OR = 120 ng/mL Coronavirus 2019 nCoV [id number] 20:54:00 Test Item Value Reference Range Interpretation Comments Coronavirus 2019 Negative Negative Negative re sults should be nCoV Bedside treated as pres umptive and, (test code = ifinconsistent with clinical [id number]) signs and symp toms or necessaryfor pa [...] ID NOW COVID-19 assay performed on the Newselatrument i s a rapid molecular in vi [...] of 1987 (CLIA), DRUGS OF ABUSE SCREEN [id number] 19:37:00 Test Item Value Reference Range Interpretation [...] = NEGATIVE NEGATIVE PHENCU) - CT ANGIO [id number] 19:02:00 [facility] [place]PRESSName: GURMEETCONNIEA : 1985 Sex: F FAX: Cedric Morrissey Jr [phone] [place]: [address]: PRE Name: PAOLA LEVI FSED : 1985 Age/S: 37/F [address] Unit: [id number] Loc: [place] [address] Phys: Cedric Morrissey Jr, MD Acct: [id number] Dis Date: Status: PRE ER PHONE #: Exam Date: 02/18/2023 6436 FAX #: Reason: tere of aneursym EXAMS: CPT CODE: [id number] CT ANGIO CHEST 09192 EXAM: - CT ANGIO CHEST LOCATION: H65 [...] axillary lymphadenopathy. No enlarged mediastinal or hilar l ymph nodes. AIRWAYS: Unremarkable. LUNGS/PLEURA: Minimal bibasilar atelectasis. [...] Signed Report (CONTINUED) FAX: Cedric Morrissey Jr [phone] [place]: [facility] St: PRE Name: PAOLA LEVI FSED : 1985 Age/S: 37/F [address] Unit: [id number] Loc: [place] [address] Phys: Cedric Morrissey Jr, MD Acct: [id number] Dis Date: Status: PRE ER PHONE #: Exam Date: 02/18/2023 1810 FAX #: Reason: tere of aneursym EXAMS: CPT CODE: [id number] CT ANGIO CHEST 76305 (Continued) BONES: No acute osseous findings. IMPRESSION: Motion artifact limits evaluation of the thoracic aorta. Best estimate formeasurement of the mid descending portion is 4.3 cm in diameter. Otherwise unremarkable exam of the chest. at 190 Reported and signed by: Alon Flores MD CC: Cedric Morrissey Jr, MD Technologist: Suni Brown Trnscrd Dt/Tm: 02/18/2023 (1901) [email or web address] Electronic Signature Date/Time: 02/18/2023 (1901)Orig Print D/T: S: 02/18/2023 (1905 1926.41 PAGE 2 Signed Report- CT HEAD/BRAIN W/O [id number] 18:49:00 [facility] [place]Name: PAOLA LEVI : 1985 Sex: F FAX: Cedric Morrissey Jr [phone] [place]: [facility] St: PRE Name: PAOLA LEVI FSED : 1985 Age/S: 37/F [address] Unit: [id number] Loc: [place] [address] Phys: Cedric Morrissey Jr, MD Acct: [id number] Dis Date: Status: PRE ER PHONE #: Exam Date: 02/18/2023 5476 FAX #: Reason: headache EXAMS: CPT CODE: [id number] CT HEAD/BRAIN W/O CONT 92643 EXAM: - CT HEAD/BRAIN W/O CONT CLINICAL HISTORY:headache TECHNIQUE: Axial noncontrast CT images through the head were obtained. This examination wasperformed according to our departmental dose optimization program, which includes automated exposurecontrol, adjustment of the mA and/or kV according to patient size, and/or use of iterative reconstruc tion technique. COMPARISON: CT head 04/29/2014 LOCATION: H65 [...] Jamel Flores MD CC: Cedric Morrissey Jr, MDTechnologist: Suni Brown Trnscrd Dt/Tm: 02/18/2023 (1848) [email or web address] Electronic Signature Date/Time: 02/18/2023 (1848)Orig Print D/T: S: 02/18/2023 (6112 833.72 PAGE 1 Signed ReportTROPONIN I [id number] 17:59:00 Test Item Value Reference Range Interpretation Comments TROPONIN I RAPID (test code = < 0.05 ng/mL 0.00-0.05 N TROPIRAP) COMPREHENSIVE METABOLIC [id number] 17:51:00 Test Item Value Reference Range Interpretation [...] PHOSPHATASE (test code = ALKP) CBC W/AUTO [id number] 17:43:00 Test Item Value Reference Range Interpretation [...] = MX#) 0.5 0.1-0.6 N ECG 12 [id number] 21:23:00 Test Item Value Reference Range Interpretation Comments Ventricular rate (test 71 code = 253) Atrial rate (test code 71 = 255) WA interval (test code 142 = 266) QRSD [...] wave amplitude has increased in Lateral leads- [address]2023-05-02 21:23:00 Test Item Value Reference Range Interpretation Comments Ventricular rate (test 71 code = 253) Atrial rate (test code 71 = 255) WA interval (test code 142 = 266) QRSD [...] wave amplitude has increased in Lateral leads- [address]2023-05-02 21:23:00 Test Item Value Reference Range Interpretation Comments Ventricular rate (test 71 code = 253) Atrial rate (test code 71 = 255) WA interval (test code 142 = 266) QRSD [...] wave amplitude has increased in [facility]ateral leads- [facility] [id number] 21:23:00 Test Item Value Reference Range Interpretation Comments Ventricular rate (test 71 code = 253) Atrial rate (test code 71 = 255) WA interval (test code 142 = 266) QRSD [...] wave amplitude has increased in Lateral leads- [facility] Preliminary Interpretation - Not an [id number] 08:26:48 Test Item Value Reference Range Interpretation Comments ALEX (test code = ALEX) Jordan Bansal MD 09/19/2022 3:33 [facility] ED Preliminary Interpretation - Not an Order Performed by: Jordan Bansal MDAuthorized by: Jordan Bansal MD ECG reviewed by ED Physician in the absence of a bundle helper: yes Interpretation: Interpretation: abnormal Rate: ECG rate: 97 ECG rate assessment: normal Rhythm: Rhythm: sinus rhythm Ectopy: Ectopy: none QRS: QRS axis: Right QRS intervals: NormalConduction: Conduction: normal Comments: Likely limb lead reversal on EKG Lab Interpretation Abnormal (test code = 98539-9) [facility] ED Preliminary Interpretation - Not an [id number] 08:26:48 Test Item Value Reference Range Interpretation Comments ALEX (test code = ALEX) Jordan Bansal MD 09/19/2022 3:33 [facility] Preliminary Interpretation - Not an Order Performed by: Jordan Bansal MDAuthorized by: Jordan Bansal MD ECG reviewed by ED Physician in the absence of a bundle helper: yes Interpretation: Interpretation: abnormal Rate: ECG rate: 97 ECG rate assessment: normal Rhythm: Rhythm: sinus rhythm Ectopy: Ectopy: none QRS: QRS axis: Right QRS intervals: NormalConduction: Conduction: normal Comments: Likely limb lead reversal on EKG Lab Interpretation Abnormal (test code = 95447-8) [facility] ED Preliminary Interpretation - Not an [id number] 08:26:48 Test Item Value Reference Range Interpretation Comments AELX (test code = ALEX) Jordan Bansal MD 09/19/2022 3:33 [facility] Preliminary Interpretation - Not an Order Performed by: Jordan Bansal MDAuthorized by: Jordan Bansal MD ECG reviewed by ED Physician in the absence of a bundle helper: yes Interpretation: Interpretation: abnormal Rate: ECG rate: 97 ECG rate assessment: normal Rhythm: Rhythm: sinus rhythm Ectopy: Ectopy: none QRS: QRS axis: Right QRS intervals: NormalConduction: Conduction: normal Comments: Likely limb lead reversal on EKG Lab Interpretation Abnormal (test code = 35923-9) [facility] ED Preliminary Interpretation - Not an [id number] 08:26:48 Test Item Value Reference Range Interpretation Comments ALEX (test code = ALEX) Jordan Bansal MD 09/19/2022 3:33 [facility] Preliminary Interpretation - Not an Order Performed by: Jordan Bansal MDAuthorized by: Jordan Bansal MD ECG reviewed by ED Physician in the absence of a bundle helper: yes Interpretation: Interpretation: abnormal Rate: ECG rate: 97 ECG rate assessment: normal Rhythm: Rhythm: sinus rhythm Ectopy: Ectopy: none QRS: QRS axis: Right QRS intervals: NormalConduction: Conduction: normal Comments: Likely limb lead reversal on EKG Lab Interpretation Abnormal (test code = 32703-3) [facility] [id number] 04:46:48 Test Item Value Reference Range Interpretation Comments SARS-CoV-2 (COVID-19) RNA Not detected [Presence] in Respiratory specimen by OBED with probe detection (test code = 89592-0) Whether patient resides in a [facility] care setting (test code = 46774-5) Date and time of symptom onset Unknown (test code = 59720-0) Whether the patient was No hospitalized for condition of interest (test code = 18801-4) Whether the patient was admitted No to intensive care unit (ICU) for condition of interest (test code = 76712-2) Whether patient is employed in a No healthcare setting (test code = 74493-9) Whether the patient has symptoms No related to condition of interest (test code = 75990-7) status (test code = No 82361-0) [facility] [id number] 02:04:04SINGLE VIEW CHEST Clinical History: Chest pain.Technique: Portable AP chest.Comparison: 06/12/2021 Impression:1.Lungs are clear and symmetrically inflated.2.No pleural effusions or pneumothorax.3.Normalheart size. Loop recorder over the left thorax.4.Normal pulmonary vasculature.5.Intact skeleton.[facility] Chest 1 [id number] 02:04:04SINGLE VIEW CHEST Clinical History: Chest pain.Technique: Portable AP chest.Comparison: 06/12/2021 Impression:1.Lungs are clear and symmetrically inflated.2.No pleural effusions or pneumothorax.3.Normal heart size. Loop recorder over the left thorax.4.Normal pulmonary vasculature.5.Intact skeleton.[facility] W/REFLEX TO [id number] 09:00:00 Test Item Value Reference Range Interpretation Comments TSH W/REFLEX mIU/L ? TO FT4 (test ?Reference Rang e ? code = 3016-3) ?> or = 20 Years ?0.40-4.50 ? Range s ?First trimester ? ?0.26-2.66 ?Second trimest er ? 0.55-2.73 ?[address] ? ?0.43-2.91 REPORT COMMENT:FASTING :YE S RAC (test code Performing = RAC) Organization Information: ? ?Site ID: RGA ? ?Name: [id number] ? ?Address: [address] [place] [phone] ? ?Director: ALEC MURRAY MD [facility] CenterComprehensive metabolic fghhh9631-07-15 09:00:00 Test Item Value Reference Range Interpretation Comments GLUCOSE (test code 94 mg/dL 65-99 ? = 2345-7) Fasting referen ce interval UREA NITROGEN 13 mg/dL 7-25 (BUN) (test code = 3094-0) CREATININE (test 0.82 mg/dL 0.50-1.10 code = 2160-0) eGFR NON- See_Comment [Automated IRANIAN (test message] The code = 97664-9) system which generated this result transmitted reference range : > OR = 60 mL/min/1.73m2. The reference range was not used to interpr et this result as normal/abnormal . eGFR See_Comment [Automated IRANIAN (test message] The code = 14286-8) system which generated this result transmitted reference [...] CALCIUM (test code 9.7 mg/dL 8.6-10.2 = 49341-5) PROTEIN, TOTAL 7.7 g/dL 6.1-8.1 (test code = 2885-2) ALBUMIN (test code 4.7 g/dL 3.6-5.1 = 1751-7) GLOBULIN (test See_Comment [Automated code = 73425-0) message] The system which generated this result [...] Information: ? ?Site ID: RGA ? ?Name: [employer] ? ?Address: [address] [place] [address] ? ?Director: ALEC MURRAY MD [place] HealthAMYLASE AND SBMRZC7445-99-03 07:00:00 Test Item Value Reference Range Interpretation Comments AMYLASE (test code = 22 U/L 21-101 1798-8) LIPASE (test code = 11 U/L 7-60 3040-3) RAC (test code = Performing Organization RAC) Information: ? ?Site ID: RGA ? ?Name: [employer] ? ?Address: [address] [place] [id number] ? ?Director: ALEC MURRAY MD [facility] CenterXR Foot 3+ Vw Pysx0373-09-02 13:20:10EXAMINATION: XR FOOT 3 VW LEFT CLINICAL HISTORY: swelling pain COMPARISON: 12/01/2020 IMPRESSION: No acute fracture or dislocation. There is some soft tissue swelling present, slightly improved from prior study. [facility]-[id number] Interface, Radiology Results Incoming - 12/15/2020 8:23 AM CDT EXAMINATION: XR FOOT 3 VW LEFTCLINICAL HISTORY: swelling painCOMPARISON: 12/01/2020IMPRESSION:No acute fracture or dislocation. There is some soft tissueswelling present, slightly improved from prior study.[facility]-[id number] HospitalXR Chest 1 Vw Uftcyhqj3074-69-70 12:35:28 EXAMINATION: XR CHEST 1 VW PORTABLE CLINICAL HISTORY: SOB rule out Covid 19 COMPARISON: 02/21/2014 IMPRESSION: Heart and mediastinum and bony structures are appropriate for technique. No significant effusion. Lungs are clear. [facility] Interface, Radiology Results Incoming - 12/15/2020 7:38 AM CDTFo rmatting of this note might be different from the original.EXAMINATION: XR CHEST 1 VW PORTABLECLINICAL HISTORY: SOB rule out Covid 19COMPARISON: 02/21/2014IMPRESSION:Heart and mediastinum and bony structures are appropriate for technique. No significant effusion. Lungs are clear. [facility] Ankle 3+ Vw Gjxd3316-41-97 20:28:11EXAMINATION: XR ANKLE 3 VW LEFT CLINICAL HISTORY: Fracture ankle COMPARISON: None. IMPRESSION: No acute left ankle fracture. Ankle joint is congruent. No soft tissue abnormality. [facility] [id number] Interface, Radiology Results Incoming 12/01/2020 3:31 PM CDT EXAMINATION: XR ANKLE 3 VW LEFTCLINICAL HISTORY: Fracture ankleCOMPARISON: None.IMPRESSION: No acute left ankle fracture. Ankle joint is congruent. No soft tissue abnormality.[id number] Hospital. [facility] SKD9739-79-68 00:00:00 Test Item Value Reference Range Interpretation Comments PAP REPORT; Abnormal (test code = ABNORMAL A 04948-4) [facility]. [facility] HPV High Lyqb1997-75-32 00:00:00 Test Item Value Reference Range Interpretation Comments HPV High Risk REPORT (test code = Negative HPV High Risk REPORT) [facility] Notes Date/Time Note Provider Source 2023-02-28 [id number]:24:932642-7429 [facility] 14:24:00 [place] [id number] [facility] [address] PATIENT NAME: PAOLA LEVI ADMIT DATE: 02/19/23ACCOUNT NO: [id number] ROOM NO: NC.2109 AGE: 37 REPORT TYPE: 360 - QUERY RESPONSE DOCUMENT SEX: F ADMITTING PHYSICIAN:Desmond Griffin MD ATTENDING PHYSICIAN:Desmond Griffin MD Provider Query QUERY TEXT: Condition General 360MD Query related questions should be directed to: [facility] Coding Query Help-line Based on your medical [...] AM at 1424 PATIENT NAME: PAOLA LEVI noteNC.EEH94643820-9496ZIDcvrvatma for patient bvcbWPZLMLBXPNVXZR5946-98-55P62:25:48 2023-02-20 [id number]:31:00 [facility] 13:31:00 [facility] ([facility])Med Order Sheet REPORT #: [id number] REPORT STATUS: Signed DATE: 02/20/23 TIME: 1331 PATIENT: PAOLA LEVI UNIT #: [id number] #: [id number] ROOM #: NC.2109 BED: 1 : 83 AGE: 37 SEX: F ATTEND: Desmond Griffin MD ADM AUTHOR: Myesha Lui MD ATTENTION EDITS and/or ADDENDA must be made in Patient Keeper for this note. Edits and ammendments created in [employer] ([employer]) are not visible in Patient Keeper or [...] EACH DAY.; #30 - SIG Obtained From [facility] MEDICATIONSDc'd: Acetaminophen Tab (Tylenol Tab) 650MG PO Q6H PRN pain1-3/temp>100.5Dc'd: Enoxaparin 40mg/0.4mL Inj (Lovenox 40mg/0.4mL Inj) 40MGSUBQ DAILYDc'd: HYDROcodone/APAP 7.5/325 Tab ([place] 7.5/325 Tab) 1TAB PO Q4HPRN pain scale 4-6Dc'd: morphine Inj (morphine Inj) 2MG IV Q4H PRN pain(4-6)Dc'd: Ondansetron Inj (Zofran Inj) 4MG IV Q6H PRN nausea andvomitingDc'd: Patient's Own Medication (Patient's Own Medication) NURTEC(rimegepant) ODT 75 MG PO M17QClvmczicqxxkte Signed in PatientKeeper by Myesha Lui on 02/20/23 13:31 at 1331ATTENTIO NEDIT S and/or ADDENDA must be made in Patient Keeper for this note. Edits and ammendments created in [facility] are not visible in Patient Keeper or the legal medical record (HPF). [facility] #: [id number] OF REPORTCLClinical hwwr5024-28-60S10:31:00NC.PK-ZVKA0739760 3-0295AVAvailable for patient ooclLMYXXGKRXHOKTN6320-77-90J26:32:04 2023-02-20 [id number]:31:00 [facility] 13:31:00 [facility] ([facility])Hospitalist D/C Summary REPORT #: [id number] REPORT STATUS: Signed DATE: 02/20/23 TIME: 1331 PATIENT: PAOLA LEVI UNIT #: [id number] #: [id number] ROOM #: MI.2109 BED: 1 : 83 AGE: 37 SEX: F ATTEND: Desmond Griffin MD ADM AUTHOR: Myesha Lui MD ATTENTION EDITS and/or ADDENDA must be made in Patient Keeper for this note. Edits and ammendments created in [employer] ([employer]) are not visible in Patient Keeper or [...] time, will need tofollow up with her [employer], Dr. Joel outpatient. Medications reviewed. #Acute on chronic chest pain rule out ACSPatient endorses worsening midsternal chest pain prior to presentationS/p implanted loop recorder and August 2022Following bundle helper and branch store manager [facility] the [facility]Patient currently improved but persistsInitial serial troponin negative [...] MG PO BEDTIME (#30 - [facility]NURTEC 75 MG PO Q48HR for migraines (DISSOLVE [...] this note. Edits and ammendments created in [employer] ([employer]) are not visible in Patient Keeper or the legal medical record ([facility]). RPT #: [id number] OF REPORTDSDischarge kdqajbb8943-02-59B94:31:00NC.PK-XLQU4037 1003-0302AVAvailable for patient inrgZWZESXIBIWZTSQ6555-73-06V96:35:24 2023-02-20 [id number]:18:00 [facility] 11:18:00 [facility] ([facility])Cardiology Progress Notes REPORT #: [id number] REPORT STATUS: Signed DATE: 02/20/23 TIME: 1118 PATIENT: PAOLA LEVI UNIT #: [id number] #: [id number] ROOM #: NC.2109 BED: 1 : 83 AGE: 37 SEX: F ATTEND: Desmond Griffin MD ADM AUTHOR: Jeremy March MD ATTENTION EDITS and/or ADDENDA must be made in Patient Keeper for this note. Edits and ammendments created in [facility] are not visible in Patient Keeper or the legal medical record ([facility]). -- ASSESSMENT AND PLAN -- PROBLEMS: 1: Chest painA/P: chest pain is not cardiacCTA shows 4.3cm desc TAA (pt reports last measured 1-2 years ago at 3.9cm)ekg shows NSR no ischemiaTrop neg x3echo - no acute path 2: Brugada syndromeA/P: cont metopmgmt per primary cards/EP 3: Thoracic aortic aneurysmA/P: desc TAA 4.3cm CTA 02/10has f/u w/ primary cards Dr. Jose Joel ([facility]) -- SUBJECTIVE -- PATIENT NARRATIVE:events/vitals/labs/test/pt reviewed. no [...] MEDICATION NURTEC (rimegepant) ODT 75 MG PO S90FMTSPMKSRXBPU CALCIUM 80 MG PO BEDTIMEENOXAPARIN SODIUM 40 MG SUBQ DAILYHYDROcodone BITARTRATE/APAP 1 TAB PO Q4H PRNmorphine SULFATE 2 MG IV Q4H PRNMETOPROLOL SUCCINATE 25 MG PO BEDTIMEACETAMINOPHEN 650 MG PO Q6H PRN Signed in PatientKeeper by Jeremy March MD on 02/20/23 at 13:40 at 1340ATTENTIO NEDIT S and/or ADDENDA must be made in Patient Keeper for this note. Edits and ammendments created in [employer]) are not visible in Patient Keeper or the legal medical record ([facility]). [facility] #: [id number] OF REPORTPRProgress sfdt4008-52-64A76:18:00NC.-[id number] 2AVAvailable for patient axwoGZLZBMNZBWAJRL7067-66-47M62:41:15 2023-02-19 [id number]:43:673497-1952 [facility] 15:43:00 [facility] [id number] [place] [address] PATIENT NAME: PAOLA LEVI ADMIT DATE: 02/19/23ACCOUNT NO: [id number] ROOM NO: [place] [address] AGE: 37 REPORT TYPE: eECHOCARDIOGRAM REPORT SEX: F ADMITTING PHYSICIAN:Desmond Griffin MD ATTENDING PHYSICIAN:Desmond Griffin MD [id number] OIIX6CCFD ECHO 2D COMPLETE W/CF DOP [facility] [address] [place] [address] Report of EchocardiogramName: PAOLA LEVI Study Date: 02/19/2023 03:43 PMMRN: [id number] Patient Location: [place] [address] 1Account Number: [id number]: 1985 Gender: FemaleAge: 37 yrs Left Ventricle: [...] Measurements CalculationsIVSd: 1.4 cm LVIDd: 3.8 cm [place] [address] PATIENT NAME: PAOLA LEVI LVIDs: 2.9 cm [...] pericardial effusion.Estimated RAP by IVC is 5mmHg ectronically read by:Jeremy March MD 02/20/2023 12:27 PMOrdering Physician: Catarino Griffin Physician: Referred, SelfPerformed By: Carmelita Arguelles at [address] [address] PATIENT NAME: PAOLA LEVI 3T12:27:00NC.[id number] for patient dkbmPNCVVNFBVBHWSY4543-19-54G07:27:59 2023-02-19 [id number]:15:00 [facility] 15:15:00 [facility] ([facility])Cardiology Consultation REPORT #: [id number] REPORT STATUS: Signed DATE: 02/19/23 TIME: 1515 PATIENT: PAOLA LEVI UNIT #: [id number] #: [id number] ROOM #: NC.2109 BED: 1 : 83 AGE: 37 SEX: F ATTEND: Desmond Griffin MD ADM AUTHOR: Jeremy March MD ATTENTION EDITS and/or ADDENDA must be made in Patient Keeper for this note. Edits and ammendments created in [employer] ([employer] are not visible in Patient Keeper or the legal medical record (HPF). -- ASSESSMENT AND PLAN -- GENERAL ASSESSMENT:do not suspect chest pain is cardiovascular in naturef/u w/ primary bundle helper Dr. Tristan Joel for routine mgmt PROBLEMS: 1: Chest painA/P: chest pain is not cardiacCTA shows 4.3cm desc TAA (pt reports last measured 1-2 years ago at 3.9cm)ekg shows NSR no ischemiaTrop neg x3 2: Brugada syndromeA/P: cont metopmgmt per primary cards/EP 3: Thoracic aortic aneurysmA/P: desc TAA 4.3cm CTA s f/u w/ primary cards Dr. Jose Joel ([facility]) -- HISTORY -- REASON FOR CONSULT:chest pain CHIEF COMPLAINT:chest pain HPI:Tristan Joel MD is the bundle helper [facility] Shane ETIENNE is EPHere w/ sharp chest [...] BIDMed Rec Order Def 75 MG PO E10KBPtumppuaiw Succinate XL Tab (Toprol XL Tab) 25 [...] MEDICATION NURTEC (rimegepant) ODT 75 MG PO V49OPJKUVEDIVGDN CALCIUM 80 MG PO BEDTIMEENOXAPARIN SODIUM 40 [...] this note. Edits and ammendments created in [employer] are not visible in Patient Keeper or the legal medical record (HPF). RPT #: [id number] OF REPORTYVYruldhjpiitx1866-68-46A51:15: 00MI.MX-CVSF21303265-9920TNTxgyinkxl for patient eobsMRVDTTMGFZLJIP8010-66-64F42:35:17 2023-02-19 [id number]:08:00 [facility] 14:08:00 [facility] ([facility])Hospitalist Progress Note REPORT #: [id number] REPORT STATUS: Signed DATE: 02/19/23 TIME: 1407 PATIENT: PAOLA LEVI UNIT #: [id number] #: [id number] ROOM #: NC.2109 BED: 1 : 83 AGE: 37 SEX: F ATTEND: Desmond Griffin MD ADM AUTHOR: Myesha Lui MD ATTENTION EDITS and/or ADDENDA must be made in Patient Keeper for this note. Edits and ammendments created in [employer] ([employer] are not visible in Patient Keeper or the legal medical record (HPF). -- ASSESSMENT AND PLAN -- GENERAL ASSESSMENT: #Acute on chronic chest pain rule out ACSPatient endorses worsening midsternal chest pain prior to presentationS/p implanted loop recorder and August 2022Following bundle helper and branch store manager at the [facility]Patient currently improved but persistsInitial serial troponin negative [...] discharged when clinically stable and cleared by heritage consultant.Encourage ambulation -- SUBJECTIVE -- PATIENT NARRATIVE:Patient [...] this note. Edits and ammendments created in [employer] ([employer] are not visible in Patient Keeper or the legal medical record (HPF). RPT #: [id number] OF REPORTPRProgress uckw3733-96-58M30:08:00NC.PK-LZOG5184008 2-0370AVAvailable for patient ehetCXUCZGWKQNVUOK0906-83-31B28:14:38 2023-02-19 [id number]:11:00 [facility] 03:11:00 [facility] ([facility])Med Order Sheet REPORT #: [id number] REPORT STATUS: Signed DATE: 02/19/23 TIME: 031 PATIENT: GURMEET,PAOLA UNIT #: [id number] #: [id number] ROOM #: NC.2109 BED: 1 : 83 AGE: 37 SEX: F ATTEND: Desmond Griffin MD ADM AUTHOR: Terri Mcmahon APRNNP ATTENTION EDITS and/or ADDENDA must be made in Patient Keeper for this note. Edits and ammendments created in [facility] are not visible in Patient Keeper [...] MG PO BEDTIME (#30 -SIG Obtained From [facility])Hosp: Metoprolol Succinate XL Tab (Toprol XL Tab) 25 MG PO BEDTIME - #30 - SIG Obtained From [facility]: NURTEC 75 MG PO Q48HR for [...] this note. Edits and ammendments created in [facility] are not visible in Patient Keeper or the legal medical record (HPF). RPT #: [id number] OF REPORTCLClinical xczr0366-07-29M00:11:00MI.PK-FBKR9587641 2-0004AVAvailable for patient mmtrOOAPNITWATHSUN2700-68-74Q93:12:24 2023-02-18 [id number]:20:00 [facility] 23:20:00 [facility] ([facility])Hospitalist Julian Weiner REPORT #: [id number] REPORT STATUS: Signed DATE: 02/18/23 TIME: 2319 PATIENT: PAOLA LEVI UNIT #: [id number] #: [id number] ROOM #: NC.2109 BED: 1 : 83 AGE: 37 SEX: F ATTEND: Desmond Griffin MD ADM AUTHOR: Terri Mcmahon ATTENTION EDITS and/or ADDENDA must be made in Patient Keeper for this note. Edits and ammendments created in [employer] are not visible in Patient Keeper or the legal medical record (HPF). -- CO-SIGNATURE -- COMMENTS:Agree with the findings and plan as documented by Terri Mcmahon NP. Pt seenand examined. Moderate complexity. Signed in PatientKeeper by DESMOND GRIFFIN MD on 02/19/23 at 11:52 -- HISTORY -- ADMISSION DATE:2023-02-18 PRIMARY CARE PROVIDER:Urban Jewell MD CHIEF COMPLAINT:Patient Presented with persistent chest pain, headache, and blurry vision. HPI:Patient is a 37 years old female with past medical history significant forBrugada syndrome, long QT syndrome, bicuspid aortic valve, aortic aneurysm andfollowing bundle helper by the name Dr. Joel and branch store manager at [facility], reported chronic midsternal chest pain andcurrently has implanted electronic cardiac loop recorder ongoing since , chronic migraine headache being managed with Nurtec, hypertension,hyperlipidemia, anxiety, polydrug abuse, reported history of stroke with noresidual deficits and following neurologist brought here by EMS due to therewas no bed at the hospital [facility]. Patientpresented due to increasingly worsening midsternal chest [...] 25 MG PO BEDTIMENURTEC 75 MG PO G07YFJizdjhjgcmit Tab (Crestor Tab ) 40 MG PO [...] presentationS/p implanted loop recorder and August 2022Following bundle helper and branch store manager at the [facility]Patient currently improved but persistsInitial serial troponin negative [...] discharged when clinically stable and cleared by heritage consultant -- ATTESTATION -- TIME SPENT ON [...] on 02/19/23 at 03:44 Cosigned by DESMOND GRIFFIN MD on 02/19/23 at 11:52 at 1152 at 1152ATTENTIO NEDIT S and/or ADDENDA must be made in Patient Keeper for this note. Edits and ammendments created in [employer] are not visible in Patient Keeper or the legal medical record (HPF). RPT #: [id number] OF REPORTHPHistory and physical pogvhiaidpp5196-40-99I77:20:00NC.PK-NOTE [id number] for patient msulHJVJLHKLPAFDFG5010-32-42K87:53:31 2023-02-18 [id number]:28:00 [facility] 17:28:00 [facility] ([facility])EMERGENCY PROVIDER REPORTREPORT#:[id number] REPORT STATUS: SignedDATE:02/18/23 TIME: 1727 PATIENT: PAOLA LEVI UNIT #: [id number]#: [id number] ROOM: [place] [address]BED: 1AGE: 37 SEX: F PCP PHYS: Urban [...] some and she needs to see an match maker to get a current eye exam. In addition to having a headache,she has had some increased blurry vision. It seems to be a little different than her baseline, but cannot really put her finger on how. She has a implantedloop recorder, but has never had an AICD placed. She is followed by an branch store manager, Dr. Ramos. She has mild hypertension and [...] Tests 02/18/231734:[Embedded Image Not Available]Laboratory Tests: 02/18 1758 1910 Chemistry Sodium (128 - 145 [...] discussed Paola's presentation and results with the bundle helper from Dr. Joel's group who is on-call. [...] in agreement with possible observation admission at [facility]. [facility] thetransfer [facility] and follow-up. [facility] did not have capacity so they declined the transfer. Admit to [facility]. Patient Discharge Departure Vital Signs/ConditionCondition Stable, Improved Clinical ImpressionClinical ImpressionPrimary Impression: Chest painSecondary Impressions: Headache, Polysubstance abuse, Tachycardia-bradycardiaTime of Impression 2003 Disposition DecisionHospitalize Hosp Physician Name Desmond Griffin MD Hosp Physician Hospitalist Request Time 2217 Request Date 02/18/23 )( Accepts Hospitalization Yes )( Reason for HospitalizationSee diagnosis )( Accepted Time 2244 )( Accepted Date 02/18/23 Call Information will see patient, agrees with eval, agrees with plan, iMobile with Terri Coronado )( Request Time 2004 )( Request Date 02/18/23 Receiving Hospital [facility] Transfer Accepted No space available Discharge/Care PlanCounseled [...] this patient's care. at 0040 at 1619RPT #:[id number] OF REPORTBaptist Health Medical Center jjzpkb6451-43-39O11:28:00NC.RHGB63803422 -0104AVAvailable for patient rovuZLDLTMJXGYCORM7280-99-95T44:41:23 2023-02-18 [id number]:09:507045-3594 [facility] 17:09:00 [place] [address] [facility] [address] PATIENT NAME: PAOLA LEVI ADMIT DATE: 02/19/23ACCOUNT NO: [id number] [facility] AGE: 37 REPORT TYPE: eELECTROCARDIOGRAM SEX: F ADMITTING PHYSICIAN:Desmond Griffin MD ATTENDING PHYSICIAN:Desmond Griffin MD Order:[id number] Reason : Test Date/Time Stamp:[place] Feb 18 2023 17:09:11Blood Pressure : / mmHGVent. Rate : 100 BPM Atrial Rate : 100 BPM P-R Int : 144 ms QRS Dur : 088 ms QT Int : 362 ms P-R-T Axes : 041 038 047 degrees QTc Int : 466 ms Normal sinus rhythmNormal ECG Confirmed by ERROL FABIAN MD ([id number]) on 02/19/2023 7:38:16 PM Referred By: Self Referred Confirmed by:ERROL FABIAN MD at [address] [address] PATIENT NAME: PAOLA LEVI .TZK342 [id number] for patient mhnyYHMYOPHGRNNMBY4923-44-59R96:38:35 2022-11-20 6815-75-42G66:00:00 Addended by: Electrophysiolo [facility] 09:00:00 ANGELICA GOMES on: 12/18/2022 02:52 PM of [place] Modules accepted: Orders Electronically Health Science signed by Angelica Gomes MA at [place] at 12/18/2022 2:52 PM AFY49341-9Ehgljjae [place] QmyinsdvVJ4368-20-33I71:52:24Addendum DocumentTXT1.2.840.898232.1.13.589.2.7.2 .719012|[id number] for patient hici10185-5CfvwHXEieujhuutgrpoojsrGjqcfw ophysiologySt. Louis Behavioral [facility] Institute at Atdekfm6[address] #[id number] CGUKDYOYRER6652-21-95E79:52:241.2.840.11 4350.1.72.3.15|1.2.840.096545.1.13.589.2 .7.2.727879_[id number]
[2023-04-16] MEDS ORDERED: HYDROCODONE/APAP 5/325 MG TAB ONE (08:21)
[2023-04-16] MEDS ORDERED: DIAZEPAM 5 MG TABLET ONE (08:21)
[2023-04-16] MEDS ORDERED: LORazepam 2 MG/ML VIAL ONE (08:28)
--- NOTE | 2023-04-16 09:15 | RAD REPORT ---
EXAM DESCRIPTION: MRI - C Spine Wo Cont- 04/16/2023 8:50 am CLINICAL HISTORY: C5-C6 widening, neck pain COMPARISON: No comparisons FINDINGS: Cervical vertebral bodies are normal in height and alignment. No suspicious marrow edema or marrow replacing process. No fracture or traumatic subluxation. The craniocervical junction is normal. C2-3 level: No significant findings. C3-4 level: No significant findings. C4-5 level: There is a minimal posterior disc bulge C5-6 level: Moderate posterior osteophyte/ disc complex is present, greater for the left paracentral/ foraminal location. This results in mild attenuation anterior subarachnoid space and significant left -sided exit foraminal narrowing. C6-7 level: Small endplate osteophyte is present with moderate predominately central disc extrusion. This attenuates the anterior subarachnoid space an results in mild bilateral foraminal narrowing. C7-T1 level: No significant findings. Cervical cord is normal in size and signal. IMPRESSION: No trauma related abnormality is seen. Moderate degenerative change with disc disease as detailed at C5-6 and C6-7. There is significant lef t-sided exit foraminal stenosis at C5-6.
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
[2023-04-16 11:20] VITALS: BP 106/73; TEMP 97.6; O2SAT 100
== END 2023-04-16 10:55 | disposition home or self-care (01) ==
LOC: ER 06:32
DX: M54.2 Cervicalgia (principal); M48.02 Spinal stenosis, cervical region
CPT/HCPCS: 72141; 96374; 99284